=== PATIENT | female | born 1970 | race Caucasian/White ===

== ENCOUNTER 2020-07-25 11:22 | Outpatient (REF) | payer MEDICAID, SELFPAY ==
[2020-07-25 12:07] LABS: MANUAL DIFF FLAG NO
[2020-07-25 12:10] LABS: Basophils Percent Auto 0.3 % (0-2); Eosinophils Absolute Auto 0.1 X10*3/uL (0.0-0.4); Eosinophils Percent Auto 1.4 % (0-4); Hematocrit 32.6 % (37-47); Hemoglobin 10.9 g/dl (12.0-16.0); Imm Gran Abs Auto 0.03 X10*3/uL (0.00-0.03); Imm Gran Pct Auto 0.5 % (0.0-0.4); Lymphocytes Absolute Auto 1.4 X10*3/uL (1.2-4.9); Lymphocytes Percent Auto 23.8 % (20-40); Mean Corpuscular HGB Conc 33.4 g/dl (31.0-35.0); Mean Corpuscular Hemoglobin 26.5 pg (27.0-33.0); Mean Corpuscular Volume 79.3 fL (80-98); Mean Platelet Volume 9.9 fL (9.4-12.3); Monocytes Absolute Auto 0.3 X10*3/uL (0.1-1.2); Monocytes Percent Auto 5.1 % (2-11); Neutrophils Percent Auto 68.9 % (45-73); Platelet Count 203 X10*3/uL (160-400); Red Blood Count 4.11 X10*6/uL (4.20-5.50); Red Cell Distribution Width 14.1 % (11.0-16.0); White Blood Count 5.8 X10*3/uL (4.8-10.8)
[2020-07-25 12:19] LABS: Glucose Urine UA NEG (NEG); Leukocyte Esterase Urine NEG (NEG); Nitrite Urine NEG (NEG); Specific Gravity - Urine 1.025 (1.005-1.025); Urine Blood 1+ (NEG); Urine Ketones NEG (NEG); Urine Protein 2+ MG/DL (NEG-TRACE)
[2020-07-25 12:24] LABS: Renal w Reflex-LAB USE ONLY Order Verified
[2020-07-25 12:27] LABS: Appearance Urine CLEAR; Color Urine YELLOW
[2020-07-25 12:31] LABS: Bacteria Urine 1+ /LPF; Mucus Urine 1+ /LPF; Squamous Epithelial Cell Urine 2+ /LPF; WBC Urine 0 /HPF (0-4)
[2020-07-25 12:36] LABS: Albumin Level 4.4 g/dL (3.5-5.0); Anion Gap 11 (12-20); Blood Urea Nitrogen 12 mg/dL (9-16); Calcium 9.2 mg/dL (8.4-10.2); Carbon Dioxide 27 mmol/L (22-29); Chloride 108 mmol/L (96-108); Estimated Glomerular Filt Rate > 60; Iron 44 mcg/dL (30-160); Magnesium 1.8 mg/dL (1.6-2.6); Percent Iron Saturation 14 % (15-50); Phosphorus 4.2 mg/dL (2.7-4.5); Potassium 4.2 mmol/l (3.3-5.1); Sodium 142 mmol/L (135-145); Total Iron Binding Capacity 323 mcg/dL (228-428); Unsaturated Iron Binding 279 ug/dL
[2020-07-25 13:03] LABS: Ferritin 13 ng/mL (10-250); Vitamin D 25-OH Total 82.3 ng/mL (>30)
[2020-07-25 13:26] LABS: Creatinine Urine 107.27 mg/dL; Protein/Creatinine Ratio, Ur 1.38 (<0.2); Total Protein Urine Random 148 mg/dL (<12)
[2020-07-25 13:31] LABS: Renal w Reflex Lab Use Only Order verified
[2020-07-25 13:35] LABS: Creatinine Urine 108.92 mg/dL; Total Protein Urine Random 151 mg/dL (<12)
[2020-07-25 13:52] LABS: Microalbum/Creatinine Ratio Ur 947.4 ug/mg cr
[2020-07-26 18:25] LABS: IgA 183 mg/dL (47-310); IgG 1029 mg/dL (600-1640); IgM 74 mg/dL (50-300)
== END 2020-07-25 11:23 | disposition home or self-care (01) ==
LOC: HO.LAB 11:22
PROVIDERS: PCP Pediatrics; Visit Provider Internal Medicine Nephrology
DX: D64.9 Anemia, unspecified (principal); R31.29 Other microscopic hematuria
CPT/HCPCS: 36415; 80051; 81001; 82040; 82043; 82306; 82310; 82565; 82728; 82784; 83540; 83735; 84100; 84156; 84520; 85025; 86334

== ENCOUNTER 2020-08-02 12:29 | Day surgery (SDC) | payer MEDICAID, SELFPAY ==
[2020-07-27 14:03] VITALS: BMI 35.1
--- NOTE | 2020-07-31 09:01 | HO.ANESPROP2 ---
Documented by User: Tiffanie Hwang 07/31/20 09:04 HPI - Anesthesia Eval Consult details Narrative: 49yo F with ALONZO, dysphagia, altered bowel habits for EGD and Colonoscopy PMFSH Past Medical History Medical History Anxiety Arthritis Asthma Depression Dysphagia Fibromyalgia GERD (gastroesophageal reflux disease) History of palpitations Hx of bronchitis Iron deficiency anemia Surgical History Surgical History History of carpal tunnel surgery of right wrist History of laryngoscopy Hx of colonoscopy Hx of esophagogastroduodenoscopy Hx of hysterectomy Social History Social History Smoking Status: Never smoker Second Hand Smoke Exposure: No Use of substances other than those prescribed or required for medical reasons: No Advance Directives: No Advance Directives Information Provided: No Recently lost weight without trying: No Meds Allergies Allergy/AdvReac Type Severity Reaction Status Date / Time Oyster Shell Allergy Unknown Unknown Uncoded 07/27/20 13:51 Home Medications Medication Instructions Recorded Confirmed Type albuterol sulfate 0.63 mg INHALATION Q4-6H PRN 07/27/20 07/27/20 History allopurinol 300 mg PO DAILY 07/27/20 07/27/20 History cholecalciferol (vitamin D3) 125 mcg PO DAILY 07/27/20 07/27/20 History [Vitamin D3] cyanocobalamin (vitamin B-12) 1,000 mcg PO DAILY 07/27/20 07/27/20 History [Vitamin B-12] duloxetine [Cymbalta] 20 mg PO BID 07/27/20 07/27/20 History fluticasone propion-salmeterol 1 inh INHALATION BID 07/27/20 07/27/20 History [Advair Diskus] fluticasone propionate [Flonase] 1 spray INTRANASAL DAILY 07/27/20 07/27/20 History guaifenesin [Mucinex] 1,200 mg PO BID 07/27/20 07/27/20 History ibuprofen 800 mg PO Q6H PRN 07/27/20 07/27/20 History loratadine 10 mg PO DAILY 07/27/20 07/27/20 History melatonin 10 mg PO BEDTIME PRN 07/27/20 07/27/20 History montelukast [Singulair] 10 mg PO DAILY 07/27/20 07/27/20 History omeprazole 20 mg PO BID 07/27/20 07/27/20 History pantoprazole 40 mg PO DAILY 07/27/20 07/27/20 History Exam Exam Date and Time: July 31, 2020900 Height,Weight and Vital Signs: Height 5 ft 2 in Weight 87.09 kg Pertinent Lab Results Pertinent Lab Results: Laboratory Tests 07/25/20 07/25/20 11:50 11:50 WBC 5.8 Hgb 10.9 L Hct 32.6 L Plt Count 203 Sodium 142 Potassium 4.2 Chloride 108 BUN 12 Creatinine 0.81 Narrative Narrative: Echo 11/2019: nml study Assessment and Plan Assessment Anesthesia Assessment: Chart Reviewed Documented by User: Nirmal Orozco 08/02/20 12:53 PMFSH Past Medical History Medical History Anxiety Arthritis Asthma Depression Dysphagia Fibromyalgia GERD (gastroesophageal reflux disease) History of palpitations Hx of bronchitis Iron deficiency anemia Surgical History Surgical History History of carpal tunnel surgery of right wrist History of laryngoscopy Hx of colonoscopy Hx of esophagogastroduodenoscopy Hx of hysterectomy Social History Social History Smoking Status: Never smoker Second Hand Smoke Exposure: No Use of substances other than those prescribed or required for medical reasons: No Advance Directives: No Advance Directives Information Provided: No Recently lost weight without trying: No Meds Allergies Allergy/AdvReac Type Severity Reaction Status Date / Time Oyster Shell Allergy Unknown Unknown Uncoded 07/27/20 13:51 Home Medications Medication Instructions Recorded Confirmed Type albuterol sulfate 0.63 mg INHALATION Q4-6H PRN 07/27/20 07/27/20 History allopurinol 300 mg PO DAILY 07/27/20 07/27/20 History cholecalciferol (vitamin D3) 125 mcg PO DAILY 07/27/20 07/27/20 History [Vitamin D3] cyanocobalamin (vitamin B-12) 1,000 mcg PO DAILY 07/27/20 07/27/20 History [Vitamin B-12] duloxetine [Cymbalta] 20 mg PO BID 07/27/20 07/27/20 History fluticasone propion-salmeterol 1 inh INHALATION BID 07/27/20 07/27/20 History [Advair Diskus] fluticasone propionate [Flonase] 1 spray INTRANASAL DAILY 07/27/20 07/27/20 History guaifenesin [Mucinex] 1,200 mg PO BID 07/27/20 07/27/20 History ibuprofen 800 mg PO Q6H PRN 07/27/20 07/27/20 History loratadine 10 mg PO DAILY 07/27/20 07/27/20 History melatonin 10 mg PO BEDTIME PRN 07/27/20 07/27/20 History montelukast [Singulair] 10 mg PO DAILY 07/27/20 07/27/20 History omeprazole 20 mg PO BID 07/27/20 07/27/20 History pantoprazole 40 mg PO DAILY 07/27/20 07/27/20 History Exam Airway Mallampati Class: II TM Dist: >3cm Neck ROM: Full Heart: RRR Assessment and Plan Assessment Anesthesia Assessment: Anesthesia Plan Discussed Final Anesthetic Review NPO: Yes ASA Class: II Final Preanesthetic Review: Consent Obtained/Reviewed Anesthetic Plan Anesthetic Plan: MAC:
[2020-08-02 12:49] VITALS: BP 141/67; PULSE 80; RESP 16; TEMP 36.1; O2SAT 99
[2020-08-02] MEDS: Lactated Ringers 1,000 ML 100 ML IVCONT (13:01)
--- NOTE | 2020-08-02 13:02 | MHC.SHP ---
Pre-Procedural Eval Section B Chief Complaint: Dysphagia, Altered Bowel Habits Relevant Family History (Specify if Yes): No Relevant Social History: None Present Medications: see Short Stay Collaborative assessment Medical History: Significant History (depression, gerd, bronchitis) History of Previous Operations: Relevant previous surgery/procedure and date(s) (, appendectomy,) Allergies: Allergies Allergy/AdvReac Type Severity Reaction Status Date / Time Oyster Shell Allergy Unknown Unknown Uncoded 07/27/20 13:51 Review of Systems Sugical H&P ROS: Negative: Constitution, Cardiovascular, Respiratory, Neurological, Psychiatric, Hem-Onc, Allergic/Immunologic, Gastrointestinal, Genitourinary, Musculoskeletal, Integumentary, Endocrine and Eyes/Ears/Nose/Throat Exam Surgical H&P Exam: Normal: HEENT, Normal: Heart, Normal: Lungs, Normal: Extremities, Normal: Abdomen, Normal: Skin and Normal: Neurological Plan Diagnosis/Plan: Unchanged Patient has been examined and remains a candidate for the planned procedure
--- NOTE | 2020-08-02 13:07 | PM.OP ---
Brief Operative Note Date of procedure: 08/02/20 Pre-op diagnosis: dysphagisa, iron def anemia Post-op diagnosis: same Procedure: Operative Information Procedure Description: EGD, Colonoscopy FLEXIBLE TRANSORAL UPPER GASTROINTESTINAL ENDOSCOPY AND COLONOSCOPY PROCEDURE NOTE UPPER ENDOSCOPY Consent: Indications for the procedure and potential complications of bleeding, perforation, reaction to medications and missed diagnosis were discussed with the patient and informed consent was obtained. Instrument: Olympus GIF H 190 J mid size upper endoscope Monitoring: Vital signs and clinical assessment, continuous EKG monitoring, Pulse oximetry, Carbon Dioxide monitoring and blood pressure monitoring were done throughout the procedure. Procedure: The patient was placed in the left lateral decubitis position and pre-procedure medications were administered and a bite block was placed. The endoscope was inserted into the mouth and advanced under direct vision to the third part of duodenum. A careful inspection was made as the upper endoscope was withdrawn including a retroflexed examination of the proximal stomach; Findings and interventions are described below. Findings: Larynx:normal Esophagus: GE junction at 40 cm, diaphragm hiatus at 40 cm, single tongue of salmon pink tissue possible barretts, bx taken, Savary wire placed and dilation with 18 mm bougie done, no tear seen Stomach: Normal mucosa. . Grade 2 flap valve on retroflexed examination of the cardia. Duodenum: Normal bulb and descending duodenum, bx taken Intervention: Biopsies as noted above COLONOSCOPY Instrument: Olympus variable stiffness adult scope 190L Colonoscopy Monitoring: Vital signs and clinical assessment, continuous EKG monitoring, Pulse oximetry, Carbon Dioxide monitoring and blood pressure monitoring were done throughout the procedure. Colon withdrawal time was 8 minutes. Procedure: The patient was placed in the left lateral decubitis position and pre-procedure medications were administered. After a digital rectal examination of the ano-rectum, the video colonoscope was inserted into the rectum and advanced through the colon to the cecum/TI. The colonoscope was slowly withdrawn in a retrograde panoramic fashion and the colon mucosa was carefully examined including a retroflexed view of the rectum. Findings and interventions are described below. Procedure Difficulty: Findings: TI bx taken as well as random colon bx Terminal Ileum-normal Cecum:normal Ascending Colon: normal Transverse Colon -normal Descending Colon:normal Sigmoid Colon: normal Rectum: Retroflexion with small internal hemorrhoids, grade I Anorectum - normal Colon preparation: [place] Bowel Preparation Scale Right colon; 3 Transverse colon: 3 Left colon; 3 (0 = Unprepared colon segment with mucosa not seen due to solid stool that cannot be cleared. 1 = Portion of mucosa of the colon segment seen, but other areas of the colon segment not well seen due to staining, residual stool and/or opaque liquid. 2 = Minor amount of residual staining, small fragments of stool and/or opaque liquid, but mucosa of colon segment seen well. 3 = Entire mucosa of colon segment seen well with no residual staining, small fragments of stool or opaque liquid) Impression and Post Procedure Diagnosis: Endoscopy Findings: possible barretts esophageal dilation Colonoscopy Findings: internal hemorrhoids Plan: Await Pathology results Repeat Colonoscopy in 10 years or earlier if clinically indicated High fiber diet leaflet avoid straining at stool, epsom salts and sitz bath prn, anusol supps or cream prn may need rept EGD if barretts confirmed in 1-3 yrs Above findings were reviewed with the patient and relevant handouts were provided if indicated. Surgeon: Eda Bahena MD Anesthesia: MAC Condition: stable Disposition: PACU
[2020-08-02 14:04] VITALS: BP 111/63; PULSE 65; RESP 12; TEMP 37.1; O2SAT 99
[2020-08-02 14:21] VITALS: BP 127/66; PULSE 58; RESP 14; O2SAT 98
[2020-08-02 14:34] VITALS: BP 130/83; PULSE 64; RESP 13; TEMP 37.1; O2SAT 100
--- NOTE | 2020-08-02 15:16 | HO.POSTANES ---
Post Anesthesia Evaluation Post Anesthesia Evaluation Vital Signs: Vital Signs Temp Pulse Resp BP Pulse Ox 08/02/20 14:34 98.7 F 64 13 130/83 100 08/02/20 14:21 58 14 127/66 98 08/02/20 14:04 98.7 F 65 12 111/63 99 08/02/20 12:49 97 F 80 16 141/67 H 99 Anesthesia: Monitored Mental Status: Awake Pain Control: Satisfactory Nausea/Vomiting: None Hydration: Adequate Anesthesia-Related Issues: No Anes. Related Issues
== END 2020-08-02 15:30 | disposition home or self-care (01) ==
PROVIDERS: PCP Pediatrics; Visit Provider Internal Medicine Gastroenterology
PROC: (CPT 45380; principal; 2020-08-02 13:40)
DX: D50.9 Iron deficiency anemia, unspecified (principal); R19.4 Change in bowel habit; K64.0 First degree hemorrhoids; R13.10 Dysphagia, unspecified; K20.90 Esophagitis, unspecified without bleeding; K21.9 Gastro-esophageal reflux disease without esophagitis; K44.9 Diaphragmatic hernia without obstruction or gangrene; J45.909 Unspecified asthma, uncomplicated; Z79.51 Long term (current) use of inhaled steroids
CPT/HCPCS: 45380; 43248; 43239; 88305; C1769; J3010

== ENCOUNTER 2020-08-08 10:08 | Outpatient (REF) | payer MEDICAID, SELFPAY ==
--- NOTE | 2020-08-08 | US_ITS ---
EXAMINATION: US RETROPERITONEAL LIMITED (RENAL ONLY) CLINICAL INFORMATION: Microscopic hematuria. COMPARISON: CT abdomen and pelvis 05/05/2017. TECHNIQUE: Real-time imaging of the kidneys. FINDINGS: RIGHT KIDNEY: 11.3 x 4.0 x 5.5 cm (SAG x AP x TRV). The kidney is normal in size, contour, and echogenicity. Renal cortical thickness is normal. No calculi or focal parenchymal lesions. No hydronephrosis. LEFT KIDNEY: 12.1 x 5.3 x 4.8 cm (SAG x AP x TRV). The kidney is normal in size, contour, and echogenicity. Renal cortical thickness is normal. No calculi or focal parenchymal lesions. No hydronephrosis. IMPRESSION: Unremarkable renal ultrasound.
== END 2020-08-08 10:09 | disposition home or self-care (01) ==
LOC: HO.US 10:08
PROVIDERS: PCP Pediatrics; Visit Provider Internal Medicine Nephrology
DX: R31.29 Other microscopic hematuria (principal); D64.9 Anemia, unspecified
CPT/HCPCS: 76775

== ENCOUNTER 2020-08-09 13:55 | Outpatient (REF) | payer MEDICAID, SELFPAY ==
--- NOTE | 2020-08-09 14:25 | XR_ITS ---
EXAMINATION: XR FOOT, LEFT CLINICAL INFORMATION: Pain left foot. COMPARISON: None TECHNIQUE: AP, lateral, and oblique views of the left foot. FINDINGS: The bones and soft tissues are normal. No fracture. Alignment is anatomic. Joint spaces are maintained. XR/XR foot LT min 3V IMPRESSION: Unremarkable left foot exam.
== END 2020-08-09 13:56 | disposition home or self-care (01) ==
LOC: HO.XRAY 13:55
PROVIDERS: PCP Pediatrics; Referring Provider Pediatrics; Visit Provider Physician Assistant
DX: S92.302D Fracture of unspecified metatarsal bone(s), left foot, subsequent encounter for fracture with routine healing (principal)
CPT/HCPCS: 73630; 99212

== ENCOUNTER 2020-09-05 13:50 | Outpatient (REF) | payer MEDICAID, SELFPAY ==
--- NOTE | 2020-09-05 14:00 | XR_ITS ---
EXAMINATION: XR PELVIS CLINICAL INFORMATION: Pelvic and right hip pain. COMPARISON: None TECHNIQUE: AP view of the pelvis. FINDINGS: The bones and soft tissues are normal. No fracture. Mild right hip degenerative joint changes are seen. The sacroiliac joints are unremarkable. Pubic symphysis is normal. No abnormal soft tissue calcifications. XR/XR pelvis 1-2V IMPRESSION: Mild right hip osteoarthritis. No significant pelvic or left hip abnormality.
--- NOTE | 2020-09-05 14:00 | XR_ITS ---
EXAMINATION: XR HIP, RIGHT CLINICAL INFORMATION: Right hip pain. COMPARISON: None TECHNIQUE: Two views of the right hip. FINDINGS: Mild right hip degenerative joint changes are seen with mild periarticular sclerosis most pronounced in the superior aspect of the joint space. The right hip and hemipelvis are intact. The soft tissues are unremarkable. XR/XR hip RT min 2V IMPRESSION: Mild right hip osteoarthritis.
== END 2020-09-05 13:51 | disposition home or self-care (01) ==
LOC: HO.HOSX 13:50
PROVIDERS: PCP Pediatrics; Referring Provider Pediatrics; Visit Provider Physician Assistant
DX: M25.551 Pain in right hip (principal); M70.61 Trochanteric bursitis, right hip
CPT/HCPCS: 72170; 73502; 99212

== ENCOUNTER 2020-09-10 17:52 | Outpatient (REF) | payer MEDICAID, SELFPAY | END 2020-09-10 17:53 | disposition home or self-care (01) | LOC: HO.LAB 17:52 | PROVIDERS: PCP Pediatrics; Visit Provider Internal Medicine | DX: Z20.828 Contact with and (suspected) exposure to other viral communicable diseases (principal) | CPT/HCPCS: C9803; U0003 ==

== ENCOUNTER → 2020-09-25 08:50 | Outpatient (BNVA) | payer MEDICAID, SELFPAY | PROVIDERS: PCP Pediatrics; Referring Provider Pediatrics; Visit Provider Internal Medicine Gastroenterology | DX: Z76.89 Persons encountering health services in other specified circumstances (principal) ==

== ENCOUNTER 2020-09-26 11:54 | Outpatient (REF) | payer MEDICAID, SELFPAY ==
[2020-09-26 12:55] LABS: MANUAL DIFF FLAG NO
[2020-09-26 13:03] LABS: Basophils Percent Auto 0.4 % (0-2); Eosinophils Absolute Auto 0.1 X10*3/uL (0.0-0.4); Eosinophils Percent Auto 1.3 % (0-4); Hematocrit 31.5 % (37-47); Imm Gran Abs Auto 0.04 X10*3/uL (0.00-0.03); Imm Gran Pct Auto 0.7 % (0.0-0.4); Lymphocytes Absolute Auto 1.3 X10*3/uL (1.2-4.9); Mean Corpuscular HGB Conc 34.9 g/dl (31.0-35.0); Mean Corpuscular Hemoglobin 28.6 pg (27.0-33.0); Mean Corpuscular Volume 81.8 fL (80-98); Mean Platelet Volume 10.1 fL (9.4-12.3); Monocytes Absolute Auto 0.3 X10*3/uL (0.1-1.2); Monocytes Percent Auto 5.8 % (2-11); Neutrophils Absolute Auto 3.6 X10*3/uL (2.0-8.3); Neutrophils Percent Auto 67.8 % (45-73); Platelet Count 190 X10*3/uL (160-400); Red Blood Count 3.85 X10*6/uL (4.20-5.50); Red Cell Distribution Width 14.7 % (11.0-16.0); White Blood Count 5.3 X10*3/uL (4.8-10.8)
[2020-09-26 13:54] LABS: Alanine Aminotransferase 22 U/L (0-31); Alkaline Phosphatase 72 U/L (39-117); Anion Gap 14 (12-20); Aspartate Amino Transferase 18 U/L (5-31); Bilirubin Total 0.5 mg/dL (0.0-1.0); Blood Urea Nitrogen 12 mg/dL (9-16); C Reactive Protein 0.93 mg/dL (< or = 0.50); Calcium 8.6 mg/dL (8.4-10.2); Carbon Dioxide 24 mmol/L (22-29); Chloride 106 mmol/L (96-108); Cholesterol 213 mg/dL; Estimated Glomerular Filt Rate > 60; Glucose Random 98 mg/dL (60-115); HDL Cholesterol 48 mg/dL; Iron 56 mcg/dL (30-160); LDL Cholesterol Calculated 135 mg/dl; Percent Iron Saturation 20 % (15-50); Potassium 3.9 mmol/l (3.3-5.1); Sodium 140 mmol/L (135-145); Total Iron Binding Capacity 281 mcg/dL (228-428); Total Protein 6.6 g/dL (6.5-8.0); Triglycerides 154 mg/dL; Unsaturated Iron Binding 225 ug/dL
[2020-09-26 14:14] LABS: Ferritin 26 ng/mL (10-250)
[2020-09-26 14:17] LABS: Erythrocyte Sedimentation Rate 13 MM/HR (0-20)
[2020-10-01 13:07] LABS: Vitamin B1 10 nmol/L (8-30); Vitamin B6 4.6 ng/mL (2.1-21.7)
[2020-10-01 17:08] LABS: Vitamin B5 (Pantothenic Acid) <40 ng/mL (<275)
[2020-10-02 10:33] LABS: Vitamin A 41 mcg/dL (38-98)
[2020-10-03 09:58] LABS: Nicotinamide <20 ng/mL; Vit B3 - Nicotinic Acid <20 ng/mL
== END 2020-09-26 11:55 | disposition home or self-care (01) ==
LOC: HO.LAB 11:54
PROVIDERS: PCP Pediatrics; Visit Provider Internal Medicine Gastroenterology
DX: D50.9 Iron deficiency anemia, unspecified (principal); R13.10 Dysphagia, unspecified
CPT/HCPCS: 36415; 80053; 80061; 82728; 83540; 84207; 84425; 84590; 84591; 85025; 85652; 86140

== ENCOUNTER 2020-10-01 13:51 | Outpatient (REF) | payer MEDICAID, SELFPAY | END 2020-10-01 13:52 | disposition home or self-care (01) | LOC: HO.MDS 13:51 | PROVIDERS: PCP Pediatrics; Visit Provider Internal Medicine Gastroenterology | DX: D50.9 Iron deficiency anemia, unspecified (principal) | CPT/HCPCS: 96365; J2916 ==

== ENCOUNTER 2020-10-04 09:22 | Outpatient (REF) | payer MEDICAID, SELFPAY ==
--- NOTE | 2020-10-04 09:30 | EMG_ITS ---
Left median and ulnar motor and sensory studies were performed. Left radial sensory study was performed and paraspinal muscles were tested. IMPRESSION: 1. [id number] left median neuropathy across carpal tunnel. 2. Mild left ulnar neuropathy across cubital tunnel. MD OSMIN Rodriguez/MARK ANTHONY / [id number]
== END 2020-10-04 09:23 | disposition home or self-care (01) ==
LOC: HO.NEURO 09:22
PROVIDERS: PCP Pediatrics; Visit Provider Pediatrics
DX: G56.03 Carpal tunnel syndrome, bilateral upper limbs (principal)
CPT/HCPCS: 95886; 95909

== ENCOUNTER 2020-10-09 09:56 | Outpatient (REF) | payer MEDICAID, SELFPAY | END 2020-10-09 09:57 | disposition home or self-care (01) | LOC: HO.MDS 09:56 | PROVIDERS: PCP Pediatrics; Visit Provider Internal Medicine Gastroenterology | DX: D50.9 Iron deficiency anemia, unspecified (principal) | CPT/HCPCS: 96365; J2916 ==

== ENCOUNTER → 2020-10-15 08:14 | Outpatient (BNVA) | payer MEDICAID, SELFPAY | PROVIDERS: PCP Pediatrics; Visit Provider Internal Medicine Gastroenterology | DX: R13.10 Dysphagia, unspecified (principal); K21.9 Gastro-esophageal reflux disease without esophagitis | CPT/HCPCS: 91110 ==

== ENCOUNTER 2020-10-22 10:34 | Emergency (ER) | payer MEDICAID, SELFPAY ==
[2020-10-22 10:47] VITALS: BP 121/67; PULSE 74; RESP 18; TEMP 36.4; O2SAT 98; BMI 33.8
--- NOTE | 2020-10-22 10:48 | XR_ITS ---
EXAMINATION: LUMBAR SPINE. AP PELVIS AND RIGHT HIP. CLINICAL INFORMATION: Low back pain. COMPARISON: None TECHNIQUE: 3 views lumbar spine. AP pelvis and right hip 2 views. FINDINGS: LUMBAR SPINE: There is normal lumbar lordosis. The vertebral heights and alignment is normal. There is loss of L5-S1 disc height with ventral spondylosis. No visible acute fracture, dislocation or lytic process seen. The SI joints are symmetrical. The prevertebral and paravertebral soft tissues are normal. PELVIS AND RIGHT HIP: There is normal symmetry of bilateral hip joints and SI joints. No visible acute fracture, dislocation or subluxation seen. No lytic or sclerotic process seen. No bony erosive changes or loose body seen along the right hip. The soft tissues are normal. XR/XR hip RT w PEL1V IMPRESSION: Degenerative disc changes L5-S1 disc level with mild posterior spondylosis. No visible acute fracture, dislocation or subluxation seen. Unremarkable AP pelvis and right hip exam.
--- NOTE | 2020-10-22 10:48 | XR_ITS ---
EXAMINATION: LUMBAR SPINE. AP PELVIS AND RIGHT HIP. CLINICAL INFORMATION: Low back pain. COMPARISON: None TECHNIQUE: 3 views lumbar spine. AP pelvis and right hip 2 views. FINDINGS: LUMBAR SPINE: There is normal lumbar lordosis. The vertebral heights and alignment is normal. There is loss of L5-S1 disc height with ventral spondylosis. No visible acute fracture, dislocation or lytic process seen. The SI joints are symmetrical. The prevertebral and paravertebral soft tissues are normal. PELVIS AND RIGHT HIP: There is normal symmetry of bilateral hip joints and SI joints. No visible acute fracture, dislocation or subluxation seen. No lytic or sclerotic process seen. No bony erosive changes or loose body seen along the right hip. The soft tissues are normal. XR/XR lumbar spine 2-3V IMPRESSION: Degenerative disc changes L5-S1 disc level with mild posterior spondylosis. No visible acute fracture, dislocation or subluxation seen. Unremarkable AP pelvis and right hip exam.
--- NOTE | 2020-10-22 10:50 | ED_ITS ---
HPI - Back Pain/Injury General Chief Complaint: Back Pain/Injury Stated Complaint: leg pain Time Seen by Provider: 10/22/20 10:45 Source: patient Mode of arrival: EMS Limitations: no limitations History of Present Illness HPI Narrative: This is a 50 years old the female presented to the emergency department a week complaining of lower back pain and right hip pain. Patient has history of fibromyalgia, right trochanteric bursitis. She states that the pain is been ongoing, now is worse than the she has difficulty ambulating. There is no trauma no fever. Denies any numbness in the lower extremity any urine incontinence MD elicited complaint: back pain Pertinent past history: prior back pain Onset (ago): week(s) (1) Timing: constant Severity: moderate Similar Symptoms Previously: Yes Quality: burning and dull Location: lumbar spine Exacerbating factors: walking Relieving factors: none Treatments prior to arrival: other (She was given Ketoralac IM by EMS) Related Data Home Medications Medication Instructions Recorded Confirmed albuterol sulfate 0.63 mg INHALATION Q4-6H PRN 07/27/20 07/27/20 allopurinol 300 mg PO DAILY 07/27/20 07/27/20 cholecalciferol (vitamin D3) 125 mcg PO DAILY 07/27/20 07/27/20 [Vitamin D3] cyanocobalamin (vitamin B-12) 1,000 mcg PO DAILY 07/27/20 07/27/20 [Vitamin B-12] duloxetine [Cymbalta] 20 mg PO BID 07/27/20 07/27/20 fluticasone propion-salmeterol 1 inh INHALATION BID 07/27/20 07/27/20 [Advair Diskus] fluticasone propionate [Flonase] 1 spray INTRANASAL DAILY 07/27/20 07/27/20 guaifenesin [Mucinex] 1,200 mg PO BID 07/27/20 07/27/20 ibuprofen 800 mg PO Q6H PRN 07/27/20 07/27/20 loratadine 10 mg PO DAILY 07/27/20 07/27/20 melatonin 10 mg PO BEDTIME PRN 07/27/20 07/27/20 montelukast [Singulair] 10 mg PO DAILY 07/27/20 07/27/20 Previous Rx's Medication Instructions Recorded naproxen 500 mg tablet 500 mg PO BID 30 Days #60 tab 09/05/20 famotidine 40 mg tablet 40 mg PO BEDTIME #30 tab 09/25/20 pantoprazole 40 mg tablet,delayed 40 mg PO BID #60 tab 09/25/20 release bisacodyl 5 mg tablet,delayed 10 mg PO ONCE 1 Days #2 tab 09/26/20 release polyethylene glycol 3350 17 238 g PO ONCE 1 Days #238 g 09/26/20 gram/dose oral powder Allergies Allergy/AdvReac Type Severity Reaction Status Date / Time Oyster Shell Allergy Unknown Unknown Uncoded 07/27/20 13:51 Review of Systems Review of Systems: Yes all other systems are reviewed and are negative Cardiovascular: Cardiovascular: Reports no additional cardiovascular complaints Respiratory: Respiratory: Reports no additional respiratory complaints Gastrointestinal: Gastrointestinal: Denies abdominal pain Musculoskeletal: Musculoskeletal: Denies numbness and Denies tingling Neurologic: Denies Abnormal speech present, Denies numbness, Denies Sensory deficit (Neuro), Denies tingling and Denies paresthesias Psychiatric: Psychiatric: Reports no additional psychiatric complaints PMFSH Past Medical History Medical History Anxiety Arthritis Asthma Depression Dysphagia Fibromyalgia GERD (gastroesophageal reflux disease) History of palpitations Hx of bronchitis Iron deficiency anemia Surgical History History of carpal tunnel surgery of right wrist History of laryngoscopy Hx of colonoscopy Hx of esophagogastroduodenoscopy Hx of hysterectomy Family History Family History Father Hx of type 1 diabetes mellitus Mother Hx of osteosarcoma Social History Social History Alcohol intake: never Smoking Status: Never smoker Second Hand Smoke Exposure: No Advance Directives: No Advance Directives Information Provided: No 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 Physical Exam Vital Signs: Vital Signs: Last Vital Signs Temp 97.5 F 10/22/20 10:47 Pulse 58 10/22/20 13:18 Resp 17 10/22/20 13:18 BP 123/65 10/22/20 13:18 Pulse Ox 97 10/22/20 13:18 Body Mass Index 33.8 Const: Other: Patient is in no distress but a bit anxious HENMT: Head: Yes normal to inspection Ears: hearing grossly normal bilaterally General nose exam: Normal external nose present Face and sinus: Yes normal facial exam Neck: Neck: Yes normal visual inspection, Yes full ROM and Yes no lymphadenopathy Chest: Chest palpation & inspection: normal inspection of the chest Resp: Effort & Inspection: normal respiratory effort Cardio: Rate: regular rate GI: Inspection: Yes normal to inspection Palpation (GI): Soft to palpation, nontender, no guarding and not rigid Back/Spine/Pelvis: Other: There is tenderness in the lower spine Skin: General skin exam: no rashes or lesions noted Neuro: Other: She is awake alert oriented x3 cranial nerve 2-12 intact the there is no motor deficit no sensory deficit Speech: No Abnormal speech present Sensory Exam: No Sensory deficit (Neuro) Extrem: Other: she has tenderness in the right hip, Course Reevaluation(s) Reevaluation #1: Patient was reexamined she is ambulating well without assistance labs and normal, sed rate is normal most likely she has a sciatic will discharge home on prednisone give a few oxycodone and [facility] Time: 13:55 MDM - Back Pain/Injury Lab Data Attestation: I reviewed the patient's lab results. Result diagrams: 10/22/20 10:59 10/22/20 10:58 Labs: Lab Results 10/22/20 10/22/20 10/22/20 Range/Units 10:58 10:59 10:59 WBC 5.6 (4.8-10.8) X10*3/uL RBC 4.25 (4.20-5.50) X10*6/uL Hgb 12.3 (12.0-16.0) g/dl Hct 35.6 L (37-47) % MCV 83.8 (80-98) fL MCH 28.9 (27.0-33.0) pg MCHC 34.6 (31.0-35.0) g/dl RDW 14.0 (11.0-16.0) % Plt Count 183 (160-400) X10*3/uL MPV 9.9 (9.4-12.3) fL Immature Gran % (Auto) 0.5 H (0.0-0.4) % Neut % (Auto) 71.0 (45-73) % Lymph % (Auto) 20.7 (20-40) % Desha % (Auto) 6.0 (2-11) % Eos % (Auto) 1.4 (0-4) % Baso % (Auto) 0.4 (0-2) % Lymph # (Auto) 1.2 (1.2-4.9) X10*3/uL Desha # (Auto) 0.3 (0.1-1.2) X10*3/uL Eos # (Auto) 0.1 (0.0-0.4) X10*3/uL Baso # (Auto) 0.0 (0.0-0.2) X10*3/uL Abs Immat Gran (auto) 0.03 (0.00-0.03) X10*3/uL Absolute Neuts (auto) 4.0 (2.0-8.3) X10*3/uL Absolute Nucleated RBC 0.000 (0.0-0.012) X10*3/uL Nucleated RBC % (auto) 0.0 (0.0-0.2) /100WBC ESR 13 (0-20) MM/HR Sodium 140 (135-145) mmol/L Potassium 4.2 (3.3-5.1) mmol/l Chloride 105 (96-108) mmol/L Carbon Dioxide 28 (22-29) mmol/L Anion Gap 11 L (12-20) BUN 10 (9-16) mg/dL Creatinine 0.70 (0.5-1.4) mg/dL Estim Creat Clear Calc 94.4 Estimated GFR > 60 Random Glucose 142 H D (60-115) mg/dL Calcium 8.7 (8.4-10.2) mg/dL Total Bilirubin 0.5 (0.0-1.0) mg/dL AST 17 (5-31) U/L ALT 21 (0-31) U/L Alkaline Phosphatase 83 (39-117) U/L Total Protein 6.7 (6.5-8.0) g/dL Albumin 4.2 (3.5-5.0) g/dL Imaging Data lumbar spine and rt hip: Radiologist's impression: no acute disease Discharge Plan Discharge Prescriptions: No Action albuterol sulfate 0.63 mg/3 mL Solution For Nebulization 0.63 mg INHALATION Q4-6H PRN (Reason: Wheezing) RF: 0 cyanocobalamin (vitamin B-12) [Vitamin B-12] 1,000 mcg Tablet 1,000 mcg PO DAILY RF: 0 montelukast [Singulair] 10 mg Tablet 10 mg PO DAILY RF: 0 allopurinol 300 mg Tablet 300 mg PO DAILY RF: 0 loratadine 10 mg Tablet 10 mg PO DAILY RF: 0 cholecalciferol (vitamin D3) [Vitamin D3] 125 mcg (5,000 unit) Tablet 125 mcg PO DAILY RF: 0 melatonin 10 mg Tablet 10 mg PO BEDTIME PRN (Reason: Sleep) RF: 0 guaifenesin [Mucinex] 600 mg Tablet Extended Release 12hr 1,200 mg PO BID RF: 0 fluticasone propion-salmeterol [Advair Diskus] 250-50 mcg/dose Blister With Device 1 inh INHALATION BID RF: 0 ibuprofen 800 mg Tablet 800 mg PO Q6H PRN (Reason: Pain) RF: 0 fluticasone propionate [Flonase] 50 mcg/actuation Johnston,Suspension 1 spray INTRANASAL DAILY RF: 0 duloxetine [Cymbalta] 20 mg Capsule,Delayed Release(Dr/Ec) 20 mg PO BID RF: 0 naproxen 500 mg tablet 500 mg PO BID 30 Days Qty: 60 RF: 0 polyethylene glycol 3350 [Miralax] 17 gram/dose powder 238 g PO ONCE 1 Days Qty: 238 RF: 0 bisacodyl [Dulcolax (bisacodyl)] 5 mg tablet,delayed release (DR/EC) 10 mg PO ONCE 1 Days Qty: 2 RF: 0 pantoprazole 40 mg tablet,delayed release (DR/EC) 40 mg PO BID Qty: 60 RF: 0 famotidine 40 mg tablet 40 mg PO BEDTIME Qty: 30 RF: 3
[2020-10-22] MEDS: diazePAM 5 MG TABLET PO (11:02)
[2020-10-22] MEDS: ondansetron HCL 4 MG/2 ML VIAL IVPUSH (11:03)
[2020-10-22] MEDS: Morphine Sulfate 4 MG/ML CARTRIDGE IVPUSH (11:05)
[2020-10-22 11:06] LABS: MANUAL DIFF FLAG NO
[2020-10-22 11:08] LABS: Basophils Percent Auto 0.4 % (0-2); Eosinophils Absolute Auto 0.1 X10*3/uL (0.0-0.4); Eosinophils Percent Auto 1.4 % (0-4); Hematocrit 35.6 % (37-47); Hemoglobin 12.3 g/dl (12.0-16.0); Imm Gran Abs Auto 0.03 X10*3/uL (0.00-0.03); Imm Gran Pct Auto 0.5 % (0.0-0.4); Lymphocytes Absolute Auto 1.2 X10*3/uL (1.2-4.9); Lymphocytes Percent Auto 20.7 % (20-40); Mean Corpuscular HGB Conc 34.6 g/dl (31.0-35.0); Mean Corpuscular Hemoglobin 28.9 pg (27.0-33.0); Mean Corpuscular Volume 83.8 fL (80-98); Mean Platelet Volume 9.9 fL (9.4-12.3); Monocytes Absolute Auto 0.3 X10*3/uL (0.1-1.2); Platelet Count 183 X10*3/uL (160-400); Red Blood Count 4.25 X10*6/uL (4.20-5.50); White Blood Count 5.6 X10*3/uL (4.8-10.8)
[2020-10-22 11:29] VITALS: BP 129/68; PULSE 62; RESP 18; O2SAT 97
[2020-10-22 11:30] LABS: Alanine Aminotransferase 21 U/L (0-31); Albumin Level 4.2 g/dL (3.5-5.0); Alkaline Phosphatase 83 U/L (39-117); Anion Gap 11 (12-20); Aspartate Amino Transferase 17 U/L (5-31); Bilirubin Total 0.5 mg/dL (0.0-1.0); Blood Urea Nitrogen 10 mg/dL (9-16); Calcium 8.7 mg/dL (8.4-10.2); Carbon Dioxide 28 mmol/L (22-29); Chloride 105 mmol/L (96-108); Creatinine Clr Calc Pharmacy 94.4; Estimated Glomerular Filt Rate > 60; Glucose Random 142 mg/dL (60-115); Potassium 4.2 mmol/l (3.3-5.1); Sodium 140 mmol/L (135-145); Total Protein 6.7 g/dL (6.5-8.0)
[2020-10-22 11:54] LABS: Erythrocyte Sedimentation Rate 13 MM/HR (0-20)
[2020-10-22] MEDS: HYDROmorphone HCl 0.5 MG/0.5 ML SYRINGE IVPUSH (12:58)
[2020-10-22] MEDS: predniSONE 20 MG TABLET 60 MG PO (12:59)
[2020-10-22 13:18] VITALS: BP 123/65; PULSE 58; RESP 17; O2SAT 97
--- NOTE | 2020-10-22 13:41 | PC.NURSE ---
PT AMBULATED BACK TO STRETCHER SLOWLY MOVING ALL EXTREMITIES, WITHOUT ANY DIFFICULTY.
== END 2020-10-22 14:30 | disposition home or self-care (01) ==
PROVIDERS: Emergency Provider Emergency Medicine; PCP Pediatrics
DX: M54.41 Lumbago with sciatica, right side (principal)
CPT/HCPCS: 36415; 72100; 73502; 80053; 85025; 85652; 96374; 96375; 99283; 99284; J1170; J2270; J2405

== ENCOUNTER → 2020-10-29 13:40 | Outpatient (BNVA) | payer MEDICAID, SELFPAY | PROVIDERS: Visit Provider Physician Assistant | DX: M70.61 Trochanteric bursitis, right hip (principal) | CPT/HCPCS: 20610; 99212; J1040 ==

== ENCOUNTER → 2020-11-01 13:51 | Outpatient (BNVA) | payer MEDICAID, SELFPAY | PROVIDERS: Visit Provider Orthopaedic Surgery | DX: G56.02 Carpal tunnel syndrome, left upper limb (principal); G56.22 Lesion of ulnar nerve, left upper limb; M65.312 Trigger thumb, left thumb | CPT/HCPCS: 99202 ==

== ENCOUNTER → 2020-11-02 09:49 | Outpatient (BNVA) | payer MEDICAID, SELFPAY | PROVIDERS: PCP Pediatrics; Visit Provider Nurse Practitioner Family | DX: M54.16 Radiculopathy, lumbar region (principal); M53.3 Sacrococcygeal disorders, not elsewhere classified; M51.36 Other intervertebral disc degeneration, lumbar region | CPT/HCPCS: 99202 ==

== ENCOUNTER 2020-11-07 07:55 | Outpatient (REF) | payer MEDICAID, SELFPAY ==
--- NOTE | 2020-11-07 07:57 | MR_ITS ---
EXAMINATION: MR LUMBAR SPINE WITHOUT CONTRAST CLINICAL INFORMATION: Other intervertebral disc degeneration, lumbar region. The patient states severe pain, numbness and weakness of the right leg. COMPARISON: Plain films of the lumbar spine 10/22/2020. TECHNIQUE: MRI of the lumbar spine was obtained using routine sequences without contrast. FINDINGS: VERTEBRAL BODIES AND PARASPINAL STRUCTURES: There is a mild retrolisthesis of L5 on S1. There is narrowing of intervertebral disc height with loss of signal from the disc at this level. There are mild degenerative endplate contour changes at L5-S1 with relatively fatty signal toward the right. Intervertebral disc heights are maintained at other levels. The vertebral bodies have normal height and contour and no acute fractures are demonstrated. Overall, marrow signal is homogenous. There is a retroaortic left renal vein. The visualized pelvic structures are unremarkable. CONUS MEDULLARIS AND CAUDA EQUINA: Normal, terminating at the level of L1. The lower thoracic spinal cord appears normal. The filum terminale appears normal. There appears to be some clumping with thickening of the cauda equina nerve roots within the thecal sac on the left at L5-S1. SPINAL LEVELS: T12-L1: The facet joints appear normal bilaterally. Disc contour is normal. There is no central stenosis or foraminal narrowing. T12-L1: The facet joints appear normal bilaterally. Disc contour is normal. There is no central stenosis or foraminal narrowing. L1-L2: There is mild bilateral facet arthropathy. Posterior disc contour is normal. There is no central stenosis or foraminal narrowing. L2-L3: There is mild to moderate facet arthropathy bilaterally with ligamenta flava hypertrophy and facet joint effusions. Disc contour is normal. There is no central stenosis or foraminal narrowing. L3-L4: There is mild to moderate bilateral facet arthropathy with ligamenta flava hypertrophy and facet joint effusions. Disc contour is normal. There is no central stenosis or foraminal narrowing. L4-L5: There is mild to moderate bilateral facet arthropathy with ligamenta flava hypertrophy. Disc contour is normal. There is no central stenosis or foraminal narrowing. L5-S1: There is moderate bilateral facet arthropathy with ligamenta flava hypertrophy and facet joint effusions. There is a central and right-sided disc protrusion extending into the inferior right neural foramen with milder changes on the left. There may be impingement on the exiting L5 nerve roots inferiorly. There is no central stenosis. MR/MR lumbar spine wo con IMPRESSION: 1. At L5-S1 there is facet arthropathy and there is a posterior disc protrusion extending into the bilateral neural foramina; there appears to be impingement on the exiting right L5 nerve root. There is no central stenosis. There appears to be some thickening or clumping of the cauda equina nerve roots in the thecal sac on the left at this level. This is nonspecific, but sequelae of arachnoiditis or a nerve root sheath tumor cannot be excluded. Recommend follow-up MRI scan of the lumbar spine with contrast. 2. Milder spondylitic and facet arthropathic changes are demonstrated at other levels as described above.
== END 2020-11-07 07:56 | disposition home or self-care (01) ==
LOC: HO.MRI 07:55
PROVIDERS: Visit Provider Anesthesiology
DX: M51.36 Other intervertebral disc degeneration, lumbar region (principal); M54.16 Radiculopathy, lumbar region
CPT/HCPCS: 72148

== ENCOUNTER → 2020-11-23 08:43 | Outpatient (BNVA) | payer MEDICAID, SELFPAY | PROVIDERS: PCP Pediatrics; Visit Provider Nurse Practitioner Family | DX: M51.36 Other intervertebral disc degeneration, lumbar region (principal); M54.16 Radiculopathy, lumbar region | CPT/HCPCS: 99212 ==

== ENCOUNTER 2020-11-27 11:23 | Outpatient (REF) | payer MEDICAID, SELFPAY ==
--- NOTE | ~2020-11-27 | MM_ITS ---
EXAMINATION: MM SCREENING DIGITAL BREAST TOMOSYNTHESIS, BILATERAL CLINICAL INFORMATION: Screening. Asymptomatic. The lifetime risk of breast cancer based on the Tyrer-Cuzick Model is 13%. COMPARISON: Mammography: 11/22/2019, 11/16/2018, 08/04/2011 TECHNIQUE: Digital breast tomosynthesis is performed in both the craniocaudal and mediolateral oblique views along with computer-aided detection (CAD). Synthesized 2D images are generated from the tomosynthesis. FINDINGS: The breasts are extremely dense, which lowers the sensitivity of mammography (ACR BI-RADS breast composition Category d). There are no significant masses, abnormal calcifications, or other abnormalities. Parenchymal pattern is similar to prior exams. MM/MM tomosynthesis screening BI IMPRESSION: No mammographic evidence of malignancy. ASSESSMENT: BI-RADS 1: Negative RECOMMENDATION: Routine annual mammography screening. This patient's information was entered into a reminder system with a target due date for their next mammogram.
== END 2020-11-27 11:24 | disposition home or self-care (01) ==
LOC: HO.MAMMO 11:23
PROVIDERS: PCP Pediatrics; Visit Provider Pediatrics
DX: Z12.31 Encounter for screening mammogram for malignant neoplasm of breast (principal)
CPT/HCPCS: 77063; 77067

== ENCOUNTER 2020-11-30 07:30 | Outpatient (REF) | payer MEDICAID, SELFPAY ==
--- NOTE | ~2020-11-30 | MR_ITS ---
EXAMINATION: MR LUMBAR SPINE WITHOUT AND WITH CONTRAST CLINICAL INFORMATION: Question of arachnoiditis or nerve sheath tumor on prior imaging. Postcontrast imaging to further evaluate. COMPARISON: MRI from 11/07/2020. TECHNIQUE: MRI of the lumbar spine was obtained using routine sequences with and without contrast. Intravenous contrast: Gadavist8.5 mL FINDINGS: A mild retrosubluxation and disc space narrowing at L5-S1 is unchanged with a posterior disc bulge and shallow, broad-based right subarticular to right foraminal disc protrusion without nerve root impingement. Mild facet arthropathy also evident at this level. There is no central canal stenosis or significant foraminal narrowing in the lumbar spine. The distal cord, conus tip, and cauda equina nerve roots otherwise appear normal. There is no pathologic leptomeningeal enhancement. The imaged bony pelvis appears normal. The paraspinal soft tissues are unremarkable. The marrow signal is within normal limits. MR/MR lumbar spine wo/w con IMPRESSION: No abnormal enhancement. No thickening or clumping of the cauda equina nerve roots. Mild spondylosis at L5-S1 with a broad-based, shallow right subarticular to right foraminal disc protrusion.
== END 2020-11-30 07:31 | disposition home or self-care (01) ==
LOC: HO.MRI 07:30
PROVIDERS: Visit Provider Anesthesiology
DX: G03.9 Meningitis, unspecified (principal)
CPT/HCPCS: 72158; A9585

== ENCOUNTER 2020-11-30 09:00 | Outpatient (RCR) | payer MEDICAID, SELFPAY ==
--- NOTE | 2020-09-28 17:39 | MHC.PT.EP ---
[facility] [place] Office [place] Office [place] Office [address] Darren Peña [address] [phone] F: [phone] F: [phone] F: [phone] F: [phone] Physical Therapy Plan of Care Date of Evaluation: 09/28/20 Date of Surgery: NA Diagnosis: TROCHANTERIC BURSITIS R HIP Assessment: Pt IS 50 YO F REFERRED TO PT FROM [facility]TH[facility] WITH R TROCHANTERIC BURSITIS. SHE REPORTS PT IN PAST WITH GOOD RESULTS. PRESENTS WITH C/O LBP INTO R HIP WITH LIMITED TRUNK ROM. IS NOT SIGNIFICANTLY TTP R GREATER TROCHANTER, BUT SEEMS TO BE MORE SORE IN LB AND R GLUT AREA. SHOULD BENEFIT FROM PT TO ADDRESS THESE ISSUES WITH STRETCHES AND STRENGTHENING PROGRAM Frequency and Duration: The patient will be seen 2X/WK X 6 WKS Short Term Goals: 1. INCREASED AWARENESS POSTURE AND BACK CARE 2. 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 I HEP WITH DC EX PLAN 2. DECREASED HIP AND LBP AT LEAST 50% WITH ADLS 3 IMPROVED LEFI Treatment Plan: Modalities to reduce pain, spasms and effusion. Manual therapy to restore motion and function. Therapeutic exercise to improve strength and flexibility. Neuromuscular re-education for posture and balance. Therapeutic activities to return to functional activities of daily living. Electronically signed by: TERRENCE MARTINEZ PT Please sign and return to therapist. Thank you for your referral.
--- NOTE | 2021-04-19 16:10 | MHC.PT.DC ---
[facility] [place] Office [place] Office [place] Office [address] Darren Peña [address] [phone] F: [phone] F: [phone] F: [phone] F: [phone] Physical Therapy Discharge Report Diagnosis: TROCHANTERIC BURSITIS R HIP Date of Surgery: NA Date of Evaluation: 09/28/20 Date of Discharge: 11/30/20 Treatments to Date: 12 Cancellations to Date: 0 No Shows to Date: 0 Discharge Status: Independent with HEP Recommend MD Follow-up Discharge Summary: Pt LAST SEEN ON 11/30/20 WITH NO FURTHER APPTS SCHEDULED (?). HAS HEP. HAS NOT HAD SIGNIFICANT RELIEF IN SXS. HAS BEEN HAVING ONGOING TESTING AND PAIN CLINIC APPT. Electronically signed by: TERRENCE MARTINEZ PT Please sign and return to therapist. Thank you for your referral.
== END 2021-04-19 16:11 | disposition home or self-care (01) ==
LOC: HO.PT 09:00
PROVIDERS: Visit Provider Physician Assistant
DX: M70.61 Trochanteric bursitis, right hip (principal)
CPT/HCPCS: 97014; 97110; 97112; 97140; 97161; 97535

== ENCOUNTER → 2020-12-10 15:30 | Outpatient (BNVA) | payer MEDICAID, SELFPAY | PROVIDERS: PCP Pediatrics; Visit Provider Nurse Practitioner Family ==

== ENCOUNTER → 2020-12-21 11:08 | Outpatient (BNVA) | payer MEDICAID, SELFPAY | PROVIDERS: PCP Pediatrics; Visit Provider Internal Medicine Gastroenterology ==

== ENCOUNTER 2021-01-08 06:07 | Outpatient (REF) | payer MEDICAID, SELFPAY ==
--- NOTE | ~2021-01-08 | FL_ITS ---
EXAMINATION: XR FLUOROSCOPY WITH IMAGES CLINICAL INFORMATION: M54.16 - Radiculopathy, lumbar region COMPARISON: MR lumbar spine 11/30/2020 TECHNIQUE: Fluoroscopy performed by Goldie Young NP. Fluoroscopy time: 0.2 minutes DAP: 2.12 Gycm2 Images: 2 FINDINGS: There is spinal needle overlying outer aspect right L5-S1 neural foramen with contrast in the nerve sheath. There is transforaminal epidural extension as expected. No visible vascular communication. FL/FL guidance in treatment room IMPRESSION: Fluoroscopy for pain management procedure.
== END 2021-01-08 06:08 | disposition home or self-care (01) ==
LOC: HO.RADIR 06:07
PROVIDERS: Visit Provider Anesthesiology
DX: M54.16 Radiculopathy, lumbar region (principal); M51.36 Other intervertebral disc degeneration, lumbar region
CPT/HCPCS: 64483; J3300; Q9967

== ENCOUNTER → 2021-02-11 11:29 | Outpatient (BNVA) | payer MEDICAID, SELFPAY | PROVIDERS: PCP Pediatrics; Visit Provider Nurse Practitioner Family | DX: M54.16 Radiculopathy, lumbar region (principal); M51.36 Other intervertebral disc degeneration, lumbar region; M47.816 Spondylosis without myelopathy or radiculopathy, lumbar region | CPT/HCPCS: 99212 ==

== ENCOUNTER 2021-04-05 10:26 | Outpatient (REF) | payer MEDICAID, SELFPAY ==
[2021-04-05 12:04] LABS: MANUAL DIFF FLAG NO
[2021-04-05 12:07] LABS: Basophils Percent Auto 0.4 % (0-2); Eosinophils Absolute Auto 0.1 X10*3/uL (0.0-0.4); Eosinophils Percent Auto 1.9 % (0-4); Hemoglobin 11.4 g/dl (12.0-16.0); Imm Gran Abs Auto 0.02 X10*3/uL (0.00-0.03); Imm Gran Pct Auto 0.4 % (0.0-0.4); Lymphocytes Absolute Auto 1.3 X10*3/uL (1.2-4.9); Lymphocytes Percent Auto 23.6 % (20-40); Mean Corpuscular HGB Conc 34.5 g/dl (31.0-35.0); Mean Corpuscular Hemoglobin 29.5 pg (27.0-33.0); Mean Corpuscular Volume 85.5 fL (80-98); Mean Platelet Volume 9.7 fL (9.4-12.3); Monocytes Absolute Auto 0.3 X10*3/uL (0.1-1.2); Monocytes Percent Auto 6.2 % (2-11); Neutrophils Absolute Auto 3.6 X10*3/uL (2.0-8.3); Neutrophils Percent Auto 67.5 % (45-73); Platelet Count 165 X10*3/uL (160-400); Red Blood Count 3.86 X10*6/uL (4.20-5.50); White Blood Count 5.3 X10*3/uL (4.8-10.8)
[2021-04-05 13:10] LABS: Blood Urea Nitrogen 13 mg/dL (9-16); Estimated Glomerular Filt Rate > 60
[2021-04-05 13:28] LABS: Ferritin 81 ng/mL (10-250)
[2021-04-08 19:12] LABS: TS Negative Control Passed; TS Panel A 0; TS Panel B 0; TS Positive Control Passed; TSpotTB Negative (SeeBelow)
[2021-04-08 23:37] LABS: Transglutaminase Ab IgG 1 U/mL; Transglutaminase IgA 1 U/mL
[2021-04-16 14:06] LABS: Factor VIII Activity Clotting 158 % normal (50-180); PTT, Activated 24 sec (23-32); Ristocetin Cofactor 177 % normal (42-200)
== END 2021-04-05 10:27 | disposition home or self-care (01) ==
LOC: HO.LAB 10:26
PROVIDERS: Nurse Practitioner Family; PCP Pediatrics; Visit Provider Internal Medicine Gastroenterology
DX: Z01.812 Encounter for preprocedural laboratory examination (principal); Z11.1 Encounter for screening for respiratory tuberculosis; R10.33 Periumbilical pain; G89.29 Other chronic pain; R13.10 Dysphagia, unspecified; D50.9 Iron deficiency anemia, unspecified; R68.81 Early satiety; G47.33 Obstructive sleep apnea (adult) (pediatric)
CPT/HCPCS: 36415; 82565; 82728; 83516; 84443; 84520; 85025; 85240; 85245; 85246; 85247; 85730; 86481; 99212

== ENCOUNTER → 2021-05-28 07:55 | Outpatient (REF) | payer MEDICAID, SELFPAY ==
--- NOTE | ~2021-05-28 | NM_ITS ---
EXAMINATION: MD RADIONUCLIDE SOLID FOOD GASTRIC EMPTYING 4-HOUR STUDY CLINICAL INFORMATION: Early satiety. COMPARISON: None TECHNIQUE: A standard meal consisting of 4 oz of Egg Beaters brand tagged with 0.87 microcuries Tc-99m Sulfur Colloid, 8 oz water and 2 slices of toast with jelly was administered orally to the patient. Images were obtained using a dual head gamma camera in the anterior and posterior projections over of the stomach immediately post ingestion and at hourly intervals up to 4 hours post ingestion. The anterior and posterior counts at each time interval were averaged using the geometric mean and expressed as percentage of the immediate post ingestion counts. FINDINGS: There is good visualization of activity in the stomach immediately post ingestion. As the study progresses, there is good clearance of activity from the stomach and visualization of progressively increasing small bowel activity. By the end of the study, there is almost no retention noted in the stomach. Retention in the stomach at each time interval was: 1 hour 67% (normal 37%-90%) 2 hours 34% (normal 30%-60%) 3 hours 0% 4 hours 0% (normal 0%-10%) NM/MD gastric emptying study IMPRESSION: Normal 4-hour solid food gastric emptying study.
== END ==
LOC: HO.NUCMED 07:55
PROVIDERS: Visit Provider Internal Medicine Gastroenterology
DX: R68.81 Early satiety (principal); D50.9 Iron deficiency anemia, unspecified; R13.10 Dysphagia, unspecified
CPT/HCPCS: 78264; A9541

== ENCOUNTER 2021-06-15 12:01 | Emergency (ER) | payer MEDICAID, SELFPAY ==
--- NOTE | ~2021-06-15 | XR_ITS ---
EXAMINATION: XR CHEST CLINICAL INFORMATION: Flulike symptoms. Rule out pneumonia. COMPARISON: Chest x-ray June 22, 2020 TECHNIQUE: Frontal view of the chest was obtained. FINDINGS: Cardiac silhouette is normal in size. The lungs are well aerated. No lobar consolidation. No pleural effusion or pneumothorax. No gross osseous abnormality. XR/XR chest 1V IMPRESSION: Stable examination demonstrating no acute pulmonary pathology.
--- NOTE | 2021-06-15 12:26 | ED.GENADULT ---
HPI - General Adult General Chief complaint: General Medical Stated complaint: flu like symptoms Time Seen by Provider: 06/15/21 12:26 Source: patient and patients transporter Mode of arrival: ambulatory Limitations: language barrier History of Present Illness HPI narrative: Of anxiety, throat is, asthma, depression, fibromyalgia, GERD here with complaints of bilateral ear pain, sore throat, cough, chest discomfort with coughing, headache, all over myalgias for 3 days. Patient tells me this began after she was in a no other hospital waiting room with her family member. She is not vaccinated for COVID. Denies fevers or shortness of breath Related Data Home Medications Medication Instructions Recorded Confirmed albuterol sulfate 0.63 mg/3 mL 0.63 mg INHALATION Q4-6H PRN 07/27/20 04/05/21 solution for nebulization allopurinol 300 mg tablet 300 mg PO DAILY 07/27/20 04/05/21 cholecalciferol (vitamin D3) 125 125 mcg PO DAILY 07/27/20 04/05/21 mcg (5,000 unit) tablet (Vitamin D3) cyanocobalamin (vitamin B-12) 1,000 mcg PO DAILY 07/27/20 04/05/21 1,000 mcg tablet (Vitamin B-12) fluticasone 250 mcg-salmeterol 50 1 inh INHALATION BID 07/27/20 04/05/21 mcg/dose blistr powdr for inhalation (Advair Diskus) fluticasone propionate 50 1 spray INTRANASAL DAILY 07/27/20 04/05/21 mcg/actuation nasal spray,suspension montelukast 10 mg tablet 10 mg PO DAILY 07/27/20 04/05/21 (Singulair) zolpidem 5 mg tablet (Ambien) 5 mg PO BEDTIME PRN 12/10/20 04/05/21 calcium carbonate 200 mg calcium 200 mg PO BID 04/05/21 04/05/21 (500 mg) chewable tablet (Antacid (calcium carbonate)) duloxetine 20 mg capsule,delayed 40 mg PO BID cap 04/05/21 04/05/21 release (Cymbalta) Previous Rx's Medication Instructions Recorded ferrous sulfate 325 mg (65 mg 325 mg PO BID #60 tab 02/06/21 iron) tablet tizanidine 2 mg tablet 2 mg PO BEDTIME #30 tab 02/11/21 lansoprazole 30 mg capsule,delayed 30 mg PO BID #60 cap 04/05/21 release famotidine 40 mg tablet 40 mg PO BEDTIME #30 tab 05/20/21 acetaminophen 325 mg tablet 650 mg PO Q4H PRN #30 tab 06/15/21 (Tylenol) Allergies Allergy/AdvReac Type Severity Reaction Status Date / Time Oyster Shell Allergy Mild Unknown Uncoded 06/15/21 12:39 Review of Systems Review of Systems: Yes all other systems are reviewed and are negative Constitutional: Constitutional: Reports no additional constitutional complaints, Reports body ache(s), Reports chills, Denies fever(s), Reports headache(s) and Denies weakness Eyes: Eyes: Reports no additional eye complaints and Denies change in vision ENT: Reports system reviewed and no additional complaints, except as documented, Denies dizziness, Reports otalgia, Reports headache(s), Denies nasal congestion, Denies nasal discharge, Denies neck pain and Reports sore throat Cardiovascular: Cardiovascular: Reports no additional cardiovascular complaints, Reports chest pain (ith coughing ), Denies leg edema and Denies dyspnea Respiratory: Respiratory: Reports no additional respiratory complaints, Reports cough and Denies dyspnea Gastrointestinal: Gastrointestinal: Reports no additional gastrointestinal complaints, Denies abdominal pain, Denies diarrhea, Denies nausea and Denies vomiting Genitourinary: Genitourinary: Reports no additional female genitourinary complaints and Denies urinary incontinence Musculoskeletal: Musculoskeletal: Reports no additional musculoskeletal complaints, Denies back pain, Denies arthralgias, Denies joint swelling, Denies neck pain, Denies numbness and Denies tingling Integumentary/Breasts: Skin/Breast: Reports system reviewed and no additional complaints, except as docu and Denies rash Neurologic: Reports system reviewed and no additional complaints, except as documented, Denies Abnormal speech present, Denies dizziness, Reports headache(s), Denies numbness, Denies tingling and Denies weakness [facility] Past Medical History Attestation statement: The following information was validated with the patient. Source: old records reviewed and nursing notes reviewed Medical History Anxiety Arthritis Asthma Depression Dysphagia Fibromyalgia GERD (gastroesophageal reflux disease) History of palpitations Hx of bronchitis Iron deficiency anemia Surgical History History of carpal tunnel surgery of right wrist History of laryngoscopy Hx of colonoscopy Hx of esophagogastroduodenoscopy Hx of hysterectomy Family History Family History Father Hx of type 1 diabetes mellitus Mother Hx of osteosarcoma Maternal Grandmother Hx of type 1 diabetes mellitus Maternal Grandfather Hx of type 1 diabetes mellitus Paternal Grandfather Hx of type 1 diabetes mellitus Paternal Grandmother Hx of type 1 diabetes mellitus Social History Social History Household Members: Children Alcohol intake: former Second Hand Smoke Exposure: No Advance Directives: No Advance Directives Information Provided: No Patient : No 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 Physical Exam Vital Signs: Vital Signs: Last Vital Signs Temp 98.7 F 06/15/21 12:36 Pulse 68 06/15/21 12:36 Resp 16 06/15/21 12:36 BP 159/75 H 06/15/21 12:36 Pulse Ox 100 06/15/21 12:36 Body Mass Index 33.5 Const: General: cooperative, healthy appearing, comfortable and no acute distress Orientation/consciousness: patient oriented x3 Limitations: no limitations HENMT: Head: Yes normal to inspection Ears: hearing grossly normal bilaterally General nose exam: Normal external nose present Face and sinus: Yes normal facial exam Mouth: Normal oral and palatal mucosa present Throat: Yes posterior oropharynx normal Eyes: General: appearance normal, both eyes and all related structures Pupils: Equal, round and reactive pupils present Neck: Neck: Yes normal visual inspection Chest: Chest palpation & inspection: normal inspection of the chest Resp: Effort & Inspection: normal respiratory effort Auscultation: clear to auscultation bilaterally Cardio: Rate: regular rate Rhythm: regular rhythm Peripheral pulses: Peripheral pulses 2+ throughout GI: Inspection: Yes normal to inspection Palpation (GI): Soft to palpation and nontender Auscultation: normal bowel sounds Back/Spine/Pelvis: Thoracic/Lumbar Spine: thoracic and lumbar spine normal to inspection Skin: General skin exam: no rashes or lesions noted Neuro: General: patient oriented x3, no focal motor deficits and normal sensation to monofilament Cranial nerves: Yes Equal, round and reactive pupils present Cognition (Neuro): normal cognition Speech: No Abnormal speech present Gait exam (Neuro): Normal gait present Motor exam (neuro): 5/5 motor strength present throughout Extrem: General: Yes normal to inspection, Yes no pedal edema and Yes no calf tenderness Course Course Course Narrative: 50-year-old female here with flu-like symptoms for several days. Patient is not vaccinated from COVID. Her exam is benign. She has stable vital signs. Afebrile. Will check COVID screen and chest x-ray 1400-COVID +. Chest x-ray shows no acute finding. HD stable with oxygen saturations >98% on RA. Reviewed worrisome signs/symptoms with patient and when to return to ED. Comfortable with discharge home. Medical Decision Making Medical Records Medical records reviewed: Yes I reviewed the patient's medical records. Lab Data Lab results reviewed: Yes I reviewed the patient's lab results. Labs: Lab Results 06/15/21 Range/Units 12:44 Coronavirus (PCR) POSITIVE A (Negative) Influenza Type A (PCR) NEGATIVE (Negative) Influenza Type B (PCR) NEGATIVE (Negative) RSV RNA Qual (PCR) NEGATIVE (Negative) Imaging Data Chest x-ray: Attestation: I personally reviewed and interpreted this imaging study as follows: Radiologist's impression: EXAMINATION: XR CHEST CLINICAL INFORMATION: Flulike symptoms. Rule out pneumonia. COMPARISON: Chest x-ray June 22, 2020 TECHNIQUE: Frontal view of the chest was obtained. FINDINGS: Cardiac silhouette is normal in size. The lungs are well aerated. No lobar consolidation. No pleural effusion or pneumothorax. No gross osseous abnormality. XR/XR chest 1V IMPRESSION: Stable examination demonstrating no acute pulmonary pathology. ? Discharge Plan Discharge Clinical Impression: COVID-19 Patient Disposition: Home, Self-Care Instructions: COVID-19 (Coronavirus Disease 2019) (ED) Additional Instructions: Covid test positive Chest x-ray negative with no pneumonia Increase fluids, rest Motrin or tylenol for pain or fever Per the cdc you must quarantine for a total of 10 days from when your symptoms began Return for shortness of breath, severe chest pain, fever which does not respond to motrin or tylenol Consider buying a pulse oximeter to watch your oxygen number. Return for oxygen <90% Prescriptions: New acetaminophen [Tylenol] 325 mg tablet 650 mg PO Q4H PRN (Reason: fever or pain) Qty: 30 RF: 0 No Action famotidine 40 mg tablet 40 mg PO BEDTIME Qty: 30 RF: 3 albuterol sulfate 0.63 mg/3 mL Solution For Nebulization 0.63 mg INHALATION Q4-6H PRN (Reason: Wheezing) RF: 0 cyanocobalamin (vitamin B-12) [Vitamin B-12] 1,000 mcg Tablet 1,000 mcg PO DAILY RF: 0 montelukast [Singulair] 10 mg Tablet 10 mg PO DAILY RF: 0 allopurinol 300 mg Tablet 300 mg PO DAILY RF: 0 cholecalciferol (vitamin D3) [Vitamin D3] 125 mcg (5,000 unit) Tablet 125 mcg PO DAILY RF: 0 fluticasone propion-salmeterol [Advair Diskus] 250-50 mcg/dose Blister With Device 1 inh INHALATION BID RF: 0 fluticasone propionate [Flonase] 50 mcg/actuation [place],Suspension 1 spray INTRANASAL DAILY RF: 0 ferrous sulfate 325 mg (65 mg iron) Tablet 325 mg PO BID Qty: 60 RF: 3 duloxetine [Cymbalta] 20 mg capsule,delayed release(DR/EC) 40 mg PO BID RF: 0 zolpidem [Ambien] 5 mg tablet 5 mg PO BEDTIME PRN (Reason: Insomnia) RF: 0 calcium carbonate [Antacid (calcium carbonate)] 200 mg calcium (500 mg) tablet,chewable 200 mg PO BID RF: 0 lansoprazole 30 mg capsule,delayed release(DR/EC) 30 mg PO BID Qty: 60 RF: 2 tizanidine 2 mg tablet 2 mg PO BEDTIME Qty: 30 RF: 0 Referrals: Janki Painting MD [Primary Care Provider] - 2 days (as needed) Interventions: ED Discharge Assessment Last Done: 06/15/21 14:54 Discharge Date/Time: 06/15/21 14:55 Print Language: Lao
[2021-06-15 12:36] VITALS: BP 159/75; PULSE 68; RESP 16; TEMP 37.1; O2SAT 100; BMI 33.5
[2021-06-15 13:30] LABS: Influenza A PCR NEGATIVE (Negative); Influenza B PCR NEGATIVE (Negative); Resp Syncy Virus RNA Qual PCR NEGATIVE (Negative); SARS COV2 PCR INHOUSE POSITIVE (Negative)
== END 2021-06-15 14:55 | disposition home or self-care (01) ==
PROVIDERS: Nurse Practitioner Family; Emergency Provider Emergency Medicine; PCP Pediatrics
DX: U07.1 COVID-19 (principal)
CPT/HCPCS: 0241U; 36415; 71045; 99283

== ENCOUNTER → 2021-07-16 09:25 | Outpatient (BNVA) | payer MEDICAID, SELFPAY | PROVIDERS: PCP Pediatrics; Referring Provider Pediatrics; Visit Provider Nurse Practitioner Family | DX: G47.9 Sleep disorder, unspecified (principal); R06.83 Snoring; G47.19 Other hypersomnia | CPT/HCPCS: 99202 ==

== ENCOUNTER 2021-07-26 08:32 | Day surgery (SDC) | payer MEDICAID, SELFPAY ==
--- NOTE | 2021-07-25 09:48 | P.CONAN_ITS ---
Documented by User: Tiffanie Hwang NP 07/25/21 09:54 HPI - Anesthesia Eval Consult details Narrative: 50yo F for Bilateral Medial Branch Block PMFSH Active Problems Active Problems: All Active Problems (Updated 07/16/21 @ 10:45 by PEYTON Deluna) Excessive daytime sleepiness (Acute) Snoring (Acute) Sleep disorder (Acute) COVID-19 (Acute) LIANNA (obstructive sleep apnea) (Acute) Early satiety (Acute) Lumbar facet arthropathy (Acute) Bruising (Acute) Pre-procedural laboratory examination (Acute) Degenerative disc disease (Acute) Sacroiliac joint pain (Acute) Lumbar radiculopathy (Acute) Trigger finger of left thumb (Acute) Cubital tunnel syndrome on left (Acute) Carpal tunnel syndrome of left wrist (Acute) Low back pain (Acute) Dysphagia (Acute) Iron deficiency anemia (Chronic) Trochanteric bursitis of right hip (Acute) Fracture of metatarsal bone of left foot with routine healing (Acute) Pain of left great toe (Acute) Past Medical History Medical History Anxiety Arthritis Asthma Depression Dysphagia Fibromyalgia GERD (gastroesophageal reflux disease) History of palpitations Hx of bronchitis Iron deficiency anemia Family History Family History Father Hx of type 1 diabetes mellitus Mother Hx of osteosarcoma Maternal Grandmother Hx of type 1 diabetes mellitus Maternal Grandfather Hx of type 1 diabetes mellitus Paternal Grandfather Hx of type 1 diabetes mellitus Paternal Grandmother Hx of type 1 diabetes mellitus Surgical History Surgical History History of carpal tunnel surgery of right wrist History of laryngoscopy Hx of colonoscopy Hx of esophagogastroduodenoscopy Hx of hysterectomy Social History Social History Household Members: Children Alcohol intake: former Patient Tobacco Use Status: Never used Tobacco Second Hand Smoke Exposure: No Use of substances other than those prescribed or required for medical reasons: No Are you DNR?: No Advance Directives: No Advance Directives Information Provided: Yes 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 Allergies Allergy/AdvReac Type Severity Reaction Status Date / Time Oyster Shell Allergy Mild Unknown Uncoded 06/15/21 12:39 Home Medications Medication Instructions Recorded Confirmed Last Taken Type albuterol sulfate 0.63 mg/3 mL 0.63 mg INHALATION Q4-6H PRN 07/27/20 07/16/21 Unknown History solution for nebulization allopurinol 300 mg tablet 300 mg PO DAILY 07/27/20 07/16/21 Unknown History cholecalciferol (vitamin D3) 125 125 mcg PO DAILY 07/27/20 07/16/21 Unknown History mcg (5,000 unit) tablet (Vitamin D3) cyanocobalamin (vitamin B-12) 1,000 mcg PO DAILY 07/27/20 07/16/21 Unknown History 1,000 mcg tablet (Vitamin B-12) fluticasone 250 mcg-salmeterol 50 1 inh INHALATION BID 07/27/20 07/16/21 07/26/21 08:00 History mcg/dose blistr powdr for inhalation (Advair Diskus) fluticasone propionate 50 1 spray INTRANASAL DAILY 07/27/20 07/16/21 Unknown History mcg/actuation nasal spray,suspension montelukast 10 mg tablet 10 mg PO DAILY 07/27/20 07/16/21 Unknown History (Singulair) zolpidem 5 mg tablet (Ambien) 5 mg PO BEDTIME PRN 12/10/20 07/16/21 Unknown History calcium carbonate 200 mg calcium 200 mg PO BID 04/05/21 07/16/21 Unknown History (500 mg) chewable tablet (Antacid (calcium carbonate)) duloxetine 20 mg capsule,delayed 40 mg PO BID cap 04/05/21 07/16/21 Unknown History release (Cymbalta) Exam Exam Date and Time: July 25, 2021 0948 Pertinent Lab Results Pertinent Lab Results: Laboratory Tests 10/22/20 04/05/21 04/05/21 10:58 11:45 11:45 WBC 5.3 Hgb 11.4 L Hct 33.0 L Plt Count 165 Sodium 140 Potassium 4.2 Chloride 105 BUN 13 Creatinine 0.70 Assessment and Plan Assessment Anesthesia Assessment: Chart Reviewed Documented by User: Deja Amor MD 07/26/21 09:00 [facility] Past Medical History Medical History Anxiety Arthritis Asthma Depression Dysphagia Fibromyalgia GERD (gastroesophageal reflux disease) History of palpitations Hx of bronchitis Iron deficiency anemia Family History Family History Father Hx of type 1 diabetes mellitus Mother Hx of osteosarcoma Maternal Grandmother Hx of type 1 diabetes mellitus Maternal Grandfather Hx of type 1 diabetes mellitus Paternal Grandfather Hx of type 1 diabetes mellitus Paternal Grandmother Hx of type 1 diabetes mellitus Family history of problems with anesthesia: No Surgical History Surgical History History of carpal tunnel surgery of right wrist History of laryngoscopy Hx of colonoscopy Hx of esophagogastroduodenoscopy Hx of hysterectomy History of Problems with Anesthesia: No Social History Social History Household Members: Children Alcohol intake: former Patient Tobacco Use Status: Never used Tobacco Second Hand Smoke Exposure: No Use of substances other than those prescribed or required for medical reasons: No Are you DNR?: No Advance Directives: No Advance Directives Information Provided: Yes 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 Allergies Allergy/AdvReac Type Severity Reaction Status Date / Time Oyster Shell Allergy Mild Unknown Uncoded 06/15/21 12:39 Home Medications Medication Instructions Recorded Confirmed Last Taken Type albuterol sulfate 0.63 mg/3 mL 0.63 mg INHALATION Q4-6H PRN 07/27/20 07/16/21 Unknown History solution for nebulization allopurinol 300 mg tablet 300 mg PO DAILY 07/27/20 07/16/21 Unknown History cholecalciferol (vitamin D3) 125 125 mcg PO DAILY 07/27/20 07/16/21 Unknown History mcg (5,000 unit) tablet (Vitamin D3) cyanocobalamin (vitamin B-12) 1,000 mcg PO DAILY 07/27/20 07/16/21 Unknown History 1,000 mcg tablet (Vitamin B-12) fluticasone 250 mcg-salmeterol 50 1 inh INHALATION BID 07/27/20 07/16/21 07/26/21 08:00 History mcg/dose blistr powdr for inhalation (Advair Diskus) fluticasone propionate 50 1 spray INTRANASAL DAILY 07/27/20 07/16/21 Unknown History mcg/actuation nasal spray,suspension montelukast 10 mg tablet 10 mg PO DAILY 07/27/20 07/16/21 Unknown History (Singulair) zolpidem 5 mg tablet (Ambien) 5 mg PO BEDTIME PRN 12/10/20 07/16/21 Unknown History calcium carbonate 200 mg calcium 200 mg PO BID 04/05/21 07/16/21 Unknown History (500 mg) chewable tablet (Antacid (calcium carbonate)) duloxetine 20 mg capsule,delayed 40 mg PO BID cap 04/05/21 07/16/21 Unknown H istory release (Cymbalta) Exam Airway Mallampati Class: II TM Dist: >3cm Neck ROM: Full Assessment and Plan Assessment Anesthesia Assessment: Anesthesia Plan Discussed Final Anesthetic Review Family History of Problems with Anesthesia: No History of Problems with Anesthesia: No NPO: Yes ASA Class: II Final Preanesthetic Review: No Changes in Pt Med Stat, Meds/Allgs Chart Reviewed, Consent Obtained/Reviewed and Anes Risks/Benef Reviewed Patient Risk: Low Procedure Risk: Low Assessment/Block/Sedation in SS: Assess/Block/Sedation-SS Anesthetic Plan Anesthetic Plan: MAC: Disposition: Standard PACU
--- NOTE | ~2021-07-26 | FL_ITS ---
EXAMINATION: XR FLUOROSCOPY WITH IMAGES CLINICAL INFORMATION: Low back pain. Bilateral medial branch block. COMPARISON: None TECHNIQUE: Fluoroscopy performed by Dr. Vance Irby. Fluoroscopy time: 0.9 minutes DAP: 3.21 mGycm2 Images: 8 FINDINGS: There are needles positioned adjacent to bilateral S1, L5, L4, L3 pedicles with contrast opacifying the adjacent soft tissues. Visualized vertebral heights and alignment and disc heights are normal. There is mild ventral spondylosis. No lytic or sclerotic process seen. FL/FL guidance in OR IMPRESSION: Fluoroscopy was provided to Dr. Vance Irby during pain management therapy.
[2021-07-26 08:54] VITALS: BMI 32.9
[2021-07-26 08:57] VITALS: BP 145/75; PULSE 71; RESP 16; TEMP 36.2; O2SAT 99
[2021-07-26] MEDS: Lactated Ringers 1,000 ML 100 ML IVCONT (09:08)
--- NOTE | 2021-07-26 09:24 | MHC.SHP ---
Pre-Procedural Eval Section A Date of Service: 07/26/21 The patient is an INPATIENT: No Changes since office visit: Yes Patient answered all questions The History & Physical has been completed within 30 days and I have reviewed it.: No Section B Chief Complaint: spondylosis without myelopathy Details of Present Illness: As above Relevant Social History: None Present Medications: None Medical History: No relevant PMH History of Previous Operations: No relevant previous surgery Allergies: Allergies Allergy/AdvReac Type Severity Reaction Status Date / Time Oyster Shell Allergy Mild Unknown Uncoded 06/15/21 12:39 Review of Systems Sugical H&P ROS: Negative: Constitution, Cardiovascular, Respiratory, Neurological, Psychiatric, Hem-Onc, Allergic/Immunologic, Gastrointestinal, Genitourinary, Musculoskeletal, Integumentary, Endocrine and Eyes/Ears/Nose/Throat Exam Surgical H&P Exam: Normal: HEENT, Normal: Heart, Normal: Lungs, Normal: Extremities, Normal: Abdomen, Normal: Skin and Normal: Neurological Plan Diagnosis/Plan: Unchanged I have reviewed the history and physical and performed a pertinent physical examination on my patient. No changes have occurred unless specified.
--- NOTE | 2021-07-26 09:26 | P.OP_ITS ---
Operative Note Operative Note Date of Service: 07/26/21 Narrative: Informed consent was explained to the patient. All questions were explained and answered. The patient was taken inside the operating room where she was positioned prone on the operating table. ? Time-out was performed delineating correct site, side, the nature of the procedure, patient's allergy, preoperative antibiotic if needed. All operating room staff was participating in OR time-out procedure. ? The lower back was prepped with ChloraPrep and draped with sterile towels. Sterilely draped C-arm was brought over the operating field and square picture of L L3, L4-and L5 vertebra and S1 AREA were delineated on the screen. Of note: Significant sacroiliac joint instability with distance about of 14 mm between the sacral bone in the iliac bone was noted on examination of the left sacroiliac joint. Lesser distance was observed in the right sacroiliac joint and yet instability of that joint may be suspected as well. This may be partial ly or on the major count the source of her pain in the lower back. Point of interest were delineated as connection of superior articular process of L3, L4 and L5 vertebra bilaterally with corresponding transverse processes, as well as connection of the sacral alae bilaterally with superior articular process of S1. The projections of the point of interest to the skin were injected with the small amount of local anesthetic lidocaine 2% 1-1.5 cc. After that 22 gauge QP spinal needle 5 inch was driven to the point of interest in tunnel vision fashion. After needles gently contacted the bone at the point of interests the needle was injected with small amount of bupivacaine 0.5%-1cc . ? Upon completion of the injections needles were removed and sterile dressings were applied patient was awaken and taken outside of the operating room to recovery room where the patient recovered uneventfully. The patient went home without immediate complications.
[2021-07-26 10:09] VITALS: BP 109/59; PULSE 57; RESP 15; TEMP 36.3; O2SAT 100
--- NOTE | 2021-07-26 10:20 | PM.OP ---
Brief Operative Note Date of Service: 07/26/21 Pre-op diagnosis: Spondylosis lumbar spine. Post-op diagnosis: other (Spondylosis lumbar spine, instability of sacroiliac joint left more than the right.) Procedure: Medial branch block bilateral L2-L3 L4 does ramus L5 diagnostic. Implants: None Surgeon: Vance Irby MD Anesthesia: MAC Was an Promotional Marketing Agent used for this Procedure?: No Estimated blood loss (mL): 0 Tourniquet time (min): 0 Pathology: none sent Condition: stable Disposition: PACU
[2021-07-26 10:24] VITALS: BP 110/63; PULSE 55; RESP 15; O2SAT 100
[2021-07-26 10:39] VITALS: BP 115/70; PULSE 57; RESP 17; O2SAT 100
[2021-07-26 10:54] VITALS: BP 123/72; PULSE 54; RESP 18; O2SAT 100
[2021-07-26 11:08] VITALS: TEMP 36.4
== END 2021-07-26 11:19 | disposition home or self-care (01) ==
PROVIDERS: PCP Pediatrics; Visit Provider Anesthesiology
PROC: (CPT 64493; principal; 2021-07-26 09:50)
DX: M47.26 Other spondylosis with radiculopathy, lumbar region (principal); M51.36 Other intervertebral disc degeneration, lumbar region; M54.50 Low back pain, unspecified; J45.909 Unspecified asthma, uncomplicated; Z79.899 Other long term (current) drug therapy
CPT/HCPCS: 64493; 64494 ×2; 64495 ×2; J3010; Q9967

== ENCOUNTER → 2021-08-02 14:25 | Outpatient (BNVA) | payer MEDICAID, SELFPAY | PROVIDERS: PCP Pediatrics; Visit Provider Nurse Practitioner Family ==

== ENCOUNTER → 2021-08-14 10:43 | Outpatient (BNVA) | payer MEDICAID, SELFPAY | PROVIDERS: PCP Pediatrics; Visit Provider Anesthesiology | DX: M54.16 Radiculopathy, lumbar region (principal); M51.36 Other intervertebral disc degeneration, lumbar region; M47.816 Spondylosis without myelopathy or radiculopathy, lumbar region | CPT/HCPCS: 99212 ==

== ENCOUNTER 2021-08-20 05:55 | Outpatient (REF) | payer MEDICAID, SELFPAY | END 2021-08-20 05:56 | disposition home or self-care (01) | LOC: HO.RADIR 05:55 | PROVIDERS: Visit Provider Anesthesiology | DX: Z13.89 Encounter for screening for other disorder (principal) ==

== ENCOUNTER 2021-08-28 18:26 | Emergency (ER) | payer MEDICAID, SELFPAY ==
--- NOTE | 2021-08-28 | ECG_ITS ---
Test Reason : chest pain Blood Pressure : / mmHG Vent. Rate : 069 BPM Atrial Rate : 069 BPM P-R Int : 184 ms QRS Dur : 070 ms QT Int : 356 ms P-R-T Axes : 012 -05 008 degrees QTc Int : 381 ms Normal sinus rhythm Minimal voltage criteria for LVH, may be normal variant ( R in aVL ) Borderline ECG When compared with ECG of 22-JUN-2020 17:42, No significant change was found Referred By: Generic ED Physician Electronically Signed By:SILVIA VIERA MD
--- NOTE | ~2021-08-28 | XR_ITS ---
EXAMINATION: XR CHEST CLINICAL INFORMATION: Chest pain COMPARISON: 06/15/2021 TECHNIQUE: Frontal view of the chest was obtained. FINDINGS: No significant abnormality is noted involving the heart, lungs, mediastinum, bony thorax or soft tissues. XR/XR chest 1V IMPRESSION: Unremarkable examination.
[2021-08-28 19:09] VITALS: BP 165/68; PULSE 79; RESP 16; TEMP 36.8; O2SAT 98; BMI 32.0
--- NOTE | 2021-08-28 19:28 | ED_ITS ---
HPI - Chest Pain General Chief Complaint: Chest Pain Stated Complaint: high bp Time Seen by Provider: 08/28/21 19:28 Source: patient Mode of arrival: ambulatory Limitations: no limitations History of Present Illness HPI narrative: Patient with history of sleep apnea no history of hypertension Related Data Home Medications Medication Instructions Recorded Confirmed albuterol sulfate 0.63 mg/3 mL 0.63 mg INHALATION Q4-6H PRN 07/27/20 07/16/21 solution for nebulization allopurinol 300 mg tablet 300 mg PO DAILY 07/27/20 07/16/21 cholecalciferol (vitamin D3) 125 125 mcg PO DAILY 07/27/20 07/16/21 mcg (5,000 unit) tablet (Vitamin D3) cyanocobalamin (vitamin B-12) 1,000 mcg PO DAILY 07/27/20 07/16/21 1,000 mcg tablet (Vitamin B-12) fluticasone 250 mcg-salmeterol 50 1 inh INHALATION BID 07/27/20 07/16/21 mcg/dose blistr powdr for inhalation (Advair Diskus) fluticasone propionate 50 1 spray INTRANASAL DAILY 07/27/20 07/16/21 mcg/actuation nasal spray,suspension montelukast 10 mg tablet 10 mg PO DAILY 07/27/20 07/16/21 (Singulair) zolpidem 5 mg tablet (Ambien) 5 mg PO BEDTIME PRN 12/10/20 07/16/21 calcium carbonate 200 mg calcium 200 mg PO BID 04/05/21 07/16/21 (500 mg) chewable tablet (Antacid (calcium carbonate)) duloxetine 20 mg capsule,delayed 40 mg PO BID cap 04/05/21 07/16/21 release (Cymbalta) Previous Rx's Medication Instructions Recorded ferrous sulfate 325 mg (65 mg 325 mg PO BID #60 tab 02/06/21 iron) tablet tizanidine 2 mg tablet 2 mg PO BEDTIME #30 tab 02/11/21 lansoprazole 30 mg capsule,delayed 30 mg PO BID #60 cap 04/05/21 release famotidine 40 mg tablet 40 mg PO BEDTIME #30 tab 05/20/21 acetaminophen 325 mg tablet 650 mg PO Q4H PRN #30 tab 06/15/21 (Tylenol) Allergies Allergy/AdvReac Type Severity Reaction Status Date / Time Oyster Shell Allergy Mild Unknown Uncoded 06/15/21 12:39 [facility] Past Medical History Medical History Anxiety Arthritis Asthma Depression Dysphagia Fibromyalgia GERD (gastroesophageal reflux disease) History of palpitations Hx of bronchitis Iron deficiency anemia Surgical History History of carpal tunnel surgery of right wrist History of laryngoscopy Hx of colonoscopy Hx of esophagogastroduodenoscopy Hx of hysterectomy Family History Family History Father Hx of type 1 diabetes mellitus Mother Hx of osteosarcoma Maternal Grandmother Hx of type 1 diabetes mellitus Maternal Grandfather Hx of type 1 diabetes mellitus Paternal Grandfather Hx of type 1 diabetes mellitus Paternal Grandmother Hx of type 1 diabetes mellitus Social History Social History Household Members: Children Alcohol intake: former Patient Tobacco Use Status: Never used Tobacco Second Hand Smoke Exposure: No Patient : No 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 Physical Exam Vital Signs: Vital Signs: Last Vital Signs Temp 98.3 F 08/28/21 19:09 Pulse 79 08/28/21 19:09 Resp 16 08/28/21 19:09 BP 165/68 H 08/28/21 19:09 Pulse Ox 98 08/28/21 19:09 Body Mass Index 32.0 Discharge Plan Discharge Prescriptions: No Action famotidine 40 mg tablet 40 mg PO BEDTIME Qty: 30 RF: 3 acetaminophen [Tylenol] 325 mg tablet 650 mg PO Q4H PRN (Reason: fever or pain) Qty: 30 RF: 0 albuterol sulfate 0.63 mg/3 mL Solution For Nebulization 0.63 mg INHALATION Q4-6H PRN (Reason: Wheezing) RF: 0 cyanocobalamin (vitamin B-12) [Vitamin B-12] 1,000 mcg Tablet 1,000 mcg PO DAILY RF: 0 montelukast [Singulair] 10 mg Tablet 10 mg PO DAILY RF: 0 allopurinol 300 mg Tablet 300 mg PO DAILY RF: 0 cholecalciferol (vitamin D3) [Vitamin D3] 125 mcg (5,000 unit) Tablet 125 mcg PO DAILY RF: 0 fluticasone propion-salmeterol [Advair Diskus] 250-50 mcg/dose Blister With Device 1 inh INHALATION BID RF: 0 fluticasone propionate [Flonase] 50 mcg/actuation [place],Suspension 1 spray INTRANASAL DAILY RF: 0 ferrous sulfate 325 mg (65 mg iron) Tablet 325 mg PO BID Qty: 60 RF: 3 duloxetine [Cymbalta] 20 mg capsule,delayed release(DR/EC) 40 mg PO BID RF: 0 zolpidem [Ambien] 5 mg tablet 5 mg PO BEDTIME PRN (Reason: Insomnia) RF: 0 calcium carbonate [Antacid (calcium carbonate)] 200 mg calcium (500 mg) tablet,chewable 200 mg PO BID RF: 0 lansoprazole 30 mg capsule,delayed release(DR/EC) 30 mg PO BID Qty: 60 RF: 2 tizanidine 2 mg tablet 2 mg PO BEDTIME Qty: 30 RF: 0
--- NOTE | 2021-08-28 19:51 | ED_ITS ---
HPI - Headache General Chief Complaint: Chest Pain Stated Complaint: high bp Time Seen by Provider: 08/28/21 19:28 Source: patient Mode of arrival: ambulatory Limitations: no limitations History of Present Illness HPI Narrative: Patient complaining of headache for last 1 week with history of migraine checked her blood pressure was 209/101 , slight nausea photosensitivity and dizziness no vomiting, no head injury no fever or chills no cough or shortness of breath no abdominal pain patient does have epigastric pain off and on for long time was seen by PCP had blood drawn yesterday Related Data Home Medications Medication Instructions Recorded Confirmed albuterol sulfate 0.63 mg/3 mL 0.63 mg INHALATION Q4-6H PRN 07/27/20 07/16/21 solution for nebulization allopurinol 300 mg tablet 300 mg PO DAILY 07/27/20 07/16/21 cholecalciferol (vitamin D3) 125 125 mcg PO DAILY 07/27/20 07/16/21 mcg (5,000 unit) tablet (Vitamin D3) cyanocobalamin (vitamin B-12) 1,000 mcg PO DAILY 07/27/20 07/16/21 1,000 mcg tablet (Vitamin B-12) fluticasone 250 mcg-salmeterol 50 1 inh INHALATION BID 07/27/20 07/16/21 mcg/dose blistr powdr for inhalation (Advair Diskus) fluticasone propionate 50 1 spray INTRANASAL DAILY 07/27/20 07/16/21 mcg/actuation nasal spray,suspension montelukast 10 mg tablet 10 mg PO DAILY 07/27/20 07/16/21 (Singulair) zolpidem 5 mg tablet (Ambien) 5 mg PO BEDTIME PRN 12/10/20 07/16/21 calcium carbonate 200 mg calcium 200 mg PO BID 04/05/21 07/16/21 (500 mg) chewable tablet (Antacid (calcium carbonate)) duloxetine 20 mg capsule,delayed 40 mg PO BID cap 04/05/21 07/16/21 release (Cymbalta) Previous Rx's Medication Instructions Recorded ferrous sulfate 325 mg (65 mg 325 mg PO BID #60 tab 02/06/21 iron) tablet tizanidine 2 mg tablet 2 mg PO BEDTIME #30 tab 02/11/21 lansoprazole 30 mg capsule,delayed 30 mg PO BID #60 cap 04/05/21 release famotidine 40 mg tablet 40 mg PO BEDTIME #30 tab 05/20/21 acetaminophen 325 mg tablet 650 mg PO Q4H PRN #30 tab 06/15/21 (Tylenol) vcdqphmtmy-fckgimfoddfhi-ldoiswhz 1 cap PO Q6H PRN #20 cap 08/28/21 50 mg-300 mg-40 mg capsule (Fioricet) sumatriptan succinate 50 mg tablet 50 mg PO Q2H PRN #10 tab 08/28/21 (Imitrex) Allergies Allergy/AdvReac Type Severity Reaction Status Date / Time Oyster Shell Allergy Mild Unknown Uncoded 06/15/21 12:39 Review of Systems Review of Systems: Yes all other systems are reviewed and are negative PMFSH Past Medical History Medical History Anxiety Arthritis Asthma Depression Dysphagia Fibromyalgia GERD (gastroesophageal reflux disease) History of palpitations Hx of bronchitis Iron deficiency anemia Surgical History History of carpal tunnel surgery of right wrist History of laryngoscopy Hx of colonoscopy Hx of esophagogastroduodenoscopy Hx of hysterectomy Family History Family History Father Hx of type 1 diabetes mellitus Mother Hx of osteosarcoma Maternal Grandmother Hx of type 1 diabetes mellitus Maternal Grandfather Hx of type 1 diabetes mellitus Paternal Grandfather Hx of type 1 diabetes mellitus Paternal Grandmother Hx of type 1 diabetes mellitus Social History Social History Household Members: Children Alcohol intake: former Patient Tobacco Use Status: Never used Tobacco Second Hand Smoke Exposure: No Advance Directives: No Advance Directives Information Provided: Yes Patient : No 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 Oriented X3. No acute distress. Anxious Eyes: PERRLA, No Nystagmus ENT: Pharynx normal. Oral Mucosa moist Neck: Normal inspection. Neck supple. CVS: Normal heart rate and rhythm. Pulses normal. Respiratory: No respiratory distress. Equal air entry bilateral, no wheezing/rales/rhonchi Abdomen: Soft and nontender. Bowel sounds are present, no mass palpable, no CVA tenderness Skin: Skin warm and dry. Normal skin color. Normal skin turgor. Extremities: No lower extremity edema. No calf tenderness Neuro: Oriented X 3. No motor deficit. No sensory deficit.No cerebellar signs , cranial nerves II-XII intact MDM - Headache MDM Narrative Medical decision making narrative: Patient with migraine headaches improved after Imitrex had for any heart feeling had nausea which got better after Zofran at this time patient denies any headache will discharge patient home on Imitrex and Fioricet patient's blood pressure improved to 136 /67 Differential Diagnosis Differential diagnosis: Likely migraine Discharge Plan Discharge Clinical Impression: Migraine Patient Disposition: Home, Self-Care Instructions: Migraine Headache (ED) Additional Instructions: Rest at home Take medication as prescribed Follow with PCP if not better Prescriptions: New gnxhcdhspb-houjmsqkrhsve-lnaw [Fioricet] 50-300-40 mg capsule 1 cap PO Q6H PRN (Reason: headache) Qty: 20 RF: 0 sumatriptan succinate [Imitrex] 50 mg tablet 50 mg PO Q2H PRN (Reason: migraine headache) Qty: 10 RF: 0 No Action famotidine 40 mg tablet 40 mg PO BEDTIME Qty: 30 RF: 3 acetaminophen [Tylenol] 325 mg tablet 650 mg PO Q4H PRN (Reason: fever or pain) Qty: 30 RF: 0 albuterol sulfate 0.63 mg/3 mL Solution For Nebulization 0.63 mg INHALATION Q4-6H PRN (Reason: Wheezing) RF: 0 cyanocobalamin (vitamin B-12) [Vitamin B-12] 1,000 mcg Tablet 1,000 mcg PO DAILY RF: 0 montelukast [Singulair] 10 mg Tablet 10 mg PO DAILY RF: 0 allopurinol 300 mg Tablet 300 mg PO DAILY RF: 0 cholecalciferol (vitamin D3) [Vitamin D3] 125 mcg (5,000 unit) Tablet 125 mcg PO DAILY RF: 0 fluticasone propion-salmeterol [Advair Diskus] 250-50 mcg/dose Blister With Device 1 inh INHALATION BID RF: 0 fluticasone propionate [Flonase] 50 mcg/actuation [place],Suspension 1 spray INTRANASAL DAILY RF: 0 ferrous sulfate 325 mg (65 mg iron) Tablet 325 mg PO BID Qty: 60 RF: 3 duloxetine [Cymbalta] 20 mg capsule,delayed release(DR/EC) 40 mg PO BID RF: 0 zolpidem [Ambien] 5 mg tablet 5 mg PO BEDTIME PRN (Reason: Insomnia) RF: 0 calcium carbonate [Antacid (calcium carbonate)] 200 mg calcium (500 mg) tablet,chewable 200 mg PO BID RF: 0 lansoprazole 30 mg capsule,delayed release(DR/EC) 30 mg PO BID Qty: 60 RF: 2 tizanidine 2 mg tablet 2 mg PO BEDTIME Qty: 30 RF: 0 Interventions: ED Discharge Assessment Last Done: 08/28/21 22:19 Discharge Date/Time: 08/28/21 22:19
[2021-08-28] MEDS: SUMAtriptan succinate 6 MG/0.5 ML VIAL SUBCUT (19:56)
[2021-08-28] MEDS: Ondansetron ODT 4 MG TAB.RAPDIS TRANSLINGU (19:57)
[2021-08-28] MEDS: Magnesium Hydrox/Alum Hydrox 30 ML ORAL.SUSP PO (21:22)
--- NOTE | 2021-08-28 21:26 | PC.NURSE ---
PT C/O MID STERNAL CP, PT STATES I TAKE MEDICINE FOR GERD MD AWARE AND PT MEDICATED WITH MAALOX. PT AWAITING FOR DISPO. WILL CONTINUE TO MONITOR PT.
--- NOTE | 2021-08-28 21:56 | PC.NURSE ---
MD IN ROOM FOR RE-EVAL. PT STATES IM FEELING MUCH BETTER . PT AWAITING FOR DISCHARGE INSTRUCTIONS.
[2021-08-28 22:16] VITALS: BP 140/57; PULSE 67; RESP 20; O2SAT 99
== END 2021-08-28 22:19 | disposition home or self-care (01) ==
PROVIDERS: Emergency Provider Internal Medicine; PCP Pediatrics
DX: G43.909 Migraine, unspecified, not intractable, without status migrainosus (principal)
CPT/HCPCS: 71045; 93005; 96372; 99284; J3030

== ENCOUNTER 2021-09-20 09:30 | Day surgery (SDC) | payer MEDICAID, SELFPAY ==
--- NOTE | 2021-09-19 10:26 | HO.ANESPROP2 ---
Documented by User: Tiffanie Hwang NP 09/19/21 10:27 HPI - Anesthesia Eval Consult details Narrative: 51yo F for Right L5-S1 Transforaminal Epidural Steroid Injection s/p MBB 07/2021 with MAC PMF Active Problems Active Problems: All Active Problems (Updated 08/29/21 @ 00:02 by Background Dafedericoon) Pain of left great toe (Acute) Fracture of metatarsal bone of left foot with routine healing (Acute) Trochanteric bursitis of right hip (Acute) Low back pain (Acute) Carpal tunnel syndrome of left wrist (Acute) Cubital tunnel syndrome on left (Acute) Trigger finger of left thumb (Acute) Lumbar radiculopathy (Acute) Sacroiliac joint pain (Acute) Degenerative disc disease (Acute) Pre-procedural laboratory examination (Acute) Bruising (Acute) Lumbar facet arthropathy (Acute) Early satiety (Acute) LIANNA (obstructive sleep apnea) (Acute) COVID-19 (Acute) Sleep disorder (Acute) Snoring (Acute) Excessive daytime sleepiness (Acute) Dysphagia (Acute) Iron deficiency anemia (Chronic) Past Medical History Medical History Anxiety Arthritis Asthma Depression Dysphagia Fibromyalgia GERD (gastroesophageal reflux disease) History of palpitations Hx of bronchitis Iron deficiency anemia Family History Family History Father Hx of type 1 diabetes mellitus Mother Hx of osteosarcoma Maternal Grandmother Hx of type 1 diabetes mellitus Maternal Grandfather Hx of type 1 diabetes mellitus Paternal Grandfather Hx of type 1 diabetes mellitus Paternal Grandmother Hx of type 1 diabetes mellitus Family history of problems with anesthesia: No Surgical History Surgical History History of carpal tunnel surgery of right wrist History of laryngoscopy Hx of colonoscopy Hx of esophagogastroduodenoscopy Hx of hysterectomy History of Problems with Anesthesia: No Social History Social History Household Members: Children Alcohol intake: former Patient Tobacco Use Status: Never used Tobacco Second Hand Smoke Exposure: No Use of substances other than those prescribed or required for medical reasons: No Are you DNR?: No Advance Directives: No Advance Directives Information Provided: Yes 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 [employer] Allergies Allergy/AdvReac Type Severity Reaction Status Date / Time Oyster Shell Allergy Mild Unknown Uncoded 09/20/21 10:16 Home Medications Medication Instructions Recorded Confirmed Last Taken Type albuterol sulfate 0.63 mg/3 mL 0.63 mg INHALATION Q4-6H PRN 07/27/20 09/11/21 Unknown History solution for nebulization allopurinol 300 mg tablet 300 mg PO DAILY 07/27/20 09/11/21 Unknown History cholecalciferol (vitamin D3) 125 125 mcg PO DAILY 07/27/20 09/11/21 Unknown History mcg (5,000 unit) tablet (Vitamin D3) cyanocobalamin (vitamin B-12) 1,000 mcg PO DAILY 07/27/20 09/11/21 Unknown History 1,000 mcg tablet (Vitamin B-12) fluticasone 250 mcg-salmeterol 50 1 inh INHALATION BID 07/27/20 09/11/21 07/26/21 08:00 History mcg/dose blistr powdr for inhalation (Advair Diskus) fluticasone propionate 50 1 spray INTRANASAL DAILY 07/27/20 09/11/21 Unknown History mcg/actuation nasal spray,suspension montelukast 10 mg tablet 10 mg PO DAILY 07/27/20 09/11/21 Unknown History (Singulair) zolpidem 5 mg tablet (Ambien) 5 mg PO BEDTIME PRN 12/10/20 09/11/21 Unknown History calcium carbonate 200 mg calcium 200 mg PO BID 04/05/21 09/11/21 Unknown History (500 mg) chewable tablet (Antacid (calcium carbonate)) duloxetine 20 mg capsule,delayed 40 mg PO BID cap 04/05/21 09/11/21 Unknown History release (Cymbalta) Exam Exam Date and Time: September 19, 2021 102 Assessment and Plan Assessment Anesthesia Assessment: Chart Reviewed Final Anesthetic Review Family History of Problems with Anesthesia: No History of Problems with Anesthesia: No Documented by User: Nesha Smith MD 09/20/21 10:48 [facility] Past Medical History Medical History Anxiety Arthritis Asthma Depression Dysphagia Fibromyalgia GERD (gastroesophageal reflux disease) History of palpitations Hx of bronchitis Iron deficiency anemia Family History Family History Father Hx of type 1 diabetes mellitus Mother Hx of osteosarcoma Maternal Grandmother Hx of type 1 diabetes mellitus Maternal Grandfather Hx of type 1 diabetes mellitus Paternal Grandfather Hx of type 1 diabetes mellitus Paternal Grandmother Hx of type 1 diabetes mellitus Surgical History Surgical History History of carpal tunnel surgery of right wrist History of laryngoscopy Hx of colonoscopy Hx of esophagogastroduodenoscopy Hx of hysterectomy Social History Social History Household Members: Children Alcohol intake: former Patient Tobacco Use Status: Never used Tobacco Second Hand Smoke Exposure: No Use of substances other than those prescribed or required for medical reasons: No Are you DNR?: No Advance Directives: No Advance Directives Information Provided: Yes 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 Meds Allergies Allergy/AdvReac Type Severity Reaction Status Date / Time Oyster Shell Allergy Mild Unknown Uncoded 09/20/21 10:16 Home Medications Medication Instructions Recorded Confirmed Last Taken Type albuterol sulfate 0.63 mg/3 mL 0.63 mg INHALATION Q4-6H PRN 07/27/20 09/11/21 Unknown History solution for nebulization allopurinol 300 mg tablet 300 mg PO DAILY 07/27/20 09/11/21 Unknown History cholecalciferol (vitamin D3) 125 125 mcg PO DAILY 07/27/20 09/11/21 Unknown History mcg (5,000 unit) tablet (Vitamin D3) cyanocobalamin (vitamin B-12) 1,000 mcg PO DAILY 07/27/20 09/11/21 Unknown History 1,000 mcg tablet (Vitamin B-12) fluticasone 250 mcg-salmeterol 50 1 inh INHALATION BID 07/27/20 09/11/21 07/26/21 08:00 History mcg/dose blistr powdr for inhalation (Advair Diskus) fluticasone propionate 50 1 spray INTRANASAL DAILY 07/27/20 09/11/21 Unknown History mcg/actuation nasal spray,suspension montelukast 10 mg tablet 10 mg PO DAILY 07/27/20 09/11/21 Unknown History (Singulair) zolpidem 5 mg tablet (Ambien) 5 mg PO BEDTIME PRN 12/10/20 09/11/21 Unknown History calcium carbonate 200 mg calcium 200 mg PO BID 04/05/21 09/11/21 Unknown History (500 mg) chewable tablet (Antacid (calcium carbonate)) duloxetine 20 mg capsule,delayed 40 mg PO BID cap 04/05/21 09/11/21 Unknown History release (Cymbalta) Exam Airway Mallampati Class: II TM Dist: >3cm Neck ROM: Full Loose/Missing/Broken Teeth: No Heart: RRR Lungs: CTA Assessment and Plan Final Anesthetic Review NPO: Yes ASA Class: II Final Preanesthetic Review: Meds/Allgs Chart Reviewed, Consent Obtained/Reviewed and Anes Risks/Benef Reviewed Patient Risk: Low Procedure Risk: Intermediate Anesthetic Plan Anesthetic Plan: MAC: Disposition: Standard PACU
--- NOTE | ~2021-09-20 | FL_ITS ---
EXAMINATION: XR FLUOROSCOPY WITH IMAGES CLINICAL INFORMATION: Transforaminal L5-S1 epidural steroid injection COMPARISON: None. TECHNIQUE: Fluoroscopy performed by Dr. Vance Irby. Fluoroscopy time: 0.3 minutes DAP: 1.42 Gycm2 Images: 1 FINDINGS: There is a needle with contrast injected at the right L5-S1 level. Contrast extends along the nerve. FL/FL guidance in OR IMPRESSION: Fluoroscopic guidance for right L5-S1 DODIE. Please refer to procedural report for further information.
[2021-09-20 10:24] VITALS: BMI 33.3
[2021-09-20 10:26] VITALS: BP 144/56; PULSE 74; RESP 16; TEMP 36.4; O2SAT 99
[2021-09-20] MEDS: Lactated Ringers 1,000 ML 100 ML IVCONT (10:37)
--- NOTE | 2021-09-20 11:05 | MHC.SHP ---
Pre-Procedural Eval Section A Date of Service: 09/20/21 The patient is an INPATIENT: No Changes since office visit: Yes Patient answered all questions The History & Physical has been completed within 30 days and I have reviewed it.: No Section B Chief Complaint: intervertebral disc degeneration lumbar Details of Present Illness: as above Relevant Family History (Specify if Yes): No Relevant Social History: None Present Medications: see Short Stay Collaborative assessment Medical History: No relevant PMH History of Previous Operations: No relevant previous surgery Allergies: Allergies Allergy/AdvReac Type Severity Reaction Status Date / Time Oyster Shell Allergy Mild Unknown Uncoded 09/20/21 10:16 Review of Systems Sugical H&P ROS: Negative: Constitution, Cardiovascular, Respiratory, Neurological, Psychiatric, Hem-Onc, Allergic/Immunologic, Gastrointestinal, Genitourinary, Musculoskeletal, Integumentary, Endocrine and Eyes/Ears/Nose/Throat Exam Surgical H&P Exam: Normal: HEENT, Normal: Heart, Normal: Lungs, Normal: Extremities, Normal: Abdomen, Normal: Skin and Normal: Neurological Plan Diagnosis/Plan: Unchanged I have reviewed the history and physical and performed a pertinent physical examination on my patient. No changes have occurred unless specified.
--- NOTE | 2021-09-20 11:09 | W.PM.OPN ---
Operative Note Operative Note Date of Service: 09/20/21 Narrative: The patient came to the injection center for right transforaminal epidural steroid injections. informed consent was obtain and the patien went to the OR where she was positioned prone on the table. Time out was performed the patient participated in time out procedure. Her lower back was prepped with chloroprep and draped with the sterile utility towels. C-arm was brought of the field and square picture of the L5 vertebra was demonstrated in the center of the screen. C-arm was tiltyed 25 degrees to the right and most pronounced image of the right pedicle of L5 was demonstrated on the screen. 3 mm below the lowest pedilcle point the injection of the lidocaine 1% was performed to anesthetize the skin. After that 22g 5 inch needle was inserted through the skin and advanced to the L5- S1 right foramina under intermittent AP and oblique views. When the needle entered the silhouette of the spinal column the injection of the contrast was perform demonstrating? epidural and perineural spread of the contrast. After that the treatment solution containing lidocaine PF 1% 2 ml mixed with kenalog 60 mg was injected into the needle. After that the needle was removed and sterile band Aid was applied.
[2021-09-20 11:36] VITALS: BP 129/63; PULSE 60; RESP 18; TEMP 36.3; O2SAT 100
--- NOTE | 2021-09-20 11:40 | PM.OP ---
Brief Operative Note Date of Service: 09/20/21 Pre-op diagnosis: Disc degeneration lumbar and lumbar sacral Post-op diagnosis: same Procedure: Transforaminal right epidural steroid injection L5-S1 Surgeon: Vance Irby MD Anesthesia: MAC Was an Stove Fitter used for this Procedure?: No Estimated blood loss (mL): 0 Pathology: none sent Condition: stable Disposition: PACU
[2021-09-20 11:50] VITALS: BP 129/67; PULSE 65; RESP 16; O2SAT 100
[2021-09-20 12:04] VITALS: BP 122/68; PULSE 65; RESP 16; TEMP 36.3; O2SAT 100
== END 2021-09-20 12:49 | disposition home or self-care (01) ==
PROVIDERS: PCP Pediatrics; Visit Provider Anesthesiology
PROC: 3E0R33Z Introduction of Anti-inflammatory into Spinal Canal, Percutaneous Approach (ICD-10-PCS; CPT 64483; principal; 2021-09-20 11:30)
DX: M54.16 Radiculopathy, lumbar region (principal); M51.36 Other intervertebral disc degeneration, lumbar region; M47.816 Spondylosis without myelopathy or radiculopathy, lumbar region; M79.7 Fibromyalgia; M17.0 Bilateral primary osteoarthritis of knee; R20.2 Paresthesia of skin; J45.909 Unspecified asthma, uncomplicated; F41.1 Generalized anxiety disorder
CPT/HCPCS: 64483; J2250; J3010; J3300; Q9967

== ENCOUNTER 2021-10-02 16:16 | Outpatient (REF) | payer MEDICAID, SELFPAY ==
--- NOTE | ~2021-10-02 | XR_ITS ---
EXAMINATION: XR CHEST CLINICAL INFORMATION: Lower respiratory tract infection COMPARISON: Previous chest x-rays most recent August 2021 TECHNIQUE: 2 views of the chest were obtained. FINDINGS: No significant abnormality is noted involving the heart, lungs, mediastinum, bony thorax or soft tissues. XR/XR chest 2V IMPRESSION: Unremarkable examination.
== END 2021-10-02 16:17 | disposition home or self-care (01) ==
LOC: HO.XRAY 16:16
PROVIDERS: PCP Pediatrics; Visit Provider Emergency Medicine
DX: J22 Unspecified acute lower respiratory infection (principal)
CPT/HCPCS: 71046

== ENCOUNTER → 2021-10-22 11:24 | Outpatient (BNVA) | payer MEDICAID, SELFPAY | PROVIDERS: PCP Pediatrics; Referring Provider Pediatrics; Visit Provider Nurse Practitioner Family ==

== ENCOUNTER → 2021-10-25 10:35 | Outpatient (BNVA) | payer MEDICAID, SELFPAY | PROVIDERS: PCP Pediatrics; Visit Provider Nurse Practitioner Family ==

== ENCOUNTER 2021-12-05 22:00 | Emergency (ER) | payer MEDICAID, SELFPAY ==
--- NOTE | 2021-12-05 | ECG_ITS ---
Test Reason : cp Blood Pressure : / mmHG Vent. Rate : 079 BPM Atrial Rate : 079 BPM P-R Int : 182 ms QRS Dur : 070 ms QT Int : 342 ms P-R-T Axes : 012 -11 012 degrees QTc Int : 392 ms Normal sinus rhythm Minimal voltage criteria for LVH, may be normal variant ( R in aVL ) Borderline ECG When compared with ECG of 28-AUG-2021 21:20, T wave amplitude has decreased in Anterior leads Referred By: Generic ED Physician Electronically Signed By:REBECCA PIZARRO MD
[2021-12-05 23:12] VITALS: BP 167/70; PULSE 88; RESP 15; TEMP 37.1; O2SAT 98; BMI 33.8
== END 2021-12-06 00:20 | disposition left against medical advice (07) ==
PROVIDERS: Emergency Provider Emergency Medicine; PCP Pediatrics
DX: R51.9 Headache, unspecified (principal); I10 Essential (primary) hypertension
CPT/HCPCS: 93005; 99283

== ENCOUNTER → 2022-01-22 09:22 | Outpatient (BNVA) | payer MEDICAID, SELFPAY | PROVIDERS: PCP Pediatrics; Visit Provider Nurse Practitioner Family | DX: M54.16 Radiculopathy, lumbar region (principal); M51.36 Other intervertebral disc degeneration, lumbar region; M47.816 Spondylosis without myelopathy or radiculopathy, lumbar region; M53.3 Sacrococcygeal disorders, not elsewhere classified | CPT/HCPCS: 99212 ==

== ENCOUNTER 2022-03-21 05:50 | Outpatient (REF) | payer MEDICAID, SELFPAY ==
--- NOTE | ~2022-03-21 | FL_ITS ---
EXAMINATION: XR FLUOROSCOPY WITH IMAGES CLINICAL INFORMATION: Sacral coccygeal disorder COMPARISON: None. TECHNIQUE: Fluoroscopy performed by Dr. Vance Irby. Fluoroscopy time: 0.1 minutes DAP: 0.353 Gycm2 Images: 2 FINDINGS: Needle is seen overlying a sacroiliac joint. FL/FL guidance in treatment room IMPRESSION: Fluoroscopy used for pain management procedure.
== END 2022-03-21 05:51 | disposition home or self-care (01) ==
LOC: HO.RADIR 05:50
PROVIDERS: Visit Provider Internal Medicine
DX: M53.3 Sacrococcygeal disorders, not elsewhere classified (principal)
CPT/HCPCS: 27096; J1040; J2795; J3300

== ENCOUNTER → 2022-04-07 11:20 | Outpatient (BNVA) | payer MEDICAID, SELFPAY | PROVIDERS: PCP Pediatrics; Visit Provider Anesthesiology | DX: M54.16 Radiculopathy, lumbar region (principal); M51.36 Other intervertebral disc degeneration, lumbar region; M47.816 Spondylosis without myelopathy or radiculopathy, lumbar region | CPT/HCPCS: 99212 ==

== ENCOUNTER 2022-04-22 06:13 | Outpatient (REF) | payer MEDICAID, SELFPAY | END 2022-04-22 06:14 | disposition home or self-care (01) | LOC: HO.RADIR 06:13 | PROVIDERS: Visit Provider Anesthesiology | DX: Z13.89 Encounter for screening for other disorder (principal) ==

== ENCOUNTER 2022-06-27 12:51 | Day surgery (SDC) | payer MEDICAID, SELFPAY ==
[2022-06-24 09:05] VITALS: BMI 34.7
--- NOTE | 2022-06-26 10:47 | P.CONAN_ITS ---
Documented by User: Tiffanie Hwang NP 06/26/22 10:50 HPI - Anesthesia Eval Consult details Narrative: 51yo F for Right Transforaminal Epidural Injection L5-S1 s/p same 09/2021 with TIVA PMFSH Active Problems Active Problems: All Active Problems (Updated 10/22/21 @ 14:37 by PEYTON Deluna) Migraine, unspecified, not intractable, without status migrainosus (Acute) Pain of left great toe (Acute) Fracture of metatarsal bone of left foot with routine healing (Acute) Trochanteric bursitis of right hip (Acute) Low back pain (Acute) Carpal tunnel syndrome of left wrist (Acute) Cubital tunnel syndrome on left (Acute) Trigger finger of left thumb (Acute) Lumbar radiculopathy (Acute) Sacroiliac joint pain (Acute) Degenerative disc disease (Acute) Pre-procedural laboratory examination (Acute) Bruising (Acute) Lumbar facet arthropathy (Acute) Early satiety (Acute) LIANNA (obstructive sleep apnea) (Acute) COVID-19 (Acute) Sleep disorder (Acute) Snoring (Acute) Excessive daytime sleepiness (Acute) Dysphagia (Acute) Iron deficiency anemia (Chronic) Past Medical History Medical History Anxiety Arthritis Asthma Depression Dysphagia Fibromyalgia GERD (gastroesophageal reflux disease) History of palpitations Hx of bronchitis Iron deficiency anemia Family History Family History Father Hx of type 1 diabetes mellitus Mother Hx of osteosarcoma Maternal Grandmother Hx of type 1 diabetes mellitus Maternal Grandfather Hx of type 1 diabetes mellitus Paternal Grandfather Hx of type 1 diabetes mellitus Paternal Grandmother Hx of type 1 diabetes mellitus Family history of problems with anesthesia: No Surgical History Surgical History History of carpal tunnel surgery of right wrist History of laryngoscopy Hx of colonoscopy Hx of esophagogastroduodenoscopy Hx of hysterectomy History of Problems with Anesthesia: No Social History Social History Household Members: Children Alcohol intake: never Patient Tobacco Use Status: Never used Tobacco Second Hand Smoke Exposure: No Are you DNR?: No Advance Directives: No Advance Directives Information Provided: Yes Nutrition Risks: No Nutritional Risk 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 Meds Allergies Allergy/AdvReac Type Severity Reaction Status Date / Time Oyster Shell Allergy Severe Facial Uncoded 06/27/22 13:47 Swelling Home Medications Medication Instructions Recorded Confirmed Last Taken Type albuterol sulfate 0.63 mg/3 mL 0.63 mg inhalation Q4-6H PRN 07/27/20 06/27/22 06/26/22 07:00 History solution for nebulization Wheezing allopurinol 300 mg tablet 300 mg PO DAILY 07/27/20 06/27/22 06/26/22 07:00 History cholecalciferol (vitamin D3) 125 125 mcg PO DAILY 07/27/20 06/27/22 06/26/22 07:00 History mcg (5,000 unit) tablet (Vitamin D3) cyanocobalamin (vitamin B-12) 1,000 mcg PO DAILY 07/27/20 06/27/22 06/26/22 07:00 History 1,000 mcg tablet (Vitamin B-12) fluticasone 250 mcg-salmeterol 50 1 inh inhalation BID 07/27/20 06/27/22 07/26/21 08:00 History mcg/dose blistr powdr for inhalation (Advair Diskus) fluticasone propionate 50 1 spray intranasal DAILY 07/27/20 06/27/22 06/26/22 07:00 History mcg/actuation nasal spray,suspension montelukast 10 mg tablet 10 mg PO DAILY 07/27/20 06/27/22 06/26/22 07:00 History (Singulair) zolpidem 5 mg tablet (Ambien) 5 mg PO BEDTIME PRN Insomnia 12/10/20 06/27/22 06/26/22 20:00 History calcium carbonate 200 mg calcium 200 mg PO BID 04/05/21 06/27/22 06/26/22 20:00 History (500 mg) chewable tablet (Antacid (calcium carbonate)) duloxetine 20 mg capsule,delayed 50 mg PO BID 10/22/21 06/27/22 06/26/22 20:00 History release (Cymbalta) hydrochlorothiazide 25 mg tablet 25 mg PO DAILY 10/22/21 06/27/22 06/26/22 07:00 History Exam Exam Date and Time: June 26, 2022 1047 Height,Weight and Vital Signs: Height 5 ft 2 in Weight 86.183 kg Narrative Narrative: EKG 11/2021 Vent. Rate : 079 BPM ? ? Atrial Rate : 079 BPM ?? P-R Int : 182 ms? QRS Dur : 070 ms ? ? QT Int : 342 ms ? ? ? P-R-T Axes : 012 -11 012 degrees ?? QTc Int : 392 ms ? Normal sinus rhythm Minimal voltage criteria for LVH, may be normal variant ( R in aVL ) Borderline ECG When compared with ECG of 28-AUG-2021 21:20, T wave amplitude has decreased in Anterior leads Assessment and Plan Final Anesthetic Review Family History of Problems with Anesthesia: No History of Problems with Anesthesia: No Documented by User: Francis Aguilar MD 06/27/22 14:29 [facility] [place] Past Medical History Medical History Anxiety Arthritis Asthma Depression Dysphagia Fibromyalgia GERD (gastroesophageal reflux disease) History of palpitations Hx of bronchitis Iron deficiency anemia Patient : No Family History Family History Father Hx of type 1 diabetes mellitus Mother Hx of osteosarcoma Maternal Grandmother Hx of type 1 diabetes mellitus Maternal Grandfather Hx of type 1 diabetes mellitus Paternal Grandfather Hx of type 1 diabetes mellitus Paternal Grandmother Hx of type 1 diabetes mellitus Surgical History Surgical History History of carpal tunnel surgery of right wrist History of laryngoscopy Hx of colonoscopy Hx of esophagogastroduodenoscopy Hx of hysterectomy Social History Social History Household Members: Children Alcohol intake: never Patient Tobacco Use Status: Never used Tobacco Second Hand Smoke Exposure: No Are you DNR?: No Advance Directives: No Advance Directives Information Provided: Yes Nutrition Risks: No Nutritional Risk 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 Meds Allergies Allergy/AdvReac Type Severity Reaction Status Date / Time Oyster Shell Allergy Severe Facial Uncoded 06/27/22 13:47 Swelling Home Medications Medication Instructions Recorded Confirmed Last Taken Type albuterol sulfate 0.63 mg/3 mL 0.63 mg inhalation Q4-6H PRN 07/27/20 06/27/22 06/26/22 07:00 History solution for nebulization Wheezing allopurinol 300 mg tablet 300 mg PO DAILY 07/27/20 06/27/22 06/26/22 07:00 History cholecalciferol (vitamin D3) 125 125 mcg PO DAILY 07/27/20 06/27/22 06/26/22 07:00 History mcg (5,000 unit) tablet (Vitamin D3) cyanocobalamin (vitamin B-12) 1,000 mcg PO DAILY 07/27/20 06/27/22 06/26/22 07:00 History 1,000 mcg tablet (Vitamin B-12) fluticasone 250 mcg-salmeterol 50 1 inh inhalation BID 07/27/20 06/27/22 07/26/21 08:00 History mcg/dose blistr powdr for inhalation (Advair Diskus) fluticasone propionate 50 1 spray intranasal DAILY 07/27/20 06/27/22 06/26/22 07:00 History mcg/actuation nasal spray,suspension montelukast 10 mg tablet 10 mg PO DAILY 07/27/20 06/27/22 06/26/22 07:00 History (Singulair) zolpidem 5 mg tablet (Ambien) 5 mg PO BEDTIME PRN Insomnia 12/10/20 06/27/22 06/26/22 20:00 History calcium carbonate 200 mg calcium 200 mg PO BID 04/05/21 06/27/22 06/26/22 20:00 History (500 mg) chewable tablet (Antacid (calcium carbonate)) duloxetine 20 mg capsule,delayed 50 mg PO BID 10/22/21 06/27/22 06/26/22 20:00 History release (Cymbalta) hydrochlorothiazide 25 mg tablet 25 mg PO DAILY 10/22/21 06/27/22 06/26/22 07:00 History Exam Airway Mallampati Class: II TM Dist: >3cm Neck ROM: Full Partial: Upper and Lower Lungs: clear Assessment and Plan Final Anesthetic Review NPO: Yes ASA Class: II Final Preanesthetic Review: No Changes in Pt Med Stat, Meds/Allgs Chart Reviewed, Consent Obtained/Reviewed and Anes Risks/Benef Reviewed Patient Risk: Intermediate Procedure Risk: Low Anesthetic Plan Anesthetic Plan: GA Disposition: Standard PACU
--- NOTE | 2022-06-26 15:31 | MHC.SHP ---
Pre-Procedural Eval Section A Date of Service: 06/26/22 The patient is an INPATIENT: No Changes since office visit: Yes Patient answered all questions Section B Chief Complaint: disc,degeneration Details of Present Illness: as above Relevant Family History (Specify if Yes): No Relevant Social History: None Present Medications: see Short Stay Collaborative assessment Medical History: No relevant PMH History of Previous Operations: No relevant previous surgery Allergies: Allergies Allergy/AdvReac Type Severity Reaction Status Date / Time Oyster Shell Allergy Mild Unknown Uncoded 04/07/22 11:48 Review of Systems Sugical H&P ROS: Negative: Constitution, Cardiovascular, Respiratory, Neurological, Psychiatric, Hem-Onc, Allergic/Immunologic, Gastrointestinal, Genitourinary, Musculoskeletal, Integumentary, Endocrine and Eyes/Ears/Nose/Throat Exam Surgical H&P Exam: Normal: HEENT, Normal: Heart, Normal: Lungs, Normal: Extremities, Normal: Abdomen, Normal: Skin and Normal: Neurological Plan Diagnosis/Plan: Unchanged I have reviewed the history and physical and performed a pertinent physical examination on my patient. No changes have occurred unless specified.
[2022-06-27] VITALS (9 sets, daily range): BP systolic 113–143; BP diastolic 57–71; PULSE 60–67; RESP 16–18; TEMP 36.2–36.7; O2SAT 94–100
--- NOTE | ~2022-06-27 | FL_ITS ---
EXAMINATION: XR FLUOROSCOPY WITH IMAGES CLINICAL INFORMATION: Pain. COMPARISON: 03/21/2022 TECHNIQUE: Fluoroscopy performed by Dr. Vance Irby. Fluoroscopy time: 0.1 minutes. Cumulative Dose: 6.85 mGy. DAP: 186 Gy-cm2. Images: 1. FINDINGS: Right transforaminal DODIE performed with needle seen beneath the level of the right L5 pedicle with contrast tracking along what appears to be the nerve sheath. No lateral image performed. FL/FL guidance in OR IMPRESSION: Intraoperative fluoroscopy for pain management procedure.
[2022-06-27] MEDS: Lactated Ringers 1,000 ML 100 ML IVCONT (13:41)
--- NOTE | 2022-06-27 14:25 | W.PM.OPN ---
Operative Note Operative Note Date of Service: 06/27/22 Narrative: After obtaining informed consent thorough explanation about the nature and risks of the procedure the patient was taken to the operating room. She insisted upon performing the procedure under deep sedation although it was explained to her that the safer way to perform this procedure would be if she would have it under minimal to moderate sedation with me able to ask her questions about the procedure. Unfortunately the patient continued to insist on doing the procedure under general anesthesia. So she was brought to the OR on the stretcher ASA m-rs were applied and GA was induced. She was transfered prone on the OR table. ? Time-out was performed delineating correct site and side of the procedure, name and of the patient.. ? The lower back was prepped with ChloraPrep and draped with for utility sterile towels. After that sq picture of L5 vertebra was delineated on the screen. The point of interest were delineated as the upper lateral margin of the superiore articular process of the left S1 vertebra. The point of interests projection to the skin was injected with small amount of lidocaine 1%. Tilting machine ipsilateral to the right the most prominent picture of theS1 articular process was obtained on the screen. . After that 22 gauge 5 in needle was driven toward the point of interest in maría vision fashion. When the needle gently contacted the bone the tip was deviated lateral and after that medial to get around the articular process. When the needle on AP view entered the silhouette if the spinal column aspiration was performed denoting no CSF and no blood. Injection of the contrast was performed demonstratingepidural and perineural spread of the contrast. The image of the epidurogram was saved. . After that injection of the 1% of lidocaine PF 5 mls mixed with 40 mg of Kenalog was performed into the needle. The patient tolerated procedure well. The needles were removed. Sterile Band-Aids were applied on the puncture sites. The patient was awaken, extubated and taken outside of the operating room to recovery room where she recovered uneventfully.
--- NOTE | 2022-06-27 15:27 | PM.OP ---
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
== END 2022-06-27 16:52 | disposition home or self-care (01) ==
PROVIDERS: PCP Pediatrics; Visit Provider Anesthesiology
PROC: (CPT 64483; principal; 2022-06-27 14:30)
DX: M51.36 Other intervertebral disc degeneration, lumbar region (principal); M47.816 Spondylosis without myelopathy or radiculopathy, lumbar region; M54.16 Radiculopathy, lumbar region; R20.0 Anesthesia of skin; M79.7 Fibromyalgia; D50.9 Iron deficiency anemia, unspecified; J45.909 Unspecified asthma, uncomplicated; F32.A Depression, unspecified
CPT/HCPCS: 64483; J2250; J3010; J3300; Q9965

== ENCOUNTER 2022-08-08 13:56 | Outpatient (REF) | payer MEDICAID, SELFPAY ==
--- NOTE | ~2022-08-08 | XR_ITS ---
EXAMINATION: XR KNEE, RIGHT CLINICAL INFORMATION: Pain COMPARISON: None TECHNIQUE: Four views of the right knee. FINDINGS: Bones and soft tissues are normal. No fracture or joint effusion. Alignment is anatomic. Joint spaces are well maintained. No abnormal soft tissue calcification. XR/XR knee RT 4V IMPRESSION: Normal right knee.
--- NOTE | ~2022-08-08 | XR_ITS ---
EXAMINATION: XR FOOT, LEFT CLINICAL INFORMATION: Left toe pain COMPARISON: 08/09/2020 TECHNIQUE: AP, lateral, and oblique views of the left foot. FINDINGS: The bones and soft tissues are normal. No fracture. Alignment is anatomic. Joint spaces are maintained. XR/XR foot LT min 3V IMPRESSION: Normal left foot.
== END 2022-08-08 13:57 | disposition home or self-care (01) ==
LOC: HO.XRAY 13:56
PROVIDERS: Absent Provider Pediatrics; PCP Pediatrics; Visit Provider Internal Medicine
DX: M25.561 Pain in right knee (principal); M79.675 Pain in left toe(s)
CPT/HCPCS: 73564; 73630

== ENCOUNTER 2022-08-29 11:55 | Outpatient (REF) | payer MEDICAID, SELFPAY ==
--- NOTE | ~2022-08-29 | XR_ITS ---
EXAMINATION: XR ANKLE, RIGHT CLINICAL INFORMATION: Right ankle sprain. COMPARISON: Right ankle 04/05/2000. TECHNIQUE: AP, lateral, and mortise views of the right ankle. FINDINGS: Some minimal soft tissue swelling is seen laterally, new since 2019. The bones and soft tissues are otherwise normal. No fracture. Alignment is anatomic. Joint spaces are maintained. No joint effusion. XR/XR ankle RT min 3V IMPRESSION: Soft tissue swelling laterally without fracture.
== END 2022-08-29 11:56 | disposition home or self-care (01) ==
LOC: HO.XRAY 11:55
PROVIDERS: PCP Pediatrics; Visit Provider Pediatrics
DX: S93.401A Sprain of unspecified ligament of right ankle, initial encounter (principal); X58.XXXA Exposure to other specified factors, initial encounter; Y93.9 Activity, unspecified; Y92.9 Unspecified place or not applicable; Y99.8 Other external cause status
CPT/HCPCS: 73610

== ENCOUNTER → 2022-10-08 08:49 | Outpatient (BNVA) | payer MEDICAID, SELFPAY | PROVIDERS: PCP Pediatrics; Referring Provider Pediatrics; Visit Provider Internal Medicine | DX: I10 Essential (primary) hypertension (principal); Z79.899 Other long term (current) drug therapy | CPT/HCPCS: 93005; 99202 ==

== ENCOUNTER → 2022-10-14 10:53 | Outpatient (REF) | payer MEDICAID, SELFPAY | LOC: HO.SL 10:53 | PROVIDERS: Visit Provider Internal Medicine | DX: G47.33 Obstructive sleep apnea (adult) (pediatric) (principal) | CPT/HCPCS: 95806 ==

== ENCOUNTER → 2022-11-03 08:25 | Outpatient (BNVA) | payer SELFPAY | PROVIDERS: PCP Pediatrics; Visit Provider Physician Assistant Medical | DX: Z02.79 Encounter for issue of other medical certificate (principal) ==

== ENCOUNTER 2022-11-14 08:39 | Outpatient (REF) | payer MEDICAID, SELFPAY ==
--- NOTE | ~2022-11-14 | MM_ITS ---
EXAMINATION: BONE DENSITOMETRY CLINICAL INDICATION: Postmenopausal. COMPARISON: Baseline BD dated 11/16/2018. TECHNIQUE: Using a [employer] DXA System (software version: 13.1) manufactured by [employer], dual-energy x-ray absorptiometry was performed of the lumbar spine and left hip. The images are of good technical quality. Summary results are attached. FINDINGS: AP SPINE L1-L4: Current: BMD 1.383 g/cm2, Z-score 1.8, T-score 1.7, normal, 5.3% decrease from baseline (<5% change is not significant). Baseline: BMD 1.461 g/cm2. LEFT FEMUR, NECK: Current: BMD 1.033 g/cm2, Z-score 0.5, T-score 0.0, normal. Baseline: BMD 1.053 g/cm2. LEFT FEMUR, TOTAL: Current: BMD 1.165 g/cm2, Z-score 1.4, T-score 1.2, normal, 0.3% decrease from baseline (<5% change is not significant). Baseline: BMD 1.168 g/cm2. IDENTIFIED RISK FACTORS: Menopause, recurrent falls, family history (parent hip fracture), thiazide. HISTORY OF FRACTURE: None listed. MEDICATIONS: Vitamin D, calcium. MM/XR DEXA axial skeleton IMPRESSION: 1. DIAGNOSIS: Normal bone density based on the lowest T-score value of 0.0 in the femoral neck applying World Health Organization criteria. 2. 10-YEAR FRACTURE RISK PREDICTION, FRAX: According to the guidelines, FRAX calculation should only be performed on patients in the osteopenia bone density category. Therefore, FRAX was not performed on this patient. 3. Treatment Recommendations: NOF guidelines recommend consideration for treatment in postmenopausal women and men age 50 and older presenting with the following: -A hip or vertebral (clinical or morphometric) fracture. -T-score less than or equal to -2.5 at the femoral neck or spine after appropriate evaluation to exclude secondary causes. -Low bone mass at the hip or spine and a 10-year fracture probability by FRAX of greater than or equal to 3% for hip fracture or greater than or equal to 20% for major osteoporotic fracture based on the [place] adapted WHO algorithm. 4. Other Recommendations: All treatment decisions require clinical judgment and consideration of individual patient factors, including patient preferences, comorbidities, previous drug use, risk factors not captured in the FRAX model (e.g. frailty, falls, vitamin D deficiency, increased bone turnover, interval significant decline in bone density) and possible under or overestimation of fracture risk by FRAX. FUTURE SCAN RECOMMENDATION: People with diagnosed cases of osteoporosis or at high risk for fracture should have regular bone mineral density tests. For patients eligible for Medicare, routine testing is allowed once every 2 years. The testing frequency can be increased to one year for patients who have rapidly progressing disease, those who are receiving or discontinuing medical therapy to restore bone mass, or have additional risk factors.
== END 2022-11-14 08:40 | disposition home or self-care (01) ==
LOC: HO.MAMMO 08:39
PROVIDERS: PCP Pediatrics; Visit Provider Pediatrics
DX: Z13.820 Encounter for screening for osteoporosis (principal); Z78.0 Asymptomatic menopausal state; M25.561 Pain in right knee; M25.562 Pain in left knee
CPT/HCPCS: 77080

== ENCOUNTER 2022-11-17 10:24 | Outpatient (REF) | payer MEDICAID, SELFPAY ==
--- NOTE | ~2022-11-17 | US_ITS ---
EXAMINATION: ULTRASOUND OF KIDNEYS WITH RENAL ARTERY DOPPLER CLINICAL INFORMATION: Hypertension. COMPARISON: CT abdomen and pelvis 05/05/2017. TECHNIQUE: Ultrasound of the kidneys was performed along with color flow Doppler imaging and velocity measurements in the proximal mid and distal renal arteries. Aortic velocities were measured and renal/aortic ratios were calculated. Segmental resistive indices were measured bilaterally. FINDINGS: The kidneys appeared normal with the right kidney measuring 9.8 x 4.3 x 4.0 cm and the left kidney measuring 10.3 x 5.2 x 5.0 cm. No renal masses, renal stones or hydronephrosis is seen. Renal cortical thickness appears normal. Velocity measurements in the proximal mid and distal renal arteries are normal on the right but elevated on the left with a proximal velocity of 239 and a mid velocity of 181. Velocity in the aorta is normal at 95 cm/s. Renal aortic ratio is 1.7 on the right and 2.5 on the left. Resistive indices were normal bilaterally. Both renal veins are patent. The bladder was not examined. Incidental note made of hepatic steatosis. US/US renal BI IMPRESSION: 1. There is evidence of renal artery stenosis seen on the left. CT angiography may be useful for further evaluation. No calcified plaque was seen in the renal arteries on the 05/05/2017 CT scan. 2. Incidental note made of hepatic steatosis which has been noted on prior imaging studies.
--- NOTE | ~2022-11-17 | US_ITS ---
EXAMINATION: ULTRASOUND OF KIDNEYS WITH RENAL ARTERY DOPPLER CLINICAL INFORMATION: Hypertension. COMPARISON: CT abdomen and pelvis 05/05/2017. TECHNIQUE: Ultrasound of the kidneys was performed along with color flow Doppler imaging and velocity measurements in the proximal mid and distal renal arteries. Aortic velocities were measured and renal/aortic ratios were calculated. Segmental resistive indices were measured bilaterally. FINDINGS: The kidneys appeared normal with the right kidney measuring 9.8 x 4.3 x 4.0 cm and the left kidney measuring 10.3 x 5.2 x 5.0 cm. No renal masses, renal stones or hydronephrosis is seen. Renal cortical thickness appears normal. Velocity measurements in the proximal mid and distal renal arteries are normal on the right but elevated on the left with a proximal velocity of 239 and a mid velocity of 181. Velocity in the aorta is normal at 95 cm/s. Renal aortic ratio is 1.7 on the right and 2.5 on the left. Resistive indices were normal bilaterally. Both renal veins are patent. The bladder was not examined. Incidental note made of hepatic steatosis. US/US renal doppler IMPRESSION: 1. There is evidence of renal artery stenosis seen on the left. CT angiography may be useful for further evaluation. No calcified plaque was seen in the renal arteries on the 05/05/2017 CT scan. 2. Incidental note made of hepatic steatosis which has been noted on prior imaging studies.
== END 2022-11-17 10:25 | disposition home or self-care (01) ==
LOC: HO.US 10:24
PROVIDERS: PCP Pediatrics; Visit Provider Internal Medicine
DX: I70.1 Atherosclerosis of renal artery (principal); I10 Essential (primary) hypertension
CPT/HCPCS: 76775; 93975

== ENCOUNTER 2022-11-28 10:21 | Outpatient (REF) | payer MEDICAID, SELFPAY ==
[2022-11-28 12:06] LABS: Anion Gap 12 (12-20); Blood Urea Nitrogen 10 mg/dL (9-16); Carbon Dioxide 26 mmol/L (22-29); Chloride 109 mmol/L (96-108); Estimated Glomerular Filt Rate > 60; Glucose Random 106 mg/dL (60-115); Potassium 4.6 mmol/L (3.3-5.1); Sodium 142 mmol/L (135-145)
== END 2022-11-28 10:22 | disposition home or self-care (01) ==
LOC: HO.LAB 10:21
PROVIDERS: PCP Pediatrics; Visit Provider Internal Medicine
DX: I10 Essential (primary) hypertension (principal)
CPT/HCPCS: 36415; 80048

== ENCOUNTER 2022-12-01 07:51 | Outpatient (REF) | payer MEDICAID, SELFPAY ==
--- NOTE | ~2022-12-01 | CT_ITS ---
EXAMINATION: CT ANGIOGRAM ABDOMEN CLINICAL INFORMATION: Renal artery atherosclerosis. COMPARISON: Renal Doppler 11/17/2022. TECHNIQUE: Multiple axial images were obtained through the abdomen following the administration of 80 mL Omnipaque 350 intravenous contrast. 3D POSTPROCESSING: Multiple 3-D angiographic images were processed from the initial data set by the imaging engineer at the modality workstation under concurrent physician supervision. This CT examination was performed using dose optimization techniques as appropriate, variously including the following: *Automated exposure control *Adjustment of mA and/or kV according to patient size (this includes techniques or standardized protocols for targeted exams where dose is matched to indication/reason for exam; i.e. extremities or head) *Use of iterative reconstruction technique DLP: 254 mGy-cm FINDINGS: The abdominal aorta is normal in caliber. There is mild infrarenal atherosclerosis. The common iliac arteries and visible segments of the external and internal iliac arteries are normal in caliber. No hemodynamically significant peripheral arterial disease. The celiac artery, superior mesenteric artery, and inferior mesenteric artery are widely patent. The single right renal artery is widely patent. The single left renal artery is widely patent. No explanation for the elevated velocity seen on the recent Doppler study. The renal artery contours are smooth with no evidence of beading to suggest fibromuscular dysplasia. Retroaortic left renal vein. The renal veins are patent. The suprarenal IVC is patent. Normal enhancement of the portal venous system. No suspicious lung nodule. Enlarged fatty liver with some fatty sparing along the gallbladder fossa. No discrete liver mass. No ductal dilatation. No discrete pancreatic mass. No pancreatic ductal dilatation. No focal parenchymal atrophy. The spleen is normal in size. No adrenal mass. Symmetric nephrograms. No renal mass. No nephrolithiasis or hydronephrosis. The visible segments of small and large bowel are unremarkable. No adenopathy. No abdominal wall hernia. Mild degenerative disease at L5-S1. CT/CT angio abdomen IMPRESSION: No evidence of hemodynamically significant renal artery stenosis. Fleischner guidelines were followed.
[2022-12-01] MEDS: iohexoL 350 MG/ML 100 ML INFUS..BTL 80 ML IV (08:48)
== END 2022-12-01 07:52 | disposition home or self-care (01) ==
LOC: HO.CT 07:51
PROVIDERS: PCP Pediatrics; Visit Provider Internal Medicine
DX: I70.1 Atherosclerosis of renal artery (principal)
CPT/HCPCS: 74175; Q9967

== ENCOUNTER → 2023-01-06 13:53 | Outpatient (BNVA) | payer MEDICAID, SELFPAY | PROVIDERS: PCP Pediatrics; Referring Provider Pediatrics; Visit Provider Nurse Practitioner Family | DX: I10 Essential (primary) hypertension (principal); I70.1 Atherosclerosis of renal artery; R06.83 Snoring | CPT/HCPCS: 99212 ==

== ENCOUNTER 2023-06-29 09:18 | Outpatient (REF) | payer MEDICAID, SELFPAY ==
--- NOTE | ~2023-06-29 | XR_ITS ---
EXAMINATION: XR CHEST CLINICAL INFORMATION: Shortness of breath and chest pain. Covid positive. COMPARISON: 08/28/2021 TECHNIQUE: 2 views of the chest were obtained. FINDINGS: The lungs are well expanded. No focal consolidation. No pleural effusion. Cardiac silhouette is within normal limits. XR/XR chest 2V IMPRESSION: No acute abnormality.
== END 2023-06-29 09:19 | disposition home or self-care (01) ==
LOC: HO.HHCX 09:18
PROVIDERS: Visit Provider Emergency Medicine
DX: U07.1 COVID-19 (principal)
CPT/HCPCS: 71046

== ENCOUNTER 2023-07-10 12:45 | Outpatient (REF) | payer MEDICAID, SELFPAY ==
[2023-07-10 16:01] LABS: MANUAL DIFF FLAG NO
[2023-07-10 16:04] LABS: Basophils Percent Auto 0.4 % (0-2); Eosinophils Absolute Auto 0.1 X10*3/uL (0.0-0.4); Hematocrit 32.1 % (37.0-47.0); Imm Gran Abs Auto 0.06 X10*3/uL (0.00-0.03); Imm Gran Pct Auto 0.9 % (0.0-0.4); Lymphocytes Absolute Auto 1.5 X10*3/uL (1.2-4.9); Lymphocytes Percent Auto 20.7 % (20-40); Mean Corpuscular HGB Conc 34.3 g/dl (31.0-35.0); Mean Corpuscular Hemoglobin 28.6 pg (27.0-33.0); Mean Corpuscular Volume 83.4 fL (80.0-98.0); Mean Platelet Volume 10.6 fL (9.4-12.3); Monocytes Absolute Auto 0.5 X10*3/uL (0.1-1.2); Monocytes Percent Auto 7.7 % (2-11); Neutrophils Absolute Auto 4.8 x10*3/uL (2.0-8.3); Neutrophils Percent Auto 68.3 % (45-73); Platelet Count 237 X10*3/uL (160-400); Red Blood Count 3.85 X10*6/uL (4.20-5.50); Red Cell Distribution Width 14.7 % (11.0-16.0)
== END 2023-07-10 12:46 | disposition home or self-care (01) ==
LOC: HO.HHCL 12:45
PROVIDERS: Visit Provider Pediatrics
DX: D64.9 Anemia, unspecified (principal)
CPT/HCPCS: 36415; 85025

== ENCOUNTER → 2023-09-21 11:38 | Outpatient (BNVA) | payer MEDICAID, SELFPAY | PROVIDERS: PCP Pediatrics; Visit Provider Internal Medicine Gastroenterology ==

== ENCOUNTER 2023-11-03 10:44 | Outpatient (AMB) | payer MEDICAID, SELFPAY ==
[2023-11-03 10:56] VITALS: BMI 33.7
--- NOTE | 2023-11-03 10:56 | A.OFFVIS_ITS ---
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 Patient had an EMG done in 2019, and before her carpal tunnel release. February 09 2023 Right hand 2nd-5th Finger trigger finger and carpal tunnel release. Hx of of bilateral hand trigger and carpal tunnel surgery with dr. moeller the left hand surgery was done and she recovered well. The right hand she had 2-5th finger trigger release and carpal tunnel release, a few days after surgery she was struggling with swelling and discoloration of the hand. She was in in [place] with her Ill sister and the providers taking care of her sister noticed the color of the hand. She was placed on IV antibiotics which did help relieve her pain/symptoms. When she came back she had completed 9 months of OT with little to no improvement. She has very limited ROM, as well as pain that has radiated to the elbow and the shoulder. She was seen with Dr. Moeller after surgery, who was unhelpful and laughed at her for her concerns. 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 She gives a history of bilateral trigger finger & carpal tunnel release done by Dr. Moeller in the past. She has no complaints about her left side and says this healed well. In regards to her right hand, she had a right index, middle, ring, and small finger trigger release, & a carpal tunnel release by Dr. Moeller, DOS: 02/09/23. She was seen on 02/11/23 with complaints of pain & swelling, and was told this was normal post-op pain. She travelled to [place] on 02/14/23 to be with her terminally ill sister, and a nurse there saw her hand was still swollen and painful. She was placed on IV ABX followed by PO Abx for 14 days to treat a possible infection before her swelling & pain improved. When she returned she underwent ~9 months of therapy due to weakness, pain, and stiffness of her right hand. She says she is still unable to use her hand fully, and has difficulty with finger extension or making a fist. 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 She reports having numbness in the median nerve distribution of her right hand, which has persisted since her surgery. She has not done a new NCS since her surgeries. [facility] Medical History Essential hypertension History of palpitations Arthritis Fibromyalgia Asthma GERD (gastroesophageal reflux disease) Hx of bronchitis Anxiety Depression Iron deficiency anemia Dysphagia Surgical History History of laryngoscopy History of carpal tunnel surgery of right wrist Hx of colonoscopy Hx of esophagogastroduodenoscopy Hx of hysterectomy Family History Father Hx of type 1 diabetes mellitus Mother Hx of osteosarcoma Maternal Grandmother Hx of type 1 diabetes mellitus Maternal Grandfather Hx of type 1 diabetes mellitus Paternal Grandfather Hx of type 1 diabetes mellitus Paternal Grandmother Hx of type 1 diabetes mellitus Social History Household Members: Children Alcohol intake: never Patient Tobacco Use Status: Never used Tobacco Second Hand Smoke Exposure: No 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 Review of Systems Const All systems reviewed & are unremarkable except as noted in HPI and below Physical Exam Vital Signs: BMI result Body Mass Index 33.7 Const General: cooperative, healthy appearing and no acute distress Orientation/consciousness: patient oriented x3 HEENT Head: Yes normocephalic and Yes atraumatic Eyes EOM: EOMs intact bilaterally Resp Effort & Inspection: normal respiratory effort and able to speak in complete sentences Cardio Jugular venous distension: no JVD Skin General skin exam: turgor normal Rashes: no rashes Neuro General: patient oriented x3 Extrem Other: Evaluation of Bilateral Upper Extremity: The patient is alert, oriented, and in no acute distress She has dense numbness in the median nerve distribution with better sensation to the small finger of her right hand. No thenar or intrinsic wasting. Good APB muscle belly firing She holds her hand in a position of non function with her fingers slightly flexed. When I asked her to make a fist she would only bring her fingertips to about 4 5 cm from her palm. When I tried to work with her and push her to make a fist she complained that it hurt, but with time we were able to get her to initially passively, and then after working with her for over 45 minutes got her to bring her fingertips acti vely to her palm. Similarly, initially it hurt her to try to lay her hand flat on the table and she did not like doing it. With encouragement and again working on exercises with her during this visit for over 45 minutes we got her to lay her hand flat on the table with less pain. Before leaving clinic she was able to actively bring her fingertips to her palm and then bring them out into full extension. Also, she had no locking or catching in any of her digits. Any swelling is fairly minimal at this point. No evidence of active infection at this point. She does not have significant problematic scarring. No evidence that she is having trouble with tendon motion with in the flexor tendon sheath, thank Goodness Psych Appearance: grossly normal Affect: normal affect Attitude: cooperative Office Procedures Fracture Care Details: No fracture. Manual therapy times 45 minutes possibly [id number] x 3 verses a related CPT code for longer duration than 15 minutes Fracture Billing Code: Fracture Billing Code Assessment & Plan Assessment & Plan (1) History of bilateral carpal tunnel release: Code(s): Z98.890 - Other specified postprocedural states (2) Trigger finger, right index finger: Code(s): M65.321 - Trigger finger, right index finger (3) Trigger finger, right middle finger: Code(s): M65.331 - Trigger finger, right middle finger (4) Trigger finger, right ring finger: Code(s): M65.341 - Trigger finger, right ring finger (5) Trigger finger, right little finger: Code(s): M65.351 - Trigger finger, right little finger (6) Left trigger finger: Code(s): M65.30 - Trigger finger, unspecified finger (7) Fibromyalgia: Code(s): M79.7 - Fibromyalgia (8) Stiffness of right hand joint: Code(s): M25.641 - Stiffness of right hand, not elsewhere classified Plan Assessment & Plan: 1. Right hand pain, secondary to stiffness 2. Right Carpal tunnel syndrome, S/P release DOS: 02/09/[address] Moeller Pre-operatively with dense numbness Post-operatively still with dense numbness 3. Right index trigger finger, S/P release 4. Right middle trigger finger, S/P release 5. Right ring trigger finger, S/P release 6. Right small trigger finger, S/P release DOS: 02/09/[address] Moeller The patient is Frisian-speaking and we used an forensic manager today. 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 Again it sounds like she had trouble with a postoperative infection involving the for trigger fingers while in [place]. No surgery was required and it sounds like the infection was cured with 14 days of antibiotics. So she has no evidence of active infection today. Other good news, is that even though it hurts she does have good active FDS and FDP tendon function to all fingers. No locking or catching. So her prognosis is good if she can understand that she has to work through the pain to do these daily exercises frequently throughout the day to continue to work on range of motion, to improve the slight amount of extrinsic extensor and flexor tendon tightness and likely some tightness in each of the finger joints. She should get better if she does all her exercises to improve motion, then minimize pain, then improve labor relations analyst strength I had a long discussion with her concerning sensation recovery following a carpal tunnel release, and that it can take up to ~9 months for any sensation to improve following a carpal tunnel release, and if this has not improved she may have persistent numbness from what may be permanent nerve damage that existed prior to her surgery.. However she has no thenar wasting & good muscle belly firing. I had a long discussion with her concerning the importance of activity modification and working on ROM exercises at home, 20x daily minimum. We worked on ROM exercises for at least 45 minutes today in clinic. In doing so, she was able to actively bring all of her fingers close to a week fist and then back into full extension before leaving clinic. I ordered a course of OT hand therapy for her to work on ROM and normalizing hand function, and demonstrated exercises for her to perform at home In the end, she appeared to be happy with the visit. I do believe that she understands that it is up to her to do the exercises, but that with these exercises I think she can get significant improvement in her hand function, decrease her pain, and hopefully ultimately gets some strength back in her hand so that she can return to work as a truck assembler. She will follow up in 6-8 weeks for a ROM check. I did explain that in the future all only have about 10-15 minutes to talk to her. 7. Left carpal tunnel syndrome, S/P release 8. Left hand trigger finger, S/P release Patient did not clarify which fingers Done by Dr. Moeller in ~2021 No complaints today regarding her left hand Please note that greater than 45 minutes was spent with this patient going over the history, evaluating the patient and radiographs, formulating possible treatment options, discussing them with the patient, and documenting the visit. Scribed for Maria Teresa Pelletier MD by Bello Jones, ophthalmic medical technician, on 11/03/23 at 12:15 PM, EST. Orders: Orders OT Evaluation and Treatment Today M25.641 - Stiffness of right hand, not elsewhere classified, M65.30 - Trigger finger, unspecified finger, M65.321 - Trigger finger, right index finger, M65.331 - Trigger finger, right middle finger, M65.341 - Trigger finger, right ring finger, M65.351 - Trigger finger, right little finger, M79.7 - Fibromyalgia, Z98.890 - Other specified postprocedural states Coding Level of Care Code New Pt Level 4 (53400) Diagnoses History of bilateral carpal tunnel release Z98.890 Trigger finger, right index finger M65.321 Trigger finger, right middle finger M65.331 Trigger finger, right ring finger M65.341 Trigger finger, right little finger M65.351 Left trigger finger M65.30 Fibromyalgia M79.7 Stiffness of right hand joint M25.641 CPT Codes Fracture Care - Fracture Billing Code: Fracture Billing Code ([id number])
== END 2023-11-03 12:12 | disposition home or self-care (01) ==
PROVIDERS: PCP Pediatrics; Visit Provider Orthopaedic Surgery
DX: M25.641 Stiffness of right hand, not elsewhere classified (principal); M65.321 Trigger finger, right index finger; M65.331 Trigger finger, right middle finger; M65.341 Trigger finger, right ring finger; M65.351 Trigger finger, right little finger; M65.30 Trigger finger, unspecified finger; M79.7 Fibromyalgia
CPT/HCPCS: 97140; 99204

== ENCOUNTER → 2023-11-03 10:44 | Outpatient (BNVA) | payer MEDICAID, SELFPAY | PROVIDERS: PCP Pediatrics; Visit Provider Orthopaedic Surgery | DX: M79.641 Pain in right hand (principal); Z86.69 Personal history of other diseases of the nervous system and sense organs; Z87.39 Personal history of other diseases of the musculoskeletal system and connective tissue | CPT/HCPCS: 97140; 99202 ==

== ENCOUNTER 2023-12-21 10:32 | Outpatient (REF) | payer MEDICAID, SELFPAY ==
[2023-12-21 12:55] LABS: Anion Gap 11 (12-20); Blood Urea Nitrogen 15 mg/dL (9-16); Calcium 8.9 mg/dL (8.4-10.2); Carbon Dioxide 26 mmol/L (22-29); Chloride 109 mmol/L (96-108); Estimated Glomerular Filt Rate > 60; Glucose Random 135 mg/dL (60-115); Potassium 3.8 mmol/L (3.3-5.1); Sodium 142 mmol/L (135-145)
== END 2023-12-21 10:33 | disposition home or self-care (01) ==
LOC: HO.LAB 10:32
PROVIDERS: PCP Pediatrics; Visit Provider Internal Medicine
DX: I10 Essential (primary) hypertension (principal); R00.2 Palpitations; I25.10 Atherosclerotic heart disease of native coronary artery without angina pectoris; Z79.899 Other long term (current) drug therapy
CPT/HCPCS: 36415; 80048; 93005; 99212

== ENCOUNTER 2023-12-21 10:32 | Outpatient (AMB) | payer MEDICAID, SELFPAY ==
[2023-12-21 10:36] VITALS: BP 160/70; PULSE 76; BMI 35.5
--- NOTE | 2023-12-21 10:36 | MHC.OFFVIS ---
Intake Vital Signs 12/21/23 10:36 Height 5 ft 2 in Weight 194 lb 0.108 oz BMI 35.5 BP 160/70 H Blood Pressure Location Lt brachial Position Sitting Pulse 76 Intake Visit Reasons: 1 year follow up Intake Note: 1 year follow up w/ EKG Rental Sales Representative Required: Yes Rental Sales Representative Language: Harmonic Analyst Name: Sandy [id number] Accompanied by: Self / Same As Patient Allergies Oyster Shell Allergy (Severe, Uncoded 12/21/23 10:39) Facial Swelling Medication List - Last Reconciled 12/21/23 by Chucho Zee MD acetaminophen (Tylenol) 650 mg (2 x 325 mg) PO Q4H PRN albuterol sulfate 0.63 mg inhalation Q4-6H PRN allopurinol 300 mg PO DAILY amlodipine 10 mg PO DAILY blood pressure test kit-large As directed [id number]-[id number]-gmuv 50-300-40 mg (Fioricet) 1 cap PO Q6H PRN calcium carbonate (Calcium Antacid) 200 mg PO BID cholecalciferol (vitamin D3) (Vitamin D3) 125 mcg PO DAILY cyanocobalamin (vitamin B-12) (Vitamin B-12) 1,000 mcg PO DAILY duloxetine (Cymbalta) 60 mg PO BID ferrous sulfate 325 mg PO BID fluticasone propion-salmeterol 250-50 mcg/dose (Advair Diskus) 1 inh inhalation BID fluticasone propionate 50 mcg/actuation 1 spray intranasal DAILY hydrochlorothiazide 25 mg PO DAILY hydroxyzine HCl 25 mg PO TID PRN lansoprazole 30 mg PO BID losartan 50 mg PO DAILY montelukast (Singulair) 10 mg PO DAILY quetiapine 300 mg PO BID sumatriptan succinate (Imitrex) 50 mg PO Q2H PRN tizanidine 2 mg PO BEDTIME zolpidem 10 mg PO BEDTIME PRN HPI HPI Comments History of Present Illness Details Tracy returns for follow-up regarding hypertension. She has difficult to control hypertension. She has on a combination of amlodipine, losartan as well as hydrochlorothiazide. In spite of this, blood pressure is still high. No clear-cut complaints like angina or shortness of breath but she states she feels heart fluttering frequently. [facility] Medical History (Updated 12/21/23 @ 11:58 by Chucho Zee MD) Essential hypertension History of palpitations Arthritis Fibromyalgia Asthma GERD (gastroesophageal reflux disease) Hx of bronchitis Anxiety Depression Iron deficiency anemia Dysphagia Surgical History History of laryngoscopy History of carpal tunnel surgery of right wrist Hx of colonoscopy Hx of esophagogastroduodenoscopy Hx of hysterectomy Family History Father Hx of type 1 diabetes mellitus Mother Hx of osteosarcoma Maternal Grandmother Hx of type 1 diabetes mellitus Maternal Grandfather Hx of type 1 diabetes mellitus Paternal Grandfather Hx of type 1 diabetes mellitus Paternal Grandmother Hx of type 1 diabetes mellitus Social History Household Members: Children Alcohol intake: never Patient Tobacco Use Status: Never used Tobacco Second Hand Smoke Exposure: No 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 Review of Systems Const Denies weakness ENT Denies dizziness Card Denies chest pain with activity, Denies syncope, Denies rapid heart rate, Denies pedal edema, Denies edema, Denies leg edema, Denies lightheadedness, Denies dyspnea and Denies orthopnea Resp Denies cough and Denies dyspnea GI Denies hematochezia and Denies change in stool character Musc Denies abnormal gait, Denies muscle cramps, Denies muscle weakness, Denies numbness, Denies radiating pain into limb and Denies tingling Neuro Denies abnormal gait, Denies dizziness, Denies syncope, Denies numbness, Denies tingling and Denies weakness Physical Exam Vital Signs: Last Vital Signs Pulse 76 12/21/23 10:36 BP 160/70 H 12/21/23 10:36 BMI result Body Mass Index 35.5 Const General: comfortable and no acute distress Orientation/consciousness: patient oriented x3 HEENT Other: Unremarkable Head: Yes normal to inspection Neck Neck: Yes normal visual inspection Chest Chest palpation & inspection: normal inspection of the chest Resp Auscultation: clear to auscultation bilaterally Cardio Palpation: normal PMI Heart sounds: S1 normal heart sound present, S2 normal heart sound present, no gallops, no murmurs and no rubs GI Palpation (GI): Soft to palpation Back/Spine/Pelvis Other: unremarkable Skin General skin exam: no rashes or lesions noted Neuro General: patient oriented x3 Extrem General: Yes normal to inspection Psych Mental Status: mental status grossly normal Office Procedures EKG Details: EKG with sinus rhythm at 76/Min; no significant ST-T changes and otherwise unremarkable[place] [id number], Complete Assessment & Plan Assessment & Plan (1) Essential hypertension: Code(s): I10 - Essential (primary) hypertension (2) Heart palpitations: Code(s): R00.2 - Palpitations Plan CTA does not show any evidence of renal artery stenosis. Sleep study is negative for LIANNA. Blood pressure still seems high. Need to check another BNP. If potassium and creatinine are okay, then we can increase the losartan to 100 mg daily. After that, we can consider adding spironolactone/beta-blockers. Check echocardiogram look for any significant LVH or diastolic dysfunction. With regard to her palpitations, could be atrial arrhythmias. Check Holter. Total time spent including review of data, counseling, documentation, coordination of care-31 minutes. Orders: Orders Basic Metabolic Panel Today I10 - Essential (primary) hypertension CA echo transthoracic complete Today I10 - Essential (primary) hypertension, I25.10 - Atherosclerotic heart disease of [place] coronary artery without angina pectoris ECG holter monitor 48 hour Today R00.2 - Palpitations Coding Level of Care Code Est Pt Level 4 (42179) Diagnoses Essential hypertension I10 Heart palpitations R00.2 CPT Codes EKG - CPT: 71852-Yjaxvsxirehndlzph, Complete ([id number])
== END 2023-12-21 11:00 | disposition home or self-care (01) ==
PROVIDERS: PCP Pediatrics; Visit Provider Internal Medicine
DX: I10 Essential (primary) hypertension (principal); R00.2 Palpitations
CPT/HCPCS: 93010; 99214

== ENCOUNTER 2024-01-29 22:39 | Emergency (ER) | payer MEDICAID, SELFPAY ==
--- NOTE | 2024-01-29 | ECG_ITS ---
Test Reason : cp Blood Pressure : / mmHG Vent. Rate : 073 BPM Atrial Rate : 073 BPM P-R Int : 204 ms QRS Dur : 072 ms QT Int : 356 ms P-R-T Axes : 019 -04 021 degrees QTc Int : 392 ms Normal sinus rhythm Normal ECG When compared with ECG of 05-DEC-2021 23:21, No significant change was found Referred By: Generic ED Physician Electronically Signed By:Adrian Pizano
--- NOTE | ~2024-01-29 | CT_ITS ---
EXAMINATION: CT CHEST WITHOUT CONTRAST CLINICAL INFORMATION: Trauma. Pain. COMPARISON: None available. TECHNIQUE: Multidetector volumetric CT imaging of the chest was done. Axial MIP volume rendering provided. Sagittal and coronal reformatted images were obtained. This CT examination was performed using dose optimization techniques as appropriate, variously including the following: *Automated exposure control *Adjustment of mA and/or kV according to patient size (this includes techniques or standardized protocols for targeted exams where dose is matched to indication/reason for exam; i.e. extremities or head) *Use of iterative reconstruction technique DLP: 353 mGy-cm FINDINGS: DESIGNER/WRITER: Unremarkable. LUNGS: There is a 5 mm right middle lobe nodule. MEDIASTINUM: The mediastinum is normal. CORONARY ARTERY CALCIFICATION: None visualized on this study. PLEURA: There is no pleural effusion. No pleural mass or thickening. AXILLA: No lymphadenopathy. UPPER ABDOMEN: Unremarkable. OSSEOUS STRUCTURES: Unremarkable. CT/CT chest wo IV con IMPRESSION: No active cardiopulmonary disease. No evidence for fracture. 5 mm right middle lobe nodule. 12 month follow-up should be considered in high-risk patients. Fleischner guidelines were followed.
--- NOTE | ~2024-01-29 | XR_ITS ---
EXAMINATION: XR CHEST CLINICAL INFORMATION: Chest pain. COMPARISON: Chest radiograph 06/29/2023. TECHNIQUE: Frontal view of the chest was obtained. FINDINGS: No significant abnormality is noted involving the heart, lungs, mediastinum, bony thorax or soft tissues. XR/XR chest 1V IMPRESSION: Unremarkable examination.
[2024-01-29 22:52] VITALS: BP 174/63; PULSE 76; RESP 20; TEMP 37.2; O2SAT 99; BMI 34.2
[2024-01-29 22:55] LABS: MANUAL DIFF FLAG NO
[2024-01-29 22:56] LABS: Basophils Percent Auto 0.4 % (0-2); Eosinophils Absolute Auto 0.3 X10*3/uL (0.0-0.4); Eosinophils Percent Auto 3.6 % (0-4); Hemoglobin 11.6 g/dl (12.0-16.0); Imm Gran Abs Auto 0.04 X10*3/uL (0.00-0.03); Imm Gran Pct Auto 0.5 % (0.0-0.4); Lymphocytes Absolute Auto 2.3 X10*3/uL (1.2-4.9); Lymphocytes Percent Auto 30.8 % (20-40); Mean Corpuscular HGB Conc 35.2 g/dl (31.0-35.0); Mean Corpuscular Hemoglobin 28.4 pg (27.0-33.0); Mean Corpuscular Volume 80.7 fL (80.0-98.0); Mean Platelet Volume 9.4 fL (9.4-12.3); Monocytes Absolute Auto 0.5 X10*3/uL (0.1-1.2); Monocytes Percent Auto 6.2 % (2-11); Neutrophils Absolute Auto 4.4 x10*3/uL (2.0-8.3); Neutrophils Percent Auto 58.5 % (45-73); Platelet Count 178 X10*3/uL (160-400); Red Blood Count 4.09 X10*6/uL (4.20-5.50); Red Cell Distribution Width 13.9 % (11.0-16.0); White Blood Count 7.6 X10*3/uL (4.8-10.8)
[2024-01-29 23:11] LABS: Alanine Aminotransferase 26 U/L (0-31); Albumin Level 4.1 g/dL (3.5-5.0); Alkaline Phosphatase 94 U/L (39-117); Anion Gap 12 (12-20); Aspartate Amino Transferase 18 U/L (5-31); Bilirubin Total 0.5 mg/dL (0.0-1.0); Blood Urea Nitrogen 16 mg/dL (9-16); Calcium 9.3 mg/dL (8.4-10.2); Carbon Dioxide 22 mmol/L (22-29); Chloride 109 mmol/L (96-108); Creatinine Clr Calc Pharmacy 87.9; Estimated Glomerular Filt Rate > 60; Glucose Random 117 mg/dL (60-115); Potassium 3.7 mmol/L (3.3-5.1); Sodium 139 mmol/L (135-145)
--- NOTE | 2024-01-30 00:26 | ED_ITS ---
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 On Thursday she had a mechanical fall no LOC or headstrike but she fell right on the chest. Her pain did not get severe until Thursday. She notes since then it is hard to move and sit upright. No other injuries. MD complaint: chest pain (chest injury) Onset (ago): day(s) (starting Thursday ) Timing of current episode: constant Prior episodes: No Onset: other (worsened after fall onto chest) Pain location: substernal and left chest Pain radiation: none Severity: moderate Quality: aching and dull Relieving factors: rest Exacerbating factors: other (movement trying to sit up using chest muscles) Context: trauma/injury Treatment prior to arrival: none Related Data Home Medications ?Medication ?Instructions ?Recorded ?Confirmed albuterol sulfate 0.63 mg/3 mL 0.63 mg inhalation Q4-6H PRN 07/27/20 12/21/23 solution for nebulization Wheezing allopurinol 300 mg tablet 300 mg PO DAILY 07/27/20 12/21/23 cholecalciferol (vitamin D3) 125 125 mcg PO DAILY 07/27/20 12/21/23 mcg (5,000 unit) tablet (Vitamin D3) cyanocobalamin (vitamin B-12) 1,000 mcg PO DAILY 07/27/20 12/21/23 1,000 mcg tablet (Vitamin B-12) fluticasone 250 mcg-salmeterol 50 1 inh inhalation BID 07/27/20 12/21/23 mcg/dose blistr powdr for inhalation (Advair Diskus) fluticasone propionate 50 1 spray intranasal DAILY 07/27/20 12/21/23 mcg/actuation nasal spray,suspension montelukast 10 mg tablet 10 mg PO DAILY 07/27/20 12/21/23 (Singulair) hydrochlorothiazide 25 mg tablet 25 mg PO DAILY 10/22/21 12/21/23 amlodipine 10 mg tablet 10 mg PO DAILY 10/08/22 12/21/23 duloxetine 20 mg capsule,delayed 60 mg PO BID 10/08/22 12/21/23 release (Cymbalta) blood pressure test kit-large #1 ea 09/21/23 12/21/23 hydroxyzine HCl 25 mg tablet 25 mg PO TID PRN anxiety 09/21/23 12/21/23 quetiapine 300 mg tablet 300 mg PO BID 09/21/23 12/21/23 zolpidem 10 mg tablet 10 mg PO BEDTIME PRN insomnia 09/21/23 12/21/23 Previous Rx's ?Medication ?Instructions ?Recorded ferrous sulfate 325 mg (65 mg 325 mg PO BID #60 tabs 02/06/21 iron) tablet tizanidine 2 mg tablet 2 mg PO BEDTIME #30 tabs 02/11/21 acetaminophen 325 mg tablet 650 mg (2 x 325 mg) PO Q4H PRN 06/15/21 (Tylenol) fever or pain #30 tabs drtassevpt-vnukbcekcbhja-pfqczkvv 1 cap PO Q6H PRN headache #20 caps 08/28/21 50 mg-300 mg-40 mg capsule (Fioricet) sumatriptan succinate 50 mg tablet 50 mg PO Q2H PRN migraine headache 08/28/21 (Imitrex) #10 tabs calcium carbonate 200 mg calcium 200 mg PO BID #90 tabs 10/26/23 (500 mg) chewable tablet (Calcium Antacid) lansoprazole 30 mg capsule,delayed 30 mg PO BID #60 caps 12/14/23 release losartan 100 mg tablet 100 mg PO DAILY #90 tabs 12/22/23 cyclobenzaprine 10 mg tablet 10 mg PO TID PRN muscle spasm #20 01/30/24 tabs lidocaine 4 % topical patch 1 patch topical DAILY PRN pain #10 01/30/24 ea Allergies Allergy/AdvReac Type Severity Reaction Status Date / Time Oyster Shell Allergy Severe Facial Uncoded 01/29/24 22:56 Swelling Review of Systems 2 Review of Systems: Constitutional : No Weight loss, No Fever, No Chills ENT/Mouth : No sore throat, No Rhinorrhea Eyes: No Eye Pain, No Swelling Cardiovascular : pos Chest Pain, no SOB, no Dyspnea on Exertion, No Orthopnea, No Edema, No Palpitations Respiratory : No Cough, No Sputum Gastrointestinal : no Nausea, No Vomiting, No Diarrhea, No abdominal Pain, No Hematochezia, No Melena Genitourinary : No Dysuria, No Urinary Frequency Musculoskeletal : No joint pain, No Myalgias, No Joint Swelling Skin : No Skin Lesions, No rash Neuro : No Weakness, No Numbness, No Dizziness, No Headache Psych : No Anxiety/Panic, No Depression All other systems reviewed and are negative [facility] Past Medical History Attestation statement: The following information was validated with the patient. Source: old records reviewed Medical History Essential hypertension History of palpitations Arthritis Fibromyalgia Asthma GERD (gastroesophageal reflux disease) Hx of bronchitis Anxiety Depression Iron deficiency anemia Dysphagia Surgical History History of laryngoscopy History of carpal tunnel surgery of right wrist Hx of colonoscopy Hx of esophagogastroduodenoscopy Hx of hysterectomy Family History Family History Father Hx of type 1 diabetes mellitus Mother Hx of osteosarcoma Maternal Grandmother Hx of type 1 diabetes mellitus Maternal Grandfather Hx of type 1 diabetes mellitus Paternal Grandfather Hx of type 1 diabetes mellitus Paternal Grandmother Hx of type 1 diabetes mellitus Social History Social History Household Members: Children Alcohol intake: never Patient Tobacco Use Status: Never used Tobacco Second Hand Smoke Exposure: No 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 Oriented X3. No acute distress. Eyes: Pupils equal, round and reactive to light. ENT: Pharynx normal. Neck: Normal inspection. Neck supple. CVS: Normal heart rate and rhythm. Pulses normal. Chest: ttp along sternum and L anterior ribs and breat area no contusion Respiratory: No respiratory distress. Breath sounds normal. Abdomen: Soft and nontender. Skin: Skin warm and dry. Normal skin color. Normal skin turgor. Extremities: No lower extremity edema. No calf ttp Neuro: Oriented X 3. No motor deficit. No sensory deficit. Medical Decision Making Medical Decision Making [facility] Narrative: 53 yo female with PMH of HTN, migraines, anemia, LIANNA here with c/o traumatic chest wall pain at this time will obtain CXR to rule out fracture EKG and troponin negative given history low suspicion for VTE and dissection - CT scan will most likely be done to rule out fracture. Differential Diagnosis Differential Diagnoses: The differential diagnosis associated with the presentation includes fracture, MSK pain, strain Admission/Observation Consideration of admission/observation: Escalation of care including admission/observation considered no acute findings, stable for DC Lab Data [facility] Lab Attestation statement: I reviewed the patient's lab results. 01/29/24 22:48 01/29/24 22:48 Labs: Lab Results 01/29/24 Range/Units 22:48 WBC 7.6 (4.8-10.8) X10*3/uL RBC 4.09 L (4.20-5.50) X10*6/uL Hgb 11.6 L (12.0-16.0) g/dl Hct 33.0 L (37.0-47.0) % MCV 80.7 (80.0-98.0) fL MCH 28.4 (27.0-33.0) pg MCHC 35.2 H (31.0-35.0) g/dl RDW 13.9 (11.0-16.0) % Plt Count 178 (160-400) X10*3/uL MPV 9.4 (9.4-12.3) fL Immature Gran % (Auto) 0.5 H (0.0-0.4) % Neut % (Auto) 58.5 (45-73) % Lymph % (Auto) 30.8 (20-40) % Fillmore % (Auto) 6.2 (2-11) % Eos % (Auto) 3.6 (0-4) % Baso % (Auto) 0.4 (0-2) % Lymph # (Auto) 2.3 (1.2-4.9) X10*3/uL [place] # (Auto) 0.5 (0.1-1.2) X10*3/uL Eos # (Auto) 0.3 (0.0-0.4) X10*3/uL Baso # (Auto) 0.0 (0.0-0.2) X10*3/uL Abs Immat Gran (auto) 0.04 H (0.00-0.03) X10*3/uL Absolute Neuts (auto) 4.4 (2.0-8.3) x10*3/uL Absolute Nucleated RBC 0.000 (0.0-0.012) X10*3/uL Nucleated RBC % (auto) 0.0 (0.0-0.2) /100WBC Sodium 139 (135-145) mmol/L Potassium 3.7 (3.3-5.1) mmol/L Chloride 109 H (96-108) mmol/L Carbon Dioxide 22 (22-29) mmol/L Anion Gap 12 (12-20) BUN 16 (9-16) mg/dL Creatinine 0.73 (0.5-1.4) mg/dL Estim Creat Clear Calc 87.9 Estimated GFR > 60 Random Glucose 117 H (60-115) mg/dL Calcium 9.3 (8.4-10.2) mg/dL Total Bilirubin 0.5 (0.0-1.0) mg/dL AST 18 (5-31) U/L ALT 26 (0-31) U/L Alkaline Phosphatase 94 (39-117) U/L Troponin I High Sens 4.0 (<3.5-17.0) ng/L Total Protein 7.0 (6.5-8.0) g/dL Albumin 4.1 (3.5-5.0) g/dL Independent Interpretation I performed an independent interpretation of an: EKG, Plain X-Ray (normal ) and CT Scan (no fx) Interpretation: Rate: 73 Rhythm: NSR Olcott: left Normal P waves. Normal JAY. Normal QRS complex. ST T wave : normal no MACY qTC:normal prior studies: no acute ischemia The study has been interpreted contemporaneously by me. . Radiology Impression Discussion of test interpretation with radiology: I have reviewed the radiologist's reading. External Record Review External record reviewed: Office record Prescription Management I considered prescription management with: Pain Medication and Other Discharge Plan Discharge Clinical Impression: Acute chest wall pain Patient Disposition: Home, Self-Care Instructions: Chest Wall Pain (ED) Additional Instructions: return for worsening pain, fevers, difficulty breathing or any other concerns. repeat CT scan 12 months - lung nodule through primary care doctor CT/CT chest wo IV con IMPRESSION: No active cardiopulmonary disease. No evidence for fracture. 5 mm right middle lobe nodule. 12 month follow-up should be considered in high-risk patients. Prescriptions: New cyclobenzaprine 10 mg tablet 10 mg PO TID PRN (Reason: muscle spasm) Qty: 20 0RF lidocaine 4 % adhesive patch,medicated 1 patch topical DAILY PRN (Reason: pain) Qty: 10 0RF Rx Instructions: may leave on for up to 12 hrs No Action calcium carbonate [Calcium Antacid] 200 mg calcium (500 mg) tablet,chewable 200 mg PO BID Qty: 90 2RF lansoprazole 30 mg capsule,delayed release(DR/EC) 30 mg PO BID Qty: 60 2RF losartan 100 mg tablet 100 mg PO DAILY Qty: 90 3RF Rx Instructions: New dose; 100mg daily now (1 tab daily). acetaminophen [Tylenol] 325 mg tablet 650 mg PO Q4H PRN (Reason: fever or pain) Qty: 30 0RF albuterol sulfate 0.63 mg/3 mL Solution For Nebulization 0.63 mg INHALATION Q4-6H PRN (Reason: Wheezing) cyanocobalamin (vitamin B-12) [Vitamin B-12] 1,000 mcg Tablet 1,000 mcg PO DAILY montelukast [Singulair] 10 mg Tablet 10 mg PO DAILY allopurinol 300 mg Tablet 300 mg PO DAILY cholecalciferol (vitamin D3) [Vitamin D3] 125 mcg (5,000 unit) Tablet 125 mcg PO DAILY fluticasone propion-salmeterol [Advair Diskus] 250-50 mcg/dose Blister With Device 1 inh INHALATION BID fluticasone propionate [Flonase] 50 mcg/actuation Dolliver,Suspension 1 spray INTRANASAL DAILY ferrous sulfate 325 mg (65 mg iron) Tablet 325 mg PO BID Qty: 60 3RF rpupnwaizo-ghdiltctitzgq-pwah [Fioricet] 50-300-40 mg capsule 1 cap PO Q6H PRN (Reason: headache) Qty: 20 0RF sumatriptan succinate [Imitrex] 50 mg tablet 50 mg PO Q2H PRN (Reason: migraine headache) Qty: 10 0RF Rx Instructions: do not exceed 2 doses per 24 hrs duloxetine [Cymbalta] 20 mg capsule,delayed release(DR/EC) 60 mg PO BID tizanidine 2 mg tablet 2 mg PO BEDTIME Qty: 30 0RF hydrochlorothiazide 25 mg tablet 25 mg PO DAILY amlodipine 10 mg tablet 10 mg PO DAILY zolpidem 10 mg tablet 10 mg PO BEDTIME PRN (Reason: insomnia) hydroxyzine HCl 25 mg tablet 25 mg PO TID PRN (Reason: anxiety) quetiapine 300 mg tablet 300 mg PO BID (DME) blood pressure test kit-large Kit See Rx Instructions .ROUTE DIRECTED Qty: 1 Rx Instructions: As directed Print Language: Swedish
[2024-01-30 00:33] VITALS: BP 147/64; PULSE 69; RESP 14; TEMP 36.7; O2SAT 98
--- NOTE | 2024-01-30 01:28 | PC.NURSE ---
pt from home a&ox4, respirations even and unlabored, pt reporting onset of sharp left sided chest pain since thursday, pt reports pain worsens with movement. reports episodes of nausea but denies vomiting and diarrhea.
[2024-01-30 01:49] VITALS: BP 161/79; PULSE 73; RESP 14; TEMP 36.7; O2SAT 98
[2024-01-30 02:06] VITALS: BP 161/79; PULSE 73; RESP 14; TEMP 36.7; O2SAT 98
== END 2024-01-30 02:07 | disposition home or self-care (01) ==
PROVIDERS: Emergency Provider Emergency Medicine; PCP Pediatrics
DX: R07.89 Other chest pain (principal); G47.33 Obstructive sleep apnea (adult) (pediatric); I10 Essential (primary) hypertension; Z79.899 Other long term (current) drug therapy
CPT/HCPCS: 36415; 71045; 71250; 80053; 84484; 85025; 93005; 99284; 99285

== ENCOUNTER → 2024-01-29 22:45 | Outpatient (BNV) | payer MEDICAID, SELFPAY | PROVIDERS: Emergency Provider Emergency Medicine; PCP Pediatrics; Visit Provider Internal Medicine Cardiovascular Disease | DX: R07.9 Chest pain, unspecified (principal) | CPT/HCPCS: 93010 ==

== ENCOUNTER 2024-05-25 12:48 | Outpatient (REF) | payer MEDICAID, SELFPAY | END 2024-05-25 12:49 | disposition home or self-care (01) | LOC: HO.SH 12:48 | PROVIDERS: Visit Provider Pediatrics | DX: Z01.118 Encounter for examination of ears and hearing with other abnormal findings (principal); H90.42 Sensorineural hearing loss, unilateral, left ear, with unrestricted hearing on the contralateral side; H93.11 Tinnitus, right ear | CPT/HCPCS: 92557; 92567 ==

== ENCOUNTER → 2024-06-16 13:28 | Outpatient (RCR) | payer MEDICAID, SELFPAY ==
[2021-01-08 10:41] VITALS: BP 121/103; PULSE 78; RESP 14; TEMP 36.2; O2SAT 98; BMI 34.4
[2021-01-08 11:41] LABS: MANUAL DIFF FLAG NO
[2021-01-08 12:05] LABS: Basophils Percent Auto 0.3 % (0-2); Eosinophils Absolute Auto 0.1 X10*3/uL (0.0-0.4); Eosinophils Percent Auto 1.4 % (0-4); Hematocrit 32.2 % (37-47); Hemoglobin 11.1 g/dl (12.0-16.0); Imm Gran Abs Auto 0.04 X10*3/uL (0.00-0.03); Imm Gran Pct Auto 0.7 % (0.0-0.4); Immature Retic Fraction 15.9 % (3.0-15.9); Lymphocytes Absolute Auto 1.3 X10*3/uL (1.2-4.9); Lymphocytes Percent Auto 21.8 % (20-40); Mean Corpuscular HGB Conc 34.5 g/dl (31.0-35.0); Mean Corpuscular Hemoglobin 29.6 pg (27.0-33.0); Mean Corpuscular Volume 85.9 fL (80-98); Mean Platelet Volume 9.9 fL (9.4-12.3); Monocytes Absolute Auto 0.4 X10*3/uL (0.1-1.2); Monocytes Percent Auto 6.1 % (2-11); Neutrophils Absolute Auto 4.1 X10*3/uL (2.0-8.3); Neutrophils Percent Auto 69.7 % (45-73); Platelet Count 182 X10*3/uL (160-400); Red Blood Count 3.75 X10*6/uL (4.20-5.50); Red Cell Distribution Width 13.9 % (11.0-16.0); Retic HGB Equivalent 33.2 pg (30.0-35.0); Reticulocyte Percent 3.4 % (0.5-1.8); Reticulocytes Absolute 0.127 X10*6/uL (0.026-0.095); White Blood Count 5.9 X10*3/uL (4.8-10.8)
[2021-01-08 12:10] LABS: Iron 66 mcg/dL (30-160); Percent Iron Saturation 24 % (15-50); Total Iron Binding Capacity 274 mcg/dL (228-428); Unsaturated Iron Binding 208 ug/dL
--- NOTE | 2021-01-08 12:25 | P.CNHO_ITS ---
Subjective - Subjective Chief complaint: Chronic dizziness Patient: new to practice Consult date: 01/08/21 Requesting Physician: Dr. Bahena Primary Care Provider: Janki Painting MD HPI - Consult Narrative Reason for consult: Anemia Narrative: Tracy Real is a 50 year old female referred for management of iron deficiency anemia. She has been diagnosed with GERD/esophagitis. She was noted to have iron deficiency with a ferritin of around 10. She received oral iron for a few days followed by parenteral iron therapy. There was a concern that she may not be responding to iron therapy and she is not having any obvious GI source of blood loss or malabsorption syndrome. Rest of her blood work was normal for kidney/liver functions, vitamin B12 and folic acid levels. Patient reports chronic dizziness, she has been laid off from work because of this. She also reports easy skin bruising on her extremities with minimal to no trauma. This has been going on and just for the last 3-4 months. In the past she has had surgical procedures without any skin bruising. She denies being on any aspirin or NSAIDs. She denies gum bleed, nosebleed, hematuria or hematochezia. No history of fever, chills, night sweats or unexplained weight loss. Review of Systems - Constitutional Reports as per HPI, Reports no additional constitutional complaints - Cardiovascular Reports no additional cardiovascular complaints - Respiratory Reports no additional respiratory complaints - Gastrointestinal Reports no additional gastrointestinal complaints, Reports belching, Reports bloating PMFSH Medical History: Medical History (Last Reviewed 10/22/20 @ 10:53 by Jim Fairchild MD) Anxiety Arthritis Asthma Depression Dysphagia Fibromyalgia GERD (gastroesophageal reflux disease) History of palpitations Hx of bronchitis Iron deficiency anemia Family History: Family History (Last Updated 12/21/20 @ 11:16 by JEANNETTE Manzano) Father Hx of type 1 diabetes mellitus Mother Hx of osteosarcoma Maternal Grandmother Hx of type 1 diabetes mellitus Maternal Grandfather Hx of type 1 diabetes mellitus Paternal Grandfather Hx of type 1 diabetes mellitus Paternal Grandmother Hx of type 1 diabetes mellitus Surgical History: Surgical History (Last Reviewed 10/22/20 @ 10:53 by Jim Fairchild MD) History of carpal tunnel surgery of right wrist History of laryngoscopy Hx of colonoscopy Hx of esophagogastroduodenoscopy Hx of hysterectomy Social History: Social History (Last Updated 01/08/21 @ 10:45 by Radha Ma) Living Situation History: Household Members: Children Alcohol History: Alcohol intake: former Alcohol History Details: Alcohol intake frequency: does not drink Tobacco History: Smoking Status: Never smoker Second Hand Smoke Exposure: No Substance Use History: Use of substances other than those prescribed or required for medical reasons : No Occupation Assessmet: 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 Smoking status: Never smoker Home Medications and Allergies Home Medications Medication Instructions Recorded Confirmed Type albuterol sulfate 0.63 mg INHALATION Q4-6H PRN 07/27/20 01/08/21 History allopurinol 300 mg PO DAILY 07/27/20 01/08/21 History cholecalciferol (vitamin D3) 125 mcg PO DAILY 07/27/20 01/08/21 History [Vitamin D3] cyanocobalamin (vitamin B-12) 1,000 mcg PO DAILY 07/27/20 01/08/21 History [Vitamin B-12] fluticasone propion-salmeterol 1 inh INHALATION BID 07/27/20 01/08/21 History [Advair Diskus] fluticasone propionate [Flonase] 1 spray INTRANASAL DAILY 07/27/20 01/08/21 History montelukast [Singulair] 10 mg PO DAILY 07/27/20 01/08/21 History duloxetine 20 mg capsule,delayed 20 mg PO BID 11/01/20 01/08/21 History release zolpidem 5 mg tablet 5 mg PO BEDTIME PRN 12/10/20 01/08/21 History Allergies Allergy/AdvReac Type Severity Reaction Status Date / Time Oyster Shell Allergy Mild Unknown Uncoded 12/21/20 11:08 Physical Exam Vital signs: Vital Signs Temp 97.2 F 01/08/21 10:41 Pulse 78 01/08/21 10:41 Resp 14 01/08/21 10:41 BP 121/103 H 01/08/21 10:41 Pulse Ox 98 01/08/21 10:41 Intake & Output 01/07/21 01/08/21 01/08/21 18:59 06:59 18:59 Other: Weight 85.6 kg Weight in Grams 55023 Weight 85.6 kg - Constitutional Present: no acute distress, obese - Routine HEENT Exam Head: Present: normal inspection Eye: Present: EOMI, PERRL - Routine Neck Exam Present: supple. Absent: lymphadenopathy - Routine Respiratory Exam Present: CTAB - Routine Cardiovascular Exam Cardiovascular: Present: RRR, S1, S2 - Routine Abdominal Exam Present: soft - Routine Skin Exam Present: intact, ecchymosis Hem/Onc Consult Result - Labs CBC & Chem 7: 01/08/21 11:38 Labs: Short CBC 01/08/21 Range/Units 11:38 WBC 5.9 (4.8-10.8) X10*3/uL Hgb 11.1 L (12.0-16.0) g/dl Hct 32.2 L (37-47) % Plt Count 182 (160-400) X10*3/uL Assessment and Plan (1) Iron deficiency anemia Status: Chronic 1. This is a 50-year-old woman with iron deficiency anemia. She has mild normocytic anemia, she has responded to parenteral iron therapy, although she remains slightly anemic. She also reports easy skin bruising in the last 2-3 months. She is on Cymbalta, she appears to have started this medication in October 2020. Cymbalta is associated with bleeding. She does have skin bruises, gastrointestinal hemorrhage is also possible. She will be informed of this, she must talk to her prescribing provider about this as well. She has no previous history of bruising or bleeding and there is no family history of bleeding disorder. Follow-up in 1 month.
--- NOTE | 2021-01-08 14:11 | MHC.HEMONCMA ---
Patient came for a consult today for iron defiency anemia, states she is doing well. Clinical summary was reviewed and udpated. Patient had labs and will come back in 1 month.
--- NOTE | 2021-02-06 10:41 | HO.HEMONCTE1 ---
[facility]c Clinic Telehealth - Telehealth Location of Provider rendering services: Office Location of Patient: Home Patient Identification confirmed using: Name, : Yes Telehealth Method: Telephone Patient verbally consented to treatment: Yes Patient verbally consented to billing insurance company: Yes Patient informed of any privacy concerns related to visit: Yes Medical Summary - Medical Summary Date of Service: 02/06/21 Chief complaint: Scheduled follow-up Medical Summary: Diagnosis: Iron deficiency anemia Easy skin bruising, probably related to Cymbalta Interval History Interval history: Patient was consented for tele visit based on COVID-19 pandemic guidelines. She is doing well and has no new complaints. Today's visit was mainly to discuss her blood work from the last visit and further management of her anemia. Review of Systems - Constitutional Reports no additional constitutional complaints Home Medications and Allergies Home Medications Medication Instructions Recorded Confirmed Type albuterol sulfate 0.63 mg INHALATION Q4-6H PRN 07/27/20 01/08/21 History allopurinol 300 mg PO DAILY 07/27/20 01/08/21 History cholecalciferol (vitamin D3) 125 mcg PO DAILY 07/27/20 01/08/21 History [Vitamin D3] cyanocobalamin (vitamin B-12) 1,000 mcg PO DAILY 07/27/20 01/08/21 History [Vitamin B-12] fluticasone propion-salmeterol 1 inh INHALATION BID 07/27/20 01/08/21 History [Advair Diskus] fluticasone propionate [Flonase] 1 spray INTRANASAL DAILY 07/27/20 01/08/21 History montelukast [Singulair] 10 mg PO DAILY 07/27/20 01/08/21 History duloxetine 20 mg capsule,delayed 20 mg PO BID 11/01/20 01/08/21 History release zolpidem 5 mg tablet 5 mg PO BEDTIME PRN 12/10/20 01/08/21 History Allergies Allergy/AdvReac Type Severity Reaction Status Date / Time Oyster Shell Allergy Mild Unknown Uncoded 12/21/20 11:08 Exam Vital signs: Vital Signs Temp 97.2 F 01/08/21 10:41 Pulse 78 01/08/21 10:41 Resp 14 01/08/21 10:41 BP 121/103 H 01/08/21 10:41 Pulse Ox 98 01/08/21 10:41 Weight 85.6 kg Body Mass Index 34.4 Narrative: pt not examined today - Constitutional Present: no acute distress, obese - Routine HEENT Exam Head: Present: normal inspection - Routine Respiratory Exam Present: CTAB - Routine Cardiovascular Exam Cardiovascular: Present: RRR, S1, S2 - Routine Abdominal Exam Present: soft - Routine Skin Exam Present: intact, ecchymosis Data - Labs CBC & Chem 7: 01/08/21 11:38 Labs: 01/08/21 11:38 Complete Blood Count Auto Diff Routine IRON PROFILE Routine Reticulocyte Count Routine Laboratory Last Values WBC 5.9 X10*3/uL (4.8-10.8) 01/08/21 11:38 RBC 3.75 X10*6/uL (4.20-5.50) L 01/08/21 11:38 Hgb 11.1 g/dl (12.0-16.0) L 01/08/21 11:38 Hct 32.2 % (37-47) L 01/08/21 11:38 MCV 85.9 fL (80-98) 01/08/21 11:38 MCH 29.6 pg (27.0-33.0) 01/08/21 11:38 MCHC 34.5 g/dl (31.0-35.0) 01/08/21 11:38 RDW 13.9 % (11.0-16.0) 01/08/21 11:38 Plt Count 182 X10*3/uL (160-400) 01/08/21 11:38 MPV 9.9 fL (9.4-12.3) 01/08/21 11:38 Immature Gran % (Auto) 0.7 % (0.0-0.4) H 01/08/21 11:38 Neut % (Auto) 69.7 % (45-73) 01/08/21 11:38 Lymph % (Auto) 21.8 % (20-40) 01/08/21 11:38 [place] % (Auto) 6.1 % (2-11) 01/08/21 11:38 Eos % (Auto) 1.4 % (0-4) 01/08/21 11:38 Baso % (Auto) 0.3 % (0-2) 01/08/21 11:38 Lymph # (Auto) 1.3 X10*3/uL (1.2-4.9) 01/08/21 11:38 [place] # (Auto) 0.4 X10*3/uL (0.1-1.2) 01/08/21 11:38 Eos # (Auto) 0.1 X10*3/uL (0.0-0.4) 01/08/21 11:38 Baso # (Auto) 0.0 X10*3/uL (0.0-0.2) 01/08/21 11:38 Abs Immat Gran (auto) 0.04 X10*3/uL (0.00-0.03) H 01/08/21 11:38 Absolute Neuts (auto) 4.1 X10*3/uL (2.0-8.3) 01/08/21 11:38 Absolute Nucleated RBC 0.000 X10*3/uL (0.0-0.012) 01/08/21 11:38 Nucleated RBC % (auto) 0.0 /100WBC (0.0-0.2) 01/08/21 11:38 Absolute Retic 0.127 X10*6/uL (0.026-0.095) H 01/08/21 11:38 Percent Retic 3.4 % (0.5-1.8) H 01/08/21 11:38 Immature Retic Fraction 15.9 % (3.0-15.9) 01/08/21 11:38 Retic Hgb Equivalent 33.2 pg (30.0-35.0) 01/08/21 11:38 Iron 66 mcg/dL (30-160) 01/08/21 11:38 TIBC 274 mcg/dL (228-428) 01/08/21 11:38 % Saturation 24 % (15-50) 01/08/21 11:38 Unsat Iron Binding 208 ug/dL 01/08/21 11:38 Progress Note: A/P (1) Iron deficiency anemia Status: Chronic Assessment and plan: 1. This is a 50-year-old woman with iron deficiency anemia. She has mild normocytic anemia, she has responded to parenteral iron therapy, although she remains slightly anemic. She is on oral iron supplementation. She has had GI evaluation, no source of GI bleed. Probably she has inadequate absorption from dietary sources. 2. Easy skin bruising in the last 2-3 months. This coincides with starting Cymbalta in October 2020. Repeat blood work in 2 months. I explain all this to the patient. I spent 15 minutes on the phone with her. - Time Spent With Patient Total time spent is greater than 50% in coordination of care (as documented) at patient's floor/unit and/or counseling patient: 15 - 24 minutes
--- NOTE | 2021-02-07 07:31 | MHC.HEMONCMA ---
Patient had a telehealth with the doctor yesterday, she states she is doing well. Clinical summary was reviewed and updated, no labs were drawn since it was a telehealth appt. Dr Oneill would like to see her back in 2 months for an in person follow up. I will have the girls call her to schedule her.
== END | disposition home or self-care (01) ==
LOC: HO.ONC 01-08 10:29
PROVIDERS: PCP Pediatrics; Referring Provider Internal Medicine Gastroenterology; Visit Provider Internal Medicine
DX: D50.9 Iron deficiency anemia, unspecified (principal); R23.3 Spontaneous ecchymoses; Z79.899 Other long term (current) drug therapy
CPT/HCPCS: 36415; 83540; 85025; 85045; 99204

== ENCOUNTER 2024-06-28 13:40 | Outpatient (REF) | payer MEDICAID, SELFPAY ==
[2024-06-28 17:30] LABS: MANUAL DIFF FLAG NO
[2024-06-28 17:34] LABS: Appearance Urine Clear; Color Urine Yellow; Glucose Urine UA Negative (Negative); Leukocyte Esterase Urine Negative (Negative); Nitrite Urine Negative (Negative); PH 5.5 (5.0-9.0); Specific Gravity - Urine 1.025 (1.005-1.025); UMIC TRIGGER UACC YES; Urine Blood Negative (Negative); Urine Ketones Negative (Negative); Urine Protein 100 (2+) mg/dL (Neg-Trace)
[2024-06-28 17:44] LABS: Bacteria Urine None Seen (None Seen); Hyaline Casts Urine 0-2 /LPF (0-2); RBC Urine 0-2 /HPF (0-2); Squamous Epithelial Cell Urine 0-2 /HPF (0-2); WBC Urine 0-5 /HPF (0-5)
[2024-06-28 18:03] LABS: Basophils Percent Auto 0.5 % (0-2); Eosinophils Absolute Auto 0.1 X10*3/uL (0.0-0.4); Eosinophils Percent Auto 2.2 % (0-4); Hematocrit 34.6 % (37.0-47.0); Hemoglobin 11.6 g/dl (12.0-16.0); Imm Gran Abs Auto 0.04 X10*3/uL (0.00-0.03); Imm Gran Pct Auto 0.6 % (0.0-0.4); Lymphocytes Absolute Auto 1.6 X10*3/uL (1.2-4.9); Lymphocytes Percent Auto 25.2 % (20-40); Mean Corpuscular HGB Conc 33.5 g/dl (31.0-35.0); Mean Corpuscular Hemoglobin 27.8 pg (27.0-33.0); Mean Corpuscular Volume 82.8 fL (80.0-98.0); Mean Platelet Volume 10.3 fL (9.4-12.3); Monocytes Absolute Auto 0.4 X10*3/uL (0.1-1.2); Monocytes Percent Auto 6.7 % (2-11); Neutrophils Absolute Auto 4.2 x10*3/uL (2.0-8.3); Neutrophils Percent Auto 64.8 % (45-73); Platelet Count 188 X10*3/uL (160-400); Red Blood Count 4.18 X10*6/uL (4.20-5.50); Red Cell Distribution Width 14.1 % (11.0-16.0); White Blood Count 6.5 X10*3/uL (4.8-10.8)
[2024-06-28 18:46] LABS: Total Protein Urine Random 70 mg/dL (<12)
[2024-06-28 18:46] LABS: Iron 66 mcg/dL (30-160); Percent Iron Saturation 29 % (15-50); Total Iron Binding Capacity 225 mcg/dL (228-428); Unsaturated Iron Binding 159 ug/dL
[2024-06-28 18:49] LABS: TSH reflex Free T4 2.97 uIU/mL (0.32-4.0)
== END 2024-06-28 13:41 | disposition home or self-care (01) ==
LOC: HO.CHCLDS 13:40
PROVIDERS: Visit Provider Pediatrics
DX: I10 Essential (primary) hypertension (principal); R42 Dizziness and giddiness; D64.9 Anemia, unspecified
CPT/HCPCS: 36415; 81001; 83540; 84156; 84443; 85025

== ENCOUNTER → 2024-07-15 13:40 | Outpatient (BNVA) | payer MEDICAID, SELFPAY | PROVIDERS: PCP Pediatrics; Visit Provider Physician Assistant Surgical ==

== ENCOUNTER 2024-08-08 13:37 | Outpatient (AMB) | payer MEDICAID, SELFPAY ==
--- NOTE | 2024-08-08 13:10 | HO.NEPHOV_ITS ---
Vital Signs 08/08/24 13:38 08/08/24 14:12 Height 5 ft 2 in Weight 194 lb BMI 35.5 BP 138/70 130/74 Blood Pressure Location Lt brachial Position Sitting Sitting Pulse 83 Pulse Source Pulse Oximeter Pulse Oximetry (%) 99 Oxygen Delivery Method Room Air Intake Visit Reasons: Hypertension & Proteinuria/ conf Investigator Fraud Required: Yes Investigator Fraud Name: [email or web address] [id number] Accompanied by: Daughter Allergies Oyster Shell Allergy (Severe, Uncoded 01/29/24 22:56) Facial Swelling HPI Comments Details: 53 y/o female with a medical history Tracy is a 53 y/o female with a medical history of hypertension, iron deficiency anemia, fibromyalgia, migraine, lumbar radiculopathy, degenerative disc disease, LIANNA. 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. Was referred to nephrology for management of hypertension and proteinuria. for many years, says has seen a lot of protein in your urine blood pressure has been high for about a year cracker off says arthritis in hips and hands and knees Imagin11/17/22 renal artery ultrasound suggested left renal artery stenosis 12/01/22 follow-up CTA of abdomen showed no renal artery stenosis Creatinine/GFR: 01/29/24 creatinine 0.73, GFR >60 Urine: proteinuria present in 2019- protein:creatinine ratio elevated at 1.38 06/28/24 most recent urine protein check was mildly elevated at 70 mg/dL; remainder of urine was bland pt states she has had proteinuria since at least 2017 smoking: no alcohol: no family hx: no family hx of renal disease. medications: takes losartan 100mg daily, hydrochlorothiazide 25mg daily, amlodipine 10mg daily Providers: PCP: Dr Janki Painting at [facility] Specialists: reports none currently diet, salt: has been adding salt to her diet, reports cannot taste it well so has to add a lot NSIADs/OTC medications: took ibuprofen 800mg PRN- took higher doses for many years for her pain management. stop taking 3 months ago. pt has been working on weight loss through a weight loss clinic at [place] shortness of breath: reports yes, will suddenly feel short of breath while sitting. reports dyspnea with exertion. reports feel my chest is burning - reports ongoing for a few years now. Edema: none urinary sx: none. reports intermittently problems where she cannot pee with blood in urine, reports since she was 13. Reports then takes medication and it goes away. No symptoms like this in 3 years. rash: reports muñoz/scars from scratching on her legs joint pain: joing pain, chronic, in hands, knees, hips. PFSH Medical History Essential hypertension History of palpitations Arthritis Fibromyalgia Asthma GERD (gastroesophageal reflux disease) Hx of bronchitis Anxiety Depression Iron deficiency anemia Dysphagia Surgical History History of laryngoscopy History of carpal tunnel surgery of right wrist Hx of colonoscopy Hx of esophagogastroduodenoscopy Hx of hysterectomy Family History Father Hx of type 1 diabetes mellitus Mother Hx of osteosarcoma Maternal Grandmother Hx of type 1 diabetes mellitus Maternal Grandfather Hx of type 1 diabetes mellitus Paternal Grandfather Hx of type 1 diabetes mellitus Paternal Grandmother Hx of type 1 diabetes mellitus Social History Household Members: Children Alcohol intake: never Patient Tobacco Use Status: Never used Tobacco Second Hand Smoke Exposure: No 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 Review of Systems Const Denies anorexia, Denies fever(s) and Denies weakness Eyes Denies blurry vision Card Denies no additional complaints and Denies dyspnea Resp Reports no additional complaints and Denies dyspnea GI Denies melena and Denies diarrhea Denies hematuria Musc Denies tingling Skin/Breast Denies rash Neuro Denies focal weakness, Denies tingling, Denies tremor(s) and Denies weakness Physical Exam Const General: comfortable and no acute distress Orientation/consciousness: oriented to person, oriented to place and oriented to time Neck Neck: Yes no JVD Resp Effort & Inspection: able to speak in complete sentences Auscultation: clear to auscultation bilaterally Cardio Jugular venous distension: no JVD Rate: regular rate Rhythm: regular rhythm Heart sounds: S1 normal heart sound present and S2 normal heart sound present GI Palpation (GI): Soft to palpation Rectal Exam - Female: No tenderness General: Yes no CVA tenderness Back/Spine/Pelvis Back: no CVA tenderness Skin Rashes: no rashes Neuro General: oriented to person, oriented to place and oriented to time Extrem General: Yes normal to inspection, No edema and No pedal edema Results Reviewed Nephrology Results: Hgb 11.6 g/dl (12.0-16.0) L 06/28/24 WBC 6.5 X10*3/uL (4.8-10.8) 06/28/24 Plt Count 188 X10*3/uL (160-400) 06/28/24 Sodium 139 mmol/L (135-145) 01/29/24 Potassium 3.7 mmol/L (3.3-5.1) 01/29/24 Chloride 109 mmol/L (96-108) H 01/29/24 Carbon Dioxide 22 mmol/L (22-29) 01/29/24 BUN 16 mg/dL (9-16) 01/29/24 Creatinine 0.73 mg/dL (0.5-1.4) 01/29/24 Calcium 9.3 mg/dL (8.4-10.2) 01/29/24 Urine Protein 100 (2+) mg/dL (Neg-Trace) H 06/28/24 Assessment & Plan Assessment & Plan (1) Proteinuria: Code(s): R80.9 - Proteinuria, unspecified Category: Medical Qualifiers: Proteinuria type: persistent Qualified Code(s): R80.1 - Persistent proteinuria, unspecified (2) Essential hypertension: Code(s): I10 - Essential (primary) hypertension Category: Medical (3) Chronic anemia: Code(s): D64.9 - Anemia, unspecified Category: Medical Plan -Proteinuria workup in progress - possible underlying causes include prolonged, uncontrolled hypertension, damage from chronic high-dose NSAID use -chronic normocytic anemia -hypertension advised avoid added salt in diet advised avoid nsaids, alcohol encouraged continued weight loss efforts encouraged adequate hydration continue current blood pressure medication regimen for now, adequately controlled today advised please bring in all medications to next visit so we have accurate medication list will get urine and labs studies as below for next visit- advised pt needs to fast 12 hours before lab work advised follow up in 1 month in office Orders: Orders Complement C3 1 Month D64.9 - Anemia, unspecified, I10 - Essential (primary) hypertension, R80.1 - Persistent proteinuria, unspecified Complement C4 1 Month D64.9 - Anemia, unspecified, I10 - Essential (primary) hypertension, R80.1 - Persistent proteinuria, unspecified Hepatitis BE Antibody 1 Month D64.9 - Anemia, unspecified, I10 - Essential (primary) hypertension, R80.1 - Persistent proteinuria, unspecified Hepatitis BE Antigen 1 Month D64.9 - Anemia, unspecified, I10 - Essential (primary) hypertension, R80.1 - Persistent proteinuria, unspecified Hepatitis B Core Antibody 1 Month D64.9 - Anemia, unspecified, I10 - Essential (primary) hypertension, R80.1 - Persistent proteinuria, unspecified UA w Microscopic 1 Month D64.9 - Anemia, unspecified, I10 - Essential (primary) hypertension, R80.1 - Persistent proteinuria, unspecified Protein Creatinine Ratio, Ur 1 Month D64.9 - Anemia, unspecified, I10 - Essential (primary) hypertension, R80.1 - Persistent proteinuria, unspecified Basic Metabolic Panel 1 Month D64.9 - Anemia, unspecified, I10 - Essential (primary) hypertension, N18.30 - Chronic kidney disease, stage 3 unspecified, R80.1 - Persistent proteinuria, unspecified Lipid Panel 1 Month D64.9 - Anemia, unspecified, I10 - Essential (primary) hypertension, R80.1 - Persistent proteinuria, unspecified Protein Electrophoresis, Serum 1 Month D64.9 - Anemia, unspecified, R80.1 - Persistent proteinuria, unspecified Coding Level of Care Code New Pt Level 4 (69367) Diagnoses Persistent proteinuria R80.1 Proteinuria type: persistent Essential hypertension I10 Chronic anemia D64.9
[2024-08-08 13:38] VITALS: BP 138/70; PULSE 83; O2SAT 99; BMI 35.5
[2024-08-08 14:12] VITALS: BP 130/74
== END 2024-08-08 14:39 | disposition home or self-care (01) ==
PROVIDERS: PCP Pediatrics; Referring Provider Pediatrics; Visit Provider Internal Medicine Hypertension Specialist
DX: R80.1 Persistent proteinuria, unspecified (principal); I10 Essential (primary) hypertension; D64.9 Anemia, unspecified
CPT/HCPCS: 99204

== ENCOUNTER → 2024-08-08 13:37 | Outpatient (BNVA) | payer MEDICAID, SELFPAY | PROVIDERS: PCP Pediatrics; Referring Provider Pediatrics; Visit Provider Internal Medicine Hypertension Specialist | DX: R80.1 Persistent proteinuria, unspecified (principal); D64.9 Anemia, unspecified; I10 Essential (primary) hypertension | CPT/HCPCS: 99212 ==

== ENCOUNTER 2024-08-12 08:16 | Outpatient (AMB) | payer MEDICAID, SELFPAY ==
--- NOTE | 2024-08-12 12:56 | MHC.OFFVISWM ---
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* Deputy Building Guard Required: Yes Deputy Building Guard Services: Deputy Building Guard Present Information Interpreted: clinical only Allergies Oyster Shell Allergy (Severe, Uncoded 08/12/24 13:00) Facial Swelling Medication List - Last Reconciled 08/12/24 by Georges Ly MD acetaminophen (Tylenol) 650 mg (2 x 325 mg) PO Q4H PRN albuterol sulfate 0.63 mg inhalation Q4-6H PRN amlodipine 10 mg PO DAILY blood pressure test kit-large As directed bupropion HCl XL 150 mg PO DAILY cetirizine (All Day Allergy (cetirizine)) 10 mg PO DAILY PRN cyanocobalamin (vitamin B-12) (Vitamin B-12) 1,000 mcg PO DAILY cyclobenzaprine 10 mg PO TID PRN duloxetine (Cymbalta) 60 mg PO BID duloxetine 60 mg PO BID fluticasone propion-salmeterol 250-50 mcg/dose (Advair Diskus) 1 inh inhalation BID fluticasone propionate 50 mcg/actuation 1 spray intranasal DAILY hydrochlorothiazide 25 mg PO DAILY ibuprofen 800 mg PO Q8H PRN losartan 100 mg PO DAILY pantoprazole 40 mg PO DAILY quetiapine 300 mg PO BID zolpidem 10 mg PO BEDTIME PRN HPI HPI 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 BMI 34.9 *BIOLOGY SPECIALIST*: Details: Start time: 12.44pm, End time: 1.44pm ?I spent 55 minutes speaking with the patient on the phone plus an additional 5 minutes reviewing and updating records for a total of 60 minutes HPI Comments Details: Previous weight loss efforts: self diets Wakes up: 6am, Sleeps: 1am Breakfast: 9am (pancakes and 3 eggs) Lunch: skips Dinner: 5-6pm (chicken, potatoes, steak, salad) Snacks: 3-4pm (fruits), 10pm (sweets) Exercise: has a treadmill Fluids: Coffee (1 cup/day with milk), tea: occasionally, soda/juice: none, ETOH: none PFSH Medical History (Updated 08/12/24 @ 13:24 by Georges Ly MD) DJD (degenerative joint disease) Insomnia BMI 34.0-34.9,adult Obesity Essential hypertension History of palpitations Arthritis Fibromyalgia Asthma GERD (gastroesophageal reflux disease) Hx of bronchitis Anxiety Depression Iron deficiency anemia Dysphagia Surgical History (Updated 08/12/24 @ 13:17 by Georges Ly MD) History of umbilical hernia repair History of delivery History of laryngoscopy History of carpal tunnel surgery of right wrist Hx of colonoscopy Hx of esophagogastroduodenoscopy Hx of hysterectomy Family History Father Hx of type 1 diabetes mellitus Mother Hx of osteosarcoma Maternal Grandmother Hx of type 1 diabetes mellitus Maternal Grandfather Hx of type 1 diabetes mellitus Paternal Grandfather Hx of type 1 diabetes mellitus Paternal Grandmother Hx of type 1 diabetes mellitus Social History Household Members: Children Alcohol intake: never Patient Tobacco Use Status: Never used Tobacco Second Hand Smoke Exposure: No 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 Telehealth Telehealth Telehealth Platform: Telephone Location of provider rendering services: practice address Location of patient: address on file Patient Identification confirmed using: Name, : Yes Telehealth method: voice only Patient verbally consented to treatment: Yes Patient verbally consented to billing insurance company: Yes Patient informed of any privacy concerns related to visit: Yes Minutes spent on Phone/Video with Pt.: 60 Assessment & Plan Assessment & Plan (1) Obesity: Code(s): E66.9 - Obesity, unspecified Category: Medical Qualifiers: Obesity type: due to excess calories Obesity classification: adult class 1 (BMI 30 - 34.9) Serious obesity comorbidity presence: with serious comorbidity Body mass index: BMI 34.0-34.9 Qualified Code(s): E66.811 - Obesity, class 1; E66.09 - Other obesity due to excess calories; Z68.34 - Body mass index [BMI] 34.0-34.9, adult Plan: 1.? Plan for lap sleeve gastrectomy. If diaphragmatic or ventral hernias are present at time of surgery, these will be repaired laparoscopically as well. Risks and complications include possible conversion to an open procedure, anastomotic leak, bleeding requiring transfusion, small bowel obstruction, , DVT and pulmonary embolism, cardiac, or pulmonary complications, as technician terminal and repeater complications such as anastomotic ulcer, insufficient weight loss and vitamin deficiencies. I emphasized the importance of close follow-up, adherence to instructions and good communication. 2. Nutritional counseling. Start with 2 CELEBRATE REBUILD protein (buy at hospital[facility]) shakes (HALF scoop EACH in 8oz low fat unsweetened almond milk each) at 7am-9am and 10am-12pm, 2 protein bars (CELEBRATE protein bars, buy at [facility] [employer] [facility]) at 1pm-3pm and 4p-6pm, dinner at 7pm (8 forks of protein and 8 forks of salad/vegetables) AND one more Celebrate Rebuild shake (HALF scoop in 8oz low fat unsweetened almond milk) after dinner at 9pm-11pm. If hungry after that you may have another half Celebrate protein bar at 12am-1am. So you do 3 protein shakes, 2 to 2.5 protein bars and one meal per day. Meal to include lean meat (beef, fish, pork, turkey, chicken), or lithuanian yogurt, or egg whites, or beans with a salad with olive oil and fruits (berries, pears, apples, kiwi). Avoid salt, breads, potatoes, rice, pasta, desserts. 3. Each shake would be drunk slowly, like coffee in a period of 2 hours. May add your coffee into the shakes if flavors match. 4. Cut each bar in 4 pieces and eat each piece in 30min ?to make each bar last 2 hours. 5. I emphasized the importance of measuring accurately the food portion and measure it when serving the food in plate 6. The meal portions include 8 full-size forks of meat and 8 full-size forks of salad. You always eat the meat portion but you can replace up to 4 forks for salad/vegetables with rice, potatoes or pasta, or a fruit ?if you like. The less you do it the better weight loss will be. 7. One full-size fork is what it can be scooped on the fork without falling aside and not what can be bit with the fork. Use regular forks like those you find in a typical restaurant. 8.? Please send me weight measurements as soon as possible and then once a week. Always include your diet and exercise plan. 9. Start treadmill at a speed of 4.0 mph for 60 minutes daily 10. Goal is to lose at least 1.5-2lbs per week 11. Goal to lose 10% of your weight before surgery, which is about 19lbs. Ultimate weight goal: 171lbs before surgery 12. Please follow the diet plan exactly without any change. If you don't like something about the plan or you feel hungry you need to communicate with me so I can help you revise the plan. You should not change the plan yourself. 15. To be scheduled for EGD due to history of GERD. The possibility of biopsies was discussed. Patient needs to avoid use of NSAIDs and aspirin for 1 week prior to EGD. Risks of perforation and bleeding was discussed with the patient. This will be an outpatient procedure with IV sedation. Orders: Orders Lipid Panel Today E66.09 - Other obesity due to excess calories, E66.811 - Obesity, class 1, I10 - Essential (primary) hypertension, J45.909 - Unspecified asthma, uncomplicated, K21.9 - Gastro-esophageal reflux disease without esophagitis, Z68.34 - Body mass index [BMI] 34.0-34.9, adult Vitamin B12 and Folate Today E66.09 - Other obesity due to excess calories, E66.811 - Obesity, class 1, I10 - Essential (primary) hypertension, J45.909 - Unspecified asthma, uncomplicated, K21.9 - Gastro-esophageal reflux disease without esophagitis, Z68.34 - Body mass index [BMI] 34.0-34.9, adult C Reactive Protein Today E66.09 - Other obesity due to excess calories, E66.811 - Obesity, class 1, I10 - Essential (primary) hypertension, J45.909 - Unspecified asthma, uncomplicated, K21.9 - Gastro-esophageal reflux disease without esophagitis, Z68.34 - Body mass index [BMI] 34.0-34.9, adult Vitamin B1 Today E66.09 - Other obesity due to excess calories, E66.811 - Obesity, class 1, I10 - Essential (primary) hypertension, J45.909 - Unspecified asthma, uncomplicated, K21.9 - Gastro-esophageal reflux disease without esophagitis, Z68.34 - Body mass index [BMI] 34.0-34.9, adult Vitamin D 25-OH Total Today E66.09 - Other obesity due to excess calories, E66.811 - Obesity, class 1, I10 - Essential (primary) hypertension, J45.909 - Unspecified asthma, uncomplicated, K21.9 - Gastro-esophageal reflux disease without esophagitis, Z68.34 - Body mass index [BMI] 34.0-34.9, adult XR chest 2V Today E66.09 - Other obesity due to excess calories, E66.811 - Obesity, class 1, I10 - Essential (primary) hypertension, J45.909 - Unspecified asthma, uncomplicated, K21.9 - Gastro-esophageal reflux disease without esophagitis, Z68.34 - Body mass index [BMI] 34.0-34.9, adult Insulin Today E66.09 - Other obesity due to excess calories, E66.811 - Obesity, class 1, I10 - Essential (primary) hypertension, J45.909 - Unspecified asthma, uncomplicated, K21.9 - Gastro-esophageal reflux disease without esophagitis, Z68.34 - Body mass index [BMI] 34.0-34.9, adult Hemoglobin A1c Today E66.09 - Other obesity due to excess calories, E66.811 - Obesity, class 1, I10 - Essential (primary) hypertension, J45.909 - Unspecified asthma, uncomplicated, K21.9 - Gastro-esophageal reflux disease without esophagitis, Z68.34 - Body mass index [BMI] 34.0-34.9, adult H Pylori Breath Test Today E66.09 - Other obesity due to excess calories, E66.811 - Obesity, class 1, I10 - Essential (primary) hypertension, J45.909 - Unspecified asthma, uncomplicated, K21.9 - Gastro-esophageal reflux disease without esophagitis, Z68.34 - Body mass index [BMI] 34.0-34.9, adult Complete Blood Count Auto Diff Today E66.09 - Other obesity due to excess calories, E66.811 - Obesity, class 1, I10 - Essential (primary) hypertension, J45.909 - Unspecified asthma, uncomplicated, K21.9 - Gastro-esophageal reflux disease without esophagitis, Z68.34 - Body mass index [BMI] 34.0-34.9, adult IRON PROFILE Today E66.09 - Other obesity due to excess calories, E66.811 - Obesity, class 1, I10 - Essential (primary) hypertension, J45.909 - Unspecified asthma, uncomplicated, K21.9 - Gastro-esophageal reflux disease without esophagitis, Z68.34 - Body mass index [BMI] 34.0-34.9, adult Comprehensive Met. Panel Today E66.09 - Other obesity due to excess calories, E66.811 - Obesity, class 1, I10 - Essential (primary) hypertension, J45.909 - Unspecified asthma, uncomplicated, K21.9 - Gastro-esophageal reflux disease without esophagitis, Z68.34 - Body mass index [BMI] 34.0-34.9, adult Zinc Today E66.09 - Other obesity due to excess calories, E66.811 - Obesity, class 1, I10 - Essential (primary) hypertension, J45.909 - Unspecified asthma, uncomplicated, K21.9 - Gastro-esophageal reflux disease without esophagitis, Z68.34 - Body mass index [BMI] 34.0-34.9, adult Vitamin A Today E66.09 - Other obesity due to excess calories, E66.811 - Obesity, class 1, I10 - Essential (primary) hypertension, J45.909 - Unspecified asthma, uncomplicated, K21.9 - Gastro-esophageal reflux disease without esophagitis, Z68.34 - Body mass index [BMI] 34.0-34.9, adult TSH reflex Free T4 Today E66.09 - Other obesity due to excess calories, E66.811 - Obesity, class 1, I10 - Essential (primary) hypertension, J45.909 - Unspecified asthma, uncomplicated, K21.9 - Gastro-esophageal reflux disease without esophagitis, Z68.34 - Body mass index [BMI] 34.0-34.9, adult Ferritin Today E66.09 - Other obesity due to excess calories, E66.811 - Obesity, class 1, I10 - Essential (primary) hypertension, J45.909 - Unspecified asthma, uncomplicated, K21.9 - Gastro-esophageal reflux disease without esophagitis, Z68.34 - Body mass index [BMI] 34.0-34.9, adult US abdomen comp w elastography Today E66.09 - Other obesity due to excess calories, E66.811 - Obesity, class 1, I10 - Essential (primary) hypertension, J45.909 - Unspecified asthma, uncomplicated, K21.9 - Gastro-esophageal reflux disease without esophagitis, Z68.34 - Body mass index [BMI] 34.0-34.9, adult ECG 12 lead EKG Today E66.09 - Other obesity due to excess calories, E66.811 - Obesity, class 1, I10 - Essential (primary) hypertension, J45.909 - Unspecified asthma, uncomplicated, K21.9 - Gastro-esophageal reflux disease without esophagitis, Z68.34 - Body mass index [BMI] 34.0-34.9, adult FL upper GI w air Today E66.09 - Other obesity due to excess calories, E66.811 - Obesity, class 1, I10 - Essential (primary) hypertension, J45.909 - Unspecified asthma, uncomplicated, K21.9 - Gastro-esophageal reflux disease without esophagitis, Z68.34 - Body mass index [BMI] 34.0-34.9, adult Referrals Behavioral Health Referral E66.09 - Other obesity due to excess calories, E66.811 - Obesity, class 1, I10 - Essential (primary) hypertension, J45.909 - Unspecified asthma, uncomplicated, K21.9 - Gastro-esophageal reflux disease without esophagitis, Z68.34 - Body mass index [BMI] 34.0-34.9, adult Nutrition/Dietitian Referral E66.09 - Other obesity due to excess calories, E66.811 - Obesity, class 1, I10 - Essential (primary) hypertension, J45.909 - Unspecified asthma, uncomplicated, K21.9 - Gastro-esophageal reflux disease without esophagitis, Z68.34 - Body mass index [BMI] 34.0-34.9, adult
== END 2024-08-12 13:46 | disposition home or self-care (01) ==
LOC: HO.HBS 08:16
PROVIDERS: PCP Pediatrics; Referring Provider Pediatrics; Visit Provider Surgery
DX: E66.811 Obesity, class 1 (principal); E66.09 Other obesity due to excess calories; Z68.34 Body mass index [BMI] 34.0-34.9, adult
CPT/HCPCS: 99205

== ENCOUNTER → 2024-08-12 08:16 | Outpatient (BNVA) | payer MEDICAID, SELFPAY | PROVIDERS: PCP Pediatrics; Visit Provider Surgery ==

== ENCOUNTER 2024-09-01 11:22 | Outpatient (AMB) | payer OTHER, SELFPAY ==
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
== END 2024-09-01 14:53 | disposition home or self-care (01) ==
LOC: HO.HBST 11:22
PROVIDERS: PCP Pediatrics; Visit Provider Counselor Mental Health
DX: F43.9 Reaction to severe stress, unspecified (principal)
CPT/HCPCS: 90791

== ENCOUNTER → 2024-09-01 11:22 | Outpatient (BNVA) | payer OTHER, MEDICAID, SELFPAY | PROVIDERS: PCP Pediatrics; Visit Provider Counselor Mental Health ==

== ENCOUNTER 2024-09-01 16:27 | Outpatient (REF) | payer MEDICAID, SELFPAY ==
[2024-09-01 16:56] LABS: MANUAL DIFF FLAG NO
[2024-09-01 17:07] LABS: Basophils Percent Auto 0.5 % (0-2); Eosinophils Absolute Auto 0.1 X10*3/uL (0.0-0.4); Eosinophils Percent Auto 1.7 % (0-4); Hematocrit 32.6 % (37.0-47.0); Hemoglobin 11.4 g/dl (12.0-16.0); Imm Gran Abs Auto 0.02 X10*3/uL (0.00-0.03); Imm Gran Pct Auto 0.3 % (0.0-0.4); Lymphocytes Absolute Auto 1.6 X10*3/uL (1.2-4.9); Lymphocytes Percent Auto 26.6 % (20-40); Mean Corpuscular Hemoglobin 28.4 pg (27.0-33.0); Mean Corpuscular Volume 81.1 fL (80.0-98.0); Mean Platelet Volume 9.7 fL (9.4-12.3); Monocytes Absolute Auto 0.4 X10*3/uL (0.1-1.2); Monocytes Percent Auto 6.4 % (2-11); Neutrophils Absolute Auto 3.8 x10*3/uL (2.0-8.3); Neutrophils Percent Auto 64.5 % (45-73); Platelet Count 182 X10*3/uL (160-400); Red Blood Count 4.02 X10*6/uL (4.20-5.50); Red Cell Distribution Width 13.6 % (11.0-16.0); White Blood Count 5.8 X10*3/uL (4.8-10.8)
[2024-09-01 17:11] LABS: Appearance Urine Clear; Color Urine Yellow; Glucose Urine UA Negative (Negative); Leukocyte Esterase Urine Trace (Negative); Nitrite Urine Negative (Negative); PH 5.5 (5.0-9.0); UMIC TRIGGER UA YES; Urine Blood Negative (Negative); Urine Ketones Negative (Negative); Urine Protein 100 (2+) mg/dL (Neg-Trace)
[2024-09-01 17:17] LABS: Bacteria Urine None Seen (None Seen); Hyaline Casts Urine 0-2 /LPF (0-2); RBC Urine 0-2 /HPF (0-2); Squamous Epithelial Cell Urine 0-2 /HPF (0-2); WBC Urine 0-5 /HPF (0-5)
[2024-09-01 17:50] LABS: Estimated Average Glucose 103 mg/dL; Hemoglobin A1C 95.8932 umol/L; Hemoglobin A1c % 5.2 % (<6.0); Total Hemoglobin (HGBA1C) 2863.6116 umol/L
[2024-09-01 18:15] LABS: Creatinine Urine 90.22 mg/dL; Total Protein Urine Random 117 mg/dL (<12)
[2024-09-01 18:20] LABS: Alanine Aminotransferase 34 U/L (0-31); Albumin Level 4.2 g/dL (3.5-5.0); Alkaline Phosphatase 98 U/L (39-117); Anion Gap 12 (12-20); Aspartate Amino Transferase 27 U/L (5-31); Bilirubin Total 0.5 mg/dL (0.0-1.0); Blood Urea Nitrogen 18 mg/dL (9-16); C Reactive Protein 0.75 mg/dL (< or = 0.50); Calcium 9.1 mg/dL (8.4-10.2); Carbon Dioxide 24 mmol/L (22-29); Chloride 107 mmol/L (96-108); Cholesterol 212 mg/dL (<200); Estimated Glomerular Filt Rate > 60; Glucose Random 109 mg/dL (60-115); HDL Cholesterol 49 mg/dL (>40); Iron 48 mcg/dL (30-160); LDL Cholesterol Calculated 132 mg/dL (<100); Percent Iron Saturation 21 % (15-50); Potassium 3.5 mmol/L (3.3-5.1); Sodium 139 mmol/L (135-145); Total Iron Binding Capacity 234 mcg/dL (228-428); Total Protein 6.9 g/dL (6.5-8.0); Triglycerides 159 mg/dL (<150); Unsaturated Iron Binding 186 ug/dL
[2024-09-01 18:31] LABS: Folate 7.3 ng/mL (> or = 4.0); Vitamin B12 1120 pg/mL (200-900)
[2024-09-01 18:52] LABS: Anion Gap 11 (12-20); Blood Urea Nitrogen 17 mg/dL (9-16); Calcium 9.1 mg/dL (8.4-10.2); Carbon Dioxide 24 mmol/L (22-29); Chloride 108 mmol/L (96-108); Estimated Glomerular Filt Rate > 60; Glucose Random 110 mg/dL (60-115); Potassium 3.5 mmol/L (3.3-5.1); Sodium 139 mmol/L (135-145)
[2024-09-01 19:01] LABS: Ferritin 66 ng/mL (10-250); TSH reflex Free T4 3.09 uIU/mL (0.32-4.0)
[2024-09-01 19:39] LABS: Insulin 16 uU/mL (2-29)
[2024-09-02 08:32] LABS: HBc Num1 0.09 S/CO (0.00-0.79); Hepatitis B Core Antibody Nonreactive (Nonreactive)
[2024-09-02 13:32] LABS: Complement C3 124 mg/dL (83-193)
[2024-09-02 21:23] LABS: Hepatitis BE Antibody NON-REACTIVE (NON-REACTIVE); Hepatitis BE Antigen NON-REACTIVE (NON-REACTIVE)
[2024-09-06 00:34] LABS: Zinc 62 mcg/dL (60-130)
[2024-09-06 10:44] LABS: Prot Elec - Albumin 4.2 g/dL (3.8-4.8); Prot Elec - Alpha1 0.3 g/dL (0.2-0.3); Prot Elec - Alpha2 0.5 g/dL (0.5-0.9); Prot Elec - Beta 1 0.4 g/dL (0.4-0.6); Prot Elec - Beta 2 0.4 g/dL (0.2-0.5); Prot Elec - Gamma 0.9 g/dL (0.8-1.7); Prot Elec - Total Protein 6.6 g/dL (6.1-8.1)
[2024-09-07 03:49] LABS: Vitamin A 41 mcg/dL (38-98)
[2024-09-07 15:18] LABS: Vitamin B1 13 nmol/L (8-30)
== END 2024-09-01 16:28 | disposition home or self-care (01) ==
LOC: HO.LAB 16:27
PROVIDERS: Absent Provider Surgery; PCP Pediatrics; Visit Provider Nurse Practitioner Family
DX: I10 Essential (primary) hypertension (principal); R80.1 Persistent proteinuria, unspecified; D64.9 Anemia, unspecified; E66.811 Obesity, class 1; E66.09 Other obesity due to excess calories; Z68.34 Body mass index [BMI] 34.0-34.9, adult; K21.9 Gastro-esophageal reflux disease without esophagitis; J45.909 Unspecified asthma, uncomplicated; R00.2 Palpitations
CPT/HCPCS: 36415; 80048; 80053; 80061; 81001; 82248; 82306; 82570; 82607; 82728; 82746; 83036; 83525; 83540; 84156; 84165; 84425; 84443; 84590; 84630; 85025; 86140; 86160; 86704; 86707; 87350; 90791

== ENCOUNTER 2024-09-07 11:18 | Outpatient (AMB) | payer MEDICAID, SELFPAY ==
[2024-09-07 11:30] VITALS: BP 154/70; PULSE 72; O2SAT 98; BMI 35.5
--- NOTE | 2024-09-07 11:30 | HO.NEPHOV_ITS ---
Vital Signs 09/07/24 11:30 Height 5 ft 2 in Weight 194 lb BMI 35.5 BP 154/70 H Blood Pressure Location Lt brachial Position Sitting Pulse 72 Pulse Source Pulse Oximeter Pulse Oximetry (%) 98 Oxygen Delivery Method Room Air Intake Visit Reasons: Pt missed 09/05/24 appointment Online Banking Specialist Required: No Online Banking Specialist Name: [email or web address] [id number] Accompanied by: Self / Same As Patient Allergies Oyster Shell Allergy (Severe, Uncoded 08/12/24 13:00) Facial Swelling HPI Comments Details: 53 y/o female with a medical history Tracy is a 53 y/o female with a medical history of hypertension, iron deficiency anemia, fibromyalgia, migraine, lumbar radiculopathy, degenerative disc disease, LIANNA. 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 Was referred to nephrology for management of hypertension and proteinuria. 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 medications: takes losartan 100mg daily, hydrochlorothiazide 25mg daily, amlodipine 10mg daily Providers: PCP: Dr Janki Painting at [facility] Specialists: reports none currently diet, salt: has been adding salt to her diet, reports cannot taste it well so has to add a lot NSIADs/OTC medications: took ibuprofen 800mg PRN- took higher doses for many years for her pain management. stop taking 3 months ago. pt has been working on weight loss through a weight loss clinic at [place] shortness of breath: reports yes, will suddenly feel short of breath while sitting. reports dyspnea with exertion. reports feel my chest is burning - reports ongoing for a few years now. Edema: none urinary sx: none. reports intermittently problems where she cannot pee with blood in urine, reports since she was 13. Reports then takes medication and it goes away. No symptoms like this in 3 years. rash: reports muñoz/scars from scratching on her legs joint pain: joing pain, chronic, in hands, knees, hips. [facility] Medical History (Updated 09/02/24 @ 10:35 by Nanette Otto [facility]) DJD (degenerative joint disease) Insomnia BMI 34.0-34.9,adult Obesity Essential hypertension History of palpitations Arthritis Fibromyalgia Asthma GERD (gastroesophageal reflux disease) Hx of bronchitis Anxiety Depression Iron deficiency anemia Dysphagia Surgical History History of umbilical hernia repair History of delivery History of laryngoscopy History of carpal tunnel surgery of right wrist Hx of colonoscopy Hx of esophagogastroduodenoscopy Hx of hysterectomy Family History Father Hx of type 1 diabetes mellitus Mother Hx of osteosarcoma Maternal Grandmother Hx of type 1 diabetes mellitus Maternal Grandfather Hx of type 1 diabetes mellitus Paternal Grandfather Hx of type 1 diabetes mellitus Paternal Grandmother Hx of type 1 diabetes mellitus Social History Household Members: Children Alcohol intake: never Patient Tobacco Use Status: Never used Tobacco Second Hand Smoke Exposure: No 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 Physical Exam Vital Signs: Last Vital Signs Pulse 72 09/07/24 11:30 BP 154/70 H 09/07/24 11:30 Pulse Ox 98 09/07/24 11:30 Oxygen Delivery Method Room Air 09/07/24 11:30 BMI result Body Mass Index 35.5 Results Reviewed Nephrology Results: Hgb 11.4 g/dl (12.0-16.0) L 09/01/24 WBC 5.8 X10*3/uL (4.8-10.8) 09/01/24 Plt Count 182 X10*3/uL (160-400) 09/01/24 Sodium 139 mmol/L (135-145) 09/01/24 Potassium 3.5 mmol/L (3.3-5.1) 09/01/24 Chloride 108 mmol/L (96-108) 09/01/24 Carbon Dioxide 24 mmol/L (22-29) 09/01/24 BUN 17 mg/dL (9-16) H 09/01/24 Creatinine 0.69 mg/dL (0.5-1.4) 09/01/24 Calcium 9.1 mg/dL (8.4-10.2) 09/01/24 Urine Protein 100 (2+) mg/dL (Neg-Trace) H 09/01/24 Urine Creatinine 90.22 mg/dL 09/01/24 Protein/Creatinin Ratio 1.30 (<0.2) H 09/01/24 Assessment & Plan Assessment & Plan (1) Proteinuria: Code(s): R80.9 - Proteinuria, unspecified Category: Medical Qualifiers: Proteinuria type: persistent Qualified Code(s): R80.1 - Persistent proteinuria, unspecified (2) Essential hypertension: Code(s): I10 - Essential (primary) hypertension Category: Medical (3) Chronic anemia: Code(s): D64.9 - Anemia, unspecified Category: Medical Plan non nephrotic range Proteinuria workup in progress - Differential diagnosis include membranous nephropathy, FSGS, obesity related proteinuria versus other. Further serologies ordered. We will arrange for a kidney biopsy for definite diagnosis. -chronic normocytic anemia -hypertension advised low salt diet advised avoid nsaids, alcohol encouraged continued weight loss efforts encouraged adequate hydration Orders: Orders CT biopsy renal RT Today R80.1 - Persistent proteinuria, unspecified Prothrombin Time INR Today R80.1 - Persistent proteinuria, unspecified SHAMIKA Reflex Titer and Pattern Today R80.1 - Persistent proteinuria, unspecified Anti Glomerular Basement Memb Today R80.1 - Persistent proteinuria, unspecified Neutrophil Cytoplasma Ab Today R80.1 - Persistent proteinuria, unspecified Complete Blood Count Auto Diff Today R80.1 - Persistent proteinuria, unspecified Partial Thromboplastin Time Today R80.1 - Persistent proteinuria, unspecified Proteinase 3 PR3 Antibodies Today R80.1 - Persistent proteinuria, unspecified Protein Electrophoresis, Serum Today R80.1 - Persistent proteinuria, unspecified Phospholipase A2 Receptor Pnl Today R80.1 - Persistent proteinuria, unspecified Coding Level of Care Code Est Pt Level 4 (31112) Diagnoses Persistent proteinuria R80.1 Proteinuria type: persistent Essential hypertension I10 Chronic anemia D64.9
== END 2024-09-07 11:57 | disposition home or self-care (01) ==
PROVIDERS: PCP Pediatrics; Visit Provider Internal Medicine Hypertension Specialist
DX: R80.1 Persistent proteinuria, unspecified (principal); I10 Essential (primary) hypertension; D64.9 Anemia, unspecified
CPT/HCPCS: 99214

== ENCOUNTER → 2024-09-07 11:18 | Outpatient (BNVA) | payer MEDICAID, SELFPAY | PROVIDERS: PCP Pediatrics; Visit Provider Internal Medicine Hypertension Specialist | DX: I10 Essential (primary) hypertension (principal); R80.1 Persistent proteinuria, unspecified; D50.9 Iron deficiency anemia, unspecified | CPT/HCPCS: 99212 ==

== ENCOUNTER 2024-10-06 07:34 | Outpatient (REF) | payer MEDICAID, SELFPAY ==
[2024-10-06 07:54] LABS: MANUAL DIFF FLAG NO
[2024-10-06 08:13] LABS: Basophils Percent Auto 0.3 % (0-2); Eosinophils Absolute Auto 0.1 X10*3/uL (0.0-0.4); Eosinophils Percent Auto 2.3 % (0-4); Hematocrit 35.6 % (37.0-47.0); Hemoglobin 12.5 g/dl (12.0-16.0); Imm Gran Abs Auto 0.04 X10*3/uL (0.00-0.03); Imm Gran Pct Auto 0.7 % (0.0-0.4); Lymphocytes Absolute Auto 1.4 X10*3/uL (1.2-4.9); Lymphocytes Percent Auto 23.1 % (20-40); Mean Corpuscular HGB Conc 35.1 g/dl (31.0-35.0); Mean Corpuscular Volume 79.8 fL (80.0-98.0); Mean Platelet Volume 9.2 fL (9.4-12.3); Monocytes Absolute Auto 0.4 X10*3/uL (0.1-1.2); Monocytes Percent Auto 6.8 % (2-11); Neutrophils Absolute Auto 4.1 x10*3/uL (2.0-8.3); Neutrophils Percent Auto 66.8 % (45-73); Platelet Count 175 X10*3/uL (160-400); Red Blood Count 4.46 X10*6/uL (4.20-5.50); Red Cell Distribution Width 13.2 % (11.0-16.0); White Blood Count 6.1 X10*3/uL (4.8-10.8)
[2024-10-06 08:19] LABS: INTERNATIONAL NORM RATIO 0.9 (0.9-1.1); Prothrombin Time 10.2 SEC (10.9-12.4)
[2024-10-06 08:22] LABS: Partial Thromboplastin Time 30.6 SEC (26.0-36.8)
[2024-10-06 08:34] LABS: Anion Gap 13 (12-20); Blood Urea Nitrogen 19 mg/dL (9-16); Calcium 9.2 mg/dL (8.4-10.2); Carbon Dioxide 25 mmol/L (22-29); Chloride 107 mmol/L (96-108); Estimated Glomerular Filt Rate > 60; Glucose Random 141 mg/dL (60-115); Potassium 3.9 mmol/L (3.3-5.1); Sodium 141 mmol/L (135-145)
[2024-10-07 13:09] LABS: Prot Elec - Albumin 4.3 g/dL (3.8-4.8); Prot Elec - Alpha1 0.3 g/dL (0.2-0.3); Prot Elec - Alpha2 0.6 g/dL (0.5-0.9); Prot Elec - Beta 1 0.4 g/dL (0.4-0.6); Prot Elec - Beta 2 0.4 g/dL (0.2-0.5); Prot Elec - Gamma 0.9 g/dL (0.8-1.7); Prot Elec - Total Protein 6.8 g/dL (6.1-8.1)
[2024-10-07 19:24] LABS: Anti Glomerular Basement Memb <1.0 AI; Proteinase 3 PR3 Antibodies <1.0 AI
[2024-10-10 14:43] LABS: Anti Nuclear Antibody Screen NEGATIVE (NEGATIVE)
[2024-10-14 12:23] LABS: Neutrophil Cyto Ab Screen ATYP P-ANCA POS (NEGATIVE)
[2024-10-16 00:29] LABS: Phospholipase A2 IgG ELISA <4 RU/mL; Phospholipase A2 IgG IFA NEGATIVE (NEGATIVE)
== END 2024-10-06 07:35 | disposition home or self-care (01) ==
LOC: HO.LAB 07:34
PROVIDERS: Nurse Practitioner Family; PCP Pediatrics; Visit Provider Internal Medicine Hypertension Specialist
DX: R80.1 Persistent proteinuria, unspecified (principal); N18.30 Chronic kidney disease, stage 3 unspecified; I10 Essential (primary) hypertension; D64.9 Anemia, unspecified
CPT/HCPCS: 36415; 80048; 83520; 84165; 85025; 85610; 85730; 86021; 86036; 86037; 86038; 86255

== ENCOUNTER 2024-10-10 14:16 | Outpatient (AMB) | payer MEDICAID, SELFPAY ==
--- NOTE | 2024-10-10 14:21 | MHC.OFFVIS ---
Vital Signs 10/10/24 14:27 Height 5 ft 2 in Weight 189 lb 9.561 oz BMI 34.7 BP 126/68 Blood Pressure Location Lt brachial Position Sitting Pulse 88 Intake Visit Reasons: Med refill appt Intake Note: Tracy presents in the office as a follow up. CC: She states that she is having pains in the stomach and states she is having lots of constipation. She has lost weight and is watching what she puts in her body. She does not take any laxative or stool softeners. She has bad reflux and has stopped eating spicy foods. Talent Development Coordinator Required: No Allergies Oyster Shell Allergy (Severe, Uncoded 10/10/24 14:28) Facial Swelling HPI HPI Med refill appt: Details: A 54-year-old female called for f/u for for dysphagia, odynophagia and globus, iron def anemia here for f/u RECAP: initially saw [facility] Had complaints of dysphagia on to solids and pills. She does have acid reflux despite omeprazole twice daily. She has made dietary modifications without much benefit. Seems like food so comes up into her throat. She eat slowly chew her food well and drinks a lot of liquids She has anemia however she has had for many years. 05/2019-colon screening by Dr. Kaufman-in adequate prep, recommend repeating 3-5 years. I had increased PPI and famotidine at night TESTS: Barium swallow:11/2019--nml EGD 02/20/2020--esophagitis, 18 mm savary dilation, chronic esophagitis on bx Labs with early iron def repeat labs--03/2020-- hgb 11, MCV--79. ferritin--10, iron sat--16 celiac testing neg EGD /colonoscopy 07/2020--nml colon rept 10 yrs, dilation of esophagus , mild GEJ inflammation capsule endo--nml CTA 2022--- nml, no stenosis INTERIM: she is having issues with swallowing again she had relief with dilation before she has bilious regurgitation she has constipation and blood in stool she has to put a lot of pressure, feels like bloackage she can wake up choking at night, she does not seem to have had sleep study she still snores EXAM: GENERAL: The patient is well developed and nontoxic. VITAL SIGNS:see workflow HEENT: Nonicteric sclerae, PERRLA, EOMI. Oropharynx clear. Moist mucous membranes. Conjunctivae appear well perfused. No thyroid mass. CHEST: Chest wall is nontender. HEART: Regular rate and rhythm without murmurs. LUNGS: Clear to auscultation bilaterally. ABDOMEN: Soft, positive bowel sounds, tender epigastrium, no organomegaly.no flank tenderness SKIN: No rash, no excessive bruising, petechiae, or purpura. NEUROLOGIC: Cranial nerves II-XII intact without motor/sensory deficit. Psych--normal Assessment & Plan (1) Dysphagia 2/2 GERD, (2) constipation possible slow transit and pelvic floor dysfunction 3/ suspected LIANNA PLAN: 1/ rerefer sleep clinic 2/ MR defecography 3/ EGD and colonoscopy --suprep, dilation of esophagus 4/ trial of linaclotide [facility] Medical History (Updated 10/10/24 @ 15:04 by Eda Bahena MD) DJD (degenerative joint disease) Insomnia BMI 34.0-34.9,adult Obesity Essential hypertension History of palpitations Arthritis Fibromyalgia Asthma GERD (gastroesophageal reflux disease) Hx of bronchitis Anxiety Depression Iron deficiency anemia Dysphagia Surgical History History of umbilical hernia repair History of delivery History of laryngoscopy History of carpal tunnel surgery of right wrist Hx of colonoscopy Hx of esophagogastroduodenoscopy Hx of hysterectomy Family History Father Hx of type 1 diabetes mellitus Mother Hx of osteosarcoma Maternal Grandmother Hx of type 1 diabetes mellitus Maternal Grandfather Hx of type 1 diabetes mellitus Paternal Grandfather Hx of type 1 diabetes mellitus Paternal Grandmother Hx of type 1 diabetes mellitus Social History Household Members: Children Alcohol intake: never Patient Tobacco Use Status: Never used Tobacco Second Hand Smoke Exposure: No 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00
[2024-10-10 14:27] VITALS: BP 126/68; PULSE 88; BMI 34.7
== END 2024-10-10 15:06 | disposition home or self-care (01) ==
PROVIDERS: PCP Pediatrics; Visit Provider Internal Medicine Gastroenterology
DX: K59.00 Constipation, unspecified (principal)
CPT/HCPCS: 99214

== ENCOUNTER → 2024-10-10 14:16 | Outpatient (BNVA) | payer MEDICAID, SELFPAY | PROVIDERS: PCP Pediatrics; Visit Provider Internal Medicine Gastroenterology | DX: K59.00 Constipation, unspecified (principal) | CPT/HCPCS: 99212 ==

== ENCOUNTER 2024-10-17 08:52 | Day surgery (SDC) | payer MEDICAID, SELFPAY ==
[2024-10-17] VITALS (20 sets, daily range): BP systolic 114–155; BP diastolic 56–109; PULSE 72–90; RESP 14–20; TEMP 36.6–37.1; O2SAT 96–100; BMI 34.4
--- NOTE | 2024-10-17 10:35 | MHC.SHP ---
Pre-Procedural Eval Section A - 24 Hr Update-Section A only Date of Service: 10/17/24 Section B - Complete if H&P > 30 days Chief Complaint: RIGHT RENAL PERSISTENT PROTEINURIA Details of Present Illness: 54 y/o female with proteinuria. Nephrology requests a biopsy. Relevant Family History (Specify if Yes): No Relevant Social History: None Present Medications: see Short Stay Collaborative assessment Medical History: Significant History History of Previous Operations: No relevant previous surgery Allergies: Allergies Allergy/AdvReac Type Severity Reaction Status Date / Time Oyster Shell Allergy Severe Facial Uncoded 10/10/24 14:28 Swelling Review of Systems Sugical H&P ROS: Negative: Constitution, Cardiovascular and Respiratory Exam Surgical H&P Exam: Normal: Heart, Normal: Lungs, Normal: Abdomen, Normal: Skin and Normal: Neurological Plan 54 y/o female with proteinuria. -CT non targeted renal biopsy. Time Spent With Patient Time: Total time managing care of this patient today ____ minutes.
[2024-10-17] MEDS: hydrALAZINE HCl 20 MG/ML VIAL IVPUSH (10:46)
[2024-10-17] MEDS: Midazolam HCl/PF 2 MG/2 ML VIAL 1 MG IVPUSH (11:02)
[2024-10-17] MEDS: fentaNYL citrate/PF 100 MCG/2 ML VIAL 50 MCG IVPUSH (11:03)
== END 2024-10-17 14:36 | disposition home or self-care (01) ==
LOC: HO.SSS 08:53
PROVIDERS: Radiology Vascular & Interventional Radiology; PCP Pediatrics; Visit Provider Internal Medicine Hypertension Specialist
DX: R80.1 Persistent proteinuria, unspecified (principal); I10 Essential (primary) hypertension; D64.9 Anemia, unspecified; M79.7 Fibromyalgia; M19.90 Unspecified osteoarthritis, unspecified site; J45.909 Unspecified asthma, uncomplicated; G43.909 Migraine, unspecified, not intractable, without status migrainosus; G47.00 Insomnia, unspecified; E66.9 Obesity, unspecified; Z68.34 Body mass index [BMI] 34.0-34.9, adult; F32.A Depression, unspecified; F41.9 Anxiety disorder, unspecified; Z79.899 Other long term (current) drug therapy; Z98.890 Other specified postprocedural states
CPT/HCPCS: 50200; 77012; 86850; 86900; 86901; 88300; 88305; 88313; 88346; 88348; 88350; 99152; J0360; J2003; J2250; J2310; J3010

== ENCOUNTER → 2024-10-17 10:34 | Outpatient (BNV) | payer MEDICAID, SELFPAY | PROVIDERS: PCP Pediatrics; Visit Provider Physician Assistant Surgical | DX: R80.1 Persistent proteinuria, unspecified (principal) | CPT/HCPCS: 50200; 77012 ==

== ENCOUNTER 2024-11-02 08:58 | Outpatient (AMB) | payer MEDICAID, SELFPAY ==
[2024-11-02 08:59] VITALS: BP 134/62; PULSE 85; O2SAT 97; BMI 35.3
--- NOTE | 2024-11-02 08:59 | HO.NEPHOV_ITS ---
Vital Signs 11/02/24 08:59 Height 5 ft 2 in Weight 193 lb BMI 35.3 BP 134/62 Blood Pressure Location Lt brachial Position Sitting Pulse 85 Pulse Source Pulse Oximeter Pulse Oximetry (%) 97 Oxygen Delivery Method Room Air Intake Visit Reasons: 6 week f/u-Conf Gluing Machine Operator Required: Yes Gluing Machine Operator Name: Scott [id number] Accompanied by: Self / Same As Patient Allergies Oyster Shell Allergy (Severe, Uncoded 10/10/24 14:28) Facial Swelling Medication List - Last Reconciled 11/02/24 by Lucas Portillo MD acetaminophen (Tylenol) 650 mg (2 x 325 mg) PO Q4H PRN albuterol sulfate 0.63 mg inhalation Q4-6H PRN amlodipine 10 mg PO DAILY blood pressure test kit-large As directed bupropion HCl XL 150 mg PO DAILY cetirizine (All Day Allergy (cetirizine)) 10 mg PO DAILY PRN cyanocobalamin (vitamin B-12) (Vitamin B-12) 1,000 mcg PO DAILY cyclobenzaprine 10 mg PO TID PRN duloxetine (Cymbalta) 60 mg PO BID duloxetine 60 mg PO BID fluticasone propion-salmeterol 250-50 mcg/dose (Advair Diskus) 1 inh inhalation BID fluticasone propionate 50 mcg/actuation 1 spray intranasal DAILY hydrochlorothiazide 25 mg PO DAILY ibuprofen 800 mg PO Q8H PRN linaclotide 145 mcg PO DAILY losartan 100 mg PO DAILY pantoprazole 40 mg PO DAILY quetiapine 300 mg PO BID sodium,potassium,mag sulfates 17.5-3.13-1.6 gram (Suprep Bowel Prep Kit) DILUTE; drink 1/2 at 6-8 pm and half at 11 PM- 1AM zolpidem 10 mg PO BEDTIME PRN HPI Comments Details: 53 y/o female with a medical history Tracy is a 53 y/o female with a medical history of hypertension, iron deficiency anemia, fibromyalgia, migraine, lumbar radiculopathy, degenerative disc disease, LIANNA. 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 Was referred to nephrology for management of hypertension and proteinuria. for many years, says has seen a lot of protein in your urine blood pressure has been high for about a year forensic ballistics expert says arthritis in hips and hands and knees Imagin11/17/22 renal artery ultrasound suggested left renal artery stenosis 12/01/22 follow-up CTA of abdomen showed no renal artery stenosis Creatinine/GFR: 01/29/24 creatinine 0.73, GFR >60 Urine: proteinuria present in 2019- protein:creatinine ratio elevated at 1.38 06/28/24 most recent urine protein check was mildly elevated at 70 mg/dL; remainder of urine was bland pt states she has had proteinuria since at least 2017 smoking: no alcohol: no family hx: no family hx of renal disease. medications: takes losartan 100mg daily, hydrochlorothiazide 25mg daily, amlodipine 10mg daily Providers: PCP: Dr Janki Rahman at [facility] Specialists: reports none currently diet, salt: has been adding salt to her diet, reports cannot taste it well so has to add a lot NSIADs/OTC medications: took ibuprofen 800mg PRN- took higher doses for many years for her pain management. stop taking 3 months ago. pt has been working on weight loss through a weight loss clinic at [place] shortness of breath: reports yes, will suddenly feel short of breath while sitting. reports dyspnea with exertion. reports feel my chest is burning - reports ongoing for a few years now. Edema: none urinary sx: none. reports intermittently problems where she cannot pee with blood in urine, reports since she was 13. Reports then takes medication and it goes away. No symptoms like this in 3 years. rash: reports muñoz/scars from scratching on her legs joint pain: joing pain, chronic, in hands, knees, hips. [facility] Medical History (Updated 10/10/24 @ 15:04 by Eda Bahena MD) DJD (degenerative joint disease) Insomnia BMI 34.0-34.9,adult Obesity Essential hypertension History of palpitations Arthritis Fibromyalgia Asthma GERD (gastroesophageal reflux disease) Hx of bronchitis Anxiety Depression Iron deficiency anemia Dysphagia Surgical History History of umbilical hernia repair History of delivery History of laryngoscopy History of carpal tunnel surgery of right wrist Hx of colonoscopy Hx of esophagogastroduodenoscopy Hx of hysterectomy Family History Father Hx of type 1 diabetes mellitus Mother Hx of osteosarcoma Maternal Grandmother Hx of type 1 diabetes mellitus Maternal Grandfather Hx of type 1 diabetes mellitus Paternal Grandfather Hx of type 1 diabetes mellitus Paternal Grandmother Hx of type 1 diabetes mellitus Social History Household Members: Children Are you a primary geriatric personal care aide to a significant other at home: No Do you presently have visiting nurse or other home services: No Alcohol intake: never Patient Tobacco Use Status: Never used Tobacco Second Hand Smoke Exposure: No 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 Lungs entry equal no rales. Heart S1-S2 heard no gallop or rub. Abdomen soft nontender. Neuro alert awake oriented. No asterixis. Extremities no edema. Results Reviewed Nephrology Results: Hgb 12.5 g/dl (12.0-16.0) 10/06/24 WBC 6.1 X10*3/uL (4.8-10.8) 10/06/24 Plt Count 175 X10*3/uL (160-400) 10/06/24 Sodium 141 mmol/L (135-145) 10/06/24 Potassium 3.9 mmol/L (3.3-5.1) 10/06/24 Chloride 107 mmol/L (96-108) 10/06/24 Carbon Dioxide 25 mmol/L (22-29) 10/06/24 BUN 19 mg/dL (9-16) H 10/06/24 Creatinine 0.75 mg/dL (0.5-1.4) 10/06/24 Calcium 9.2 mg/dL (8.4-10.2) 10/06/24 Urine Protein 100 (2+) mg/dL (Neg-Trace) H 09/01/24 Urine Creatinine 90.22 mg/dL 09/01/24 Protein/Creatinin Ratio 1.30 (<0.2) H 09/01/24 Assessment & Plan Assessment & Plan (1) Proteinuria: Code(s): R80.9 - Proteinuria, unspecified Category: Medical Qualifiers: Proteinuria type: persistent Qualified Code(s): R80.1 - Persistent proteinuria, unspecified (2) Essential hypertension: Code(s): I10 - Essential (primary) hypertension Category: Medical (3) Chronic anemia: Code(s): D64.9 - Anemia, unspecified Category: Medical Plan non nephrotic range Proteinuria workup in progress - P-ANCA was positive All other serologies were negative kidney biopsy revealed Hyperfilteration No cresents or acute injury Creatinine is stable Keep Losartan Monitor urine protein -chronic normocytic anemia -hypertension advised low salt diet advised avoid nsaids, alcohol encouraged continued weight loss efforts encouraged adequate hydration Orders: Orders Total Protein Urine Random 3 Months R80.1 - Persistent proteinuria, unspecified Basic Metabolic Panel 3 Months R80.1 - Persistent proteinuria, unspecified Creatinine Urine 3 Months R80.1 - Persistent proteinuria, unspecified UA and rflx microscopic 3 Months R80.1 - Persistent proteinuria, unspecified Coding Level of Care Code Est Pt Level 4 (74985) Diagnoses Persistent proteinuria R80.1 Proteinuria type: persistent Essential hypertension I10 Chronic anemia D64.9
== END 2024-11-02 09:25 | disposition home or self-care (01) ==
PROVIDERS: PCP Pediatrics; Visit Provider Internal Medicine Hypertension Specialist
DX: R80.1 Persistent proteinuria, unspecified (principal); I10 Essential (primary) hypertension; D64.9 Anemia, unspecified
CPT/HCPCS: 99214

== ENCOUNTER → 2024-11-02 08:58 | Outpatient (BNVA) | payer MEDICAID, SELFPAY | PROVIDERS: PCP Pediatrics; Visit Provider Internal Medicine Hypertension Specialist | DX: I10 Essential (primary) hypertension (principal); R80.1 Persistent proteinuria, unspecified; D64.9 Anemia, unspecified | CPT/HCPCS: 99212 ==

== ENCOUNTER 2024-11-22 09:26 | Outpatient (REF) | payer MEDICAID, SELFPAY ==
--- NOTE | ~2024-11-22 | XR_ITS ---
EXAMINATION: XR FOOT, RIGHT CLINICAL INFORMATION: heel pain and ankle swelling after fall COMPARISON: None available. TECHNIQUE: AP, lateral, and oblique views of the right foot. FINDINGS: No fracture, dislocation, or suspicious bone lesion. No malalignment. Normal plantar arch. Mild arthritis at the first MTP joint. Moderate sized plantar calcaneal spur. Calcaneus appears intact. Subtalar joints appear normal. The midfoot appears normal. No soft tissue abnormalities. XR/XR foot RT 2V IMPRESSION: No acute findings right foot. Electronically signed by: Minor Mendez MD 11/22/2024 10:22 AM [facility]
--- NOTE | ~2024-11-22 | XR_ITS ---
EXAMINATION: XR WRIST, LEFT CLINICAL INFORMATION: left wrist pain and swelling after fall COMPARISON: 05/14/2017. TECHNIQUE: PA, lateral, oblique, and scaphoid views of the left wrist. FINDINGS: No fracture, dislocation, or suspicious bone lesion. No malalignment. The carpal rows are intact and normally aligned. There is mild dorsal spurring of the carpometacarpal joints. Mild negative ulnar variance. Mild soft tissue swelling overlying the distal ulnar region. XR/XR wrist LT 2V IMPRESSION: 1. No acute bony abnormalities. 2. Mild soft tissue swelling overlying the distal ulnar region. Electronically signed by: Minor Mendez MD 11/22/2024 10:26 AM [facility]
--- NOTE | ~2024-11-22 | XR_ITS ---
EXAMINATION: XR ANKLE, RIGHT CLINICAL INFORMATION: chronic achiles area pain COMPARISON: 08/29/2022. TECHNIQUE: AP, lateral, and mortise views of the right ankle. FINDINGS: No fracture, dislocation, or suspicious bone lesion. No malalignment. Ankle mortise is intact. The talar dome is normal. The subtalar joints appear normal. There is a moderate-sized plantar calcaneal spur. No significant bony or soft tissue abnormality in the region of the Achilles tendon. The pre-Achilles fat pad is normal. No evidence of ankle joint effusion. Normal-appearing soft tissues. XR/XR ankle RT 2V IMPRESSION: 1. No acute findings right ankle. Specifically, no soft tissue or bony abnormality noted in the region of the Achilles tendon. 2. Moderate-sized plantar calcaneal spur. Electronically signed by: Minor Mendez MD 11/22/2024 10:20 AM [facility]
--- OUTSIDE RECORDS SUMMARY | 2024-11-22 09:57 | XMS_ITS | Encounter Summary ---
Author Organization [employer] Address [address] [facility] [address] [place] [address] Care Team Providers Care Crusher And Blender Operator Name Role Phone Janki Painting MD Primary Care Provider [phone] Rambo Saleem Unavailable Unavailable Reason for Visit * Reason Comments Med Refill Encounter Details Date Type Department Care Team (Late st Contact Info) Description 11/28/2023 Refill [facility] [address] [place] [address] Rambo Saleem FNP Major depressive disorder, recurrent, severe with psychotic features (CMS/HCC) Social History Tobacco Use Types Packs/Day Years Used Date Smoking Tobacco: Never Passive Smoke Exposure: Never Smokeless Tobacco: Never Depression Answer Date Recorded Patient Health Questionnaire-9 Score 12 11/19/2023 Patient Health Questionnaire-9 Score 12 11/19/2023 Last PHQ-9: Questionnaire Data Not on file 0 11/19/2023 Housing Stability Answer Date Recorded What is your housing situation today? I have wes bateman 08/10/[address] you li ve. Do you have problems with any of the following? None of the above 08/10/2023 Food Insecurity Answer Date Recorded Within the past 12 months, y ou worried that your food would run out before you got money to buy more: Never True 08/10/2023 Within the past 12 months,th e food you bought just didn't last and you didn't have enough money to get more: Never True Transportation Answer Date Recorded In the past 12 months, has l ack of transportation kept you from medical appts, meetings, work or from getting things needed for daily living? No 08/10/2023 Utilities Answer Date Recorded In the past 12 months, has t he electric, gas, oil or water company threatened to shut off services in your home? No 08/10/2023 Depression Answer Date Recorded Patient Health Questionnaire-2 Score 4 11/19/2023 Comments Unknown Sex and Gender Information Value Date Recorded Sex Assigned at Female 08/18/2022 10:17 AM EDT Legal Sex Female 10:17 AM EDT Gender Identity Choose not to disclose 10:17 AM EDT Sexual Orientation Choose not to disclose 2021 10:17 AM EDT documented as of this encounter Plan of Treatment Upcoming Encounters Date Type Department Care Team (Late st Contact Info) Description 01/11/2025 11:30 AM EDT Office Visit [facility] [address] [place] [address] Janki Painting MD [address] [place] [address] documented as of this encounter Visit Diagnoses Diagnosis Major depressive disorder, recurrent, severe with psychotic features (CMS/HCC) Major depressive disorder, recurrent episode, severe, specified as with psychotic behavior documented in this encounter Additional Health Concerns Assessment Noted Time PHQ-9 Depression Total Score: 12 024 3:50 PM EST documented as of this encounter Care Teams Crusher And Blender Operator Relationship Specialty Start Date End Date Janki Painting MD [address] [place] [address] PCP - General Family Medicine 10/19/18 Rambo Saelem FNP [address] [place] [address] Nurse Practitioner Family Medicine 09/07/23 documented as of this encounter
--- OUTSIDE RECORDS SUMMARY | 2024-11-22 09:57 | XMS_ITS | Encounter Summary ---
Author Organization [employer] Address [address] [facility] [address] [place] [address] Care Team Providers Care French Pastry Cook Name Role Phone Janki Painting MD Primary Care Provider Rmabo Saleem Unavailable Unavailable Reason for Visit * Reason Comments Med Refill Encounter Details Date Type Department Care Team (Late st Contact Info) Description 03/09/2024 Refill [facility] [address] [place] [address] [phone] Sheridan Chávez MD [address] [place], [place] [phone] Social History Tobacco Use Types Packs/Day Years [...] Description 01/11/2025 11:30 AM EDT Office Visit [facility] [address] [place] [address] Janki Paintign MD [address] [place] [address] documented as of this encounter Visit Diagnoses Not on filedocumented in this encounter Additional Health Concerns Assessment Noted Time PHQ-9 Depression Total Score: 12 024 3:50 PM EST documented as of this encounter Care Teams French Pastry Cook Relationship Specialty Start Date End Date Janki Painting MD [address] [place] [address] PCP - General Family Medicine 10/19/18 Rambo Saleem FNP [address] [place] [address] Nurse Practitioner Family Medicine 09/07/23 documented as of this encounter
--- OUTSIDE RECORDS SUMMARY | 2024-11-22 09:57 | XMS_ITS | Encounter Summary ---
Author Organization [employer] Address [address] [facility] [address] [place] [address] Care Team Providers Care Custodial Laborer Name Role Phone Janki Painting MD Primary Care Provider [phone] Rambo Saleem Unavailable Unavailable Reason for Visit * Reason Onset Date Comments Referral 10/15/2023 Encounter Details Date Type Department Care Team ([facility] st Contact Info) Description 10/15/2023 Telephone [facility] [address] [place], [place] [phone] Janki Painting MD [address] [place] [address] Referral Social History Tobacco Use Types Packs/Day Years Used Date Smoking Tobacco: Never Passive Smoke Exposure: Never Smokeless Tobacco: Never Depression Answer Date Recorded Patient Health Questionnaire-9 Score 16 09/07/2023 Patient Health Questionnaire-9 Score 16 09/07/2023 Last PHQ-9: Questionnaire Data Not on file 1 11/07/2022 Housing Stability Answer Date Recorded What is [...] Answer Date Recorded Patient Health Questionnaire-2 Score 6 09/07/2023 Comments Unknown Sex and Gender Information Value Date Recorded Sex Assigned at Female 08/18/2022 10:17 AM EDT Legal Sex Female 10:17 AM EDT Gender Identity Choose not to disclose 10:17 AM EDT Sexual Orientation Choose not to disclose 2021 10:17 AM EDT documented as of this encounter Miscellaneous Notes * Telephone Encounter - Hope Alfonso MD - 10/20/2023 4:56 PM EST referred * Telephone Encounter - Quyen iL - 10/15/2023 2:11 PM EST TC from pt requesting status on referral for Veins requested to be sent to Dr. Thompson office [facility] @ [address] [place] [address] Facility # [phone] Please contact pt @ [phone] Swazi Speaker documented in this encounter Plan of Treatment Upcoming Encounters Date Type Department Care Team (Late st Contact Info) Description 01/11/2025 11:30 AM EDT Office Visit [facility] [address] [place] [address] Janki Painting MD [address] [place] [address] documented as of this encounter Visit Diagnoses Not on filedocumented in this encounter Additional Health Concerns Assessment Noted Time PHQ-9 Depression Total Score: 16 023 10:45 AM EST documented as of this encounter Care Teams Custodial Laborer Relationship Specialty Start Date End Date Janki Painting MD [address] [place] [address] PCP - General Family Medicine 10/19/18 Rambo Saleem FNP [address] [place] [address] Nurse Practitioner Family Medicine 09/07/23 documented as of this encounter
--- OUTSIDE RECORDS SUMMARY | 2024-11-22 09:57 | XMS_ITS | Encounter Summary ---
Author Organization [facility] Address [address] [facility] [address] [place] [address] Care Team Providers Care Solar Maintenance Technician Name Role Phone Janki Painting MD Primary Care Provider [phone] Rambo Saleem Unavailable Unavailable Reason for Visit * Reason Comments Med Refill Encounter Details Date Type Department Care Team ([facility] Contact Info) Description 11/13/2022 Refill [facility] [address] [place] [address] Rambo Saleem FNP Social History Tobacco Use Types Packs/Day Years Used Date Smoking Tobacco: Never Assessed Comments Unknown Sex and Gender Information Value Date Recorded Sex Assigned at Female 08/18/2022 10:17 AM EDT Legal Sex Female 10:17 AM EDT Gender Identity Choose not to disclose 10:17 AM EDT Sexual Orientation Choose not to disclose 2021 10:17 AM EDT COVID-19 Exposure Response Date Recorded In the last 10 days, have yo u been in contact with someone who was confirmed or suspected to have Coronavirus/COVID-19? No / Unsure 10/30/2022 9:53 AM EST documented as of this encounter Plan of Treatment Upcoming Encounters Date Type Department Care Team (Late Contact Info) Description 01/11/2025 11:30 AM EDT Office Visit [facility] [address] [place], [place] [phone] Janki Painting MD [address] [place] [address] documented as of this encounter Visit Diagnoses Not on filedocumented in this encounter Care Teams Solar Maintenance Technician Relationship Specialty Start Date End Date Janki Painting MD [address] [place] [address] PCP - General Family Medicine 10/19/18 Rambo Saleem FNP [address] [place] [address] Nurse Practitioner Family Medicine 09/07/23 documented as of this encounter
--- OUTSIDE RECORDS SUMMARY | 2024-11-22 09:57 | XMS_ITS | Encounter Summary ---
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 Dx) Social History Tobacco Use Types Packs/Day Years [...] Description 01/11/2025 11:30 AM EDT Office Visit [facility] MED & PEDS [address] [place], [place] [phone] Janki Painting MD [address] [place] [address] documented as of this encounter Procedures Procedure Name Priority Date/Time Associated Diagnosis Comments HIGH SENSITIVITY TROPONIN I Routine 01/29/2024 10:48 PM EDT Varicose veins of bilateral lower extremities with other complications CBC WITH AUTO DIFFERENTIAL Routine 01/29/2024 10:48 PM EDT Varicose veins of bilateral lower extremities with other complications COMPREHENSIVE METABOLIC PANEL Routine 01/29/2024 10:48 PM EDT Varicose veins of bilateral lower extremities with other complications BASIC METABOLIC PANEL Routine 12/21/2023 11:18 AM EST Varicose veins of bilateral lower extremities with other complications documented in this encounter Results * High Sensitivity Troponin I (01/29/2024 10:48 PM EDT) TROPONIN I HIGH SENSITIVITY 4.0 <3.5 - 17.0 ng/L [facility] Comment:The Francis high sens itivity Troponin-I results should beused in conjunction with other diagnostic information suchas ECG, clinical observations and information, and patientsymptoms to aid in the diagnosis of [place]. 01/29/2024 10:4 8 PM EDT 01/29/2024 10:54 PM EDT us Generic External Data Provider LAB BLOOD ORDERAB LES Final Result [facility] [address] [place] [address] [phone] * (ABNORMAL) Comprehensive Metabolic Panel (01/29/2024 10:48 PM EDT) Sodium 139 135 - 145 mmol/L [facility] Potassium 3.7 3.3 - 5.1 mmol/L [facility] Chloride 109(H) 96 - 108 mmol/L [facility] Carbon Dioxide 22 22 - 29 mmol/L [facility] Anion Gap 12 12 - 20 [facility] Urea Nitrogen (BUN) 16 9 - 16 mg/dL [facility] Creatinine, Serum 0.73 0.5 - 1.4 mg/dL [facility] Creatinine Clr Calc Pharmacy 87.9 [facility] Comment:Provided height and weight: 157.48 cm,84.822 kg.eGFR (calculated from the MDRD study equation) and eCrCl(calculated from the Cockcroft-Gault equation) are based ondifferent parameters and may not yield comparable results.If eCrCl result is absurd, please check patient'sheight/weight. Estimated Glomerular Filt Rate >60 [facility] Comment:NOTE: For -Am erican individuals, multiply the result by 1.210.Chronic Kidney Disease: Estimated GFR < 60 mL/min/1.67v1Yedmer Kidney Disease: Estimated GFR < 15 mL/min/1.73m2 Glucose 117(H) 60 - 115 mg/dL [facility] Calcium 9.3 8.4 - 10.2 mg/dL [facility] Bilirubin, Total 0.5 0.0 - 1.0 mg/dL [facility] Aspartate Amino Transferase 18 5 - 31 U/L [facility] Alanine Aminotransferase 26 0 - 31 U/L [facility] Total Protein 7.0 6.5 - 8.0 g/dL [facility] Albumin Level 4.1 3.5 - 5.0 g/dL [facility] Alkaline Phosphatase 94 39 - 117 U/L [facility] 01/29/2024 10:4 8 PM EDT 01/29/2024 10:54 PM EDT us Generic External Data Provider LAB BLOOD ORDERAB LES Final Result [facility] [address] [place] [address] [phone] * (ABNORMAL) CBC auto differential (01/29/2024 10:48 PM EDT) White Blood Count 7.6 4.8 - 10.8 X10*3/uL [facility] Red Blood Count 4.09(L) 4.20 - 5.50 X10*6/uL [facility] Hemoglobin 11.6(L) 12.0 - 16.0 g/dl [facility] Hematocrit 33.0(L) 37.0 - 47.0 % [facility] Mean Corpuscular Volume 80.7 80.0 - 98.0 fL [facility] Mean Corpuscular Hemoglobin 28.4 27.0 - 33.0 pg [facility] Mean Corpuscular HGB Conc 35.2(H) 31.0 - 35.0 g/dl [facility] Red Cell Distribution Width 13.9 11.0 - 16.0 % [facility] Platelet Count 178 160 - 400 X10*3/uL [facility] Mean Platelet Volume 9.4 9.4 - 12.3 fL [facility] Neutrophils Percent Auto 58.5 45 - 73 % [facility] Imm Gran Pct Auto 0.5(H) 0.0 - 0.4 % [facility] Lymphocytes Percent Auto 30.8 20 - 40 % [facility] Monocytes Percent Auto 6.2 2 - 11 % [facility] Eosinophils Percent Auto 3.6 0 - 4 % [facility] Basophils Percent Auto 0.4 0 - 2 % [facility] NRBC Pct Auto 0.0 0.0 - 0.2 /100WBC [facility] Neutrophils Absolute Auto 4.4 2.0 - 8.3 x10*3/uL [facility] Imm Gran Abs Auto 0.04(H) 0.00 - 0.03 X10*3/uL [facility] Lymphocytes Absolute Auto 2.3 1.2 - 4.9 X10*3/uL [facility] Monocytes Absolute Auto 0.5 0.1 - 1.2 X10*3/uL [facility] Eosinophils Absolute Auto 0.3 0.0 - 0.4 X10*3/uL [facility] Basophils Absolute Auto 0.0 0.0 - 0.2 X10*3/uL [facility] NRBC Abs Auto 0.000 0.0 - 0.012 X10*3/uL [facility] 01/29/2024 10:4 8 PM EDT 01/29/2024 10:54 PM EDT us Generic External Data Provider LAB BLOOD ORDERAB LES Final Result [facility] [address] [place] [phone] * (ABNORMAL) Basic Metabolic Panel (12/21/2023 11:18 AM EST) Sodium 142 135 - 145 mmol/L [facility] Potassium 3.8 3.3 - 5.1 mmol/L [facility] Chloride 109(H) 96 - 108 mmol/L [facility] Carbon Dioxide 26 22 - 29 mmol/L [facility] Anion Gap 11(L) 12 - 20 [facility] Urea Nitrogen (BUN) 15 9 - 16 mg/dL [facility] Creatinine, Serum 0.72 0.5 - 1.4 mg/dL [facility] Estimated Glomerular Filt Rate >60 [facility] Comment:NOTE: For -Am erican individuals, multiply the result by 1.210.Chronic Kidney Disease: Estimated GFR < 60 mL/min/1.97c7Ciaknp Kidney Disease: Estimated GFR < 15 mL/min/1.73m2 Glucose 135(H) 60 - 115 mg/dL [facility] Calcium 8.9 8.4 - 10.2 mg/dL [facility] 12/21/2023 11:1 8 AM EST 12/21/2023 11:18 AM EST us Generic External Data Provider LAB BLOOD ORDERAB LES Final Result [facility] [address] [place] [address] [phone] documented in this encounter Visit Diagnoses Diagnosis Varicose veins of bilateral lower extremities with other complications- Primary documented in this encounter Additional Health Concerns Assessment Noted Time PHQ-9 Depression Total Score: 16 023 10:45 AM EST documented as of this encounter Care Teams Screw Machine Operator Swiss Type Relationship Specialty Start Date End Date Janki Painting MD [address] [place] [address] PCP - General Family Medicine 10/19/18 Rambo Saleem FNP [address] [place] [address] Nurse Practitioner Family Medicine 09/07/23 documented as of this encounter
--- OUTSIDE RECORDS SUMMARY | 2024-11-22 09:57 | XMS_ITS | Encounter Summary ---
Author Organization [employer] Address [address] [facility] [address] [place] [address] Care Team Providers Care Secondary Market Manager Name Role Phone Janki Painting MD Primary Care Provider [phone] Rambo Saleem Unavailable Unavailable Encounter Details Date Type Department Care Team (Late st Contact Info) Description 08/24/2023 Abstract [facility] [address] [place] [address] Alyson Chou Social History Tobacco Use Types Packs/Day Years Used Date Smoking Tobacco: Never Passive Smoke Exposure: Never Smokeless Tobacco: Never Depression Answer Date Recorded Patient Health Questionnaire-9 Score 14 07/06/2023 Housing Stability Answer Date Recorded What is [...] Answer Date Recorded Patient Health Questionnaire-2 Score 5 07/06/2023 Comments Unknown Sex and Gender Information Value Date Recorded Sex Assigned at Female 08/18/2022 10:17 AM EDT Legal Sex Female 10:17 AM EDT Gender Identity Choose not to disclose 10:17 AM EDT Sexual Orientation Choose not to disclose 2021 10:17 AM EDT documented as of this encounter Plan of Treatment Upcoming Encounters Date Type Department Care Team ([facility] st Contact Info) Description 01/11/2025 11:30 AM EDT Office Visit [facility] & [facility]EDS [address] [place] [address] Janki Painting MD [address] [place] [address] documented as of this encounter Procedures Procedure Name Priority Date/Time Associated Diagnosis Comments COLONOSCOPY Routine 08/03/2020 documented in this encounter Results * Colonoscopy (08/03/2020) Colonoscopy Normal Normal Narrative Alyson Chou - 08/03/2020 Recommended 10 year follow up Historical Provider HEALTH MAINTENANCE Final Result documented in this encounter Visit Diagnoses Not on filedocumented in this encounter Additional Health Concerns Assessment Noted Time PHQ-9 Depression Total Score: 14 023 9:01 AM EDT documented as of this encounter Care Teams Secondary Market Manager Relationship Specialty Start Date End Date Janki Painting MD [address] [place] [address] PCP - General Family Medicine 10/19/18 Rambo Saleem FNP [address] [place] [address] Nurse Practitioner Family Medicine 09/07/23 documented as of this encounter
--- OUTSIDE RECORDS SUMMARY | 2024-11-22 09:57 | XMS_ITS | Clinical Summary ---
Author Organization [facility] Address [address] [place] [address] Care Team Providers Care Auxiliary Equipment Tender Name Role Phone Unavailable Primary Care Provider Unavailabl e Allergies Active Allergy Reactions Criticality Noted Date Comments Oysters 08/24/2023 Medications Medication Sig Dispensed Refills Start Date End Date Status acetaminophen (TYLENOL) 650 MG CR tablet Take 1 tablet (650 mg total) by mouth every 8 (eight) hours as needed. 0 07/15/2023 Active Ventolin HFA 108 (90 Base) MCG/ACT inhaler Inhale 2 puffs into the lungs every 6 (six) hours as needed. for wheezing 0 06/23/2023 Active amitriptyline (ELAVIL) 10 MG tablet Take 1 tablet (10 mg total) by mouth every night at bedtime. 0 05/27/2023 Active amLODIPine (NORVASC) tablet 10 mg Take 1 tablet (10 mg total) by mouth every morning. 0 05/19/2023 Active hydroCHLOROthiazide (HYDRODIURIL) tablet 25 mg Take 1 tablet (25 mg total) by mouth every morning. 0 05/19/2023 Active buPROPion (WELLBUTRIN XL) 150 MG 24 hr tablet Take 1 tablet (150 mg total) by mouth daily. 0 07/06/2023 Active D3 Super Strength 50 MCG (2000 UT) CAPS Take 1 capsule by mouth 2 (two) times a day. 0 05/19/2023 Active Calcium Antacid 500 MG chewable tablet Chew 1 tablet (500 mg total) by mouth 2 (two) times a day. 0 06/16/2023 Active FeroSul 325 (65 Fe) MG tablet Take 1 tablet (325 mg total) by mouth 2 (two) times a day. 0 06/04/2023 Active ibuprofen 800 MG tablet Take 1 tablet (800 mg total) by mouth every 8 (eight) hours as needed. 0 06/16/2023 Active hydrOXYzine (ATARAX) 25 MG tablet Take 1 tablet (25 mg total) by mouth 3 (three) times a day as needed. 0 07/31/2023 Active QUEtiapine (SEROquel) 300 MG tablet Take 1 tablet (300 mg total) by mouth 3 (three) times a day. 0 07/31/2023 Active zolpidem (AMBIEN) 10 MG tablet Take 1 tablet (10 mg total) by mouth every night at bedtime as needed. for sleep 0 08/10/2023 Active pregabalin (LYRICA) 25 MG capsule Take 1 capsule (25 mg total) by mouth 3 (three) times a day. Take 1 capsule at night for 3-5 days, if not having any side effects (drowsiness, tiredness, sedation, swelling in legs) then increase to 1 capsule twice a day (once in the morning and once at night) for 3-5 days, and then if not having any side effects increase to 1 capsule three times a day. 90 capsule 0 08/25/2023 Active Social History Tobacco Use Types Packs/Day Years Used Date Smoking Tobacco: Never Smokeless Tobacco: Never Tobacco Cessation:Counseling Given: Not Answered Alcohol Use Standard Drinks/Week Comments Yes 0 (1 standard drink = 0.6 oz pur e alcohol) Sex and Gender Information Value Date Recorded Sex Assigned at Female 08/14/2023 1:46 PM EDT Gender Identity Not on file Sexual Orientation Not on file Job Start Date Occupation Industry Not on file Not on file Not on file Last Filed Vital Signs Vital Sign Reading Time Taken Comments Blood Pressure 161/89 08/25/2023 11:00 AM EST Pulse 92 08/25/2023 11:00 AM EST Temperature 36.8 ??C (98.2 ??F) 08/25/2023 11:[address] Respiratory Rate - - Oxygen Saturation 99% 08/25/2023 11:00 AM EST Inhaled Oxygen Concentration - - Weight 81.6 kg (180 lb) 08/25/2023 11:00 AM EST Height 157.5 cm (5' 2 ) 08/25/2023 11:00 AM EST Body Mass Index 32.92 08/25/2023 11:00 AM EST Plan of Treatment Health Maintenance Due Date Last Done Comments Hepatitis C Screening 1968 COVID-19 Vaccine (#1) 02/13/1969 Depression Screening 1980 Preventative Health Evaluation 1986 Cervical Cancer Screening (Pap Smear) 1989 Colon Cancer Screening (Colonoscopy) 2013 Breast Cancer Screening (Mammogram) 2018 Influenza Vaccine (#1) 2024 0, 07/27/2019, 07/27/2018, Additional history exists DTap / Tdap / Td (2 - Td or Tdap) 06/24/2027 06/24/2017 Hepatitis B Vaccines Completed 10/15/2017, 07/23/2017, 06/24/2017, Additional history exists Shingrix-Zoster Vaccine Completed 09/27/2019, 07/27 Pneumococcal Vaccine Aged Out No long er eligible based on patient's age to complete this topic RSV Ped < 20 months Aged Out No longe r eligible based on patient's age to complete this topic
--- OUTSIDE RECORDS SUMMARY | 2024-11-22 09:57 | XMS_ITS | Clinical Summary ---
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 Moeller. previous right hand surgery/CTR approx 1999 Medical History Medical History Date Comments History of depression 2015 DX:History of depression Decreased libido 03/30/2015 DX:Decreased li farshad Nipple discharge 01/19/2012 DX:Nipple disch arge History of anemia 10/25/2007 DX:History of anemia; COMMENT: H & H 10.9 / 31.6 Bacterial vaginosis 05/19/2007 DX:Bacterial vaginosis Anxiety state DX:Anxiety state Depressive disorder DX:Depressiv e disorder Asthma DX:Asthma Esophageal reflux DX:Esophageal reflux Iron deficiency anemia secon adrienne to inadequate dietary iron intake DX:Iron deficiency anem ia secondary to inadequate dietary iron intake Family History Medical History Relation Name Comments Diabetes Father IDDM Breast cancer Neg Hx Colon cancer Neg Hx Ovarian cancer Neg Hx Prostate cancer Neg Hx Relation Name Status Comments Father Social History Tobacco Use Types Packs/Day Years Used Date Smoking Tobacco: Never Smokeless Tobacco: Never Alcohol Use Standard Drinks/Week Comments No 0 (1 standard drink = 0.6 oz pur e alcohol) Sex and Gender Information Value Date Recorded Sex Assigned at Not on file Gender Identity Not on file Sexual Orientation Not on file Obstetrics History Last Filed Vital Signs Vital Sign Reading Time Taken Comments Blood Pressure 161/89 08/25/2023 11:00 AM EST Pulse 92 08/25/2023 11:00 AM EST Temperature - - Respiratory Rate - - Oxygen Saturation - - Inhaled Oxygen Concentration - - Weight 82.6 kg (182 lb) 09/01/2023 3:38 PM EST Height 157.5 cm (5' 2 ) 09/01/2023 3:38 PM EST Body Mass Index 33.29 09/01/2023 3:38 PM EST Plan of Treatment Health Maintenance Due Date Last Done Comments Breast Cancer Screening 1968 Colorectal Cancer Screening: Colonoscopy 09/23/2022 Depression Screening 09/23/2022 HIV Screening 09/23/2022 Hepatitis C Screening 09/23/2022 Social Influencers of Health Screening 09/23/2022 Cervical Cancer Screening: Pap Smear 11/05/2023 11/05/2020 COVID-19 Vaccine ( season) 2024 Influenza Vaccine (#1) 2024 0, 07/27/2019, 07/27/2018, Additional history exists DTaP,Tdap,and Td Vaccines (2 - Td or Tdap) 06/24/2027 06/24/2017 Hepatitis B Vaccines Completed 10/15/2017, 07/23/2017, 06/24/2017, Additional history exists Zoster Vaccines Completed 09/27/2019, 07/27/2019 HIB Vaccines Aged Out No longer eligi ble based on patient's age to complete this topic HPV Vaccines Aged Out No longer eligi ble based on patient's age to complete this topic Hepatitis A Vaccines Aged Out No long er eligible based on patient's age to complete this topic IPV Vaccines Aged Out No longer eligi ble based on patient's age to complete this topic MMR Vaccines Aged Out No longer eligi ble based on patient's age to complete this topic Meningococcal ACWY Vaccine Aged Out N o longer eligible based on patient's age to complete this topic Pneumococcal Vaccine: Pediatrics (0 to 5 Years) and At-Risk Patients (6 to 64 Years) Aged Out No longer eligible based on patient's age to complete this topic RSV Immunization Patients Under 20 months Aged Out No longer eligible based on patient's age to complete this topic Varicella Vaccines Aged Out No longer eligible based on patient's age to complete this topic Procedures Procedure Name Priority Date/Time Associated Diagnosis Comments PAP SMEAR Routine 11/05/2020 from Last 3 Months or Most Recently Relevant to Health Maintenance Results * Pap smear (11/05/2020) 11/05/2020 Narrative HISTORICAL TESTING LAB RESULTING AGENCY - 11/07/2020 4:46 PM EST [id number] THINPREP PAP, IMAGED: NEGATIVE FOR SQUAMOUS INTRAEPITHELIAL LESION AND MALIGNANCY . JAY CARBALLO(ASCP) (CASE ELECTRONICALLY SIGNED 11 07 2020) RESULT OF APTIMA HIGH RISK HPV ASSAY: HIGH RISK HPV: ??NEGATIVE (SEROTYPES 16,18,31,33,35,39,45,51,52,56,58,59,66,68) COMPLETED ON 2020-11-07 ADEQUACY: SATISFACTORY ENDOCERVICAL/TRANSFORMATION ZONE COMPONENT ABSENT. SOURCE: THINPREP PAP HPV ANY DX: ??REFLEX 16 AND 18, CERVICAL, IMAGED CLINICAL INFORMATION: HPV ANY DIAGNOSIS. PAP HX NEG, NO LMP RECORDED. PERIMENOPAUSAL [Z12.4, Z01.419] Joana Dowell [facility] CYTOLOGY ORDERAB LES HISTORICAL TESTING LAB RESULTING AGENCY from Last 3 Months or Most Recently Relevant to Health Maintenance Care Teams Legal Billing Clerk Relationship Specialty Start Date End Date Janki Painting MD [address] [place] [phone] PCP - General 03/17/12
--- OUTSIDE RECORDS SUMMARY | 2024-11-22 09:57 | XMS_ITS | Encounter Summary ---
Author Organization [employer] Address [address] [place] [address] Care Team Providers Care Meat Cooler Name Role Phone Janki Painting MD Primary Care Provider [phone] Rambo Saleem Unavailable Unavailable Encounter Details Date Type Department Care Team (Late st Contact Info) Description 03/03/2024 Orders Only [facility] [address] [place] [address] ProviderKyle MD Social History Tobacco Use Types Packs/Day Years [...] Description 01/11/2025 11:30 AM EDT Office Visit [facility] [address] [place] [address] Janki Painting MD [address] [place] [address] documented as of this encounter Procedures Procedure Name Priority Date/Time Associated Diagnosis Comments VASC US LOWER EXTREMITY VENOUS DUPLEX BILATERAL Routine 03/02/2024 9:45 AM EDT documented in this encounter Results * VASC US Lower Extremity Venous Duplex Bilateral (03/02/2024 9:45 AM EDT) us Historical Provider CV VASCULAR PROCEDURES Fi nal Result documented in this encounter Visit Diagnoses Not on filedocumented in this encounter Additional Health Concerns Assessment Noted Time PHQ-9 Depression Total Score: 12 024 3:50 PM EST documented as of this encounter Care Teams Meat Cooler Relationship Specialty Start Date End Date Janki Painting MD [address] [place] [address] PCP - General Family Medicine 10/19/18 Rambo Saleem FNP [address] [place] [address] Nurse Practitioner Family Medicine 09/07/23 documented as of this encounter
--- OUTSIDE RECORDS SUMMARY | 2024-11-22 09:58 | XMS_ITS | Encounter Summary ---
Author Organization [employer] Address [address] [facility] [address] [place] [address] Care Team Providers Care Detective Youth Bureau Name Role Phone Janki Painting MD Primary Care Provider [phone] Rambo Saleem Unavailable Unavailable Reason for Visit * Reason Comments Med Refill Encounter Details Date Type Department Care Team ([facility] st Contact Info) Description 11/21/2024 Refill [facility]EDS [address] [place], [place] [phone] Janki Painting MD [address] [place] [address] Social History Tobacco Use Types Packs/Day Years Used Date Smoking Tobacco: Never Passive Smoke Exposure: Never Smokeless Tobacco: Never Depression Answer Date Recorded Patient Health Questionnaire-9 Score 04/28/2024 Patient Health Questionnaire-9 Score 10 04/28/2024 Last PHQ-9: Questionnaire Data Not on file 0 04/28/2024 Housing Stability Answer Date Recorded What is [...] Answer Date Recorded Patient Health Questionnaire-2 Score 3 04/28/2024 Comments Unknown Sex and Gender Information Value [...] Description 01/11/2025 11:30 AM EDT Office Visit [facility] MED & PEDS [address] [place] [address] Janki Painting MD [address] [place] [address] documented as of this encounter Visit Diagnoses Not on filedocumented in this encounter Additional Health Concerns Assessment Noted Time PHQ-9 Depression Total Score: 024 2:46 PM EDT documented as of this encounter Care Teams Detective Youth Bureau Relationship Specialty Start Date End Date Janki Painting MD [address] [place] [address] PCP - General Family Medicine 10/19/18 Rambo Saleem FNP [address] [place] [address] Nurse Practitioner Family Medicine 09/07/23 documented as of this encounter
--- OUTSIDE RECORDS SUMMARY | 2024-11-22 09:58 | XMS_ITS | Clinical Summary ---
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 [id number] ?? 5 ? : 1970 ?Acct:[id number] ? Age/Sex: 54 / F ?ADM Date: 12/30/24 ? Loc: HO.SSS ? Attending Dr: Lucas Portillo MD ? Ordering Physician: Lucas Portillo MD ?? Date of Service: 10/17/24 ?? Procedure(s): CT biopsy renal LT ?? Accession Number(s): [id number] ? cc: Lucas Portillo MD; Janki Painting MD ? Report Number: ?? [id number]: Total DLP = ??548.00 mGy-cm ?? Proteinuria. ? PROCEDURES: ?? 1. Limited preprocedure CT of the abdomen. Permanent images saved in ?? PACS. ?? 2. CT-guided nontargeted biopsy of the left kidney. ?? 3. Limited postprocedure CT of the abdomen. Permanent images saved in ?? PACS. ? CLINICIANS: ?? Nirmal Upton PA-C ? MEDICATIONS: ?? -Versed 1.5 mg, Fentanyl 75 mcg, and lidocaine 1% 10 mL SQ ?? -Antibiotics: None ?? -For additional details, please see nursing flowsheet. ? COMPLICATIONS: None ?? ESTIMATED BLOOD LOSS: < 5 ml ?? CONTRAST: None ?? SPECIMENS: 4 x 18 g cores were placed in saline ?? MODERATE SEDATION TIME: 18 min ? PROCEDURE NOTE: ?? The procedure, risks, benefits, and alternatives were carefully ?? explained to the patient and written informed consent was obtained. The ?? patient was placed prone on the CT table. A timeout was performed. A ?? limited CT of the abdomen was performed to localize the left kidney and ?? choose appropriate needle entry and trajectory. The patient was prepped ?? and draped in usual sterile fashion. ? The skin and deeper soft tissues were anesthetized with lidocaine. ?? Under CT guidance, a 17-gauge trocar needle was advanced to the left ?? kidney. An 18 gauge biopsy device was inserted through the trocar ?? needle advanced into the left lower pole of the kidney. A total of 4, ?? 18 gauge cores were performed. The specimens were placed in saline. A ?? Gelfoam slurry was then administered through the trocar needle and into ?? the perinephric space. The needle was removed. A dry dressing was ?? applied and secured with Tegaderm. There were no immediate ?? complications. ? The patient was stable after the procedure and was transferred to the ?? post anesthesia care unit. ? The procedure was done under moderate sedation with a dedicated nurse ?? for monitoring of vital signs. ? CT/CT biopsy renal LT ?? Impression: ?? CT-guided nontargeted left renal biopsy ? This procedure was performed by Nirmal Upton PA-C and supervised by ?? Marsha. ? Electronically signed by: ??Yoav Larson MD ??11/02/2024 05:25 PM EST RP ? Dictated By: ?Nirmal Upton ? Signed By: ?<Electronically signed by Nirmal Upton in OV> ? 11/02/24 1725 ?<Electronically signed by Yoav Larson MD in OV> ?11/02/24 1728 ? DD/ 1034 ? TD/TT: 10/17/24 1124 ? Paper Conservator: ? Procedure Note Carroll Sandoval - 11/02/[address] [place] [address] [address] Scan Report Signed Patient: Tracy RealMR#: [id number] 5 : 1970Acct:[id number] Age/Sex: 54 / FADM Date: 10/17/24 Loc: [facility] Attending Dr: Lucas Portillo MD Ordering Physician: Lucas Portillo MD Date of Service: 10/17/24 Procedure(s): CT biopsy renal LT Accession Number(s): [id number] cc: Lucas Portillo MD; Janki Painting MD Report Number: [id number]: Total DLP = 548.00 mGy-cm Proteinuria. PROCEDURES: 1. Limited preprocedure CT of the abdomen. Permanent images saved in PACS. 2. CT-guided nontargeted biopsy of the left kidney. 3. Limited postprocedure CT of the abdomen. Permanent images saved in PACS. CLINICIANS: Nirmal Upton PA-C MEDICATIONS: -Versed 1.5 mg, Fentanyl 75 mcg, and lidocaine 1% 10 mL SQ -Antibiotics: None -For additional details, please see nursing flowsheet. COMPLICATIONS: None ESTIMATED BLOOD LOSS: < 5 ml CONTRAST: None SPECIMENS: 4 x 18 g cores were placed in saline MODERATE SEDATION TIME: 18 min PROCEDURE NOTE: The procedure, risks, benefits, and alternatives were carefully explained to the patient and written informed consent was obtained. The patient was placed prone on the CT table. A timeout was performed. A limited CT of the abdomen was performed to localize the left kidney and choose appropriate needle entry and trajectory. The patient was prepped and draped in usual sterile fashion. The skin and deeper soft tissues were anesthetized with lidocaine. Under CT guidance, a 17-gauge trocar needle was advanced to the left kidney. An 18 gauge biopsy device was inserted through the trocar needle advanced into the left lower pole of the kidney. A total of 4, 18 gauge cores were performed. The specimens were placed in saline. A Gelfoam slurry was then administered through the trocar needle and into the perinephric space. The needle was removed. A dry dressing was applied and secured with Tegaderm. There were no immediate complications. The patient was stable after the procedure and was transferred to the post anesthesia care unit. The procedure was done under moderate sedation with a dedicated nurse for monitoring of vital signs. CT/CT biopsy renal LT Impression: CT-guided nontargeted left renal biopsy This procedure was performed by Nirmal Upton PA-C and supervised by Dr. Larson. Electronically signed by: Yoav Larson MD 11/02/2024 05:25 PM EST Dictated By: Nirmal Upton Signed By: <Electronically signed by Nirmal Upton in OV> 11/02/24 1725 <Electronically signed by Yoav Larson MD in OV> 11/02/24 1728 DD/ 1034 TD/TT: 10/17/24 1124 Paper Conservator: us [facility] External Provider IMG CT PROCEDURES Final Result * Type and screen (10/17/2024 9:29 AM EST) Blood Type BP [facility] Antibody Screen NEGATIVE [facility] 10/17/2024 9:29 AM EST 10/17/2024 9:32 AM EST us Generic External Data Provider LAB BLOOD BANK TE ST ORDERABLES Final Result [facility] [address] [place] [phone] * Proteinase-3 Antibody (10/06/2024 7:47 AM EST) Proteinase-3 Antibody <1.0 AI [facility] Comment:Value Interpretation ----- <1.0 No Antibody Detected > or = 1.0 Antibody DetectedAutoantibodies to proteinase-3 (AL-3) are accepted ascharacteristic for granulomatosis with polyangiitis(GPA, Martha's), and are detectable in 95% of thehistologically proven cases. The cytoplasmic IFApattern, (c-ANCA), is based largely on autoantibody toPR-3 which serves as the primary antigen.These autoantibodies are present in active disease.THIS TEST WAS PERFORMED AT:[employer] [place] [id number] AYERS MD 10/06/2024 7:47 AM EST 10/06/2024 7:52 AM EST us Generic External Data Provider LAB BLOOD ORDERAB LES Final Result [facility] [address] [place] [phone] * Protein Electrophoresis and North/Lambda Light Chains (10/06/2024 7:47 AM EST) Only the most recent of2 resultswithin the time period is included. Prot Elec - Total Protein 6.8 6.1 - 8.1 g/dL [facility] Prot Elec - Albumin 4.3 3.8 - 4.8 g/dL [facility] Prot Elec - Alpha1 0.3 0.2 - 0.3 g/dL [facility] Prot Elec - Alpha2 0.6 0.5 - 0.9 g/dL [facility] Prot Elec - Beta 1 0.4 0.4 - 0.6 g/dL [facility] Prot Elec - Beta 2 0.4 0.2 - 0.5 g/dL [facility] Prot Elec - Gamma 0.9 0.8 - 1.7 g/dL [facility] PES - Abn Protein Band 1 TNP [facility] PES-Abn Protein Band 2 TNP [facility] PES-Abn Protein Band 3 [facility] Prot Elec - Interpretation SEE NOTE [facility] Comment:Normal Serum Protein Electrophoresis Pattern.No abnormal protein bands (M-protein) detected.THIS TEST WAS PERFORMED AT:[facility] [address] [id number] AYERS MD 10/06/2024 7:47 AM EST 10/06/2024 7:52 AM EST Generic External Data Provider LAB BLOOD ORDERAB LES Final Result Performing Organization Address [facility] de Phone Number [facility] [address] [place] [phone] * Phospholipase A2 Receptor (PLA2R) Antibody Panel (10/06/2024 7:47 AM EST) Phospholipase A2 Receptor (PLA2R) Ab, FEDE <4 RU/mL [facility] Comment:Reference Range: <14 : NEGATIVE 14-19: BORDERLINE >19: POSITIVE Phospholipase A2 Receptor (PLA2R) Ab, IFA NEGATIVE NEGATIVE [facility] Comment:THIS TEST WAS PERFOR MED AT:[facility]/[id number] [place] [address]AKRUKMAME TORRES MD,PHD,ABHI 10/06/2024 7:4 7 AM EST 10/06/2024 7:52 AM EST us Generic External Data Provider LAB BLOOD ORDERAB LES Final Result Performing Organization Address [facility] Co de Phone Number [facility] [address] [place] [phone] * (ABNORMAL) ANCA Screen with Reflex to ANCA Titer (10/06/2024 7:47 AM EST) ANCA Screen ATYP P-ANCA POS(A) NEGATIVE [facility] Comment:ANCA screen uses ind irect immunofluorescence to detectantibodies to neutrophil cytoplasmic antigens. Apositive screen reflexes to titer and pattern. Patternsinclude cytoplasmic (c-ANCA) and perinuclear (p-ANCA)both of which are associated with vasculitis, andatypical p-ANCA which is associated with inflammatorybowel disease and other disorders. P-ANCA Titer TNP [facility] Atypical P-ANCA Titer 1:160(A) <1:20 titer [facility] Comment:The Atypical p-ANCA pattern may be present in 50-60% ofpatients with ulcerative colitis and 5-15% of patientswith Crohn's Disease. It is associated with a varietyof autoantibodies and may also be present in a minorityof patients with other inflammatory or autoimmunedisorders. (Nature Reviews Rheumatology 2017;13:683-692)THIS TEST WAS PERFORMED AT:[employer] [place] [id number] AYERS MD C-ANCA Titer [facility] 10/06/2024 7:47 AM EST 10/06/2024 7:52 AM EST us Generic External Data Provider LAB BLOOD ORDERAB LES Final Result [facility] [address] [place] [phone] * (ABNORMAL) CBC auto differential (10/06/2024 7:47 AM EST) Only the most recent of2 resultswithin the time period is included. Pathologist [facility] [place] White Blood Count 6.1 4.8 - 10.8 X10*3/uL [facility] Red Blood Count 4.46 4.20 - 5.50 X10*6/uL [facility] Hemoglobin 12.5 12.0 - 16.0 g/dl [facility] Hematocrit 35.6(L) 37.0 - 47.0 % [facility] Mean Corpuscular Volume 79.8(L) 80.0 - 98.0 fL [facility] Mean Corpuscular Hemoglobin 28.0 27.0 - 33.0 pg [facility] Mean Corpuscular HGB Conc 35.1(H) 31.0 - 35.0 g/dl [facility] Red Cell Distribution Width 13.2 11.0 - 16.0 % [facility] Platelet Count 175 160 - 400 X10*3/uL [facility] Mean Platelet Volume 9.2(L) 9.4 - 12.3 fL [facility] Neutrophils Percent Auto 66.8 45 - 73 % [facility] Imm Gran Pct Auto 0.7(H) 0.0 - 0.4 % [facility] Lymphocytes Percent Auto 23.1 20 - 40 % [facility] Monocytes Percent Auto 6.8 2 - 11 % [facility] Eosinophils Percent Auto 2.3 0 - 4 % [facility] Basophils Percent Auto 0.3 0 - 2 % [facility] NRBC Pct Auto 0.0 0.0 - 0.2 /100WBC [facility] Neutrophils Absolute Auto 4.1 2.0 - 8.3 x10*3/uL [facility] Imm Gran Abs Auto 0.04(H) 0.00 - 0.03 X10*3/uL [facility] Lymphocytes Absolute Auto 1.4 1.2 - 4.9 X10*3/uL [facility] Monocytes Absolute Auto 0.4 0.1 - 1.2 X10*3/uL [facility] Eosinophils Absolute Auto 0.1 0.0 - 0.4 X10*3/uL [facility] Basophils Absolute Auto 0.0 0.0 - 0.2 X10*3/uL [facility] NRBC Abs Auto 0.000 0.0 - 0.012 X10*3/uL [facility] 10/06/2024 7:47 AM EST 10/06/2024 7:52 AM EST us Generic External Data Provider LAB BLOOD ORDERAB LES Final Result Performing Organization Address [facility] de Phone Number [facility] [address] [place] [phone] * Glomerular Basement Membrane Antibody (IgG) (10/06/2024 7:47 AM EST) Glomerular Basement Memebrane Antibody (IgG) <1.0 AI [facility] Comment:Value Interpretation ----- <1.0 No Antibody Detected > or = 1.0 Antibody DetectedTHIS TEST WAS PERFORMED AT:[employer] [place] [id number] AYERS MD 10/06/2024 7:47 AM EST 10/06/2024 7:52 AM EST Generic External Data Provider LAB BLOOD ORDERAB LES Final Result Performing Organization Address [facility] de Phone Number [facility] [address] [place] [phone] * Partial Thromboplastin Time, Activated (APTT) (10/06/2024 7:47 AM EST) Pathologist [facility] Partial Thromboplastin Time 30.6 26.0 - 36.8 SEC [facility] Comment:For information rega rding the monitoring of direct thrombininhibitors, please refer to Pharmacy. 10/06/2024 7:47 AM EST 10/06/2024 7:52 AM EST us Generic External Data Provider LAB BLOOD ORDERAB LES Final Result Performing Organization Address [facility] de Phone Number [facility] [address] [place] [phone] * (ABNORMAL) Prothrombin Time-INR (10/06/2024 7:47 AM EST) Prothrombin Time 10.2(L) 10.9 - 12.4 SEC [facility] INTERNATIONAL NORM RATIO 0.9 0.9 - 1.1 [facility] Comment:INTERNATIONAL NORMAL IZED RATIO (INR) REFERENCE RANGES Reference RangeFor patients not on anticoagulant therapy: 0.9 - 1.1INR ranges for oral anticoagulanttherapy:For prevention and treatment of venous thrombosis and pulmonary embolism: 2.0 - 3.0For acute myocardial infarction with aspirin therapy: 2.0 - 3.0For acute myocardial infarction without aspirin therapy: 3.0 - 4.0For patients with mechanical prosthetic heart valves: 2.5 - 3.5 10/06/2024 7:47 AM EST 10/06/2024 7:52 AM EST us Generic External Data Provider LAB BLOOD ORDERAB LES Final Result [facility] [address] [place] [phone] * SHAMIKA Screen,IFA, with Reflex to Titer and Pattern (10/06/2024 7:47 AM EST) Anti Nuclear Antibody Screen NEGATIVE NEGATIVE [facility] Comment:SHAMIKA IFA is a first l ine screen for detecting thepresence of up to approximately 150 autoantibodies invarious autoimmune diseases. A negative SHAMIKA IFA resultsuggests an SHAMIKA-associated autoimmune disease is notpresent at this time, but is not definitive. If thereis high clinical suspicion for Sjogren's syndrome,testing for anti-SS-A/Ro antibody should be considered.Anti-Maribel-1 antibody should be considered for clinicallysuspected inflammatory myopathies.AC-0: NegativeInternational Consensus on SHAMIKA Patterns(https://doi.org/10.1515/qmwt-5130-5777)For additional information, please refer tohttp://education.Sterling Consolidated/faq/NZH908(This link is being provided for informational/educational purposes only.)THIS TEST WAS PERFORMED AT:[employer] [place] [id number] AYERS MD SHAMIKA Titer TNP [facility] SHAMIKA Pattern [facility] SHAMIKA TITER 2 (REF LAB) [facility] SHAMIKA Pattern 2 [facility] SHAMIKA TITER 3 [facility] SHAMIKA PATTERN 3 [facility] 10/06/2024 7:47 AM EST 10/06/2024 7:52 AM EST us Generic External Data Provider LAB BLOOD ORDERAB LES Final Result Performing Organization Address [facility] Co de Phone Number [facility] [address] [place] [phone] * (ABNORMAL) Basic Metabolic Panel (10/06/2024 7:47 AM EST) Only the most recent of2 resultswithin the time period is included. Sodium 141 135 - 145 mmol/L [facility] Potassium 3.9 3.3 - 5.1 mmol/L [facility] Chloride 107 96 - 108 mmol/L [facility] Carbon Dioxide 25 22 - 29 mmol/L [facility] Anion Gap 13 12 - 20 [facility] Urea Nitrogen (BUN) 19(H) 9 - 16 mg/dL [facility] Creatinine, Serum 0.75 0.5 - 1.4 mg/dL [facility] Estimated Glomerular Filt Rate >60 [facility] Comment:Chronic Kidney Disea se: Estimated GFR < 60 mL/min/1.88l4Nvrvtz Kidney Disease: Estimated GFR < 15 mL/min/1.73m2 Glucose 141(H) 60 - 115 mg/dL [facility] Calcium 9.2 8.4 - 10.2 mg/dL [facility] 10/06/2024 7:47 AM EST 10/06/2024 7:52 AM EST us Generic External Data Provider LAB BLOOD ORDERAB LES Final Result Performing Organization Address [facility]/ZIP Co de Phone Number [facility] [address] [place] [phone] * Vitamin D, 25-Hydroxy, Total, Immunoassay (09/01/2024 4:53 PM EST) Vitamin D 25-OH Total 57.0 >30 ng/mL [facility] Comment:Health Based Referen ce Values*< 20 ng/mL Ygzycbxcx98-10 ng/mL Insufficient> 30 ng/mL Sufficient*Destiny BROWNE. N Engl J Med. 2007;357:266-280Care must be taken in interpreting Vitamin D results fromdifferent laboratories and methodologies. Published datademonstrated that results from patients undergoinghemodialysis may show a negative bias when tested withvarious automated 25-OH vitamin D assays when compared toLC-MS/MS.When testing samples from patients whose predominant form ofVitamin D is Vitamin D2, such as patients receiving VitaminD2 supplementation, results that are subtherapeutic shouldbe confirmed with another method such as LC-MS/MS. 09/01/2024 4:53 PM EST 09/01/2024 4:53 PM EST us Generic External Data Provider LAB BLOOD ORDERAB LES Final Result [facility] [address] [place] [address] [phone] * (ABNORMAL) Vitamin B12 (Cobalamin) and Folate Panel, Serum (09/01/2024 4:53 PM EST) Vitamin B12 1,120(H) 200 - 900 pg/mL [facility] Comment:NORMAL 200-900 PG/ML INDETERMINATE 160-199 PG/ML DEFICIENT < 160 PG/ML Folate 7.3 > or = 4.0 ng/mL [facility] Comment:Reference Values:> o r = 4.0 ng/mL< 4.0 ng/mL suggests folate deficiency Methotrexate, aminopterin and folinic acid(leucovorin) are chemotherapeutic agents whose molecularstructures are similar to folate; therefore, the Architectfolate assay cannot be used for patients using these drugs. 09/01/2024 4:53 PM EST 09/01/2024 4:53 PM EST us Generic External Data Provider LAB BLOOD ORDERAB LES Final Result Performing Organization Address [facility] Co de Phone Number [facility] [address] [place] [phone] * TSH with Reflex to Free T4 (09/01/2024 4:53 PM EST) Pathologist [facility] TSH reflex Free T4 3.09 0.32 - 4.0 uIU/mL [facility] 09/01/2024 4:53 PM EST 09/01/2024 4:53 PM EST Generic External Data Provider LAB BLOOD ORDERAB LES Final Result Performing Organization Address [facility] Co de Phone Number [facility] [address] [place] [phone] * Iron And Total Iron Binding Capacity (09/01/2024 4:53 PM EST) [facility] Iron 48 30 - 160 mcg/dL [facility] Total Iron Binding Capacity 234 228 - 428 mcg/dL [facility] Percent Iron Saturation 21 15 - 50 % [facility] Unsaturated Iron Binding 186 ug/dL [facility] 09/01/2024 4:53 PM EST 09/01/2024 4:53 PM EST Generic External Data Provider LAB BLOOD ORDERAB LES Final Result Performing Organization Address [facility] Co de Phone Number [facility] [address] [place] [phone] * Insulin (09/01/2024 4:53 PM EST) [facility] Insulin 16 2 - 29 uU/mL [facility] Comment:This test was perfor med using the [employer] chemiluminescentmethod. Values obtained from different assay methods cannot beused interchangeably. This insulin assay shows a possiblecross-reactivity with antibodies generated against insulin(immunoreactive insulin and some patients treated withbovine or porcine insulin). Insulin levels may be measuredlower in patients with insulin autoimmune syndrome orfamilial high pro-insulinemia. 09/01/2024 4:53 PM EST 09/01/2024 4:53 PM EST Generic External Data Provider LAB BLOOD ORDERAB LES Final Result Performing Organization Address [facility] de Phone Number [facility] [address] [place] [phone] [phone] * Hepatitis Be Antibody (09/01/2024 4:53 PM EST) Hepatitis Be Antibody NON-REACTI VE NON-REACTI VE [facility] Comment:For additional infor mation, please refer tohttp://education.XtremIO/faq/CNJ367(This link is being provided for informational/educational purposes only.)THIS TEST WAS PERFORMED AT:[facility] [address] [id number] AYERS MD 09/01/2024 4:53 PM EST 09/01/2024 4:53 PM EST Generic External Data Provider LAB BLOOD ORDERAB LES Final Result Performing Organization Address [facility] de Phone Number [facility] [address] [place] [phone] * Zinc (09/01/2024 4:53 PM EST) Pathologist [facility] Zinc 62 60 - 130 mcg/dL [facility] Comment:This test was develo ped and its analytical performancecharacteristics have been determined by [employer] [place], [place]. It hasnot been cleared or approved by the U.S. Food and DrugAdministration. This assay has been validated pursuantto the CLIA regulations and is used for clinicalpurposes.THIS TEST WAS PERFORMED AT:[facility]JZ[facility] [place] [address]KQGYEUHDARBY JOSHI MD,PHD 09/01/2024 4:53 PM EST 09/01/2024 4:53 PM EST us Generic External Data Provider LAB BLOOD ORDERAB LES Final Result Performing Organization Address [facility] Co de Phone Number [facility] [address] [place] [phone] * Vitamin A (09/01/2024 4:53 PM EST) Vitamin A (Retinol) 41 38 - 98 mcg/dL [facility] Comment:Vitamin supplementat ion within 24 hours prior toblood draw may affect the accuracy of the results.This test was developed and its analytical performancecharacteristics have been determined by [employer] [place], [place]. It hasnot been cleared or approved by the U.S. Food and DrugAdministration. This assay has been validated pursuantto the CLIA regulations and is used for clinicalpurposes.THIS TEST WAS PERFORMED AT:[facility] [place] [address]NNHGXYUDARBY JOSHI MD,PHD 09/01/2024 4:53 PM EST 09/01/2024 4:53 PM EST us Generic External Data Provider LAB BLOOD ORDERAB LES Final Result Performing Organization Address [facility] Co de Phone Number [facility] [address] [place] [phone] * Hepatitis B Core Antibody, Total (09/01/2024 4:53 PM EST) Hepatitis B Core Antibody Nonreactive Nonreactive [facility] 09/01/2024 4:53 PM EST 09/01/2024 4:53 PM EST Generic External Data Provider LAB BLOOD ORDERAB LES Final Result Performing Organization Address City/[facility] Co de Phone Number [facility] [address] [place] [phone] * Hepatitis Be Antigen (09/01/2024 4:53 PM EST) Hepatitis Be Antigen NON-REACTI VE NON-REACTI VE [facility] Comment:For additional infor chris, please refer tohttp://education.XtremIO/faq/HED707(This link is being provided for informational/educational purposes only.)THIS TEST WAS PERFORMED AT:[facility] [address] [id number] AYERS MD 09/01/2024 4:53 PM EST 09/01/2024 4:53 PM EST Generic External Data Provider LAB BLOOD ORDERAB LES Final Result Performing Organization Address [facility]/ZIP Co de Phone Number [facility] [address] [place] [phone] * Complement Component C3c (09/01/2024 4:53 PM EST) Complement C3 124 83 - 193 mg/dL [facility] Comment:THIS TEST WAS PERFOR MED AT:[facility] [address] [id number] AYERS MD 09/01/2024 4:53 PM EST 09/01/2024 4:53 PM EST Generic External Data Provider LAB BLOOD ORDERAB LES Final Result Performing Organization Address [facility]/ZIP Co de Phone Number [facility] [address] [place] [address] [phone] * Complement Component C4c (09/01/2024 4:53 PM EST) Complement C4 33 15 - 57 mg/dL [facility] Comment:THIS TEST WAS PERFOR MED AT:[facility] [address] [id number] AYERS MD 09/01/2024 4:53 PM EST 09/01/2024 4:53 PM EST us Generic External Data Provider LAB BLOOD ORDERAB LES Final Result Performing Organization Address [facility] de Phone Number [facility] [address] [place] [phone] * (ABNORMAL) C-reactive Protein (09/01/2024 4:53 PM EST) C Reactive Protein 0.75(H) < or = 0.50 mg/dL [facility] 09/01/2024 4:53 PM EST 09/01/2024 4:53 PM EST us Generic External Data Provider LAB BLOOD ORDERAB LES Final Result Performing Organization Address [facility] [address] [place] [phone] * Vitamin B1 (09/01/2024 4:53 PM EST) Vitamin B1 13 8 - 30 nmol/L [facility] Comment:Vitamin supplementat ion within 24 hours prior toblood draw may affect the accuracy of the results.This test was developed and its analytical performancecharacteristics have been determined by [employer] [place], [place]. It hasnot been cleared or approved by the U.S. Food and DrugAdministration. This assay has been validated pursuantto the CLIA regulations and is used for clinicalpurposes.THIS TEST WAS PERFORMED AT:[facility] [place] [phone] JOSHI MD,PHD 09/01/2024 4:53 PM EST 09/01/2024 4:53 PM EST Generic External Data Provider LAB BLOOD ORDERAB LES Final Result Performing Organization Address [facility] Phone Number [facility] [address] [place] [phone] * Hemoglobin A1c (09/01/2024 4:53 PM EST) Pathologist [facility] Hemoglobin A1c 5.2 <6.0 % [facility] Comment:Hemoglobin A1C Refer ence Range Adults: 4.8 - 6.0 % Non diabetic: < 6.0 % Goal: < 7.0 %Additional Action Suggested: > 8.0 %Note: Hemoglobin A1c results are invalid for patients with abnormal amounts of HbF. Blood transfusions may impact the HbA1c concentration in the patient sample. Estimated Average Glucose 103 mg/dL [facility] Comment:eAG = Estimated ave rage glucose which is %A1C expressed asaverage glucose, using the formula of the E2Y-AqqfcqaHegqxko Glucose study (ADAG), Diabetes Care, Vol.31,#8,2007 09/01/2024 4:53 PM EST 09/01/2024 4:53 PM EST us Generic External Data Provider LAB BLOOD ORDERAB LES Final Result [facility] [address] [place] [phone] * Ferritin (09/01/2024 4:53 PM EST) Pathologist [facility] Ferritin 66 10 - 250 ng/mL [facility] 09/01/2024 4:53 PM EST 09/01/2024 4:53 PM EST us Generic External Data Provider LAB BLOOD ORDERAB LES Final Result Performing Organization Address [facility]/State/ZIP Co de Phone Number [facility] [address] [place] [phone] * (ABNORMAL) Lipid Panel, Standard (09/01/2024 4:53 PM EST) Pathologist [facility] Triglycerides 159(H) <150 mg/dL [facility] Comment:Desirable Triglyceri de: less than 150 mg/dLBorderline High Triglyceride 150-199 mg/dLHigh Triglyceride: 200-499 mg/dLVery High Triglyceride: greater than or equal to 5OO mg/dL Cholesterol 212(H) <200 mg/dL [facility] Comment:Desirable Cholestero l: less than 200 mg/dLBorderline High Cholesterol: 200-239 mg/dLHigh Cholesterol: greater than 239 mg/dL LDL Cholesterol Calculated 132(H) <100 mg/dL [facility] Comment:Desirable LDL: less than 100 mg/dLNear Optimal/Above Optimal LDL: 110- 129 mg/dLBorderline High LDL: 130-159 mg/dLHigh LDL: 160-189 mg/dLVery High LDL: greater than or equal to 190 mg/dL HDL Cholesterol 49 >40 mg/dL [facility] Comment:Desirable HDL: great er than 40 mg/dL Note: This HDL assay may give artificially low results in patients with liver disease. 09/01/2024 4:53 PM EST 09/01/2024 4:53 PM EST us Generic External Data Provider LAB BLOOD ORDERAB LES Final Result [facility] [address] [place] [phone] * (ABNORMAL) Comprehensive Metabolic Panel (09/01/2024 4:53 PM EST) Sodium 139 135 - 145 mmol/L [facility] Potassium 3.5 3.3 - 5.1 mmol/L [facility] Chloride 107 96 - 108 mmol/L [facility] Carbon Dioxide 24 22 - 29 mmol/L [facility] Anion Gap 12 12 - 20 [facility] Urea Nitrogen (BUN) 18(H) 9 - 16 mg/dL [facility] Creatinine, Serum 0.71 0.5 - 1.4 mg/dL [facility] Estimated Glomerular Filt Rate >60 [facility] Comment:Chronic Kidney Disea se: Estimated GFR < 60 mL/min/1.20g7Sbitej Kidney Disease: Estimated GFR < 15 mL/min/1.73m2 Glucose 109 60 - 115 mg/dL [facility] Calcium 9.1 8.4 - 10.2 mg/dL [facility] Bilirubin, Total 0.5 0.0 - 1.0 mg/dL [facility] Aspartate Amino Transferase 27 5 - 31 U/L [facility] Alanine Aminotransferase 34(H) 0 - 31 U/L [facility] Total Protein 6.9 6.5 - 8.0 g/dL [facility] Albumin Level 4.2 3.5 - 5.0 g/dL [facility] Alkaline Phosphatase 98 39 - 117 U/L [facility] 09/01/2024 4:53 PM EST 09/01/2024 4:53 PM EST Generic External Data Provider LAB BLOOD ORDERAB LES Final Result Performing Organization Address [facility] Co de Phone Number [facility] [address] [place] [phone] * (ABNORMAL) Protein Creatinine Ratio, Urine (09/01/2024 4:52 PM EST) Creatinine, Urine 90.22 mg/dL [facility] Protein, Total, Random Urine 117(H) <12 mg/dL [facility] Protein/Creati nine Ratio, Ur 1.30(H) <0.2 [facility] Comment:The spot urine prote in:creatinine ratio may increase to 0.3during normal . 09/01/2024 4:52 PM EST 09/01/2024 5:02 PM EST us Generic External Data Provider LAB URINE ORDERAB LES Final Result Performing Organization Address [facility] de Phone Number [facility] [address] [place] [phone] * (ABNORMAL) Urinalysis Complete (09/01/2024 4:52 PM EST) Color Urine Yellow [facility] Appearance Urine Clear [facility] PH 5.5 5.0 - 9.0 [facility] Glucose Urine UA Negative Negative mg/dL [facility] Urine Blood Negative Negative [facility] Specific [place] - Urine 1.020 1.005 - 1.025 [facility] Urine Protein 100 (2+)(A) Neg-Trace mg/dL [facility] Urine Ketones Negative Negative mg/dL [facility] Nitrite Urine Negative Negative [facility] Leukocyte Esterase Urine Trace(A) Negative [facility] RBC Urine 0-2 0 - 2 /HPF [facility] Urine WBC 0-5 0 - 5 /HPF [facility] Urine Squamous Epithelial Cell 0-2 0 - 2 /HPF [facility] Urine Bacteria None Seen None Seen [facility] Hyaline Casts, Urine 0-2 0 - 2 /LPF [facility] 09/01/2024 4:52 PM EST 09/01/2024 5:02 PM EST us Generic External Data Provider LAB URINE ORDERAB LES Final Result [facility] [address] [place] [phone] * Mammography Report 1 (11/27/2020 11:55 AM EST) Anatomical Region Laterality Modality Breast Bilateral Mammography 11/27/2020 11:5 5 AM EST Narrative 11/28/2020 3:22 PM EST Refer to the Notes tab for result details [facility] Procedure: Mammography Report 1 Procedure Note Provider, MD Kyle - 01/10/2023 Refer to the Notes tab for result details [facility] Procedure: Mammography Report 1 us Janki Painting MD IMG BI PROCEDURES Final Resul t * Hm Pap Smear (11/05/2020) Pap Negative for intraephithelial lesion or malignancy Negative for intraephithelial lesion or malignancy, Other HPV Undetected Undetected, Indeterminate, Quantitative, Not Detected us Historical Provider HEALTH MAINTENANCE Final Result * Colonoscopy (08/03/2020) Colonoscopy Normal Normal Narrative Alyson Chou - 08/03/2020 Recommended 10 year follow up us Historical Provider HEALTH MAINTENANCE Final Result from Last 3 Months or Most Recently Relevant to Health Maintenance Insurance [employer] C3 Care Teams Ceo And President Relationship Specialty Start Date End Date Janki Painting MD [address] [place] [address] PCP - General Family Medicine 10/19/18 Rambo Saleem FNP [address] [place] [address] Nurse Practitioner Family Medicine 09/07/23
--- OUTSIDE RECORDS SUMMARY | 2024-11-22 09:58 | XMS_ITS | Encounter Summary ---
Author Organization [employer] Address [address] [facility] [address] [place] [address] Care Team Providers Care Truck Technician Name Role Phone Janki Painting MD Primary Care Provider [phone] Rambo Saleem Unavailable Unavailable Encounter Details Date Type Department Care Team (Late st Contact Info) Description 12/02/2022 Orders Only [facility] [address] [place] [address] Cristy Moore LPN Social History Tobacco Use Types Packs/Day Years [...] Description 01/11/2025 11:30 AM EDT Office Visit [facility] [address] [place] [address] Janki Painting MD [address] [place] [address] documented as of this encounter Visit Diagnoses Not on filedocumented in this encounter Additional Health Concerns Assessment Noted Time PHQ-9 Depression Total Score: 13 023 11:07 AM EST documented as of this encounter Care Teams Truck Technician Relationship Specialty Start Date End Date Janki Painting MD [address] [place] [address] PCP - General Family Medicine 10/19/18 Rambo Saleem FNP [address] [place] [phone] Nurse Practitioner Family Medicine 09/07/23 documented as of this encounter
--- OUTSIDE RECORDS SUMMARY | 2024-11-22 09:58 | XMS_ITS | Data Portability ---
Author Organization [place] - [facility], Allergy Address [address] [address] Care Team Providers Care Winder Operator Name Role Phone CHA KRAFT Primary Care Provider Assessment No assessment recorded. Plan of Treatment Reminders Order Date Submit Date Provider Last Modified By Organization Details Last Modified Time Details Appointments None recorded. Lab None recorded. Referral None recorded. Procedures None recorded. Surgeries None recorded. Imaging MRI, brain + internal auditory canal, w/wo contrast - MRI, BRAIN + INTERNAL AUDITORY CANAL, W/WO CONTRAST [address] [facility] ([facility]), [address] [place], [address], 16:43:05 Medication Orders None recorded. Patient TargetsNo targets recorded. Patient InstructionsNo instructions recorded. Reason for Referral None Reported. Results Created Date Observation Date Name Description Value Unit Range Abnormal Flag Note LastModifiedBy Organization Detail LastModifiedTime 09/07/20 24 audio gram No observ ation record ed. BARCODE Not Available 2023 09:58:14 09/20/20 24 09/17/2024 MRI, brain + brain stem, w/wo contr ast [facility] Access ion Number : [id number] Name: Tracy Real Medica l Record Number : [id number] Date of : 1969 Date of Exam: 2023 Referr ing Physic perri: Bin Rodriguez [facility] [place] [address] [address] Exam: MR Brain (C-/C+ ) CPT 06645 Room Descri ption: Belsano Siem Verio 3.0T HISTOR Y: Right- sided hearin g loss. Sensor ineura l hearin g loss. TECHNI QUE: Multip lanar multis equenc e MRI of the brain (IAC) was obtain ed before and after the admini strati on of 18 cc of Dotare m. COMPAR BERENICE: No prior studie s are availa ble for compar berenice at [facility] . FINDIN GS: The brains tem and cerebe llum are unrema rkable . The cister nal and canali cular segmen ts of the 7th and 8th crania l nerve comple xes are unrema rkable on the high-r esolut ion axial T2-delmy ghted images . There is no mass or abnorm al enhanc ement within either cerebe llopon opal angle cister n or r d intern al audito ry canal. Expect ed T2 bright cochle ar signal is mainta ined, and there is no abnorm al cochle ar enhanc ement. Mild promin ence of the ventri cles and subara chnoid spaces . No mass effect or extra- axial fluid collec tion. The cervic omedul parisa juncti on is unrema rkable . The visual ized extrac ranial soft tissue s and orbita l struct ures are unrema rkable . IMPRES EDIE: No retroc ochlea r lesion . Electr onical ly Signed By: Alex romeojeronimo [facility] ([facility]) [address] [facility], [place], [address], 09/23/2024 09:48:37 Result Notes None recorded. Problems Name Problem SNOMED Code Status Onset Date Resolution Date Notes Provider Name and Address Organization Details Recorded Time Gastroeso phageal reflux disease without esophagit is 482097238 Active 2017 Gastro-eso phageal reflux disease without esophagiti s; Note: Date Diagnosed: 01/20/2018 12:43 PM (K21.9) Not Available [facility] 4 02:15:17 Dysphagia 21124661 Active 2017 Dysphagia, unspecifie d; Note: Date Diagnosed: 01/20/2018 12:43 PM (R13.10) Not Available [facility] 4 02:13:00 Dysphonia 06762065 Active 2017 Hoarseness ; Note: Date Diagnosed: 01/20/2018 12:38 PM (R49.0) Not Available [facility] 4 02:14:13 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, including 'globus hystericus '; Note: Date Diagnosed: 01/20/2018 12:43 PM (F45.8) Not Available [facility] 4 02:15:17 Sensorine ural hearing loss of bilateral ears 590239222 Active [address] [place] [address],[place] [address], [facility] [place], [address] , [facility] 4 08:51:02 Asymmetri trino sensorine ural hearing loss 578510292 Active 2023 BIN MAHAJAN MD [address] [place] [address], [facility] [place], [address] , [facility] 4 09:18:16 Problem Notes None recorded. Procedures Surgical History Date Name Laterality Status Provider Name and Address Organization Details Recorded Time 09/07/2024 Comp Audio with Tymps (09214 & 79920) completed FLASH MURCIA [address] [facility],[place] [address], [place], [address], [facility] 09/07/2024 08:50:57 Imaging Results Imaging Date Name Status LastModified by Organiz ation Details LastModified Time 09/07/2024 audiogram completed BARCODE Information no t available 09/07/2024 09:58:14 09/17/2024 MRI, brain + brain stem, w/wo contrast [facility] [address] [facility] [place], [place], [address], 09/23/2024 09:48:37 Procedure Notes None recorded. Medical Equipment None Reported. Medications Name Sig Start Date Stop Date Status Note LastModified by Organization Details LastModified Time losartan 50 mg tablet TAKE 1 TABLET BY MOUTH DAILY IN THE MORNING active Not Available Not Available No t Available cyclobenza gustavo 10 mg tablet TAKE 1 TABLET BY MOUTH 3 TIMES DAILY NEEDED FOR MUSCLE SPASM. active Not Available Not Available No t Available prednisone 10 mg tablet 2017 active Medicatio n ID: [id number] Du ration Value: 6 Brand Name: prednison e Send Method: E-Prescri bed Subs Allowed: subs OK Specia l Instructi on: TAKE 3 TABLETS EVERY DAY FOR 2 DAYS THEN TAKE 2 TABLETS EVERY DAY FOR 2 DAYS THEN TAKE 1 TABLET EVERY DAY FOR 2 DAYS Medi cationGen ericName: prednison e Not Available Not Available Not Available quetiapine 300 mg tablet TAKE ONE TABLET BY MOUTH TWICE DAILY active Not Available Not Available No t Available ibuprofen 800 mg tablet TAKE ONE TABLET EVERY 8 HOURS NEEDED active Not Available Not Available No t Available phenazopyr idine 200 mg tablet 2016 active Medicatio n ID: [id number] Du ration Value: 2 Brand Name: phenazopy ridine Se nd Method: E-Prescri bed Subs Allowed: subs OK Specia l Instructi on: TAKE ONE TABLET BY MOUTH AFTER MEALS NEEDED Me dicationG enericNam e: phenazopy ridine Not Available Not Available Not Available cyanocobal casey (vit B-12) 1,000 mcg tablet TAKE ONE TABLET EVERY DAY active Not Available Not Available No t Available Calcium Antacid 200 mg (as calcium carbonate 500 mg) chewable tablet CHEW AND SWALLOW 1 TABLET TWICE DAILY active Not Available Not Available No t Available amoxicilli n 875 mg tablet TAKE 1 TABLET BY MOUTH TWICE DAILY FOR 10 DAYS active Not Available Not Available No t Available Deep Sea Nasal 0.65 % spray aerosol USE 1 TO 2 SPRAYS IN EACH NOSTRIL EVERY 2 TO 3 HOURS NEEDED FOR NASAL CONGESTIO N active Not Available Not Available No t Available meclizine 25 mg tablet TAKE ONE TABLET BY MOUTH THREE TIMES DAILY IN THE MORNING, AT NOON, AND AT BEDTIME NEEDED FOR mareo active Not Available Not Available No t Available baclofen 10 mg tablet TAKE ONE TABLET TWICE DAILY active Not Available Not Available No t Available amlodipine 10 mg tablet TAKE ONE TABLET EVERY MORNING active Not Available Not Available No t Available benzonatat e 100 mg capsule 2017 active Medicatio n ID: [id number] Du ration Value: 10 Brand Name: benzonata te Send Method: E-Prescri bed Subs Allowed: subs OK Specia l Instructi on: TAKE ONE CAPSULE THREE TIMES DAILY Med icationGe nericName : benzonata te Not Available Not Available Not Available lansoprazo le 30 mg capsule,de layed release TAKE 1 CAPSULE BY MOUTH TWICE DAILY active Not Available Not Available No t Available bismuth subsalicyl ate 262 mg chewable tablet CHEW TWO TABLETS THREE TIMES DAILY IN THE MORNING, AT NOON, AND AT BEDTIME active Not Available Not Available No t Available omeprazole 20 mg capsule,de layed release Take 1 capsule by mouth twice a day one hour before meals 2017 active Medicatio n ID: [id number] Du ration Value: 30 Prescrib ed By Name: Bin hebert MD Brand Name: omeprazol e Send Method: E-Prescri bed Subs Allowed: subs OK Medica tionGener icName: omeprazol e Not Available Not Available Not Available hydroxyzin e HCl 25 mg tablet TAKE ONE TABLET BY MOUTH THREE TIMES DAILY IN THE MORNING, AT NOON, AND AT BEDTIME NEEDED FOR ANXIETY active Not Available Not Available No t Available hydrochlor othiazide 25 mg tablet TAKE ONE TABLET EVERY MORNING active Not Available Not Available No t Available zolpidem 10 mg tablet TAKE ONE TABLET BY MOUTH AT BEDTIME NEEDED FOR SLEEP active Not Available Not Available No t Available losartan 100 mg tablet TAKE ONE TABLET BY MOUTH ONCE DAILY active Not Available Not Available No t Available sertraline 50 mg tablet 2016 active Medicatio n ID: [id number] Du ration Value: 30 Brand Name: sertralin e Send Method: E-Prescri bed Subs Allowed: subs OK Specia l Instructi on: TAKE 1 TABLET BY MOUTH EVERY DAY Medic ationGene ricName: sertralin e Not Available Not Available Not Available Ventolin HFA 90 mcg/actuat ion aerosol inhaler INHALE 2 PUFFS EVERY 6 HOURS NEEDED FOR WHEEZING active Not Available Not Available No t Available clindamyci n phosphate 1 % topical solution APPLY TO THE AFFECTED AREA(S) OF THE SKIN UP TO TWICE DAILY active Not Available Not Available No t Available bupropion HCl XL 150 mg 24 hr tablet, extended release TAKE ONE TABLET BY MOUTH ONCE DAILY DO NOT BREAK, CRUSH, DISSOLVE OR CHEW active Not Available Not Available No t Available duloxetine 60 mg capsule,de layed release TAKE ONE CAPSULE BY MOUTH TWICE DAILY active Not Available Not Available No t Available calamine 8 %-zinc oxide 8 % lotion APPLY TOPICALLY TO AFFECTED AREA(s) FOUR TIMES DAILY active Not Available Not Available No t Available Eye Itch Relief 0.025 % (0.035 %) drops PLACE ONE DROP IN EACH EYE TWICE DAILY active Not Available Not Available No t Available Vitamin D3 50 mcg (2,000 unit) capsule TAKE 1 CAPSULE BY MOUTH TWICE DAILY active Not Available Not Available No t Available Cepacol Sore Throat (benzocain e-menthol) 15 mg-2.6 mg lozenges DISSOLVE 1 TABLET BY MOUTH EVERY 2 HOURS NEEDED active Not Available Not Available No t Available guaifenesi n ER 600 mg tablet, extended release 12 hr TAKE 1 TABLET BY MOUTH TWICE DAILY FOR 7 DAYS DO NOT BREAK, CRUSH, DISSOLVE OR CHEW active Not Available Not Available No t Available Asmanex HFA 200 mcg/actuat ion aerosol inhaler INHALE 1 PUFF TWICE DAILY. RINSE MOUTH AFTER USE active Not Available Not Available No t Available Vitals Date Recorded Body height Body mass index (BMI) Body weight Provider Name and Address Organization Details Last Updated DateTime 09/07/2024 157.48 cm 35.5 kg/m2 23246.92 g Herber Valle [place] - [facility] 09/07/2024 09:18:30 Social History None recorded. Functional Status None recorded. Mental Status None recorded. Family History Nothing Reported. Medical History No medical history recorded. Gynecological HistoryNo gynecological history recorded. Obstetrics History GPAL:G 0 P 0 0 0 0 Past Encounters Encounter ID Performer Location Encounter Start Date Encounter Closed Date Diagnosis/Indication Diagnosis SNOMED-CT Code Diagnosis ICD10 Code Diagnosis Note [id number] BIN MAHAJAN MD [facility] [address] [address] 09/07/2024 08:35:05 09/07/2024 09:21:38 Sensorineural hearing loss of bilateral ears [id number] H90.3 [facility]:{{Norm al sloping* M ild Modera te Moderat rebecca-severe Severe Pr ofound Nor mal auditory thresholds }} to {{mild* mo derate mod erately-se willie sever e profound with}} {{sensorin eural hearing loss with* cond uctive hearing loss with mixed hearing loss with}} {{excellen t* good fa ir poor no t measurable }} word recognitio n.Left ear:{{Norm al sloping* M ild Modera te Moderat rebecca-severe Severe Pr ofound Nor mal auditory thresholds }} to {{mild* mo derate mod erately-se willie sever e profound with}} {{sensorin eural hearing loss with* cond uctive hearing loss with mixed hearing loss with}} {{excellen t* good fa ir poor no t measurable }} word recognitio n.Tympanom etry:Right Ear:{{Type A* Type As Type Ad Type C Type C, shallow & rounded Ty pe B Type B with large volume Cou ld not maintain a hermetic seal}}Left Ear:{{Type A* Type As Type Ad Type C Type C, shallow & rounded Ty pe B Type B with large volume Cou ld not maintain a hermetic seal}} Asymmetric al sensorineural hearing loss [id number] H90.5 H90.A21 Given the asymmetric hearing loss I recommend an MRI IAC with contrast to evaluate for retrocochl ear pathology. We will review results when complete. Health Concerns Section Related Observation LastModified by Organization Detai ls LastModified Time None Recorded Concern Status LastModified by Organization Details LastModified Time None Recorded Advance Directives Directive None Recorded Payers Encounter Date Sequence Insurance Name Policy Number Policy Martin Covered Member ID Martin Member ID Guarantor Name 09/07/2024 1 [place] [facility] Tracy Real [id number] Tracy Real Notes Date Note Type Note Provider Name and Address Organization Details Recorded Time 09/07/2024 text/html She presents for intermittent AD tinnitus. She has had this for years. It is not always there. She reports her right ear has been worse than the left for years. Audio showed normal sloping to mild SnHL and mild hearing loss across all frequencies AD. She has trouble hearing her family sometimes. BIN MAHAJAN MD [address] [place] [address], [phone], [facility] - [facility] 09/07/2024 09:25:26 OBGyn Episode No OBEpisode recorded.
--- OUTSIDE RECORDS SUMMARY | 2024-11-22 09:58 | XMS_ITS | Encounter Summary ---
Author Organization [employer] Address [address] [place] [address] Care Team Providers Care Protective Services Officer Name Role Phone Janki Painting MD Primary Care Provider [phone] Rambo Saleem Unavailable Unavailable Encounter Details Date Type Department Care Team (Latest Contact Info) Description 11/18/2024 Travel Social History Tobacco Use Types Packs/Day Years Used Date Smoking Tobacco: Never Passive Smoke Exposure: Never Smokeless Tobacco: Never Depression Answer Date Recorded Patient Health Questionnaire-9 Score 10 04/28/2024 Patient Health Questionnaire-9 Score 10 04/28/2024 [...] Upcoming Encounters Date Type Department Care Team ([facility] st Contact Info) Description 01/11/2025 11:30 AM EDT Office Visit [facility] [address] [place] [address] Janki Painting MD [address] [place] [address] documented as of this encounter Visit Diagnoses Not on filedocumented in this encounter Additional Health Concerns Assessment Noted Time PHQ-9 Depression Total Score: 10 024 2:46 PM EDT documented as of this encounter Care Teams Protective Services Officer Relationship Specialty Start Date End Date Janki Painting MD [address] [place] [address] PCP - General Family Medicine 10/19/18 Rambo Saleem FNP [address] [place] [address] Nurse Practitioner Family Medicine 09/07/23 documented as of this encounter
--- OUTSIDE RECORDS SUMMARY | 2024-11-22 09:58 | XMS_ITS | Encounter Summary ---
Author Organization [employer] Address [address] [facility] [address] [place] [address] Care Team Providers Care Project Finance Analyst Name Role Phone Janki Painting MD Primary Care Provider [phone] Rambo Saleem Unavailable Unavailable Encounter Details Date Type Department Care Team ([facility] st Contact Info) Description 11/18/2024 9:00 AM EST Office Visit [facility] [address] [place], [place] [id number] Janki Painting MD [address] [place] [address] Heel pain, chronic, right (Primary Dx); Wrist swelling, left; Dietary counseling; Exercise counseling; Obesity (BMI 35.0-39.9 without comorbidity); Primary hypertension Social History Tobacco Use Types Packs/Day Years Used Date Smoking Tobacco: Never Passive Smoke Exposure: Never Smokeless Tobacco: Never Depression Answer Date Recorded Patient Health Questionnaire-9 Score 04/28/2024 Patient Health Questionnaire-9 Score 04/28/2024 Last PHQ-9: Questionnaire Data Not on [...] AM EDT documented as of this encounter Last Filed Vital Signs Vital Sign Reading [...] Mass Index 35.48 11/18/2024 9:03 AM EST documented in this encounter Progress Notes * Janki Painting MD - 11/18/2024 9:00 AM EST Subjective Patient ID: Tracy Real is a 54 y.o. adult who presents for many complaints. Tracy is a well known patient of mine here for a few months of R heel pain and left wrist pain andswelling.States fell forward while gardening last summer. Has been applying Bengay without helping.She cannot take NSAIDs due to having hypertension and some renal insufficiency. Charla has been watching her diet for years now and has made significant changes but her weight loss is minimal. This is impacting her joint pains as well as her blood pressure. History provided by: Patient clothes shaker used: No Review of Systems Constitutional: Negative for activity change, chills, fever and unexpected weight change. Respiratory: Negative for cough, shortness of breath and wheezing. Cardiovascular: Negative for chest pain, palpitations and leg swelling. Gastrointestinal: Negative for abdominal pain and blood in stool. Endocrine: Negative for polydipsia and polyuria. Genitourinary: Negative for decreased urine volume, difficulty urinating, dysuria and hematuria. Musculoskeletal: Positive for arthralgias and joint swelling. Negative for gait problem. Skin: Negative for color change and rash. Neurological: Negative for dizziness and headaches. Hematological: Negative for adenopathy. Psychiatric/Behavioral: Negative for dysphoric mood, hallucinations, sleep disturbance and suicidalideas. The patient is not nervous/anxious. Objective BP (!) 145/74 (BP Location: Left arm, Patient Position: Sitting, BP Cuff Size: Adult) Pulse 71 Temp 98 ??F (36.7 ??C) (Oral) Resp 20 Ht 5' 2 (1.575 m) Wt 194 lb (88 kg) SpO2 98% BMI 35.48 kg/m?? Physical Exam Vitals reviewed. Constitutional: General: Tracy is not in acute distress. Appearance: Tracy is obese. HENT: Head: Normocephalic. Cardiovascular: Rate and Rhythm: Normal rate and regular rhythm. Heart sounds: Normal heart sounds. No murmur heard. Pulmonary: Effort: Pulmonary effort is normal. Breath sounds: Normal breath sounds. Musculoskeletal: Left wrist: Swelling and tenderness present. Right lower leg: No edema. Left lower leg: No edema. Right ankle: No swelling or ecchymosis. Tenderness present. Right Achilles Tendon: Tenderness present. Right foot: Tenderness present. Normal pulse. Neurological: Mental Status: Tracy is alert. Assessment/Plan Diagnoses and all orders for this visit: Heel pain, chronic, right Comments: Most likely heel spur. X-ray of foot and ankle ordered call with results. Current continue Tylenol Extra Strength as needed and topical ointments. Orders: - XR Foot 1-2 Views Right; Future - XR Ankle 2 Views Right; Future Wrist swelling, left - XR Wrist 1-2 Views Left; Future Dietary counseling Exercise counseling Obesity (BMI 35.0-39.9 without comorbidity) Reviewed indications for pharmacotherapy with patient, which is treatment for patient w/ obesity ora patient with a BMI > 27 w/ CV risk factors who have failed lifestyle modifications alone. These are always prescribed in combination with ongoing lifestyle modification; and will be titrated up from the lowest dose. Will start patient on Zepbound, given know efficacy. Reviewed mechanism of action with patient. Discussed side effects with patient: nausea, vomiting, diarrhea & risk of pancreatitis. No contraindications identified: , hx of pancreatitis, hx of medullary thyroid cancer or MEN 2. Patient has prior trial of phentermine/Topamax with (inadequate response, adverse reaction, or contraindication to phentermine with or without topiramate) Discussed calorie deficit, recommended reduction of 20-30% of maintenance calories; tracer bullet charging machine operator referral offered. Recommended to decrease soda and sugary beverage consumption. Recommended at least 20 g per meal of protein to assist with satiety. Recommended at least 150 min/week of moderate intensity exercise. Comments: Patient has hypertension and severe anxiety. Phentermine trial not appropriate. Orders: - Tirzepatide-Weight Management (Zepbound) 2.5 MG/0.5ML solution auto-injector; Inject 0.5 mL (2.5 mg) under the skin 1 (one) time per week. Primary hypertension Comments: BP better controlled on current meds. Seeing renal and had a recent kidney biopsy. Results discussed. With renal as planned Orders: - Tirzepatide-Weight Management (Zepbound) 2.5 MG/0.5ML solution auto-injector; Inject 0.5 mL (2.5 mg) under the skin 1 (one) time per week. Other orders - acetaminophen (Tylenol) 500 MG tablet; Take 1 tablet (500 mg) by mouth every 8 (eight) hours if needed for mild pain or fever. documented in this encounter Plan of Treatment Upcoming Encounters Date Type Department Care Team (Late st Contact Info) Description 01/11/2025 11:30 AM EDT Office Visit [facility] [address] [place] [address] Janki Painting MD [address] [place] [address] Scheduled Orders Name Type Priority Associated Diagnoses Orde r Schedule XR Foot 1-2 Views Right Imaging Routine Heel pain, chronic, right Expected: 11/18/2024, Expires: 11/18/2025 XR Wrist 1-2 Views Left Imaging Routine Wrist swelling, left Expected: 11/18/2024, Expires: 11/18/2025 XR Ankle 2 Views Right Imaging Routine Heel pain, chronic, right Expected: 11/18/2024, Expires: 11/18/2025 documented as of this encounter Visit Diagnoses Diagnosis Heel pain, chronic, right- Primary Wrist swelling, left Dietary counseling Dietary surveillance and counseling Exercise counseling Obesity (BMI 35.0-39.9 without comorbidity) Primary hypertension Unspecified essential hypertension documented in this encounter Additional Health Concerns Assessment Noted Time PHQ-9 Depression Total Score: 024 2:46 PM EDT documented as of this encounter Care Teams Project Finance Analyst Relationship Specialty Start Date End Date Janki Painting MD [address] [place] [address] PCP - General Family Medicine 10/19/18 Rambo Saleem FNP [address] [place] [address] Nurse Practitioner Family Medicine 09/07/23 documented as of this encounter
--- OUTSIDE RECORDS SUMMARY | 2024-11-22 09:58 | XMS_ITS | Encounter Summary ---
Author Organization [employer] Address [address] [facility] 7t [place] [address] Care Team Providers Care Bark Fitter Name Role Phone Janki Painting MD Primary Care Provider [phone] Rambo Saleem Unavailable Unavailable Reason for Visit * Reason Onset Date Comments call back requested 01/26/2023 Encounter Details Date Type Department Care Team ([facility] st Contact Info) Description 01/26/[address] [facility] [address] [place] [address] Janki Painting MD [address] [place] [phone] call back requested Social History Tobacco Use Types Packs/Day Years Used Date Smoking Tobacco: Never Smokeless Tobacco: Never Depression Answer Date [...] suspected to have Coronavirus/COVID-19? No / Unsure 04/15/2023 11:33 AM EDT documented as of this encounter Miscellaneous Notes * Telephone Encounter - Sirena Joyner RN - 01/27/2023 11:38 AM EDT RN reached out to pt via [employer] marketing proposal coordinator ID# [id number] and spoke with pt. Pt reports she was advised by her orthopedic surgeon that she will need to stop the steroid injection for pain due to the advancement of osteoporosis. States pt's osteoporosis will worsen if pt continues. Pt states she currently takes IBU, Flexeril and APAP with so little relief to get her out of her bed. Pt has an upcoming appt with PCP and advised to discuss further with PCP. Pt verbalizes understanding and agrees to plan. Will forward to PCP as FYI * Telephone Encounter - Blayne Izquierdo - 01/26/2023 10:28 AM EDT Tc from pt requesting to speak a nurse or PCP in regards to back injections they were receiving forpain, states seen surgeon and was diagnosed with neuropathy, pt has some further questions and concerns. Please contact at [phone] documented in this encounter Plan of Treatment Upcoming Encounters Date Type Department Care Team (Late st Contact Info) Description 01/11/2025 11:30 AM EDT Office Visit [facility] [address] [place] [address] Janki Painting MD [address] [place] [address] documented as of this encounter Visit Diagnoses Not on filedocumented in this encounter Additional Health Concerns Assessment Noted Time PHQ-9 Depression Total Score: 13 023 11:07 AM EST documented as of this encounter Care Teams Bark Fitter Relationship Specialty Start Date End Date Janki Painting MD [address] [place] [address] PCP - General Family Medicine 10/19/18 Rambo Saleem FNP [address] [place] [address] Nurse Practitioner Family Medicine 09/07/23 documented as of this encounter
--- OUTSIDE RECORDS SUMMARY | 2024-11-22 09:58 | XMS_ITS | Encounter Summary ---
Author Organization [employer] Address [address] [facility] 7 [place] [address] Care Team Providers Care Dampener Operator Name Role Phone Janki Painting MD Primary Care Provider Rambo Saleem SHOP FOREMAN Unavailable Unavailable Reason for Visit * Reason Comments Pre-visit Planning SDOH unable to reach LVM Encounter Details Date Type Department Care Team ([facility] st Contact Info) Description 11/09/2024 Patient Outreach [facility] [address] [place], [place] [phone] Janki Painting MD [address] [place] [address] Pre-visit Planning (SDOH unable to reach LVM) Social History Tobacco Use Types Packs/Day Years Used Date Smoking Tobacco: Never Passive Smoke Exposure: Never Smokeless Tobacco: Never Depression Answer Date Recorded Patient Health Questionnaire-9 Score 10 04/28/2024 Patient Health Questionnaire-9 Score 04/28/2024 Last [...] AM EDT documented as of this encounter Progress Notes * Domenica Toribio - 11/09/2024 4:42 PM EST CC Domenica Hughes placed outbound call to patient to complete pre-visit planning. No answer at this time. Patient name and were not confirmed. CC left voicemail requesting return call. Direct contactinformation provided. documented in this encounter Plan of Treatment Upcoming Encounters Date Type Department Care Team ([facility] st Contact Info) Description 01/11/2025 11:30 AM EDT Office Visit [facility] [address] [place] [address] Janki Painting MD [address] [place] [address] documented as of this encounter Visit Diagnoses Not on filedocumented in this encounter Additional Health Concerns Assessment Noted Time PHQ-9 Depression Total Score: 024 2:46 PM EDT documented as of this encounter Care Teams Dampener Operator Relationship Specialty Start Date End Date Janki Painting MD [address] [place] [address] PCP - General Family Medicine 10/19/18 Rambo Saleem FNP [address] [place] [address] Nurse Practitioner Family Medicine 09/07/23 documented as of this encounter
--- OUTSIDE RECORDS SUMMARY | 2024-11-22 09:58 | XMS_ITS | Encounter Summary ---
Author Organization [employer] Address [address] [facility] 7t [place] [address] Care Team Providers Care Cement Sprayer Helper Name Role Phone Janki Painting MD Primary Care Provider [phone] Rambo Saleem TUG CAPTAIN Unavailable Unavailable Reason for Referral * Consultation (Routine) - Closed Specialty Diagnoses / Procedures Referred By Efren saldana Referred To Contact Diagnoses Primary hypertension Persistent proteinuria Janki Painting MD [address] [place] [address] Phone: tel: fax: [facility] [address], [address] [place] [address] Phone: tel: fax: Referral ID Status Reason Start Date Expiration Date V isits Requested Visits Authorized [id number] Closed Specialty Services Required 07/06/2024 07/06/2025 1 1 Encounter Details Date Type Department Care Team ([facility] st Contact Info) Description 07/06/2024 Orders Only [facility] [address] [place] [address] Janki Painting MD [address] [place], [place] [phone] Primary hypertension (Primary Dx); Persistent proteinuria Social History Tobacco Use Types Packs/Day Years [...] 11:30 AM EDT Office Visit [facility] [address] [place] [address] Janki Painting MD [address] [place] [address] Scheduled Referrals Name Type Priority Associated Diagnoses Orde r Schedule Referral to Nephrology Outpatient Referral Routine Primary hypertension Persistent proteinuria Expected: 07/06/2024 (Approximate), Expires: 07/06/2025 documented as of this encounter Visit Diagnoses Diagnosis Primary hypertension- Primary Unspecified essential hypertension Persistent proteinuria documented in this encounter Additional Health Concerns Assessment Noted Time PHQ-9 Depression Total Score: 10 024 2:46 PM EDT documented as of this encounter Care Teams Cement Sprayer Helper Relationship Specialty Start Date End Date Janki Painting MD [address] [place] [address] PCP - General Family Medicine 10/19/18 Rambo Saleem FNP [address] [place] [address] Nurse Practitioner Family Medicine 09/07/23 documented as of this encounter
== END 2024-11-22 09:27 | disposition home or self-care (01) ==
LOC: HO.XRAY 09:26
PROVIDERS: PCP Pediatrics; Visit Provider Pediatrics
DX: M25.432 Effusion, left wrist (principal); M79.671 Pain in right foot; G89.29 Other chronic pain
CPT/HCPCS: 73100; 73600; 73620

== ENCOUNTER → 2024-11-22 09:32 | Outpatient (BNV) | payer MEDICAID, SELFPAY | PROVIDERS: PCP Pediatrics; Visit Provider Radiology Diagnostic Radiology | DX: M25.532 Pain in left wrist (principal); M25.571 Pain in right ankle and joints of right foot | CPT/HCPCS: 73100; 73600; 73620 ==

== ENCOUNTER 2025-02-01 08:28 | Outpatient (AMB) | payer MEDICAID, SELFPAY ==
--- NOTE | 2025-02-01 08:30 | HO.NEPHOV ---
Vital Signs 02/01/25 08:31 Height 5 ft 2 in Weight 196 lb 4 oz BMI 35.9 BP 134/68 Blood Pressure Location Lt brachial Position Sitting Pulse 78 Pulse Source Pulse Oximeter Pulse Oximetry (%) 98 Oxygen Delivery Method Room Air Intake Visit Reasons: 3mon follow-up w/labs/ Conf Allergies Oyster Shell Allergy (Severe, Uncoded 02/01/25 08:33) Facial Swelling Medication List - Last Reconciled 02/01/25 by Lucas Portillo MD acetaminophen (Tylenol) 650 mg (2 x 325 mg) PO Q4H PRN albuterol sulfate 0.63 mg inhalation Q4-6H PRN amlodipine 10 mg PO DAILY blood pressure test kit-large As directed bupropion HCl XL 150 mg PO DAILY cetirizine (All Day Allergy (cetirizine)) 10 mg PO DAILY PRN cyanocobalamin (vitamin B-12) (Vitamin B-12) 1,000 mcg PO DAILY cyclobenzaprine 10 mg PO TID PRN duloxetine (Cymbalta) 60 mg PO BID duloxetine 60 mg PO BID fluticasone propion-salmeterol 250-50 mcg/dose (Advair Diskus) 1 inh inhalation BID fluticasone propionate 50 mcg/actuation 1 spray intranasal DAILY hydrochlorothiazide 25 mg PO DAILY ibuprofen 800 mg PO Q8H PRN linaclotide 145 mcg PO DAILY losartan 100 mg PO DAILY pantoprazole 40 mg PO DAILY quetiapine 300 mg PO BID sodium,potassium,mag sulfates 17.5-3.13-1.6 gram (Suprep Bowel Prep Kit) DILUTE; drink 1/2 at 6-8 pm and half at 11 PM- 1AM zolpidem 10 mg PO BEDTIME PRN HPI Comments Details: 53 y/o female with a medical history Tracy is a 53 y/o female with a medical history of hypertension, iron deficiency anemia, fibromyalgia, migraine, lumbar radiculopathy, degenerative disc disease, LIANNA. 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 Was referred to nephrology for management of hypertension and proteinuria. 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 medications: takes losartan 100mg daily, hydrochlorothiazide 25mg daily, amlodipine 10mg daily Providers: PCP: Dr Janki Rahman at [facility] Specialists: reports none currently diet, salt: has been adding salt to her diet, reports cannot taste it well so has to add a lot NSIADs/OTC medications: took ibuprofen 800mg PRN- took higher doses for many years for her pain management. stop taking 3 months ago. pt has been working on weight loss through a weight loss clinic at [place] shortness of breath: reports yes, will suddenly feel short of breath while sitting. reports dyspnea with exertion. reports feel my chest is burning - reports ongoing for a few years now. Edema: none urinary sx: none. reports intermittently problems where she cannot pee with blood in urine, reports since she was 13. Reports then takes medication and it goes away. No symptoms like this in 3 years. rash: reports muñoz/scars from scratching on her legs joint pain: joing pain, chronic, in hands, knees, hips. 02/01/25. Doing well. No new issues [facility] Medical History DJD (degenerative joint disease) Insomnia BMI 34.0-34.9,adult Obesity Essential hypertension History of palpitations Arthritis Fibromyalgia Asthma GERD (gastroesophageal reflux disease) Hx of bronchitis Anxiety Depression Iron deficiency anemia Dysphagia Surgical History History of umbilical hernia repair History of delivery History of laryngoscopy History of carpal tunnel surgery of right wrist Hx of colonoscopy Hx of esophagogastroduodenoscopy Hx of hysterectomy Family History Father Hx of type 1 diabetes mellitus Mother Hx of osteosarcoma Maternal Grandmother Hx of type 1 diabetes mellitus Maternal Grandfather Hx of type 1 diabetes mellitus Paternal Grandfather Hx of type 1 diabetes mellitus Paternal Grandmother Hx of type 1 diabetes mellitus Social History Household Members: Children Are you a primary special needs child caregiver to a significant other at home: No Do you presently have visiting nurse or other home services: No Alcohol intake: never Patient Tobacco Use Status: Never used Tobacco Second Hand Smoke Exposure: No 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 Lungs entry equal no rales. Heart S1-S2 heard no gallop or rub. Abdomen soft nontender. Neuro alert awake oriented. No asterixis. Extremities no edema. Results Reviewed Nephrology Results: Hgb 12.5 g/dl (12.0-16.0) 10/06/24 WBC 6.1 X10*3/uL (4.8-10.8) 10/06/24 Plt Count 175 X10*3/uL (160-400) 10/06/24 Sodium 141 mmol/L (135-145) 10/06/24 Potassium 3.9 mmol/L (3.3-5.1) 10/06/24 Chloride 107 mmol/L (96-108) 10/06/24 Carbon Dioxide 25 mmol/L (22-29) 10/06/24 BUN 19 mg/dL (9-16) H 10/06/24 Creatinine 0.75 mg/dL (0.5-1.4) 10/06/24 Calcium 9.2 mg/dL (8.4-10.2) 10/06/24 Assessment & Plan Assessment & Plan (1) Proteinuria: Code(s): R80.9 - Proteinuria, unspecified Category: Medical Qualifiers: Proteinuria type: persistent Qualified Code(s): R80.1 - Persistent proteinuria, unspecified (2) Essential hypertension: Code(s): I10 - Essential (primary) hypertension Category: Medical (3) Chronic anemia: Code(s): D64.9 - Anemia, unspecified Category: Medical Plan non nephrotic range Proteinuria P-ANCA was positive All other serologies were negative kidney biopsy revealed Hyperfilteration No crescents or acute injury Creatinine is stable Keep Losartan Monitor urine protein -chronic normocytic anemia -hypertension Stay on low salt diet avoid nsaids, alcohol Needs to lose weight Orders: Orders Total Protein Urine Random Today R80.1 - Persistent proteinuria, unspecified UA and rflx microscopic 6 Months R80.1 - Persistent proteinuria, unspecified UA and rflx microscopic Today R80.1 - Persistent proteinuria, unspecified Creatinine Urine Today R80.1 - Persistent proteinuria, unspecified Comprehensive Met. Panel 6 Months R80.1 - Persistent proteinuria, unspecified Creatinine Urine 6 Months R80.1 - Persistent proteinuria, unspecified Total Protein Urine Random 6 Months R80.1 - Persistent proteinuria, unspecified Lipid Panel 6 Months R80.1 - Persistent proteinuria, unspecified Coding Level of Care Code Est Pt Level 4 (41082) Diagnoses Persistent proteinuria R80.1 Proteinuria type: persistent Essential hypertension I10 Chronic anemia D64.9
[2025-02-01 08:31] VITALS: BP 134/68; PULSE 78; O2SAT 98; BMI 35.9
--- OUTSIDE RECORDS SUMMARY | 2025-02-01 08:42 | XMS_ITS | Encounter Summary ---
Author Organization [employer] [facility] Address [address] [facility] 7t [place] [address] Care Team Providers Care Submarine Operator Name Role Phone Janki Painting MD Primary Care Provider [phone] Rambo Saleem Unavailable Unavailable Reason for Visit * Reason Comments Med Refill Encounter Details Date Type Department Care Team ([facility] Contact Info) Description 11/13/2022 Refill [facility] [address] [place] [address] Rambo Saleem FNP Social History Tobacco Use [...] Department Care Team (Late Contact Info) Description 04/13/2025 10:15 AM EDT Office Visit [facility] [address] [place], [place] [phone] Janki Painting MD [address] [place] [address] documented as of this encounter Visit Diagnoses Not on filedocumented in this encounter Care Teams Submarine Operator Relationship Specialty Start Date End Date Janki Painting MD [address] [place] [address] PCP - General Family Medicine 10/19/18 Rambo Saleem FNP [address] [place] [address] Nurse Practitioner Family Medicine 09/07/23 documented as of this encounter
--- OUTSIDE RECORDS SUMMARY | 2025-02-01 08:42 | XMS_ITS | Encounter Summary ---
Author Organization [employer] Address [address] [facility] 7t [place] [address] Care Team Providers Care Sales Representative Printing Supplies Name Role Phone Janki Painting MD Primary Care Provider [phone] Rambo Saleem Unavailable Unavailable Reason for Visit * Reason Comments Med Refill Encounter Details Date Type Department Care Team (Late st Contact Info) Description 03/09/[address] [facility] [address] [place] [address] [phone] Sheridan Chávez MD [address] [place], [place] [phone] Social History Tobacco Use Types Packs/Day Years [...] Care Team (Late st Contact Info) Description 04/13/2025 10:15 AM EDT Office Visit [facility] PED[facility] [address] [place] [address] Janki Painting MD [address] [place] [address] documented as of this encounter Visit Diagnoses Not on filedocumented in this encounter Additional Health Concerns Assessment Noted Time PHQ-9 Depression Total Score: 12 024 3:50 PM EST documented as of this encounter Care Teams Sales Representative Printing Supplies Relationship Specialty Start Date End Date Janki Painting MD [address] [place] [address] PCP - General Family Medicine 10/19/18 Rambo Saleem FNP [address] [place] [address] Nurse Practitioner Family Medicine 09/07/23 documented as of this encounter
--- OUTSIDE RECORDS SUMMARY | 2025-02-01 08:42 | XMS_ITS | Encounter Summary ---
Author Organization [employer] Address [address] [facility] 7t [place] [address] Care Team Providers Care Geosciences Professor Name Role Phone Janki Painting MD Primary Care Provider [phone] Rambo Saleem Unavailable Unavailable Reason for Visit * Reason Comments Med Refill Encounter Details Date Type Department Care Team (Late st Contact Info) Description 01/27/2025 Refill [facility] [address] [place] [address] Janki Painting MD [address] [place] [address] [phone] B12 deficiency Social History Tobacco Use Types Packs/Day Years Used Date Smoking Tobacco: Never Passive Smoke Exposure: Never Smokeless Tobacco: Never Depression Answer Date Recorded Patient Health Questionnaire-9 Score 0 01/11/2025 Patient Health Questionnaire-9 Score 0 01/11/2025 Last PHQ-9: Questionnaire Data Not on file 0 01/11/2025 Housing Stability Answer Date Recorded What is your housing situation today? I have wes bateman 01/11/[address] you li ve. Do you have problems with any of the following? None of the above 01/11/2025 Food Insecurity Answer Date Recorded Within the past 12 months, y ou worried that your food would run out before you got money to buy more: Never True 01/11/2025 Within the past 12 months,th e food you bought just didn't last and you didn't have enough money to get more: Never True Transportation Answer Date Recorded In the past 12 months, has l ack of transportation kept you from medical appts, meetings, work or from getting things needed for daily living? No 01/11/2025 Utilities Answer Date Recorded In the past 12 months, has t he electric, gas, oil or water company threatened to shut off services in your home? No 01/11/2025 Depression Answer Date Recorded Patient Health Questionnaire-2 Score 0 01/11/2025 Internet Access Answer Date Recorded Internet Access Q1 Yes 01/11/2025 Internet Access Q2 Not on file 01/11/2025 Comments Unknown Sex and Gender Information Value Date Recorded Sex Assigned at Female 08/18/2022 10:17 AM EDT Legal Sex Female 10:17 AM EDT Gender Identity Choose not to disclose 10:17 AM EDT Sexual Orientation Choose not to disclose 2021 10:17 AM EDT documented as of this encounter Plan of Treatment Upcoming Encounters Date Type Department Care Team ([facility] st Contact Info) Description 04/13/2025 10:15 AM EDT Office Visit [facility] & PED[facility] [address] [place] [address] Janki Painting MD [address] [place] [address] documented as of this encounter Visit Diagnoses Diagnosis B12 deficiency documented in this encounter Additional Health Concerns Assessment Noted Time PHQ-9 Depression Total Score: 0 01/12/20 25 11:36 AM EDT documented as of this encounter Care Teams Geosciences Professor Relationship Specialty Start Date End Date Janki Painting MD [address] [place] [address] PCP - General Family Medicine 10/19/18 Rambo Saleem FNP [address] [place] [address] Nurse Practitioner Family Medicine 09/07/23 documented as of this encounter
--- OUTSIDE RECORDS SUMMARY | 2025-02-01 08:42 | XMS_ITS | Encounter Summary ---
Author Organization [employer] Address [address] [facility] 7t [place] [address] Care Team Providers Care Answering Service Agent Name Role Phone Janki Painting MD Primary Care Provider [phone] Rambo Saleem Unavailable Unavailable Reason for Visit * Reason Comments Med Refill Encounter Details Date Type Department Care Team ([facility] st Contact Info) Description 01/27/2025 Refill [facility] [address] [place], [place] [phone] Fany Alanis MD [address] [place], [place] [phone] Social History Tobacco Use Types Packs/Day Years [...] Upcoming Encounters Date Type Department Care Team ([facility] st Contact Info) Description 04/13/2025 10:15 AM EDT Office Visit [facility] [address] [place] [address] Janki Painting MD [address] [place] [address] documented as of this encounter Visit Diagnoses Not on filedocumented in this encounter Additional Health Concerns Assessment Noted Time PHQ-9 Depression Total Score: 0 01/12/20 25 11:36 AM EDT documented as of this encounter Care Teams Answering Service Agent Relationship Specialty Start Date End Date Janki Painting MD [address] [place] [address] PCP - General Family Medicine 10/19/18 Rambo Saleem FNP [address] [place] [address] Nurse Practitioner Family Medicine 09/07/23 documented as of this encounter
--- OUTSIDE RECORDS SUMMARY | 2025-02-01 08:42 | XMS_ITS | Encounter Summary ---
Author Organization [employer] Address [address] [facility] 7 [place] [address] Care Team Providers Care Land Checker Name Role Phone Janki Painting MD Primary Care Provider [phone] Rambo Saleem Unavailable Unavailable Reason for Visit * Reason Onset Date Comments Referral 10/15/2023 Encounter Details Date Type Department Care Team ([facility] st Contact Info) Description 10/15/2023 Telephone C [facility] [address] [place], [place] [phone] Janki Painting MD [address] [place] [address] Referral Social History Tobacco Use Types Packs/Day [...] EST referred * Telephone Encounter - Quyen Li - 10/15/2023 2:11 PM EST TC from pt requesting status on referral for Veins requested to be sent to Dr. Thompson office [facility] @ [address] [place] [address] Facility # [phone] Please contact pt @ [phone] Kyrgyz Speaker documented in this encounter Plan of Treatment Upcoming Encounters Date Type Department Care Team (Late st Contact Info) Description 04/13/2025 10:15 AM EDT Office Visit [facility] MED & PEDS [address] [place] [address] Janki Painting MD [address] [place] [address] documented as of this encounter Visit Diagnoses Not on filedocumented in this encounter Additional Health Concerns Assessment Noted Time PHQ-9 Depression Total Score: 16 023 10:45 AM EST documented as of this encounter Care Teams Land Checker Relationship Specialty Start Date End Date Janki Painting MD [address] [place] [address] PCP - General Family Medicine 10/19/18 Rambo Saleem FNP [address] [place] [address] Nurse Practitioner Family Medicine 09/07/23 documented as of this encounter
--- OUTSIDE RECORDS SUMMARY | 2025-02-01 08:42 | XMS_ITS | Data Portability ---
Author Organization [place] [facility], Allergy Address [address] [address] Care Team Providers Care Disaster Recovery Analyst Name Role Phone CHA KRAFT Primary Care [...] INTERNAL AUDITORY CANAL, W/WO CONTRAST 2023 024 [facility] ([facility]), [address] [place], [address], 4 16:43:05 Medication Orders None recorded. Patient TargetsNo targets recorded. Patient InstructionsNo instructions recorded. Reason for Referral None Reported. Results Created Date Observation Date Name Description Value Unit Range Abnormal Flag Note LastModifiedBy Organization Detail LastModifiedTime 09/07/20 24 audio gram No observ ation record ed. BARCODE Not Available 2023 09:58:14 09/20/20 24 09/17/2024 MRI, brain + brain stem, w/wo contr ast [facility] Access ion Number : [id number] saldana Name: Tracy Real Medica l Record Number : [id number] Date of : 1969 Date of Exam: 2023 Referr ing Physic perri: Bin [facility] [place] [address] [address] Exam: MR Brain (C-/C+ ) CPT 49475 Room Descri ption: [place] Siem Verio 3.0T HISTOR Y: Right- sided hearin g loss. Sensor ineura l hearin g loss. TECHNI QUE: Multip lanar multis equenc e MRI of the brain (IAC) was obtain ed before and after the admini strati on of 18 cc of Dotare m. COMPAR BERENICE: No prior studie s are availa ble for compar berenice at [facility] . FINDIN [...] cerebe llopon opal angle cister n or graphics intern al audito ry canal. Expect ed [...] Electr onical ly Signed By: Alex romeojeronimo [facility] ([facility]) 80 [facility], [place], [address], 09/23/2024 09:48:37 Result Notes None recorded. Problems Name Problem SNOMED Code Status Onset Date Resolution Date Notes Provider Name and Address Organization Details Recorded Time Gastroeso phageal reflux disease without esophagit is 628169690 Active 2017 Gastro-eso phageal reflux disease without esophagiti s; Note: Date Diagnosed: 01/20/2018 12:43 PM (K21.9) Not Available [facility] 4 02:15:17 Dysphagia 48567222 Active 2017 Dysphagia, unspecifie d; Note: Date Diagnosed: 01/20/2018 12:43 PM (R13.10) Not Available [facility] 4 02:13:00 Dysphonia 85431992 Active 2017 Hoarseness ; Note: Date Diagnosed: 01/20/2018 12:38 PM (R49.0) Not Available [facility] 4 02:14:13 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 4 08:51:02 Asymmetri trino sensorine ural hearing loss 989488166 Active 2023 BIN MAHAJAN MD [address] [place] [address], [facility] [place], [address] , [facility] 4 09:18:16 Problem Notes None recorded. Procedures Surgical History Date Name Laterality Status Provider Name and Address Organization Details Recorded Time 09/07/2024 Comp Audio with Tymps (10731 & 82332) completed FLASH MURCIA [address] [facility],[place] [address], [place], [address], [facility] 09/07/2024 08:50:57 Imaging Results Imaging Date Name Status LastModified by Organiz ation Details LastModified Time 09/07/2024 audiogram completed BARCODE Information no t available 09/07/2024 09:58:14 09/17/2024 MRI, brain + brain stem, w/wo contrast [facility] [address] [facility] [place], [place], [address], 09/23/2024 09:48:37 Procedure Notes None recorded. Medical [...] mg tablet 2017 active Medicatio n ID: [id number] Du ration Value: 6 Brand Name: prednison [...] mg tablet 2016 active Medicatio n ID: [id number] Du ration Value: 2 Brand Name: phenazopy [...] mg capsule 2017 active Medicatio n ID: [id number] Du ration Value: 10 Brand Name: benzonata [...] before meals 2017 active Medicatio n ID: [id number] Du ration Value: 30 Prescrib ed By [...] mg tablet 2016 active Medicatio n ID: [id number] Du ration Value: 30 Brand Name: sertralin [...] Updated DateTime 09/07/2024 157.48 cm 35.5 kg/m2 79528.92 g Herber Valle [place] [facility] 09/07/2024 09:18:30 Social History None recorded. Functional Status None recorded. Mental Status None recorded. Family History Nothing Reported. Medical History No medical history recorded. Gynecological HistoryNo gynecological history recorded. Obstetrics History GPAL:G 0 P 0 0 0 0 Past Encounters Encounter ID Performer Location Encounter Start Date Encounter Closed Date Diagnosis/Indication Diagnosis SNOMED-CT Code Diagnosis ICD10 Code Diagnosis Note [id number] BIN MAHAJAN MD [facility] of [address] [address] 09/07/2024 08:35:05 09/07/2024 09:21:38 Sensorineural hearing loss of bilateral ears 692136922 H90.3 [facility]Norm al sloping* M ild Modera [...] hermetic seal}} Asymmetric al sensorineural hearing loss 077134761 H90.5 H90.A21 Given the asymmetric hearing loss [...] Martin Member ID Guarantor Name 09/07/2024 1 [place]: [facility] Tracy Real [id number] Tracy Real Notes Date Note Type Note [...] hearing her family sometimes. BIN MAHAJAN MD [address] [place] [address], [address], [facility] - [facility] 09/07/2024 09:25:26 OBGyn Episode No OBEpisode recorded.
--- OUTSIDE RECORDS SUMMARY | 2025-02-01 08:42 | XMS_ITS | Encounter Summary ---
Author Organization [employer] Address [address] [facility] [address] 7[address] [place] [address] Care Team Providers Care Line Erector Name Role Phone Janki Painting MD Primary Care Provider [phone] Rambo Saleem Unavailable Unavailable Encounter Details Date Type Department Care Team (Late st Contact Info) Description 11/22/2024 Orders Only [facility] [address] [place] [address] Janki Painting MD [address] [place], [place] [phone] Social History Tobacco Use Types Packs/Day Years Used Date Smoking Tobacco: Never Passive Smoke Exposure: Never Smokeless Tobacco: Never Depression Answer Date Recorded Patient Health Questionnaire-9 Score 04/28/2024 Patient Health Questionnaire-9 Score 10 04/28/2024 Last PHQ-9: Questionnaire Data Not on file 0 04/28/2024 Housing Stability Answer Date Recorded What is your housing situation today? I have wesblair bateman 08/10/[address] you [...] Description 04/13/2025 10:15 AM EDT Office Visit [facility] MED & PEDS [address] [place] [address] Janki Painting MD [address] [place] [address] documented as of this encounter Visit Diagnoses Not on filedocumented in this encounter Additional Health Concerns Assessment Noted Time PHQ-9 Depression Total Score: 024 2:46 PM EDT documented as of this encounter Care Teams Line Erector Relationship Specialty Start Date End Date Janki Painting MD [address] [place] [address] PCP - General Family Medicine 10/19/18 Rambo Saleem FNP [address] [place] [address] Nurse Practitioner Family Medicine 09/07/23 documented as of this encounter
--- OUTSIDE RECORDS SUMMARY | 2025-02-01 08:42 | XMS_ITS | Clinical Summary ---
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/ No evidence of Maligancy SECTION 2007 PROCEDURE: HISTORICAL DELIVERY; COMMENT: c/s X 3 APPENDECTOMY 1995 PROCEDURE: HISTORICAL APPENDECTOMY APPENDECTOMY PROCEDURE: OR APPENDECTOMY HERNIA REPAIR PROCEDURE: OR RPR 1ST INGUN HRNA AGE 4 MO-5 [...] drink = 0.6 oz pur e alcohol) Comments Unknown Sex and Gender Information Value Date Recorded Sex Assigned at Not on file Legal Sex Female 5:41 PM EST Gender Identity Not on file Sexual Orientation [...] Last Done Comments Breast Cancer Screening 1968 Pneumococcal Vaccine: 50+ Years (1 of 1 - PCV) 2018 Colorectal Cancer Screening: Colonoscopy 09/23/2022 Depression Screening 09/23/2022 HIV Screening 09/23/2022 Hepatitis C Screening 09/23/2022 Social Influencers of Health Screening 09/23/2022 Cervical Cancer Screening: Pap Smear 11/05/2023 11/05/2020 COVID-19 Vaccine ( season) 2024 Influenza Vaccine (Season Ended) 2025 08/20/2020, 07/27/2019, 07/27/2018, Additional history exists DTaP,Tdap,and Td [...] patient's age to complete this topic Meningococcal B Vaccine Aged Out No l onger eligible based on patient's age to complete [...] RESULTING AGENCY - 11/07/2020 4:46 PM EST [id number] THINPREP PAP, IMAGED: NEGATIVE FOR SQUAMOUS INTRAEPITHELIAL [...] LMP RECORDED. PERIMENOPAUSAL [Z12.4, Z01.419] Joana Dowell CNM LAB CYTOLOGY ORDERABLES Final R esult HISTORICAL TESTING LAB RESULTING AGENCY from Last 3 Months or Most Recently Relevant to Health Maintenance Care Teams Panel Installer Relationship Specialty Start Date End Date Janki Painting MD [address] [place] [phone] [facility] - General 03/17/12
--- OUTSIDE RECORDS SUMMARY | 2025-02-01 08:42 | XMS_ITS | Encounter Summary ---
Author Organization [employer] Address [address] [facility] 7t [place] [address] Care Team Providers Care Field Artillery Operations Man Name Role Phone Janki Painting MD Primary Care Provider [phone] Rambo Saleem Unavailable Unavailable Encounter Details Date Type Department Care Team (Late Contact Info) Description 12/02/2022 Orders Only [facility] MEDICINE [address] [place] [address] Cristy Moore LPN Social History Tobacco Use [...] Description 04/13/2025 10:15 AM EDT Office Visit [facility] MED & PEDS [address] [place] [address] Janki Painting MD [address] [place] [address] documented as of this encounter Visit Diagnoses Not on filedocumented in this encounter Additional Health Concerns Assessment Noted Time PHQ-9 Depression Total Score: 13 023 11:07 AM EST documented as of this encounter Care Teams Field Artillery Operations Man Relationship Specialty Start Date End Date Janki Painting MD [address] [place] [address] PCP - General Family Medicine 10/19/18 Rambo Saleem FNP [address] [place] [address] Nurse Practitioner Family Medicine 09/07/23 documented as of this encounter
--- OUTSIDE RECORDS SUMMARY | 2025-02-01 08:42 | XMS_ITS | Encounter Summary ---
Author Organization [employer] Address [address] [facility] [address] 7[address] [place] [address] Care Team Providers Care Tap Dancer Name Role Phone Janki Painting MD Primary Care Provider [phone] Rambo Saleem Unavailable Unavailable Encounter Details Date Type Department Care Team (Late st Contact Info) Description 10/20/2023 Orders Only [facility] MEDICINE [address] [place], [place] [phone] Hope Alfonso MD [address] [place], [place] [phone] Varicose veins of bilateral lower extremities with [...] Description 04/13/2025 10:15 AM EDT Office Visit [facility] MED & PEDS [address] [place], [place] [phone] Janki Painting MD [address] [place] [address] documented as of this encounter Procedures Procedure [...] HIGH SENSITIVITY 4.0 <3.5 - 17.0 ng/L [facility] Comment:The Francis high sens itivity Troponin-I results should beused in conjunction with other diagnostic information suchas ECG, clinical observations and information, and patientsymptoms to aid in the diagnosis of AL. 01/29/2024 10:4 8 PM EDT 01/29/2024 10:54 PM EDT us Generic External Data Provider LAB BLOOD ORDERAB LES Final Result [facility] [address] [place] [address] [phone] * (ABNORMAL) Comprehensive Metabolic Panel (01/29/2024 10:48 PM EDT) Sodium 139 135 - 145 mmol/L [facility] Potassium 3.7 3.3 - 5.1 mmol/L [facility] Chloride 109(H) 96 - 108 mmol/L [facility] Carbon Dioxide 22 22 - 29 mmol/L [facility] Anion Gap 12 12 - 20 [facility] Urea Nitrogen (BUN) 16 9 - 16 mg/dL [facility] Creatinine, Serum 0.73 0.5 - 1.4 mg/dL [facility] Creatinine Clr Calc Pharmacy 87.9 [facility] Comment:Provided height and weight: 157.48 cm,84.822 kg.eGFR (calculated from the MDRD study equation) and eCrCl(calculated from the Cockcroft-Gault equation) are based ondifferent parameters and may not yield comparable results.If eCrCl result is absurd, please check patient'sheight/weight. Estimated Glomerular Filt Rate >60 [facility] Comment:NOTE: For -Am erican individuals, multiply the result by 1.210.Chronic Kidney Disease: Estimated GFR < 60 mL/min/1.74j7Plckna Kidney Disease: Estimated GFR < 15 mL/min/1.73m2 Glucose 117(H) 60 - 115 mg/dL [facility] Calcium 9.3 8.4 - 10.2 mg/dL [facility] Bilirubin, Total 0.5 0.0 - 1.0 mg/dL [facility] Aspartate Amino Transferase 18 5 - 31 U/L [facility] Alanine Aminotransferase 26 0 - 31 U/L [facility] Total Protein 7.0 6.5 - 8.0 g/dL [facility] Albumin Level 4.1 3.5 - 5.0 g/dL [facility] Alkaline Phosphatase 94 39 - 117 U/L [facility] 01/29/2024 10:4 8 PM EDT 01/29/2024 10:54 PM EDT us Generic External Data Provider LAB BLOOD ORDERAB LES Final Result [facility] [address] [place] [address] [phone] * (ABNORMAL) CBC auto differential (01/29/2024 10:48 PM EDT) White Blood Count 7.6 4.8 - 10.8 X10*3/uL [facility] Red Blood Count 4.09(L) 4.20 - 5.50 X10*6/uL [facility] Hemoglobin 11.6(L) 12.0 - 16.0 g/dl [facility] Hematocrit 33.0(L) 37.0 - 47.0 % [facility] Mean Corpuscular Volume 80.7 80.0 - 98.0 fL [facility] Mean Corpuscular Hemoglobin 28.4 27.0 - 33.0 pg [facility] Mean Corpuscular HGB Conc 35.2(H) 31.0 - 35.0 g/dl [facility] Red Cell Distribution Width 13.9 11.0 - 16.0 % [facility] Platelet Count 178 160 - 400 X10*3/uL [facility] Mean Platelet Volume 9.4 9.4 - 12.3 fL [facility] Neutrophils Percent Auto 58.5 45 - 73 % [facility] Imm Gran Pct Auto 0.5(H) 0.0 - 0.4 % [facility] Lymphocytes Percent Auto 30.8 20 - 40 % [facility] Monocytes Percent Auto 6.2 2 - 11 % [facility] Eosinophils Percent Auto 3.6 0 - 4 % [facility] Basophils Percent Auto 0.4 0 - 2 % [facility] NRBC Pct Auto 0.0 0.0 - 0.2 /100WBC [facility] Neutrophils Absolute Auto 4.4 2.0 - 8.3 x10*3/uL [facility] Imm Gran Abs Auto 0.04(H) 0.00 - 0.03 X10*3/uL [facility] Lymphocytes Absolute Auto 2.3 1.2 - 4.9 X10*3/uL [facility] Monocytes Absolute Auto 0.5 0.1 - 1.2 X10*3/uL [facility] Eosinophils Absolute Auto 0.3 0.0 - 0.4 X10*3/uL [facility] Basophils Absolute Auto 0.0 0.0 - 0.2 X10*3/uL [facility] NRBC Abs Auto 0.000 0.0 - 0.012 X10*3/uL [facility] 01/29/2024 10:4 8 PM EDT 01/29/2024 10:54 PM EDT us Generic External Data Provider LAB BLOOD ORDERAB LES Final Result [facility] [address] [place] [phone] * (ABNORMAL) Basic Metabolic Panel (12/21/2023 11:18 AM EST) Sodium 142 135 - 145 mmol/L [facility] Potassium 3.8 3.3 - 5.1 mmol/L [facility] Chloride 109(H) 96 - 108 mmol/L [facility] Carbon Dioxide 26 22 - 29 mmol/L [facility] Anion Gap 11(L) 12 - 20 [facility] Urea Nitrogen (BUN) 15 9 - 16 mg/dL [facility] Creatinine, Serum 0.72 0.5 - 1.4 mg/dL [facility] Estimated Glomerular Filt Rate >60 [facility] Comment:NOTE: For -Am erican individuals, multiply the result by 1.210.Chronic Kidney Disease: Estimated GFR < 60 mL/min/1.95m6Qwjlwf Kidney Disease: Estimated GFR < 15 mL/min/1.73m2 Glucose 135(H) 60 - 115 mg/dL [facility] Calcium 8.9 8.4 - 10.2 mg/dL [facility] 12/21/2023 11:1 8 AM EST 12/21/2023 11:18 AM EST us Generic External Data Provider LAB BLOOD ORDERAB LES Final Result [facility] [address] [place] [address] [phone] documented in this encounter Visit Diagnoses Diagnosis Varicose veins of bilateral lower extremities with other complications- Primary documented in this encounter Additional Health Concerns Assessment Noted Time PHQ-9 Depression Total Score: 16 023 10:45 AM EST documented as of this encounter Care Teams Tap Dancer Relationship Specialty Start Date End Date Janki Painting MD [address] [place] [address] PCP - General Family Medicine 10/19/18 Rambo Saleem FNP [address] [place] [address] Nurse Practitioner Family Medicine 09/07/23 documented as of this encounter
--- OUTSIDE RECORDS SUMMARY | 2025-02-01 08:42 | XMS_ITS | Encounter Summary ---
Author Organization [employer] Address 75 [facility] 7t [place] [address] Care Team Providers Care Psychiatry Teacher Name Role Phone Janki Painting MD Primary Care Provider [phone] Rambo Saleem CRAYON SAWYER Unavailable Unavailable Reason for Referral * Consultation (Routine) - Closed Specialty Diagnoses / Procedures Referred By Efren saldana Referred To Contact Diagnoses Primary hypertension Persistent proteinuria Janki Painting MD [address] [place] [address] Phone: tel: fax: [facility] [address], [address] [place] [address] Phone: tel: fax: Referral ID Status Reason Start Date Expiration Date V isits Requested Visits Authorized [id number] Closed Specialty Services Required 07/06/2024 07/06/2025 1 1 Encounter Details Date Type Department Care Team ([facility] st Contact Info) Description 07/06/2024 Orders Only [facility] CH[facility] MED & PEDS [address] [place] [address] Janki Painting MD [address] [place], [place] [phone] Primary hypertension (Primary Dx); Persistent proteinuria Social [...] Description 04/13/2025 10:15 AM EDT Office Visit [facility] MED & PEDS [address] [place] [address] Janki Painting MD [address] [place] [address] Scheduled Referrals Name Type Priority Associated Diagnoses [...] documented as of this encounter Care Teams Psychiatry Teacher Relationship Specialty Start Date End Date Janki Painting MD [address] [place] [address] PCP - General Family Medicine 10/19/18 Rambo Saleem FNP [address] [place] [address] Nurse Practitioner Family Medicine 09/07/23 documented as of this encounter
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
--- OUTSIDE RECORDS SUMMARY | 2025-02-01 08:42 | XMS_ITS | Encounter Summary ---
Author Organization [employer] Address [address] [facility] [address] [place] [address] Care Team Providers Care Commodity Industry Analyst Name Role Phone Janki Painting MD Primary Care Provider [phone] Rambo Saleem Unavailable Unavailable Reason for Visit * Reason Onset Date Comments Medication Question 12/08/2024 Encounter Details Date Type Department Care Team ([facility] st Contact Info) Description 12/08/2024 Telephone [facility] [address] [place] [address] Janki Painting MD [address] [place] [phone] Medication Question Social History Tobacco Use Types Packs/Day Years [...] encounter Miscellaneous Notes * Telephone Encounter - Fabiola Real LPN - 12/13/2024 9:00 AM EST Darrel malone generated place on pcp desk for review update on note and to be faxed to Tc from pt requesting alternative medication. *sabino HOPKINS denied. Montenegrin * Telephone Encounter - Chelsey Costello - 12/08/2024 3:40 PM EST Tc from pt requesting alternative medication. *sabino HOPKINS denied. Montenegrin documented in this encounter Plan of Treatment Upcoming Encounters Date Type Department Care Team ([facility] st Contact Info) Description 04/13/2025 10:15 AM EDT Office Visit [facility] [address] [place] [address] Janki Painting MD [address] [place] [address] documented as of this encounter Visit Diagnoses Not on filedocumented in this encounter Additional Health Concerns Assessment Noted Time PHQ-9 Depression Total Score: 10 024 2:46 PM EDT documented as of this encounter Care Teams Commodity Industry Analyst Relationship Specialty Start Date End Date Janki Painting MD [address] [place] [address] PCP - General Family Medicine 10/19/18 Rambo Saleem FNP [address] [place] [address] Nurse Practitioner Family Medicine 09/07/23 documented as of this encounter
--- OUTSIDE RECORDS SUMMARY | 2025-02-01 08:42 | XMS_ITS | Encounter Summary ---
Author Organization [employer] Address [address] [facility] [address] [place] [address] Care Team Providers Care Sales And Training Specialist Name Role Phone Janki Painting MD Primary Care Provider [phone] Rambo Saleem Unavailable Unavailable Encounter Details Date Type Department Care Team (Late st Contact Info) Description 08/24/[address] [facility] [address] [place] [address] Alyson Chou Social History Tobacco Use Types [...] Upcoming Encounters Date Type Department Care Team ([facility] st Contact Info) Description 04/13/2025 10:15 AM EDT Office Visit [facility] [address] [place] [address] Janki Painting MD [address] [place] [address] documented as of this encounter Procedures Procedure [...] as of this encounter Care Teams Sales And Training Specialist Relationship Specialty Start Date End Date Janki Painting MD [address] [place] [address] PCP - General Family Medicine 10/19/18 Rambo Saleem FNP [address] [place] [address] Nurse Practitioner Family Medicine 09/07/23 documented as of this encounter
--- OUTSIDE RECORDS SUMMARY | 2025-02-01 08:42 | XMS_ITS | Encounter Summary ---
Author Organization [employer] Address [address] [facility] [address] 7[address] [place] [address] Care Team Providers Care Senior Inspector Name Role Phone Janki Painting MD Primary Care Provider [phone] Rambo Saleem Unavailable Unavailable Encounter Details Date Type Department Care Team (Late st Contact Info) Description 03/03/2024 Orders Only [facility] [address] [place] [address] ProviderKyle MD Social History Tobacco Use Types [...] Description 04/13/2025 10:15 AM EDT Office Visit [facility] [address] [place] [address] Janki Painting MD [address] [place] [address] documented as of this encounter Procedures Procedure [...] documented as of this encounter Care Teams Senior Inspector Relationship Specialty Start Date End Date Janki Painting MD [address] [place] [address] PCP - General Family Medicine 10/19/18 Rambo Saleem FNP [address] [place] [address] Nurse Practitioner Family Medicine 09/07/23 documented as of this encounter
--- OUTSIDE RECORDS SUMMARY | 2025-02-01 08:42 | XMS_ITS | Clinical Summary ---
Author Organization [facility] Address [address] [place] [address] Care Team Providers Care Director Drug Safety Name Role Phone Unavailable Primary Care Provider [...]
--- OUTSIDE RECORDS SUMMARY | 2025-02-01 08:42 | XMS_ITS | Encounter Summary ---
Author Organization [employer] Address 75 [facility] 7t [place] [address] Care Team Providers Care Recovery Operator Name Role Phone Janki Painting MD Primary Care Provider [phone] Rambo Saleem Unavailable Unavailable Reason for Visit * Reason Comments Med Refill Encounter Details Date Type Department Care Team (Late st Contact Info) Description 11/28/2023 Refill [facility] [address] [place] [address] Rambo Saleem FNP Major depressive disorder, recurrent, [...] Description 04/13/2025 10:15 AM EDT Office Visit [facility] [address] [place] [address] Janki Painting MD [address] [place] [address] documented as of this encounter Visit Diagnoses Diagnosis Major depressive disorder, recurrent, severe with psychotic features (CMS/HCC) Major depressive disorder, recurrent episode, severe, specified as with psychotic behavior documented in this encounter Additional Health Concerns Assessment Noted Time PHQ-9 Depression Total Score: 12 024 3:50 PM EST documented as of this encounter Care Teams Recovery Operator Relationship Specialty Start Date End Date Janki Painting MD [address] [place] [address] PCP - General Family Medicine 10/19/18 Rambo Saleem FNP [address] [place] [address] Nurse Practitioner Family Medicine 09/07/23 documented as of this encounter
== END 2025-02-01 08:50 | disposition home or self-care (01) ==
LOC: HO.HKAS 08:29
PROVIDERS: PCP Pediatrics; Visit Provider Internal Medicine Hypertension Specialist
DX: R80.1 Persistent proteinuria, unspecified (principal); I10 Essential (primary) hypertension; D64.9 Anemia, unspecified
CPT/HCPCS: 99214

== ENCOUNTER → 2025-02-01 08:28 | Outpatient (BNVA) | payer MEDICAID, SELFPAY | PROVIDERS: PCP Pediatrics; Visit Provider Internal Medicine Hypertension Specialist | DX: R80.1 Persistent proteinuria, unspecified (principal); I10 Essential (primary) hypertension; D64.9 Anemia, unspecified | CPT/HCPCS: 99212 ==

== ENCOUNTER → 2025-03-09 14:11 | Outpatient (BNVA) | payer SELFPAY | PROVIDERS: PCP Pediatrics; Visit Provider Physician Assistant | DX: Z02.79 Encounter for issue of other medical certificate (principal) ==

== ENCOUNTER 2025-07-21 10:25 | Outpatient (REF) | payer MEDICAID, SELFPAY ==
--- OUTSIDE RECORDS SUMMARY | 2025-07-21 11:23 | XMS_ITS | Encounter Summary ---
Author Organization [employer] Address 75 [facility] 7t [place] [address] Care Team Providers Care Rag Room Supervisor Name Role Phone Janki Painting MD Primary Care Provider [phone] Rambo Saleem Unavailable Unavailable Reason for Visit * Reason Onset Date Comments Referral 10/15/2023 Encounter Details Date Type Department Care Team ([facility] Contact Info) Description 10/15/2023 Telephone [facility]S [address] [place] [address] Janki Painting MD [address] [place] [address] Referral Social History Tobacco Use Types Packs/Day [...] Center now part of [facility] @ [address] [place] [address] Facility # [phone] Please contact pt @ [phone] Vietnamese Speaker documented in this encounter Plan of Treatment Not on file documented as of this encounter Visit Diagnoses Not on filedocumented in this encounter Additional Health Concerns Assessment Noted Time PHQ-9 Depression Total Score: 16 023 10:45 AM EST documented as of this encounter Care Teams Rag Room Supervisor Relationship Specialty Start Date End Date Janki Painting MD [address] [place] [address] PCP - General Family Medicine 10/19/18 Rambo Saleem FNP [address] [place] [address] Nurse Practitioner Family Medicine 09/07/23 documented as of this encounter
--- OUTSIDE RECORDS SUMMARY | 2025-07-21 11:23 | XMS_ITS | Encounter Summary ---
Author Organization [employer] Address 75 [facility] 7t [place] [address] Care Team Providers Care Senior Network Security Engineer Name Role Phone Janki Painting MD Primary Care Provider [phone] Rambo Saleem Unavailable Unavailable Encounter Details Date Type Department Care Team (Late st Contact Info) Description 12/02/2022 Orders Only [facility] MED[facility]INE [address] [place] [address] Cristy Moore LPN Social History Tobacco Use [...] as of this encounter Plan of Treatment Not on file documented as of this encounter Visit Diagnoses Not on filedocumented in this encounter Additional Health Concerns Assessment Noted Time PHQ-9 Depression Total Score: 13 023 11:07 AM EST documented as of this encounter Care Teams Senior Network Security Engineer Relationship Specialty Start Date End Date Janki Painting MD [address] [place] [address] PCP - General Family Medicine 10/19/18 Rambo Saleem FNP [address] [place] [address] Nurse Practitioner Family Medicine 09/07/23 documented as of this encounter
--- OUTSIDE RECORDS SUMMARY | 2025-07-21 11:23 | XMS_ITS ---
Author Name [employer] Organization Unknown Encounters Encounter Type Encounter Reason Primary Diagnosis Location Date Ambulatory [facility] 07/29/2024 Care Team Organization Name Specialty Phone Email Start Date End Da te [facility] 2024
--- OUTSIDE RECORDS SUMMARY | 2025-07-21 11:23 | XMS_ITS | Clinical Summary ---
Author Organization [facility] Address [address] [place] [address] Care Team Providers Care Form Maker Plaster Name Role Phone Unavailable Primary Care Provider [...] 92 08/25/2023 11:00 AM EST Temperature 36.8 C (98.2 F) 08/25/2023 11:00 AM EST Respiratory Rate - - Oxygen Saturation 99% [...] Cancer Screening (Mammogram) 2018 Influenza Vaccine (#1) 2025 0, 07/27/2019, 07/27/2018, Additional history exists DTap [...]
--- OUTSIDE RECORDS SUMMARY | 2025-07-21 11:23 | XMS_ITS | Encounter Summary ---
Author Organization [employer] Address 75 [facility] 7[address] [place] [address] Care Team Providers Care Weigh Machine Operator Name Role Phone Janki Painting MD Primary Care Provider [phone] Rambo Saleem Unavailable Unavailable Reason for Visit * Reason Comments Med Refill Encounter Details Date Type Department Care Team (Late st Contact Info) Description 11/13/2022 Refill [facility] [address] [place] [phone] Rambo Saleem FNP Social History Tobacco Use [...] on filedocumented in this encounter Care Teams Weigh Machine Operator Relationship Specialty Start Date End Date Janki Painting MD [address] [place] [address] PCP - General Family Medicine 10/19/18 Rambo Saleem FNP [address] [place] [address] Nurse Practitioner Family Medicine 09/07/23 documented as of this encounter
--- OUTSIDE RECORDS SUMMARY | 2025-07-21 11:23 | XMS_ITS | Encounter Summary ---
Author Organization [employer] Address [address] [facility] [address] [place] [address] Care Team Providers Care Agency Operator Name Role Phone Janki Painting MD Primary Care Provider [phone] Rambo Saleem Unavailable Unavailable Encounter Details Date Type Department Care Team (Late st Contact Info) Description 03/03/2024 Orders Only [facility] MED [facility] PEDS [address] [place], [place] [phone] ProviderKyle MD Social History Tobacco Use Types [...] on file documented as of this encounter Procedures Procedure [...] documented as of this encounter Care Teams Agency Operator Relationship Specialty Start Date End Date Janki Painting MD [address] [place] [address] PCP - General Family Medicine 10/19/18 Rambo Saleem FNP [address] [place] [address] Nurse Practitioner Family Medicine 09/07/23 documented as of this encounter
--- OUTSIDE RECORDS SUMMARY | 2025-07-21 11:23 | XMS_ITS | Encounter Summary ---
Author Organization [employer] Address [address] [facility] [address] [place] [address] Care Team Providers Care Junior Php Developer Name Role Phone Janki Painting MD Primary Care Provider [phone] Rambo Saleem Unavailable Unavailable Encounter Details Date Type Department Care Team ([facility] st Contact Info) Description 10/20/2023 Orders Only [facility] MEDICINE [address] [place], [place] [phone] Hope Alfonso MD [address] [place], [place] [phone] Varicose veins of bilateral lower extremities with [...] HIGH SENSITIVITY 4.0 <3.5 - 17.0 ng/L [facility] Comment:The Francis high sens itivity Troponin-I results should beused in conjunction with other diagnostic information suchas ECG, clinical observations and information, and patientsymptoms to aid in the diagnosis of MT. 01/29/2024 10:4 8 PM EDT 01/29/2024 10:54 PM EDT us Generic External Data Provider LAB BLOOD ORDERAB LES Final Result [facility] [address] [place] [phone] * (ABNORMAL) Comprehensive Metabolic Panel (01/29/2024 10:48 PM EDT) Sodium 139 135 - 145 mmol/L [facility] Potassium 3.7 3.3 - 5.1 mmol/L [facility] Chloride 109(H) 96 - 108 mmol/L [facility] Carbon Dioxide 22 22 - 29 mmol/L [facility] Anion Gap 12 12 - 20 [facility] Urea Nitrogen (BUN) 16 9 - 16 mg/dL [facility] Creatinine, Serum 0.73 0.5 - 1.4 mg/dL [facility] Creatinine Clr Calc Pharmacy 87.9 [facility] Comment:Provided height and weight: 157.48 cm,84.822 kg.eGFR (calculated from the MDRD study equation) and eCrCl(calculated from the Cockcroft-Gault equation) are based ondifferent parameters and may not yield comparable results.If eCrCl result is absurd, please check patient'sheight/weight. Estimated Glomerular Filt Rate >60 [facility] Comment:NOTE: For -Am erican individuals, multiply the result by 1.210.Chronic Kidney Disease: Estimated GFR < 60 mL/min/1.84f7Tjpeod Kidney Disease: Estimated GFR < 15 mL/min/1.73m2 Glucose 117(H) 60 - 115 mg/dL [facility] Calcium 9.3 8.4 - 10.2 mg/dL [facility] Bilirubin, Total 0.5 0.0 - 1.0 mg/dL [facility] Aspartate Amino Transferase 18 5 - 31 U/L [facility] Alanine Aminotransferase 26 0 - 31 U/L [facility] Total Protein 7.0 6.5 - 8.0 g/dL [facility] Albumin Level 4.1 3.5 - 5.0 g/dL [facility] Alkaline Phosphatase 94 39 - 117 U/L [facility] 01/29/2024 10:4 8 PM EDT 01/29/2024 10:54 PM EDT us Generic External Data Provider LAB BLOOD ORDERAB LES Final Result [facility] [address] [place] [phone] [phone] * (ABNORMAL) CBC auto differential (01/29/2024 10:48 PM EDT) White Blood Count 7.6 4.8 - 10.8 X10*3/uL [facility] Red Blood Count 4.09(L) 4.20 - 5.50 X10*6/uL [facility] Hemoglobin 11.6(L) 12.0 - 16.0 g/dl [facility] Hematocrit 33.0(L) 37.0 - 47.0 % [facility] Mean Corpuscular Volume 80.7 80.0 - 98.0 fL [facility] Mean Corpuscular Hemoglobin 28.4 27.0 - 33.0 pg [facility] Mean Corpuscular HGB Conc 35.2(H) 31.0 - 35.0 g/dl [facility] Red Cell Distribution Width 13.9 11.0 - 16.0 % [facility] Platelet Count 178 160 - 400 X10*3/uL [facility] Mean Platelet Volume 9.4 9.4 - 12.3 fL [facility] Neutrophils Percent Auto 58.5 45 - 73 % [facility] Imm Gran Pct Auto 0.5(H) 0.0 - 0.4 % [facility] Lymphocytes Percent Auto 30.8 20 - 40 % [facility] Monocytes Percent Auto 6.2 2 - 11 % [facility] Eosinophils Percent Auto 3.6 0 - 4 % [facility] Basophils Percent Auto 0.4 0 - 2 % [facility] NRBC Pct Auto 0.0 0.0 - 0.2 /100WBC [facility] Neutrophils Absolute Auto 4.4 2.0 - 8.3 x10*3/uL [facility] Imm Gran Abs Auto 0.04(H) 0.00 - 0.03 X10*3/uL [facility] Lymphocytes Absolute Auto 2.3 1.2 - 4.9 X10*3/uL [facility] Monocytes Absolute Auto 0.5 0.1 - 1.2 X10*3/uL [facility] Eosinophils Absolute Auto 0.3 0.0 - 0.4 X10*3/uL [facility] Basophils Absolute Auto 0.0 0.0 - 0.2 X10*3/uL [facility] NRBC Abs Auto 0.000 0.0 - 0.012 X10*3/uL [facility] 01/29/2024 10:4 8 PM EDT 01/29/2024 10:54 PM EDT us Generic External Data Provider LAB BLOOD ORDERAB LES Final Result [facility] [address] [place] [phone] * (ABNORMAL) Basic Metabolic Panel (12/21/2023 11:18 AM EST) Sodium 142 135 - 145 mmol/L [facility] Potassium 3.8 3.3 - 5.1 mmol/L [facility] Chloride 109(H) 96 - 108 mmol/L [facility] Carbon Dioxide 26 22 - 29 mmol/L [facility] Anion Gap 11(L) 12 - 20 [facility] Urea Nitrogen (BUN) 15 9 - 16 mg/dL [facility] Creatinine, Serum 0.72 0.5 - 1.4 mg/dL [facility] Estimated Glomerular Filt Rate >60 [facility] Comment:NOTE: For -Am erican individuals, multiply the result by 1.210.Chronic Kidney Disease: Estimated GFR < 60 mL/min/1.48f2Crjoqb Kidney Disease: Estimated GFR < 15 mL/min/1.73m2 Glucose 135(H) 60 - 115 mg/dL [facility] Calcium 8.9 8.4 - 10.2 mg/dL [facility] 12/21/2023 11:1 8 AM EST 12/21/2023 11:18 AM EST us Generic External Data Provider LAB BLOOD ORDERAB LES Final Result Performing Organization Address City/State/[facility] Co de Phone Number [facility] [address] [place] [phone] [phone] documented in this encounter Visit Diagnoses Diagnosis Varicose veins of bilateral lower extremities with other complications- Primary documented in this encounter Additional Health Concerns Assessment Noted Time PHQ-9 Depression Total Score: 16 023 10:45 AM EST documented as of this encounter Care Teams Junior Php Developer Relationship Specialty Start Date End Date Janki Painting MD [address] [place] [address] PCP - General Family Medicine 10/19/18 Rambo Saleem FNP [address] [place] [address] Nurse Practitioner Family Medicine 09/07/23 documented as of this encounter
--- OUTSIDE RECORDS SUMMARY | 2025-07-21 11:23 | XMS_ITS | Encounter Summary ---
Author Organization [employer] Address 75 [facility] 7t [place] [address] Care Team Providers Care Trade Show Manager Name Role Phone Janki Painting MD Primary Care Provider [phone] Rambo Saleem Unavailable Unavailable Encounter Details Date Type Department Care Team ([facility] st Contact Info) Description 11/22/2024 Orders Only [facility] [address] [place] [address] Janki Painting MD [address] [place], [place] [phone] Social History Tobacco Use Types Packs/Day Years Used Date Smoking Tobacco: Never Passive Smoke Exposure: Never Smokeless Tobacco: Never Depression Answer Date Recorded Patient Health Questionnaire-9 Score 04/28/2024 Patient Health Questionnaire-9 Score 10 04/28/2024 Last PHQ-9: Questionnaire Data Not on file 0 04/28/2024 Housing Stability Answer Date Recorded What is your housing situation today? I have wes bhavana 08/10/[address] you li [...] documented as of this encounter Care Teams Trade Show Manager Relationship Specialty Start Date End Date Janki Painting MD [address] [place] [address] PCP - General Family Medicine 10/19/18 Rambo Saleem FNP [address] [place] [address] Nurse Practitioner Family Medicine 09/07/23 documented as of this encounter
--- OUTSIDE RECORDS SUMMARY | 2025-07-21 11:23 | XMS_ITS | Encounter Summary ---
Author Organization [employer] Address [address] [facility] [address] [place] [address] Care Team Providers Care Headlight Adjuster Name Role Phone Janki Painting MD Primary Care Provider [phone] Rambo Saleem Unavailable Unavailable Encounter Details Date Type Department Care Team (Late st Contact Info) Description 03/29/2025 Orders Only [facility] MED & PEDS [address] [place] [address] ProviderKyle MD Social History Tobacco Use Types [...] Procedure Name Priority Date/Time Associated Diagnosis Comments ECG 12-LEAD Routine 03/29/2025 4:01 PM EDT documented in this encounter Results * ECG 12 lead (03/29/2025 4:01 PM EDT) us Historical Provider ECG ORDERABLES Final Res ult documented in this encounter Visit Diagnoses Not on filedocumented in this encounter Additional Health Concerns Assessment Noted Time PHQ-9 Depression Total Score: 0 01/12/20 25 11:36 AM EDT documented as of this encounter Care Teams Headlight Adjuster Relationship Specialty Start Date End Date Janki Painting MD [address] [facility] [place] [address] PCP - General Family Medicine 10/19/18 Rambo Saleem FNP [address] [facility] [address] Nurse Practitioner Family Medicine 09/07/23 documented as of this encounter
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
--- OUTSIDE RECORDS SUMMARY | 2025-07-21 11:23 | XMS_ITS | Encounter Summary ---
Author Organization [employer] Address [address] [facility] 7[address] [place] [address] Care Team Providers Care Water Chemist Name Role Phone Janki Painting MD Primary Care Provider [phone] Rambo Saleem Unavailable Unavailable Reason for Visit * Reason Comments Med Refill Encounter Details Date Type Department Care Team ([facility] st Contact Info) Description 02/25/2025 Refill [facility] [address] [place], [place] [phone] Janki Painting MD [address] [place] [address] Obesity (BMI 35.0-39.9 without comorbidity); Primary hypertension [...] as of this encounter Visit Diagnoses Diagnosis Obesity (BMI 35.0-39.9 without comorbidity) Primary hypertension Unspecified essential hypertension documented in this encounter Additional Health Concerns Assessment Noted Time PHQ-9 Depression Total Score: 0 01/12/20 25 11:36 AM EDT documented as of this encounter Care Teams Water Chemist Relationship Specialty Start Date End Date Janki Painting MD [address] [place] [address] PCP - General Family Medicine 10/19/18 Rambo Saleem FNP [address] [place] [address] Nurse Practitioner Family Medicine 09/07/23 documented as of this encounter
--- OUTSIDE RECORDS SUMMARY | 2025-07-21 11:23 | XMS_ITS | Clinical Summary ---
Author Organization [address] [place] [address] Address [address] [place] [address] Phone Care Team Providers Care Recruiting And Selection Consultant Name Role Phone Janki Painting MD Primary Care Provider [phone] Encounters Date Type Department Care Team Description 06/06/2025 2:30 PM EDT Consult Orthopedic Surgery [facility] [address] [facility] [address] [place] [phone] Valdez Shafer, DPM Plantar fascial fibromatosis (Primary Dx); Equinus contracture of ankle from Last 3 Months Surgical History Surgery Date Site/Laterality Comments OTHER SURGICAL HISTORY 03/29/2012 PROCEDURE: BREAST TISSUE EXCISIONAL PATHOLOGY EXAM; COMMENT: 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 without Atypia/ No evidence of Maligancy SECTION 2007 PROCEDURE: HISTORICAL DELIVERY; COMMENT: c/s X 3 APPENDECTOMY 1995 PROCEDURE: HISTORICAL APPENDECTOMY APPENDECTOMY PROCEDURE: WI APPENDECTOMY HERNIA REPAIR PROCEDURE: WI RPR 1ST INGUN HRNA AGE 4 MO-5 [...] 09/01/2023 3:38 PM EST Plan of Treatment Upcoming Encounters Date Type Department Care Team (Late st Contact Info) Description 08/07/2025 9:45 AM EDT Office Visit Orthopedic Surgery - [place] [phone] [phone] Valdez Shafer, DPM [address] [phone] Health Maintenance Due Date Last Done Comments Colorectal Cancer Screening: Colonoscopy 1968 Pneumococcal Vaccine: 50+ Years (1 of 2 - PCV) 1987 HIV Screening 09/23/2022 Hepatitis C Screening 09/23/2022 Social Influencers of Health Screening 09/23/2022 Breast Cancer Screening 11/27/2022 11/27/2020 Cervical Cancer Screening: Pap Smear 11/05/2023 11/05/2020 Depression Screening 10/19/2024 Hypertension/CHF/CAD Annual BMP Blood Test 02/24/2025 COVID-19 Vaccine ( season) 2025 08/14/2021, 07/23/2021 Influenza Vaccine (#1) 2025 , 07/21/2023, 09/01/2022, Additional history exists DTaP,Tdap,and Td Vaccines (2 - Td or Tdap) 06/24/2027 06/24/2017 Cholesterol Screening (Lipid Panel) 09/01/2029 09/01/2024 RSV Immunization Adult Patients (1 - 1-dose 75+ series) 2043 Hepatitis [...] RESULTING AGENCY - 11/07/2020 4:46 PM EST [id number] THINPREP PAP, IMAGED: NEGATIVE FOR SQUAMOUS INTRAEPITHELIAL LESION AND MALIGNANCY . JAY CARBALLO(ASCP) (CASE ELECTRONICALLY SIGNED 11 07 2020) RESULT OF APTIMA HIGH RISK HPV ASSAY: HIGH RISK HPV: NEGATIVE (SEROTYPES 16,18,31,33,35,39,45,51,52,56,58,59,66,68) COMPLETED ON 2020-11-07 ADEQUACY: SATISFACTORY ENDOCERVICAL/TRANSFORMATION ZONE COMPONENT ABSENT. SOURCE: THINPREP PAP HPV ANY DX: REFLEX 16 AND 18, CERVICAL, IMAGED CLINICAL INFORMATION: HPV ANY DIAGNOSIS. PAP HX NEG, NO LMP RECORDED. PERIMENOPAUSAL [Z12.4, Z01.419] Joana [facility] CYTOLOGY ORDERABLES Final R esult HISTORICAL TESTING LAB RESULTING AGENCY from Last 3 Months or Most Recently Relevant to Health Maintenance Insurance MEDICAID - [place] Care Teams Recruiting And Selection Consultant Relationship Specialty Start Date End Date Janki Painting MD [address] [place] [phone] PCP - General 03/17/12
--- OUTSIDE RECORDS SUMMARY | 2025-07-21 11:23 | XMS_ITS | Encounter Summary ---
Author Organization [employer] Address [address] [facility] [address] [place] [address] Care Team Providers Care Supervisor Opening And Picking Name Role Phone Janki Painting MD Primary Care Provider [phone] Rambo Saleem Unavailable Unavailable Reason for Visit * Reason Comments Med Refill Encounter Details Date Type Department Care Team (Late st Contact Info) Description 11/28/2023 Refill [facility] [address] [place], [place] [phone] Rambo Saleem FNP Major depressive disorder, recurrent, [...] recurrent, severe with psychotic features (CMS/HCC) (HCC) Major depressive disorder, recurrent episode, severe, specified as with psychotic behavior documented in this encounter Additional Health Concerns Assessment Noted Time PHQ-9 Depression Total Score: 12 024 3:50 PM EST documented as of this encounter Care Teams Supervisor Opening And Picking Relationship Specialty Start Date End Date Janki Painting MD [address] [place] [address] PCP - General Family Medicine 10/19/18 Rambo Saleem FNP [address] [facility] [address] Nurse Practitioner Family Medicine 09/07/23 documented as of this encounter
--- OUTSIDE RECORDS SUMMARY | 2025-07-21 11:23 | XMS_ITS | Encounter Summary ---
Author Organization [employer] Address [address] [facility] 7t [place] [address] Care Team Providers Care Developer Relations Manager Name Role Phone Janki Painting MD Primary Care Provider [phone] Rambo Saleem Unavailable Unavailable Reason for Visit * Reason Onset Date Comments Medication Question 12/08/2024 Encounter Details Date Type Department Care Team ([facility] Contact Info) Description 12/08/2024 Telephone [facility] [address] [place] [address] Janki Painting MD [address] [place] [address] Medication Question Social History Tobacco Use Types [...] on note and to be faxed to [facility] Tc from pt requesting alternative medication. *sabino HOPKINS denied. Mauritanian * Telephone Encounter - Chelsey Costello - 12/08/2024 3:40 PM EST Tc from pt requesting alternative medication. *sabino HOPKINS denied. Mauritanian documented in this encounter Plan of Treatment Not on file documented as of this encounter Visit Diagnoses Not on filedocumented in this encounter Additional Health Concerns Assessment Noted Time PHQ-9 Depression Total Score: 10 024 2:46 PM EDT documented as of this encounter Care Teams Developer Relations Manager Relationship Specialty Start Date End Date Janki Painting MD 505 [facility] [place] [address] PCP - General Family Medicine 10/19/18 Rambo Saleem FNP [address] [facility] [place] [address] Nurse Practitioner Family Medicine 09/07/23 documented as of this encounter
--- OUTSIDE RECORDS SUMMARY | 2025-07-21 11:23 | XMS_ITS | Encounter Summary ---
Author Organization [employer] Address [address] [facility] 7t [place] [address] Care Team Providers Care Personal Care Service Provider Name Role Phone Janki Painting MD Primary Care Provider [phone] Rambo Saleem Unavailable Unavailable Reason for Visit * Reason Comments Med Refill Encounter Details Date Type Department Care Team ([facility] st Contact Info) Description 03/09/2024 Refill [facility] [address] [place] [address] Sheridan Chávez MD [address] [place] [address] Social History Tobacco Use Types Packs/Day Years [...] documented as of this encounter Care Teams Personal Care Service Provider Relationship Specialty Start Date End Date Janki Painting MD [address] [place] [address] PCP - General Family Medicine 10/19/18 Rambo Saleem FNP [address] [place] [address] Nurse Practitioner Family Medicine 09/07/23 documented as of this encounter
--- OUTSIDE RECORDS SUMMARY | 2025-07-21 11:23 | XMS_ITS | Encounter Summary ---
Author Organization [employer] Address [address] [facility] [address] 7[address] [place] [address] Care Team Providers Care Button Reclaimer Name Role Phone Janki Painting MD Primary Care Provider [phone] Rambo Saleem Unavailable Unavailable Encounter Details Date Type Department Care Team ([facility] st Contact Info) Description 08/24/2023 Abstract [facility] [address] [place] [address] Alyson Chou Social History Tobacco Use Types [...] EDT Gender Identity Choose not to disclose 2 10:17 AM EDT Sexual Orientation Choose not to disclose 2021 10:17 AM EDT documented as of this encounter Plan of Treatment Not on file documented as of this encounter Procedures Procedure Name Priority Date/Time Associated Diagnosis Comments COLONOSCOPY Routine 08/03/2020 documented in this encounter Results * Hm Colonoscopy (08/03/2020) Colonoscopy Normal Normal Narrative Alyson Chou - 08/03/2020 Recommended 10 year follow up Historical Provider HEALTH MAINTENANCE Final Result documented in this encounter Visit Diagnoses Not on filedocumented in this encounter Additional Health Concerns Assessment Noted Time PHQ-9 Depression Total Score: 14 07/06/2 023 9:01 AM EDT documented as of this encounter Care Teams Button Reclaimer Relationship Specialty Start Date End Date Janki Painting MD [address] [place] [address] PCP - General Family Medicine 10/19/18 Rambo Saleem FNP [address] [place] [address] Nurse Practitioner Family Medicine 09/07/23 documented as of this encounter
--- OUTSIDE RECORDS SUMMARY | 2025-07-21 11:24 | XMS_ITS | Encounter Summary ---
Author Organization [employer] Address [address] [facility] [place] [address] Care Team Providers Care Airplane Technician Name Role Phone Janki Painting MD Primary Care Provider [phone] Rambo Saleem Unavailable Unavailable Reason for Visit * Reason Onset Date Comments Prior Authorization 07/03/2025 Encounter Details Date Type Department Care Team ([facility] Contact Info) Description 07/03/2025 Telephone [facility] [address] [place] [address] Janki Painting MD [address] [place] [address] Prior Authorization Social History Tobacco Use Types Packs/Day Years [...] encounter Miscellaneous Notes * Telephone Encounter - Adriana Mac RN - 07/17/2025 11:36 AM EDT TC to patient via refinery operator. No answer. Message let to return call to office. * Telephone Encounter - Julia Olson - 07/03/2025 12:56 PM EDT Pt states requesting a PA for Tirzepatide-Weight Management 5 MG/0.5ML solution auto-injector documented in this encounter Plan of Treatment Not on file documented as of this encounter Visit Diagnoses Not on filedocumented in this encounter Additional Health Concerns Assessment Noted Time PHQ-9 Depression Total Score: 0 01/12/20 11:36 AM EDT documented as of this encounter Care Teams Airplane Technician Relationship Specialty Start Date End Date Janki Painting MD [address] [place] [address] PCP - General Family Medicine 10/19/18 Rambo Saleem FNP [address] [place] [address] Nurse Practitioner Family Medicine 09/07/23 documented as of this encounter
--- OUTSIDE RECORDS SUMMARY | 2025-07-21 11:24 | XMS_ITS | Encounter Summary ---
Author Organization [employer] Address [address] [facility] [address] [place] [address] Care Team Providers Care Reel Operator Name Role Phone Janki Painting MD Primary Care Provider [phone] Rambo Saleem Unavailable Unavailable Reason for Referral * Consultation (Routine) - Closed Specialty Diagnoses / Procedures Referred By Efren saldana Referred To Contact Diagnoses Primary hypertension Persistent proteinuria Janki Painting MD [address] [place] [address] Phone: tel: fax: [facility] [address], [address] [place] [address] Phone: tel: fax: Referral ID Status Reason Start Date Expiration Date V isits Requested Visits Authorized [id number] Closed Specialty Services Required 07/06/2024 07/06/2025 1 1 Encounter Details Date Type Department Care Team (Late st Contact Info) Description 07/06/2024 Orders Only [facility] MED [facility] P[facility]S [address] [place] [address] Janki Painting MD [address] [place], [place] [phone] Primary hypertension (Primary Dx); Persistent proteinuria Social [...] as of this encounter Plan of Treatment Scheduled Referrals Name Type Priority Associated Diagnoses [...] documented as of this encounter Care Teams Reel Operator Relationship Specialty Start Date End Date Janki Painting MD [address] [facility] [place] [address] PCP - General Family Medicine 10/19/18 Rambo Saleem FNP [address] [place] [address] Nurse Practitioner Family Medicine 09/07/23 documented as of this encounter
[2025-07-21 13:20] LABS: Appearance Urine Clear; Glucose Urine UA Negative (Negative); PH 5.5 (5.0-9.0); Specific Gravity - Urine 1.015 (1.005-1.025); UMIC TRIGGER UA YES
[2025-07-21 14:01] LABS: Hematocrit 39.0 % (37.0-47.0); Hemoglobin 12.9 g/dl (12.0-16.0); Mean Corpuscular HGB Conc 33.1 g/dl (31.0-35.0); Mean Corpuscular Hemoglobin 27.3 pg (27.0-33.0); Mean Corpuscular Volume 82.6 fL (80.0-98.0); NRBC Abs Auto 0.000 X10*3/uL (0.0-0.012); NRBC Pct Auto 0.0 /100WBC (0.0-0.2); Platelet Count 214 X10*3/uL (160-400); Red Blood Count 4.72 X10*6/uL (4.20-5.50); White Blood Count 5.9 X10*3/uL (4.8-10.8)
[2025-07-21 14:29] LABS: Alanine Aminotransferase 19 U/L (0-31); Albumin Level 4.4 g/dL (3.5-5.0); Alkaline Phosphatase 90 U/L (39-117); Anion Gap 11 (12-20); Aspartate Amino Transferase 22 U/L (5-31); Blood Urea Nitrogen 9 mg/dL (9-16); Calcium 9.0 mg/dL (8.4-10.2); Carbon Dioxide 28 mmol/L (22-29); Chloride 108 mmol/L (96-108); Cholesterol 240 mg/dL (<200); Estimated Glomerular Filt Rate > 60; HDL Cholesterol 54 mg/dL (>40); Potassium 4.0 mmol/L (3.3-5.1); Sodium 143 mmol/L (135-145); Total Protein 7.1 g/dL (6.5-8.0); Triglycerides 111 mg/dL (<150)
[2025-07-21 14:44] LABS: Total Protein Urine Random 116 mg/dL (<12)
== END 2025-07-21 10:26 | disposition home or self-care (01) ==
LOC: HO.HKASLDS 10:25
PROVIDERS: PCP Pediatrics; Visit Provider Internal Medicine Hypertension Specialist
DX: R80.1 Persistent proteinuria, unspecified (principal); D64.9 Anemia, unspecified
CPT/HCPCS: 36415; 80053; 80061; 81001; 82570; 84156; 85027

== ENCOUNTER 2025-07-26 10:01 | Outpatient (AMB) | payer MEDICAID, SELFPAY ==
[2025-07-26 10:03] VITALS: BP 134/68; PULSE 85; O2SAT 99; BMI 32.9
--- NOTE | 2025-07-26 10:03 | HO.NEPHOV ---
Vital Signs 07/26/25 10:03 Height 5 ft 2 in Weight 180 lb BMI 32.9 BP 134/68 Blood Pressure Location Lt brachial Position Sitting Pulse 85 Pulse Source Pulse Oximeter Pulse Oximetry (%) 99 Oxygen Delivery Method Room Air Intake Visit Reasons: 6 mnts f/u, confirmed Associate Merchandise Planner Required: Yes Associate Merchandise Planner Name: Chris [id number] Accompanied by: Self / Same As Patient Allergies Oyster Shell Allergy (Severe, Uncoded 02/01/25 08:33) Facial Swelling Medication List - Last Reconciled 07/26/25 by Lucas Portillo MD acetaminophen (Tylenol) 650 mg (2 x 325 mg) PO Q4H PRN albuterol sulfate 0.63 mg inhalation Q4-6H PRN amlodipine 10 mg PO DAILY blood pressure test kit-large As directed bupropion HCl XL 150 mg PO DAILY cetirizine (All Day Allergy (cetirizine)) 10 mg PO DAILY PRN cyanocobalamin (vitamin B-12) (Vitamin B-12) 1,000 mcg PO DAILY cyclobenzaprine 10 mg PO TID PRN duloxetine (Cymbalta) 60 mg PO BID duloxetine 60 mg PO BID fluticasone propion-salmeterol 250-50 mcg/dose (Advair Diskus) 1 inh inhalation BID fluticasone propionate 50 mcg/actuation 1 spray intranasal DAILY hydrochlorothiazide 25 mg PO DAILY ibuprofen 800 mg PO Q8H PRN linaclotide (Linzess) 145 mcg PO DAILY losartan 100 mg PO DAILY pantoprazole 40 mg PO DAILY quetiapine 300 mg PO BID sodium,potassium,mag sulfates 17.5-3.13-1.6 gram (Suprep Bowel Prep Kit) DILUTE; drink 1/2 at 6-8 pm and half at 11 PM- 1AM zolpidem 10 mg PO BEDTIME PRN HPI Comments Details: 53 y/o female with a medical history Tracy is a 53 y/o female with a medical history of hypertension, iron deficiency anemia, fibromyalgia, migraine, lumbar radiculopathy, degenerative disc disease, LIANNA. 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. Was referred to nephrology for management of hypertension and proteinuria. 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 medications: takes losartan 100mg daily, hydrochlorothiazide 25mg daily, amlodipine 10mg daily Providers: PCP: Dr Janki Rahman at [facility] Specialists: reports none currently diet, salt: has been adding salt to her diet, reports cannot taste it well so has to add a lot NSIADs/OTC medications: took ibuprofen 800mg PRN- took higher doses for many years for her pain management. stop taking 3 months ago. pt has been working on weight loss through a weight loss clinic at [place] shortness of breath: reports yes, will suddenly feel short of breath while sitting. reports dyspnea with exertion. reports feel my chest is burning - reports ongoing for a few years now. Edema: none urinary sx: none. reports intermittently problems where she cannot pee with blood in urine, reports since she was 13. Reports then takes medication and it goes away. No symptoms like this in 3 years. rash: reports muñoz/scars from scratching on her legs joint pain: joing pain, chronic, in hands, knees, hips. 02/01/25. Doing well. No new issues 07/26/25 - The patient is a 54-year-old female presenting with proteinuria, hypercholesterolemia, and hypertension management. - Proteinuria: Managed with losartan, showing decreased foam in urine. - Hypercholesterolemia: Cholesterol level at 240 mg/dL, no current medication. - Hypertension: History of high blood pressure contributing to proteinuria. - Lifestyle: Weight reduced from 194 to 180 pounds through diet and exercise. - Diet: Avoids greasy, salty, sugary foods; consumes chicken, fish, vegetables. - Hydration: Increased water intake for kidney health. - Blood Pressure: Decrease noted with weight loss. [facility] Medical History DJD (degenerative joint disease) Insomnia BMI 34.0-34.9,adult Obesity Essential hypertension History of palpitations Arthritis Fibromyalgia Asthma GERD (gastroesophageal reflux disease) Hx of bronchitis Anxiety Depression Iron deficiency anemia Dysphagia Surgical History History of umbilical hernia repair History of delivery History of laryngoscopy History of carpal tunnel surgery of right wrist Hx of colonoscopy Hx of esophagogastroduodenoscopy Hx of hysterectomy Family History Father Hx of type 1 diabetes mellitus Mother Hx of osteosarcoma Maternal Grandmother Hx of type 1 diabetes mellitus Maternal Grandfather Hx of type 1 diabetes mellitus Paternal Grandfather Hx of type 1 diabetes mellitus Paternal Grandmother Hx of type 1 diabetes mellitus Social History Household Members: Children Are you a primary career and transition teacher to a significant other at home: No Do you presently have visiting nurse or other home services: No Alcohol intake: never Patient Tobacco Use Status: Never used Tobacco Second Hand Smoke Exposure: No 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 Lungs entry equal no rales. Heart S1-S2 heard no gallop or rub. Abdomen soft nontender. Neuro alert awake oriented. No asterixis. Extremities no edema. Results Reviewed Nephrology Results: Hgb, (12.0-16.0) 12.9 g/dl 07/21/25 WBC, (4.8-10.8) 5.9 X10*3/uL 07/21/25 Plt Count, (160-400) 214 X10*3/uL 07/21/25 Sodium, (135-145) 143 mmol/L 07/21/25 Potassium, (3.3-5.1) 4.0 mmol/L 07/21/25 Chloride, (96-108) 108 mmol/L 07/21/25 Carbon Dioxide, (22-29) 28 mmol/L 07/21/25 BUN, (9-16) 9 mg/dL 07/21/25 Creatinine, (0.5-1.4) 0.71 mg/dL 07/21/25 Calcium, (8.4-10.2) 9.0 mg/dL 07/21/25 Urine Protein, (Neg-Trace) 100 (2+) mg/dL H 07/21/25 Urine Creatinine 90.30 mg/dL 07/21/25 Renal US 11/17/22 Assessment & Plan Assessment & Plan (1) Proteinuria: Code(s): R80.9 - Proteinuria, unspecified Category: Medical Qualifiers: Proteinuria type: persistent Qualified Code(s): R80.1 - Persistent proteinuria, unspecified (2) Essential hypertension: Code(s): I10 - Essential (primary) hypertension Category: Medical (3) Chronic anemia: Code(s): D64.9 - Anemia, unspecified Category: Medical Plan non nephrotic range Proteinuria P-ANCA was positive All other serologies were negative kidney biopsy revealed Hyperfilteration No crescents or acute injury Creatinine is stable Keep Losartan Monitor urine protein Unchanged over past 6 months -chronic normocytic anemia -hypertension Stay on low salt diet avoid nsaids, alcohol Needs to lose weight Hyperlipidemia Added Lipitor 10 mg daily Orders: Orders Lipid Panel 6 Months R80.1 - Persistent proteinuria, unspecified Total Protein Urine Random 6 Months R80.1 - Persistent proteinuria, unspecified UA and rflx microscopic 6 Months R80.1 - Persistent proteinuria, unspecified Creatinine Urine 6 Months R80.1 - Persistent proteinuria, unspecified Comprehensive Met. Panel 6 Months R80.1 - Persistent proteinuria, unspecified Medications: New atorvastatin (Lipitor) 10 mg PO DAILY 90 tabs 1RF Coding Level of Care Code Est Pt Level 4 (85068) Diagnoses Persistent proteinuria R80.1 Proteinuria type: persistent Essential hypertension I10 Chronic anemia D64.9
== END 2025-07-26 10:22 | disposition home or self-care (01) ==
LOC: HO.HKAS 10:01
PROVIDERS: PCP Pediatrics; Visit Provider Internal Medicine Hypertension Specialist
DX: R80.1 Persistent proteinuria, unspecified (principal); I10 Essential (primary) hypertension; D64.9 Anemia, unspecified
CPT/HCPCS: 99214

== ENCOUNTER → 2025-07-26 10:01 | Outpatient (BNVA) | payer MEDICAID, SELFPAY | PROVIDERS: PCP Pediatrics; Visit Provider Internal Medicine Hypertension Specialist | DX: I10 Essential (primary) hypertension (principal); R80.1 Persistent proteinuria, unspecified; D64.9 Anemia, unspecified | CPT/HCPCS: 99212 ==